=== PATIENT | female | born 1930 | race Caucasian/White ===

== ENCOUNTER → 2017-03-03 | Outpatient (CLI) | payer MEDICARE ==
[~2017-03-03] MED LIST: ALEN70TA47 PO; AMLO5TAB2 PO; ASP81TEC PO; CALC-80 PO; CLON1TAB3 PO; CLON2TAB3 PO; CYAN500T44 PO; DOCU-161 PO; FLC150T PO; FNT25TD TD; GABA-488 PO; GBPN100C PO; GLUC100016 PO; GLUCOSAMINE; HYDR-3583 PO; HYDR-3720 PO; HYDR-3820 PO; HYDR-757 PO; IBP200T PO; LEVO100T7 PO; LOSA100T7 PO; LUTE10TA PO; LVT.1T PO; MULT-608 PO; OMEG10005 PO; PRED10TA PO; RIVA10TA PO; ROSU10TA12 PO; SENN-1 PO; SENN1TAB76 PO; SPIR25TA3 PO
== END ==
LOC: CARD 14:23
PROVIDERS: ATTEND Nurse Practitioner Family
DX: R00.0 Tachycardia, unspecified (principal)
CPT/HCPCS: 93005

== ENCOUNTER → 2017-03-24 | Outpatient (CLI) | payer MEDICARE ==
[2017-03-24 09:56] LABS: ALBUMIN 4.1 GM/DL (3.2-4.5); CALCIUM 9.7 MG/DL (8.5-10.1); CREATININE SERUM 1.11 MG/DL (0.60-1.30); PHOSPHORUS 3.3 MG/DL (2.3-4.7); POTASSIUM 4.5 MMOL/L (3.6-5.0)
== END ==
LOC: CARD 09:16
PROVIDERS: ATTEND Internal Medicine Interventional Cardiology
DX: I48.1 Persistent atrial fibrillation (principal); I12.9 Hypertensive chronic kidney disease with stage 1 through stage 4 chronic kidney disease, or unspecified chronic kidney disease; N18.9 Chronic kidney disease, unspecified; E78.00 Pure hypercholesterolemia, unspecified
CPT/HCPCS: 36415; 80069; 93306

== ENCOUNTER → 2017-04-13 | Outpatient (CLI) | payer MEDICARE ==
[~2017-04-13] MED LIST changes: +CATHETER FLUSH 10 ML SYR IV PRN; +REGADENOSON 0.4 MG/5 ML SYR (LEXISCAN) IV ONE
[2017-04-13 09:32] VITALS: BP 158/97
--- NOTE | 2017-04-13 22:52 | STRESS TEST ---
DATE OF SERVICE: 04/13/2017 PHARMACOLOGICAL NUCLEAR STRESS TEST REPORT PRIMARY PHYSICIAN: Dr. Cinthia Soto. INDICATION: Shortness of breath, persistent atrial fibrillation, hypercholesterolemia, hypertension. PROCEDURE DETAILS: The patient was brought to the stress lab after informed consent was taken. Lexiscan stress test was performed according to the protocol. 0.4 mg of Lexiscan was given IV. Baseline rhythm was atrial fibrillation with right bundle branch block. Heart rate was 110 BPM. Blood pressure was 158/97 mmHg. Maximum heart rate was 147 BPM and blood pressure was 161/99 mmHg. 10.78 mCi of Myoview were given for rest imaging and 31.2 mCi of Myoview were given for stress imaging. TID 1.15, ejection fraction is 67%. Normal perfusion during rest and stress imaging. No wall motion abnormalities. IMPRESSION/CONCLUSION: 1. Pharmacological stress test is negative for ischemia. 2. Normal perfusion during rest and stress imaging. 3. Normal left ventricular function and no wall motion abnormalities. Job ID: [id number] DocumentID: [id number] Dictated Date: 04/13/2017 11:40:13 Plastics Repairer Date: 04/13/2017 13:00:00 Dictated By: GWENDOLYN SEWELL MD
== END ==
LOC: CARD 07:39
PROVIDERS: ATTEND Internal Medicine Interventional Cardiology
DX: R06.02 Shortness of breath (principal); I48.1 Persistent atrial fibrillation; I10 Essential (primary) hypertension; E78.00 Pure hypercholesterolemia, unspecified
CPT/HCPCS: 78452; 93017

== ENCOUNTER 2017-05-18 06:56 | Day surgery (SDC) | payer MEDICARE ==
[~2017-05-18] VITALS: Ht 165.1 cm; Wt 79.4 kg
[2017-05-18] VITALS (8 sets, daily range): BP systolic 95–126; BP diastolic 56–75
[~2017-05-18 06:56] MED LIST changes: -CATHETER FLUSH 10 ML SYR IV PRN; -REGADENOSON 0.4 MG/5 ML SYR (LEXISCAN) IV ONE
[2017-05-18] MEDS ORDERED: NS IV 1000 ML 1,000 ML ONE (07:13)
[2017-05-18] MEDS ORDERED: NS IV 1000 ML 1,000 ML IV SCH (07:16)
[2017-05-18 07:46] LABS: HEMOGLOBIN 13.9 G/DL (11.5-16.0); MEAN PLATELET VOLUME 10.9 FL (7.4-10.4); RED BLOOD COUNT 4.66 10^6/uL (4.35-5.85); RED CELL DISTRIBUTION WIDTH 14.6 % (10.0-14.5); WHITE BLOOD COUNT 6.9 10^3/uL (4.3-11.0)
[2017-05-18 08:00] LABS: INR 1.9 (0.8-1.4); PROTHROMBIN TIME PATIENT 21.8 SEC (12.2-14.7)
[2017-05-18 08:07] LABS: BILIRUBIN,TOTAL 0.6 MG/DL (0.1-1.0); CALCIUM 9.9 MG/DL (8.5-10.1); CREATININE SERUM 1.21 MG/DL (0.60-1.30); POTASSIUM 4.5 MMOL/L (3.6-5.0); TOTAL PROTEIN 7.3 GM/DL (6.4-8.2)
[2017-05-18] MEDS ORDERED: ATOR10TA66 PO (08:37)
[2017-05-18] MEDS ORDERED: CLON1TAB3 PO (08:37)
[2017-05-18] MEDS ORDERED: METO-370 PO (08:38)
[2017-05-18] MEDS ORDERED: LEVO100T7 PO ×2 (08:39)
[2017-05-18] MEDS ORDERED: RIVA20TA PO (08:40)
[2017-05-18] MEDS ORDERED: MIDAZOLAM 5 MG/5 ML (VERSED) VIAL ONE (09:21)
[2017-05-18] MEDS ORDERED: proPOfol 200 MG/20 ML (DIPRIVAN) VIAL IV ONE (09:21)
[2017-05-18] MEDS ORDERED: fentaNYL INJECTION 100 MCG/2 ML AMP ONE (09:22)
--- NOTE | 2017-05-18 09:39 | Progress Note-Standard ---
Standard Progress Note Progress Notes/Assess & Plan Date Seen by Provider: May 18, 2017 Time Seen by Provider: 09:30 Progress/Assessment & Plan consult for sedation. 2mg versed and 40mg propofol given iv. tolerated procedure well ... start time 929 end time 32 MARLENA DC CRNA May 18, 2017 09:39
--- NOTE | 2017-05-18 13:46 | Cardiology Post Procedure Note ---
Post-Procedure Note Physician (s)/Metal Ceiling Builder (s) Physician Olena SEWELL MD Pre-Procedure Diagnosis Pre-Procedure Diagnosis: Atrial fibrillation with rapid ventricular rate Post-Procedure Note Procedure Start Date: May 18, 2017 Procedure Start Time: 09:15 Name of Procedure: Direct external electrical cardioversion Findings/Procedure Note successful cardioversion with a single 200 J synchronized shock which converted the patient to sinus rhythm. Estimated blood loss (mL): 0 Contrast Amount: 0 Post-Procedure Diagnosis Post-operative diagnosis: Successful cardioversion of atrial fibrillation with rapid ventricular rate to sinus rhythm. Olena SEWELL MD May 18, 2017 1:46 pm
--- OUTSIDE RECORDS SUMMARY | 2017-05-18 20:03 | XMS REPORT | Continuity of Care Document ---
Author Author [facility] Organization [facility] Address Unknown Phone Unavailable Allergies Active Description Code Type Severity Reaction Onset Reported/Identified Relationship to Patient Clinical Status Yes NKANo Known Allergies NKA Miscellaneous Allergy Unknown N/A 08/05/2012 Medications There is no data. Problems Date Dx Coded Attending Type Code Diagnosis Diagnosed By 08/24/2011 Ot 244.9 HYPOTHYROIDISM NOS 08/24/2011 Ot 272.4 HYPERLIPIDEMIA NEC/NOS 08/24/2011 Ot 275.41 HYPOCALCEMIA 08/24/2011 Ot 276.8 HYPOPOTASSEMIA 08/24/2011 Ot 285.1 AC POSTHEMORRHAG ANEMIA 08/24/2011 Ot 288.60 LEUKOCYTOSIS , UNSPECIFIED 08/24/2011 Ot 300.00 ANXIETY STATE NOS 08/24/2011 Ot 401.9 HYPERTENSION NOS 08/24/2011 Ot 433.10 CAROTID ARTERY OCCLUSION W O CEREBRAL IN 08/24/2011 Ot 443.9 PERIPH VASCULAR DIS NOS 08/24/2011 Ot 564.00 UNSPEC CONSTIPATION 08/24/2011 Ot 733.00 OSTEOPOROSIS NOS 08/24/2011 Ot 820.21 INTERTROCHANTERIC FX-CL 08/24/2011 Ot E000.8 OTHER EXTERNAL CAUSE STATUS 08/24/2011 Ot E006.3 ACTIVITIES INVOLVING BOWLING 08/24/2011 Ot E849.6 ACCIDENT IN PUBLIC BLDG 08/24/2011 Ot E885.9 FALL FROM SLIPPING, TRIPPING, OR STUMBLI 08/24/2011 Ot V03.82 PROPHYLACTIC VACC AGAINST STREPTOCOCCUS 09/01/2011 Ot 244.9 HYPOTHYROIDISM NOS 09/01/2011 Ot 272.4 HYPERLIPIDEMIA NEC/NOS 09/01/2011 Ot 285.9 ANEMIA NOS 09/01/2011 Ot 300.00 ANXIETY STATE NOS 09/01/2011 Ot 401.9 HYPERTENSION NOS 09/01/2011 Ot 564.00 UNSPEC CONSTIPATION 09/01/2011 Ot 733.00 OSTEOPOROSIS NOS 09/01/2011 Ot 782.3 EDEMA 09/01/2011 Ot V54.13 AFTERCARE HEALING TRAUMATIC FX HIP 09/01/2011 Ot V57.1 PHYSICAL THERAPY NEC 09/01/2011 Ot V57.21 ENCOUNTER FOR OCCUPATIONAL THERAPY 01/12/2012 Ot V57.89 REHABILITATION PROC NEC 01/12/2012 Ot V58.43 AFTERCARE POST SURGERY INJURY/TRAUMA 05/16/2012 Ot 996.79 OTH COMP DUE TO OTH INTRNL PROSTHETIC DE 05/16/2012 Ot V57.1 PHYSICAL THERAPY NEC 05/16/2012 Ot V58.69 OTH MED,LT, CURRENT USE 08/05/2012 Ot 244.9 HYPOTHYROIDISM NOS 08/05/2012 Ot 401.9 HYPERTENSION NOS 08/05/2012 Ot 698.1 PRURITUS OF GENITALIA 08/05/2012 Ot 824.8 FX ANKLE NOS- CLOSED 08/05/2012 Ot E000.8 OTHER EXTERNAL CAUSE STATUS 08/05/2012 Ot E849.0 ACCIDENT IN HOME 08/05/2012 Ot E888.9 FALL NOS 08/14/2012 Ot 244.9 HYPOTHYROIDISM NOS 08/14/2012 Ot 272.4 HYPERLIPIDEMIA NEC/NOS 08/14/2012 Ot 300.00 ANXIETY STATE NOS 08/14/2012 Ot 401.9 HYPERTENSION NOS 08/14/2012 Ot 443.9 PERIPH VASCULAR DIS NOS 08/14/2012 Ot 564.00 UNSPEC CONSTIPATION 08/14/2012 Ot 698.1 PRURITUS OF GENITALIA 08/14/2012 Ot 733.00 OSTEOPOROSIS NOS 08/14/2012 Ot V15.82 HISTORY OF TOBACCO USE 08/14/2012 Ot V54.16 AFTERCARE HEALING TRAUMATIC FX LOWER LEG 08/14/2012 Ot V57.1 PHYSICAL THERAPY NEC 08/14/2012 Ot V57.21 ENCOUNTER FOR OCCUPATIONAL THERAPY 11/23/2012 JOHN BASILIO DO Ot V54.16 AFTERCARE HEALING TRAUMATIC FX LOWER LEG 11/23/2012 JOHN BASILIO DO Ot V57.1 PHYSICAL THERAPY NEC 05/26/2014 MARTIN LEONG APRN Ot 708.9 URTICARIA NOS 05/26/2014 MARTIN LEONG APRN Ot 782.1 NONSPECIF SKIN ERUPT NEC 05/26/2014 Ot 733.90 05/26/2014 Ot 793.81 03/11/2015 Ot 611.72 03/11/2015 Ot V76.12 03/11/2015 Ot V76.12 03/11/2015 Ot 996.79 03/11/2015 Ot V72.83 03/11/2015 Ot V74.8 03/11/2015 Ot 623.5 03/11/2015 Ot 625.8 03/11/2015 Ot 401.9 03/11/2015 Ot 625.8 03/11/2015 Ot 729.92 03/11/2015 JESSY WORTHY, MELVA Roberts Ot V76.12 03/11/2015 JESSY WORTHY, MELVA Roberts Ot 724.5 03/11/2015 JESSY WORTHY, MELVA Roberts Ot 736.81 03/11/2015 JESSY WORTHY, MELVA Roberts Ot V15.51 03/11/2015 JAYCEE BAH DO Ot 627.1 03/11/2015 MELVA JIMÉNEZ MD Ot 719.45 03/11/2015 MELVA JIMÉNEZ MD Ot 719.46 03/11/2015 MELVA JIMÉNEZ MD Ot 724.2 03/11/2015 GERHARD ZULETA DO Ot 724.4 03/11/2015 BARBARA RODRIGUEZ ELECTRONIC WARFARE OPERATOR Ot V76.12 04/06/2015 MELVA JIMÉNEZ MD Ot Z12.31 07/22/2015 BRIGITTE BENITO MD Ot E03.9 HYPOTHYROIDISM, UNSPECIFIED 07/22/2015 BRIIGTTE BENITO MD Ot E78.0 PURE HYPERCHOLESTEROLEMIA 07/22/2015 BRIGITTE BENITO MD Ot F41.9 ANXIETY DISORDER, UNSPECIFIED 07/22/2015 BRIGITTE BENITO MD Ot I10 ESSENTIAL (PRIMARY) HYPERTENSION 07/22/2015 BRIGITTE BENITO MD Ot 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, RIGHT SHOULDER 07/22/2015 BRIGITTE BENITO MD Ot S42.141A 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[place], [place] 07/22/2015 BRIGITTE BENITO MD Ot S42.209A UNSP FRACTURE OF UPPER END OF UNSP HUMER 07/22/2015 BRIGITTE BENITO MD Ot S52.501A UNSP FRACTURE OF THE LOWER END OF RIGHT 07/22/2015 BRIGITTE BENITO MD Ot S52.601A UNSP FRACTURE OF LOWER END OF RIGHT ULNA 07/22/2015 BRIGITTE BENITO MD Ot W19.XXXA UNSPECIFIED FALL, INITIAL ENCOUNTER 07/22/2015 BRIGITTE BENITO MD Ot Y92.[address] IN OTH NON-INSTITUTIONAL RESI 07/22/2015 BRIGITTE BENITO MD Ot Z87.891 PERSONAL HISTORY OF NICOTINE DEPENDENCE 07/22/2015 BRIGITTE BENITO MD Ot Z90.49 ACQUIRED ABSENCE OF OTHER SPECIFIED PART 04/11/2016 Ot V76.12 OTH SCREEN MAMMO-MALIGN NEOPLASM OF [place] 04/11/2016 Ot 996.79 OTH COMP DUE TO OTH INTRNL PROSTHETIC DE 04/11/2016 Ot V72.83 EXAM PRE- OPERATIVE NEC 04/11/2016 Ot V74.8 SCREEN- BACTERIAL DIS NEC 04/11/2016 Ot 623.5 NONINFECT VAG LEUKORRHEA 04/11/2016 Ot 625.8 FEM GENITAL SYMPTOMS NEC 04/11/2016 Ot 401.9 HYPERTENSION NOS 04/11/2016 Ot 625.8 FEM GENITAL SYMPTOMS NEC 04/11/2016 Ot 729.92 NONTRAUMATIC HEMATOMA OF SOFT TISSUE 04/11/2016 MELVA JIMÉNEZ MD Ot V76.12 OTH SCREEN MAMMO-MALIGN NEOPLASM OF [place] 04/11/2016 MELVA JIMÉNEZ MD Ot 724.5 BACKACHE NOS 04/11/2016 MELVA JIMÉNEZ MD Ot 736.81 UNEQUAL LEG LENGTH 04/11/2016 MELVA JIMÉNEZ MD Ot V15.51 PERSONAL HISTORY OF TRAUMATIC FRACTURE 04/11/2016 JAYCEE BAH DO Ot 627.1 POSTMENOPAUSAL BLEEDING 04/11/2016 MELVA JIMÉNEZ MD Ot 719.45 JOINT PAIN-PELVIS 04/11/2016 MELVA JIMÉNEZ MD Ot 719.46 JOINT PAIN-L/LEG 04/11/2016 MELVA JIMÉNEZ MD Ot 724.2 LUMBAGO 04/11/2016 GERHARD ZULETA DO Ot 724.4 LUMBOSACRAL NEURITIS NOS 04/11/2016 BARBARA RODRIGUEZ Ot V76.12 OTH SCREEN MAMMO-MALIGN NEOPLASM OF [place] 04/11/2016 MELVA JIMÉNEZ MD Ot Z12.31 ENCNTR SCREEN MAMMOGRAM FOR MALIGNANT NE 04/11/2016 VALARIE SHELBY APRN Ot Z12.31 ENCNTR SCREEN MAMMOGRAM FOR MALIGNANT NE 04/12/2016 VALARIE SHELBY COMMUNITY OUTREACH SPECIALIST Ot Z12.31 ENCNTR SCREEN MAMMOGRAM FOR MALIGNANT NE 04/12/2016 VALARIE SHELBY COMMUNITY OUTREACH SPECIALIST Ot Z12.31 ENCNTR SCREEN MAMMOGRAM FOR MALIGNANT NE 05/05/2016 VALARIE SHELBY COMMUNITY OUTREACH SPECIALIST Ot Z12.31 ENCNTR SCREEN MAMMOGRAM FOR MALIGNANT NE 03/03/2017 JESSY WORTHY, MELVA Roberts Ot Z12.31 ENCNTR SCREEN MAMMOGRAM FOR MALIGNANT NE 03/03/2017 VALARIE SHELBY COMMUNITY OUTREACH SPECIALIST Ot Z12.31 ENCNTR SCREEN MAMMOGRAM FOR MALIGNANT NE 03/06/2017 BARBARA RODRIGUEZ ELECTRONIC WARFARE OPERATOR Ot R00.0 TACHYCARDIA, UNSPECIFIED 03/09/2017 BARBARA RODRIGUEZ ELECTRONIC WARFARE OPERATOR Ot R00.0 TACHYCARDIA, UNSPECIFIED 03/27/2017 BARBARA RODRIGUEZ ELECTRONIC WARFARE OPERATOR Ot R00.0 TACHYCARDIA, UNSPECIFIED 04/12/2017 BARBARA RODRIGUEZ ELECTRONIC WARFARE OPERATOR Ot R00.0 TACHYCARDIA, UNSPECIFIED 04/18/2017 Olena SEWELL MD Ot E78.00 PURE HYPERCHOLESTEROLEMIA, UNSPECIFIED 04/18/2017 Olena SEWELL MD Ot I12.9 HYPERTENSIVE CHRONIC KIDNEY DISEASE W ST 04/18/2017 Olena SEWELL MD Ot I48.1 PERSISTENT ATRIAL FIBRILLATION 04/18/2017 Olena SEWELL MD Ot N18.9 CHRONIC KIDNEY DISEASE, UNSPECIFIED 05/04/2017 Olena SEWELL MD Ot E78.00 PURE HYPERCHOLESTEROLEMIA, UNSPECIFIED 05/04/2017 Olena SEWELL MD Ot I10 ESSENTIAL (PRIMARY) HYPERTENSION 05/04/2017 Olena SEWELL MD Ot I48.1 PERSISTENT ATRIAL FIBRILLATION 05/04/2017 Olena SEWELL MD Ot R06.02 SHORTNESS OF BREATH 05/09/2017 Olena SEWELL MD Ot E78.00 PURE HYPERCHOLESTEROLEMIA, UNSPECIFIED 05/09/2017 Olena SEWELL MD Ot I12.9 HYPERTENSIVE CHRONIC KIDNEY DISEASE W ST 05/09/2017 Olena SEWELL MD Ot I48.1 PERSISTENT ATRIAL FIBRILLATION 05/09/2017 Olena SEWELL MD Ot N18.9 CHRONIC KIDNEY DISEASE, UNSPECIFIED Procedures Code Description Performed By Performed On 79.15 CLOSED RED-INT FIX FEMUR 08/18/2011 [id number] REPOSITION RIGHT SHOULDER JOINT, EXTERNA 07/20/2015 [id number] IMMOBILIZATION OF RIGHT LOWER ARM USING 07/20/2015 Results Test Result Range Serum or plasma renal function panel (Na, K, Cl, CO2, BUN, Cr, glucose,Ca, phos , alb) - 03/24/17 09:33 Serum or plasma sodium measurement (moles/volume) 139 mmol/L 135-145 Serum or plasma potassium measurement (moles/volume) 4.5 mmol/L 3.6-5.0 Serum or plasma chloride measurement (moles/volume) 107 mmol/L 98-107 Carbon dioxide 23 mmol/L 21-32 Serum or plasma anion gap determination (moles/volume) 9 mmol/L 5-14 Serum or plasma urea nitrogen measurement (mass/volume) 25 mg/dL 7-18 Serum or plasma creatinine measurement (mass/volume) 1.11 mg/dL 0.60-1.30 Serum or plasma urea nitrogen/creatinine mass ratio 23 NRG Serum or plasma creatinine measurement with calculation of estimated glomerular filtration rate 47 NRG Serum or plasma glucose measurement (mass/volume) 110 mg/dL 70-105 Serum or plasma calcium measurement (mass/volume) 9.7 mg/dL 8.5-10.1 Serum or plasma albumin measurement (mass/volume) 4.1 g/dL 3.2-4.5 Serum or plasma phosphate measurement (mass/volume) 3.3 mg/dL 2.3-4.7 Automated blood complete blood count (hemogram) panel - 05/18/17 07:30 Blood leukocytes automated count (number/volume) 6.9 10*3/uL 4.3-11.0 Blood erythrocytes automated count (number/volume) 4.66 10*6/uL 4.35-5.85 Venous blood hemoglobin measurement (mass/volume) 13.9 g/dL 11.5-16.0 Blood hematocrit (volume fraction) 41 % 35-52 Automated erythrocyte mean corpuscular volume 88 [foz_us] 80-99 Automated erythrocyte mean corpuscular hemoglobin (mass per erythrocyte) 30 pg 25-34 Automated erythrocyte mean corpuscular hemoglobin concentration measurement ( mass/volume) 34 g/dL 32-36 Automated erythrocyte distribution width ratio 14.6 % 10.0-14.5 Automated blood platelet count (count/volume) 245 10*3/uL 130-400 Automated blood platelet mean volume measurement 10.9 [foz_us] 7.4-10.4 PT panel in platelet poor plasma by coagulation assay - 05/18/17 07:30 Prothrombin time (PT) in platelet poor plasma by coagulation assay 21.8 s 12.2-14.7 INR in platelet poor plasma or blood by coagulation assay 1.9 0.8-1.4 Activated partial thromboplastin time (aPTT) in platelet poor plasma bycoagulation assay - 05/18/17 07:30 Activated partial thromboplastin time (aPTT) in platelet poor plasma bycoagulation assay 41 s 24-35 Comprehensive metabolic panel - 05/18/17 07:30 Serum or plasma sodium measurement (moles/volume) 138 mmol/L 135-145 Serum or plasma potassium measurement (moles/volume) 4.5 mmol/L 3.6-5.0 Serum or plasma chloride measurement (moles/volume) 105 mmol/L 98-107 Carbon dioxide 21 mmol/L 21-32 Serum or plasma anion gap determination (moles/volume) 12 mmol/L 5-14 Serum or plasma urea nitrogen measurement (mass/volume) 33 mg/dL 7-18 Serum or plasma creatinine measurement (mass/volume) 1.21 mg/dL 0.60-1.30 Serum or plasma urea nitrogen/creatinine mass ratio 27 NRG Serum or plasma creatinine measurement with calculation of estimated glomerular filtration rate 42 NRG Serum or plasma glucose measurement (mass/volume) 110 mg/dL 70-105 Serum or plasma calcium measurement (mass/volume) 9.9 mg/dL 8.5-10.1 Serum or plasma total bilirubin measurement (mass/volume) 0.6 mg/dL 0.1-1.0 Serum or plasma alkaline phosphatase measurement (enzymatic activity/volume) 57 U/L 40-136 Serum or plasma aspartate aminotransferase measurement (enzymatic activity/ volume) 21 U/L 5-34 Serum or plasma alanine aminotransferase measurement (enzymatic activity/volume ) 15 U/L 0-55 Serum or plasma protein measurement (mass/volume) 7.3 g/dL 6.4-8.2 Serum or plasma albumin measurement (mass/volume) 4.0 g/dL 3.2-4.5 Encounters ACCT No. Visit Date/Time Discharge Status Pt. Type Provider Facility Loc./Unit Complaint [id number] 04/13/2017 07:39:00 04/13/2017 23:59:59 CLS Outpatient Olena SEWELL MD [facility] CARD SOB [id number] 03/24/2017 09:16:00 03/24/2017 23:59:59 CLS Outpatient Olena SEWELL MD [facility] CARD CKD [id number] 03/03/2017 14:23:00 03/03/2017 23:59:59 CLS Outpatient BARBARA RODRIGUEZ [facility] CARD TACHYCARDIA [id number] 04/11/2016 14:51:00 04/11/2016 23:59:59 CLS Outpatient VALARIE SEHLBY APRN [facility] RAD SCREENING [id number] 07/20/2015 23:00:00 07/22/2015 14:15:00 DIS Inpatient BRIGITTE BENITO MD [facility] 4TH RT SHOULDER DISLOCATION W /FX,RT DIST RADIUS/ULNA F [id number] 03/11/2015 14:29:00 03/11/2015 23:59:59 CLS Outpatient MELVA JIMÉNEZ MD [facility] RAD SCREENING [id number] 05/26/2014 19:06:00 05/26/2014 20:10:00 DIS Emergency MARTIN LEONG COMMUNITY OUTREACH SPECIALIST [facility] ER RASH ALL OVER BODY;POSS INSECT BITE [id number] 02/06/2014 13:54:00 02/06/2014 23:59:59 CLS Outpatient BARBARA RODRIGUEZ [facility] RAD SCREENING [id number] 02/04/2014 09:46:00 02/04/2014 23:59:59 CLS Outpatient GERHARD ZULETA DO [facility] RAD LUMBAR RADICULOPATHY [id number] 01/01/2014 13:46:00 01/01/2014 23:59:59 CLS Outpatient MELVA JIMÉNEZ MD [facility] RAD KNEE AND HIP PAIN AND LOW BACK PAIN [id number] 03/14/2013 13:16:00 03/14/2013 23:59:59 CLS Outpatient JAYCEE BAH DO [facility] RAD POSTMENOPAUSAL BLEEDING [id number] 02/06/2013 15:05:00 02/06/2013 23:59:59 CLS Outpatient MELVA JIMÉNEZ MD [facility] RAD BACK PAIN HX OF FX [id number] 01/28/2013 15:03:00 01/28/2013 23:59:59 CLS Outpatient MELVA JIMÉNEZ MD [facility] RAD SCREENING [id number] 11/12/2012 13:11:00 11/23/2012 10:15:00 DIS Outpatient CHETNA DORAN JOHN Caceres [facility] REHAB R TIB/FIB FX [id number] 05/18/2017 07:46:00 Document Registration [id number] 08/05/2012 13:47:00 Document Registration [id number] 08/03/2012 08:50:00 Document Registration [id number] 06/04/2012 16:45:00 Document Registration [id number] 05/14/2012 06:48:00 Document Registration [id number] 05/10/2012 08:47:00 Document Registration [id number] 04/27/2012 09:53:00 Document Registration [id number] 04/25/2012 08:20:00 Document Registration [id number] 04/23/2012 11:57:00 Document Registration [id number] 01/13/2012 13:21:00 Document Registration [id number] 01/12/2012 14:43:00 Document Registration [id number] 08/24/2011 15:30:00 Document Registration [id number] 08/17/2011 20:29:00 Document Registration [id number] 10/13/2010 13:47:00 Document Registration [id number] 09/23/2009 13:12:00 Document Registration [id number] 03/18/2009 11:09:00 Document Registration [id number] 01/23/2009 13:18:00 Document Registration
--- NOTE | 2017-05-19 03:50 | OPERATIVE REPORT ---
DATE OF SERVICE: 05/18/2017 DIRECT EXTERNAL ELECTRICAL CARDIOVERSION PRIMARY CARE PHYSICIAN: Cinthia Soto MD. INDICATION: Atrial fibrillation with rapid ventricular rate. PROCEDURE DETAILS: The patient was brought to the cardiac center after informed consent was taken. All risks and complications were explained including risk of stroke. The patient was on uninterrupted therapy with Xarelto for at least the last 1 month. She did not miss even a single dose. With anesthesia help, we performed one external shock with 200 joules synchronized, which converted her promptly into sinus rhythm. She had no neurological complications. CONCLUSION: 1. Successful external electrical cardioversion of atrial fibrillation with rapid ventricular rate to sinus rhythm. 2. No neurological complication. 3. Continue Xarelto and rate controlling agents. 4. Follow up in the cardiology office in one week. Job ID: [id number] DocumentID: [id number] Dictated Date: 05/18/2017 16:19:04 Automobile Tester Date: 05/19/2017 01:41:08 Dictated By: GWENDOLYN SEWELL MD
== END 2017-05-18 10:44 | disposition home or self-care (01) ==
LOC: CATH 06:56
PROVIDERS: ATTEND Internal Medicine Interventional Cardiology
DX: I48.0 Paroxysmal atrial fibrillation (principal); I12.9 Hypertensive chronic kidney disease with stage 1 through stage 4 chronic kidney disease, or unspecified chronic kidney disease; N18.9 Chronic kidney disease, unspecified; E78.5 Hyperlipidemia, unspecified; E03.9 Hypothyroidism, unspecified; I65.21 Occlusion and stenosis of right carotid artery; Z79.01 Long term (current) use of anticoagulants; Z79.82 Long term (current) use of aspirin; Z79.899 Other long term (current) drug therapy
CPT/HCPCS: 36415; 80053; 85027; 85610; 85730; 87081; 92960; 93005

== ENCOUNTER 2017-05-19 13:49 | Observation (INO) | payer MEDICARE ==
[~2017-05-19] VITALS: Ht 162.6 cm; Wt 54.4 kg
[~2017-05-19 13:49] MED LIST changes: +ATOR10TA66 PO; +METO-370 PO; +RIVA20TA PO
--- OUTSIDE RECORDS SUMMARY | 2017-05-19 13:56 | XMS REPORT | Continuity of Care Document ---
Author Author [facility] Organization [facility] Address Unknown Phone Unavailable Allergies Active Description [...] ZULETA DO Ot 724.4 03/11/2015 BARBARA RODRIGUEZ PLANT OPERATIONS ENGINEER Ot V76.12 04/06/2015 MELVA JIMÉNEZ MD Ot Z12.31 07/22/2015 BRIGITTE BENITO MD Ot E03.9 HYPOTHYROIDISM, UNSPECIFIED 07/22/2015 BRIGITTE BENITO MD Ot E78.0 PURE HYPERCHOLESTEROLEMIA 07/22/2015 [...] JIMÉNEZ MD Ot 719.45 JOINT PAIN-PELVIS 04/11/2016 EMLVA JIMÉNEZ MD Ot 719.46 JOINT PAIN-L/LEG 04/11/2016 MELVA JIMÉNEZ MD Ot 724.2 LUMBAGO 04/11/2016 GERHARD ZULETA DO Ot 724.4 LUMBOSACRAL NEURITIS NOS 04/11/2016 BARBARA RODRIGUEZ Ot V76.12 OTH SCREEN MAMMO-MALIGN NEOPLASM OF [place] 04/11/2016 MELVA JIMÉNEZ MD Ot Z12.31 ENCNTR SCREEN MAMMOGRAM FOR MALIGNANT NE 04/11/2016 VALARIE SHELBY APRN Ot Z12.31 ENCNTR SCREEN MAMMOGRAM FOR MALIGNANT NE 04/12/2016 VALARIE SHELBY FIELD SUPPORT SPECIALIST Ot Z12.31 ENCNTR SCREEN MAMMOGRAM FOR MALIGNANT NE 04/12/2016 VALARIE SHELBY FIELD SUPPORT SPECIALIST Ot Z12.31 ENCNTR SCREEN MAMMOGRAM FOR MALIGNANT NE 05/05/2016 VALARIE SHELBY FIELD SUPPORT SPECIALIST Ot Z12.31 ENCNTR SCREEN MAMMOGRAM FOR MALIGNANT NE 03/03/2017 JESSY WORTHY, MELVA Roberts Ot Z12.31 ENCNTR SCREEN MAMMOGRAM FOR MALIGNANT NE 03/03/2017 VALARIE SHELBY FIELD SUPPORT SPECIALIST Ot Z12.31 ENCNTR SCREEN MAMMOGRAM FOR MALIGNANT NE 03/06/2017 BARBARA RODRIGUEZ PLANT OPERATIONS ENGINEER Ot R00.0 TACHYCARDIA, UNSPECIFIED 03/09/2017 BARBARA RODRIGUEZ PLANT OPERATIONS ENGINEER Ot R00.0 TACHYCARDIA, UNSPECIFIED 03/27/2017 BARBARA RODRIGUEZ PLANT OPERATIONS ENGINEER Ot R00.0 TACHYCARDIA, UNSPECIFIED 04/12/2017 BARBARA RODRIGUEZ PLANT OPERATIONS ENGINEER Ot R00.0 TACHYCARDIA, UNSPECIFIED 04/18/2017 Olena SEWELL [...] [id number] REPOSITION RIGHT SHOULDER JOINT, EXTERNA 07/20/2015 [id number] IMMOBILIZATION OF RIGHT LOWER ARM USING 07/20/2015 [...] plasma albumin measurement (mass/volume) 4.0 g/dL 3.2-4.5 Methicillin resistant Staphylococcus aureus (MRSA) screening culture - 07:30 Methicillin resistant Staphylococcus aureus (MRSA) screening culture NEG NRG Encounters ACCT No. Visit Date/Time Discharge Status Pt. Type Provider Facility Loc./Unit Complaint [id number] 05/18/2017 06:56:00 05/18/2017 10:44:00 DIS Outpatient Olena SEWELL MD [facility] CATH AFIB W RVR [id number] 04/13/2017 07:39:00 04/13/2017 23:59:59 CLS Outpatient Olena SEWELL MD [facility] CARD SOB [id number] 03/24/2017 09:16:00 03/24/2017 23:59:59 CLS Outpatient Olena SEWELL MD [facility] CARD CKD [id number] 03/03/2017 14:23:00 03/03/2017 23:59:59 CLS Outpatient BARBARA RODRIGUEZ [facility] CARD TACHYCARDIA [id number] 04/11/2016 14:51:00 04/11/2016 23:59:59 CLS Outpatient VALARIE SHELBY APRN [facility] RAD SCREENING [id number] 07/20/2015 23:00:00 07/22/2015 14:15:00 DIS Inpatient BRIGITTE BENITO MD [facility] 4TH RT SHOULDER DISLOCATION W /FX,RT DIST RADIUS/ULNA F [id number] 03/11/2015 14:29:00 03/11/2015 23:59:59 CLS Outpatient MELVA JIMÉNEZ MD [facility] RAD SCREENING [id number] 05/26/2014 19:06:00 05/26/2014 20:10:00 DIS Emergency MARTIN LEONG FIELD SUPPORT SPECIALIST [facility] ER RASH ALL OVER BODY;POSS INSECT BITE [id number] 02/06/2014 13:54:00 02/06/2014 23:59:59 CLS Outpatient BARBARA RODRIGUEZ [facility] RAD SCREENING [id number] 02/04/2014 09:46:00 02/04/2014 23:59:59 CLS Outpatient GERHARD ZULETA DO [facility] RAD LUMBAR RADICULOPATHY [id number] 01/01/2014 13:46:00 01/01/2014 23:59:59 CLS Outpatient MELVA JIMÉNEZ MD [facility] RAD KNEE AND HIP PAIN AND LOW BACK PAIN [id number] 03/14/2013 13:16:00 03/14/2013 23:59:59 CLS Outpatient JAYCEE BAH DO S [facility] RAD POSTMENOPAUSAL BLEEDING [id number] 02/06/2013 15:05:00 02/06/2013 23:59:59 CLS Outpatient MELVA JIMÉNEZ MD [facility] RAD BACK PAIN HX OF FX [id number] 01/28/2013 15:03:00 01/28/2013 23:59:59 CLS Outpatient MELVA JIMÉNEZ MD [facility] RAD SCREENING [id number] 11/12/2012 13:11:00 11/23/2012 10:15:00 DIS Outpatient CHETNA DORAN JOHN Caceres [facility] REHAB R TIB/FIB FX [id number] 08/05/2012 13:47:00 Document Registration [id number] 08/03/2012 08:50:00 Document Registration [id number] 06/04/2012 16:45:00 Document Registration [id number] 05/14/2012 06:48:00 Document Registration [id number] 05/10/2012 08:47:00 Document Registration [id number] 04/27/2012 09:53:00 Document Registration [id number] 04/25/2012 08:20:00 Document Registration [id number] 04/23/2012 11:57:00 Document Registration [id number] 01/13/2012 13:21:00 Document Registration [id number] 01/12/2012 14:43:00 Document Registration [id number] 08/24/2011 15:30:00 Document Registration [id number] 08/17/2011 20:29:00 Document Registration [id number] 10/13/2010 13:47:00 Document Registration [id number] 09/23/2009 13:12:00 Document Registration [id number] 03/18/2009 11:09:00 Document Registration [id number] 01/23/2009 13:18:00 Document Registration
[2017-05-19 14:00] VITALS: BP 106/67
[2017-05-19 14:22] LABS: BASOPHILS # (AUTO) 0.1 10^3/uL (0.0-0.1); BASOPHILS % (AUTO) 1 % (0-10); EOSINOPHILS # (AUTO) 0.3 10^3/uL (0.0-0.3); EOSINOPHILS % (AUTO) 4 % (0-10); HEMATOCRIT 39 % (35-52); LYMPHOCYTES # (AUTO) 2.7 X 10^3 (1.0-4.0); LYMPHOCYTES % (AUTO) 35 % (12-44); MEAN CORPUSCULAR HEMOGLOBIN 30 PG (25-34); MEAN CORPUSCULAR HGB CONC 34 G/DL (32-36); MEAN CORPUSCULAR VOLUME 88 FL (80-99); MEAN PLATELET VOLUME 10.7 FL (7.4-10.4); MONOCYTES # (AUTO) 0.8 X 10^3 (0.0-1.0); MONOCYTES % (AUTO) 10 % (0-12); NEUTROPHILS % (AUTO) 51 % (42-75); PLATELET COUNT 248 10^3/uL (130-400); RED BLOOD COUNT 4.38 10^6/uL (4.35-5.85); RED CELL DISTRIBUTION WIDTH 14.7 % (10.0-14.5); WHITE BLOOD COUNT 7.9 10^3/uL (4.3-11.0)
[2017-05-19 14:34] LABS: INR 1.3 (0.8-1.4); PROTHROMBIN TIME PATIENT 16.5 SEC (12.2-14.7)
[2017-05-19 14:44] LABS: ALANINE AMINOTRANSFERASE 17 U/L (0-55); ALKALINE PHOSPHATASE 57 U/L (40-136); BILIRUBIN,TOTAL 0.6 MG/DL (0.1-1.0); BUN/CREATININE RATIO 20; CALCIUM 9.4 MG/DL (8.5-10.1); CARBON DIOXIDE 21 MMOL/L (21-32); CHLORIDE 105 MMOL/L (98-107); CREATININE SERUM 1.21 MG/DL (0.60-1.30); GFR ESTIMATED 42; GLUCOSE 132 MG/DL (70-105); POTASSIUM 4.4 MMOL/L (3.6-5.0); SODIUM 139 MMOL/L (135-145); TOTAL PROTEIN 7.2 GM/DL (6.4-8.2)
--- NOTE | 2017-05-19 14:54 | Diagnostic Imaging Report ---
INDICATION: Arterial catheterization and pain in the right upper extremity. Portable upright AP view of the chest is obtained with comparison made to study of 08/17/2011. FINDINGS: Heart size and pulmonary vascularity are within normal limits, and the lungs are clear, bilaterally. Evaluation of the right shoulder region is somewhat limited due to positioning although proper alignment at the glenohumeral joint cannot be confirmed. IMPRESSION: Somewhat unusual appearance of the right shoulder. Subluxation or dislocation is not excluded. Clinical correlation and possible shoulder radiographic followup would be of use. Dictated by: Dictated on workstation # [id number]
--- NOTE | 2017-05-19 15:07 | ED General ---
General Chief Complaint: Altered Mental Status Stated Complaint: WOBBLY,R ARM HURTS Nursing Triage Note: States that when she woke this am, felt unsteady on feet and pain in rt arm ( not new). Had art cath yesterday per rt brachial approach Nursing Sepsis Screen: No Definite Risk Source of Information: Patient Exam Limitations: No Limitations History of Present Illness Time Seen by Provider: 14:03 Initial Comments Here with report of balance problems and dexterity problems of the right arm. She had procedure done yesterday and the Security Sales Consultant. This apparently was cardioversion of atrial fibrillation which was effective. She only had an IV in the right arm and did not have a catheter. This morning, she woke up with the balance problems and had to use her cane and had the dexterity problems of the right arm when trying to do her crossword puzzle. She could not fill in the boxes with the right hand as she would typically. She does this every morning and this is the first time that she could not do that. Ultimately concerned her and eventually she drove herself to the ER. Denies breathing problems or chest pain or other concerns. Timing/Duration: Other (8 hours) Severity: Moderate Associated Systoms: No Chest Pain, No Cough, No Fever/Chills, No Nausea/ Vomiting, No Shortness of Air, Weakness Allergies and Home Medications Allergies Coded Allergies: NKANo Known Allergies (Verified Allergy, Unknown, 08/05/12) Home Medications Atorvastatin Calcium 10 Mg Tablet, 10 MG PO DAILY, (Reported) Calcium Carbonate/Vitamin D3 1 Each Tablet, 1 TAB PO BID, (Reported) Clonazepam 1 Mg Tablet, 0.5 MG PO DAILY PRN for SPASMS, (Reported) Glucosamine Sulfate 2Kcl 1,000 Mg Tablet, 1,000 MG PO DAILY, (Reported) Levothyroxine Sodium 100 Mcg Tablet, 100 MCG PO mon-fri, (Reported) Levothyroxine Sodium 100 Mcg Tablet, 150 MCG PO sat & sun, (Reported) Metoprolol Succinate 50 Mg Tab.er.24h, 50 MG PO BID, (Reported) Multivitamins 1 Tab Tablet, 1 TAB PO DAILY, (Reported) Rivaroxaban 20 Mg Tablet, 20 MG PO HS, (Reported) Spironolactone 25 Mg Tablet, 25 MG PO DAILY, (Reported) Constitutional: see HPI, No chills, No fever EENTM: no symptoms reported Respiratory: no symptoms reported, No short of breath, No wheezing Cardiovascular: No chest pain, No edema, Hx of Intervention Gastrointestinal: No abdominal pain, No nausea, No vomiting Genitourinary: no symptoms reported Musculoskeletal: no symptoms reported Skin: no symptoms reported All Other Systems Reviewed Negative Unless Noted: Yes Past Xqqzdom-Tsudms-Lkvlaf Hx Patient Social History Alcohol Use: Denies Use Recreational Drug Use: No Smoking Status: Former Smoker Type Used: Cigarettes Former Smoker, Quit: May 18, 1964 Recent Foreign Travel: No Contact w/Someone Who Travel: No Recent Infectious Disease Expo: No Recent Hopitalizations: Yes (heart cath 05/18/17) Physical Abuse: No Sexual Abuse: No Mistreated: No Fear: No Immunizations Up To Date Tetanus Booster (TDap): Unknown PED Vaccines UTD: Yes Date of Pneumonia Vaccine: May 18, 2015 Date of Influenza Vaccine: Feb 27, 2017 Surgeries History of Surgeries: Yes (COLON RESECTION, MASTOIDECTOMY,HIP pinning) Surgeries: Appendectomy, Gallbladder, Orthopedic, Tonsillectomy Respiratory History of Respiratory Disorde: No Cardiovascular History of Cardiac Disorders: Yes Cardiac Disorders: High Cholesterol, Hypertension Neurological History of Neurological Disord: No Reproductive System Hx Reproductive Disorders: Yes (had a d&c) Sexually Transmitted Disease: No HIV/AIDS: No Female Reproductive Disorders: Menstrual Problems Gastrointestinal History of Gastrointestinal Di: Yes (reports 12 inches of colon removed in past ) Gastrointestinal Disorders: Polyps Musculoskeletal History of Musculoskeletal Dis: Yes (fx-rhip, right ankle) Musculoskeletal Disorders: Fractures Endocrine History of Endocrine Disorders: Yes (HYPOTHYROIDISM) Endocrine Disorders: Hypothyroidsim HEENT HEENT Disorders: Cataract Loss of Vision: Denies Hearing Impairment: Deaf Cancer History of Cancer: No Psychosocial History of Psychiatric Problem: No Suicide Risk Score: 0 Integumentary History of Skin or Integumenta: No Blood Transfusions History of Blood Disorders: No Reviewed Nursing Assessment Reviewed/Agree w Nursing PMH: Yes Family Medical History Family Medial History: BRAIN Cardiovascular disease 19 FATHER G8 BROTHER Colon cancer 19 MOTHER FH: brain tumor Physical Exam Vital Signs Vital Sign - Last 12Hours 05/19/17 13:56 Temp 98.1 Pulse 72 Resp 18 B/P (MAP) 106/67 (80) Pulse Ox 94 Capillary Refill : Less Than 3 Seconds General Appearance: No Apparent Distress, WD/WN HEENT: PERRL/EOMI, Pharynx Normal Neck: Non Tender, Supple Respiratory: Lungs Clear, Normal Breath Sounds Cardiovascular: Regular Rate, Rhythm, No Murmur Gastrointestinal: Non Tender, Soft Back: Normal Inspection, No CVA Tenderness, No Vertebral Tenderness Extremity: Normal Range of Motion, Non Tender Neurologic/Psychiatric: Alert, Oriented x3, No Motor/Sensory Deficits Skin: Normal Color, Warm/Dry Patient Education: Explained Benefits, Explained Risks, Pt. Ack. Understanding Breath Sounds per Auscultation: Clear Heart Sounds per Auscultation: Regular Airway Exam: Mouth opens >2 fingers, Neck Full Range of Motion, Visulation of Uvula Re-examination Time: 2043 Progress/Results/Core Measures Suspected Sepsis Recent Fever Within 48 Hours: No Infection Criteria Present: None New/Unexplained Altered Menta: No Sepsis Screen: No Definite Risk Sepsis Diagnosis: SIRS Temperature:98.1 Pulse: 69 Respiratory Rate: 18 Laboratory Tests 05/19/17 14:13: White Blood Count 7.9 Blood Pressure 106 /67 Mean: 80 Laboratory Tests 05/19/17 14:13: Creatinine 1.21, INR Comment 1.3, Platelet Count 248, Total Bilirubin 0.6 Results/Orders Lab Results Laboratory Tests Test 05/19/17 14:13 05/19/17 14:56 Range/Units White Blood Count 7.9 4.3-11.0 10^3/uL Red Blood Count 4.38 4.35-5.85 10^6/uL Hemoglobin 13.0 11.5-16.0 G/DL Hematocrit 39 35-52 % Mean Corpuscular Volume 88 80-99 FL Mean Corpuscular Hemoglobin 30 25-34 PG Mean Corpuscular Hemoglobin Concent 34 32-36 G/DL Red Cell Distribution Width 14.7 H 10.0-14.5 % Platelet Count 248 130-400 10^3/uL Mean Platelet Volume 10.7 H 7.4-10.4 FL Neutrophils (%) (Auto) 51 42-75 % Lymphocytes (%) (Auto) 35 12-44 % Monocytes (%) (Auto) 10 0-12 % Eosinophils (%) (Auto) 4 0-10 % Basophils (%) (Auto) 1 0-10 % Neutrophils # (Auto) 4.0 1.8-7.8 X 10^3 Lymphocytes # (Auto) 2.7 1.0-4.0 X 10^3 Monocytes # (Auto) 0.8 0.0-1.0 X 10^3 Eosinophils # (Auto) 0.3 0.0-0.3 10^3/uL Basophils # (Auto) 0.1 0.0-0.1 10^3/uL Prothrombin Time 16.5 H 12.2-14.7 SEC INR Comment 1.3 0.8-1.4 Activated Partial Thromboplast Time 35 24-35 SEC Sodium Level 139 135-145 MMOL/L Potassium Level 4.4 3.6-5.0 MMOL/L Chloride Level 105 98-107 MMOL/L Carbon Dioxide Level 21 21-32 MMOL/L Anion Gap 13 5-14 MMOL/L Blood Urea Nitrogen 24 H 7-18 MG/DL Creatinine 1.21 0.60-1.30 MG/DL Estimat Glomerular Filtration Rate 42 BUN/Creatinine Ratio 20 Glucose Level 132 H 70-105 MG/DL Calcium Level 9.4 8.5-10.1 MG/DL Total Bilirubin 0.6 0.1-1.0 MG/DL Aspartate Amino Transf (AST/SGOT) 23 5-34 U/L Alanine Aminotransferase (ALT/SGPT) 17 0-55 U/L Alkaline Phosphatase 57 40-136 U/L Troponin I < 0.30 <0.30 NG/ML Total Protein 7.2 6.4-8.2 GM/DL Albumin 4.0 3.2-4.5 GM/DL Urine Color YELLOW Urine Clarity CLEAR Urine pH 5 5-9 Urine Specific [place] 1.015 L 1.016-1.022 Urine Protein NEGATIVE NEGATIVE Urine Glucose (UA) NEGATIVE NEGATIVE Urine Ketones NEGATIVE NEGATIVE Urine Nitrite NEGATIVE NEGATIVE Urine Bilirubin NEGATIVE NEGATIVE Urine Urobilinogen NORMAL NORMAL MG/DL Urine Leukocyte Esterase 2+ H NEGATIVE Urine RBC (Auto) NEGATIVE NEGATIVE Urine RBC NONE /HPF Urine WBC 10-25 H /HPF Urine Squamous Epithelial Cells 5-10 /HPF Urine Crystals NONE /LPF Urine Bacteria FEW H /HPF Urine Casts NONE /LPF Urine Mucus NEGATIVE /LPF Urine Culture Indicated YES My Orders Orders - TARA LUNA MD Cbc With Automated Diff (05/19/17 14:07) Protime With Inr (05/19/17 14:07) Partial Thromboplastin Time (05/19/17 14:07) Comprehensive Metabolic Panel (05/19/17 14:07) Troponin I (05/19/17 14:07) Ua Culture If Indicated (05/19/17 14:07) Chest 1 View, Ap/Pa Only (05/19/17 14:07) Ekg Tracing (05/19/17 14:07) Saline Lock/Iv-Start (05/19/17 14:07) Vital Signs - Stroke Q15M (05/19/17 14:07) Ct Head Wo-R/O Stroke (05/19/17 14:07) Monitor-Rhythm Ecg Trace Only (05/19/17 14:07) Dysphagia Screening Tool (05/19/17 14:07) Shoulder, Right, 3 Views (05/19/17 15:04) Urine Culture (05/19/17 14:56) Vital Signs/I&O Vital Sign - Last 12Hours 05/19/17 05/19/17 13:56 14:00 Temp 98.1 Pulse 72 69 Resp 18 18 B/P (MAP) 106/67 (80) 106/67 Pulse Ox 94 94 Capillary Refill : Less Than 3 Seconds Blood Pressure Mean: 80 Progress Note : Progress Note Seen and evaluated. IV, labs, EKG and chest x-ray ordered. CT head ordered. We did initiate stroke protocol but not stroke activation as patient had symptoms starting when she woke up this morning and is outside of TPA timeframe. Also excluded due to use of Xarelto. Patient was able to drive here but does have balance and dexterity problems. Stroke scale 0. Monitor patient. 1504: Chest x-ray showed abnormality of the right shoulder. We will get dedicated right shoulder film. 1520: Patient refused x-ray and states that this is a known disorder and Dr. Cabrera has multiple x-rays of her shoulder and she is not getting get anything done with anyway. We DC'd the x-ray of the shoulder. 1545: I did discuss the case with the hospitalist on-call for family practice, Dr. Albright. Patient has abnormal findings on the CT scan and will need MRI. She is requesting consult with Dr Jones. This was placed at 1552. We will get carotid ultrasound and MRI of the brain. Admit, observation status. Patient has passed dysphagia screening. DKK ECG Initial ECG Impression Date: May 19, 2017 Initial ECG Impression Time: 14:31 Initial ECG Rate: 70 Initial ECG Rhythm: Normal Sinus Initial ECG Comparisson: Unchanged Comment Sinus rhythm with first degree AV block and right bundle branch block. Normal axis. No evidence of ST elevation [place]. Similar to previous of 05/18/17. Interpreted by me. Diagnostic Imaging Diagonstic Imaging: Xray Plain Films/CT/US/NM/MRI: chest Comments NAME: [facility] REC#: [id number] PT STATUS: REG ER : 1930 PHYSICIAN: TARA LUNA MD ADMIT DATE: 05/19/17/ER Signed Date of Exam: 05/19/17 CHEST 1 VIEW, AP/PA ONLY INDICATION: Arterial catheterization and pain in the right upper extremity. Portable upright AP view of the chest is obtained with comparison made to study of 08/17/2011. FINDINGS: Heart size and pulmonary vascularity are within normal limits, and the lungs are clear, bilaterally. Evaluation of the right shoulder region is somewhat limited due to positioning although proper alignment at the glenohumeral joint cannot be confirmed. IMPRESSION: Somewhat unusual appearance of the right shoulder. Subluxation or dislocation is not excluded. Clinical correlation and possible shoulder radiographic followup would be of use. Dictated by: Dictated on workstation # [id number] Dict: 05/19/17 1451 Trans: 05/19/17 1512 Interpreted by: JJ EDMONDS MD Electronically signed by: JJ EDMONDS MD 05/19/17 1512 Diagonstic Imaging: CT Plain Films/CT/US/NM/MRI: head Comments [facility] [place] [place] NAME: [facility]LO GOMEZ [facility] REC#: [id number] PT STATUS: REG ER : 1930 PHYSICIAN: TARA LUNA MD ADMIT DATE: 05/19/17/ER Draft Date of Exam:05/19/17 CT HEAD WO-R/O STROKE EXAM: CT HEAD WO-R/O STROKE INDICATION: Right arm weakness. COMPARISON: None. FINDINGS: Moderate generalized cerebral and cerebellar parenchymal volume loss. Low attenuation changes in the posterior right frontal lobe are asymmetric to the right side. Prominent perivascular space versus chronic infarct in the left basal ganglia. No CT evidence of large territorial infarct. No intracranial hemorrhage, mass effect, hydrocephalus or extra-axial fluid collection. Intracranial vascular calcifications. Osseous structures are intact. The visualized paranasal sinuses and mastoids are clear. IMPRESSION: Low-attenuation changes in the deep white matter of the right frontal lobe posteriorly likely represent chronic small vessel ischemic change but are asymmetric compared to the left. An acute or subacute process cannot be excluded. This could be better evaluated with MRI. Dictated on workstation # [id number] Dict: 05/19/17 1526 Trans: 05/19/17 1535 [facility] [id number] Interpreted by: CHRIST BARRAGAN MD Electronically signed by: Departure Communication (Admissions) Time/Spoke to Admitting Phy: 15:45 Time/Spoke to Consulting Phy: 15:52 Impression Impression: Primary Impression: CVA (cerebral vascular accident) Qualified Codes: I63.9 - Cerebral infarction, unspecified Disposition: ADMITTED INPATIENT Condition: Stable Admissions Decision to Admit Reason: Admit from ER (General) Decision to Admit/Date: May 19, 2017 Time/Decision to Admit Time: 15:45 Departure-Patient Inst. Referrals: MELVA JIMÉNEZ MD (PCP/Family) Primary Care Physician TARA LUNA MD May 19, 2017 15:07
[2017-05-19 15:10] LABS: BILIRUBIN,URINE NEGATIVE (NEGATIVE); CLARITY,URINE CLEAR; COLOR,URINE YELLOW; GLUCOSE, URINE (UA) NEGATIVE (NEGATIVE); KETONES,URINE NEGATIVE (NEGATIVE); LEUKOCYTE ESTERASE ,URINE 2+ (NEGATIVE); NITRITE,URINE NEGATIVE (NEGATIVE); PH,URINE 5 (5-9); PROTEIN,URINE NEGATIVE (NEGATIVE); UROBILINOGEN,URINE NORMAL (NORMAL)
--- NOTE | 2017-05-19 15:36 | Diagnostic Imaging Report ---
EXAM: CT HEAD WO-R/O STROKE INDICATION: Right arm weakness. COMPARISON: None. FINDINGS: Moderate generalized cerebral and cerebellar parenchymal volume loss. Low attenuation changes in the posterior right frontal lobe are asymmetric to the right side. Prominent perivascular space versus chronic infarct in the left basal ganglia. No CT evidence of large territorial infarct. No intracranial hemorrhage, mass effect, hydrocephalus or extra-axial fluid collection. Intracranial vascular calcifications. Osseous structures are intact. The visualized paranasal sinuses and mastoids are clear. IMPRESSION: Low-attenuation changes in the deep white matter of the right frontal lobe posteriorly likely represent chronic small vessel ischemic change but are asymmetric compared to the left. An acute or subacute process cannot be excluded. This could be better evaluated with MRI. Dictated by: Dictated on workstation # [id number]
[2017-05-19 15:45] LABS: BACTERIA,URINE FEW /HPF
--- OUTSIDE RECORDS SUMMARY | 2017-05-19 16:14 | XMS REPORT | Continuity of Care Document ---
Author Author [facility] Organization [facility] Address Unknown Phone Unavailable Allergies Active [...] ZULETA DO Ot 724.4 03/11/2015 BARBARA RODRIGUEZ SUBSTITUTE CROSSING GUARD Ot V76.12 04/06/2015 MELVA JIMÉNEZ MD Ot [...] MAMMOGRAM FOR MALIGNANT NE 04/12/2016 VALARIE SHELBY SHRIMP POND LABORER Ot Z12.31 ENCNTR SCREEN MAMMOGRAM FOR MALIGNANT NE 04/12/2016 VALARIE SHELBY [employer] P[employer] LABORER Ot Z12.31 ENCNTR SCREEN MAMMOGRAM FOR MALIGNANT NE 05/05/2016 VALARIE SHELBY SHR[employer] POND LABORER Ot Z12.31 ENCNTR SCREEN MAMMOGRAM FOR MALIGNANT NE 03/03/2017 JESSY WORTHY, MELVA Roberts Ot Z12.31 ENCNTR SCREEN MAMMOGRAM FOR MALIGNANT NE 03/03/2017 VALARIE SHELBY SHR[employer] POND LABORER Ot Z12.31 ENCNTR SCREEN MAMMOGRAM FOR MALIGNANT NE 03/06/2017 BARBARA RODRIGUEZ [employer]STITUTE CROSSING GUARD Ot R00.0 TACHYCARDIA, UNSPECIFIED 03/09/2017 BARBARA RODRIGUEZ [employer] CROSSING GUARD Ot R00.0 TACHYCARDIA, UNSPECIFIED 03/27/2017 BARBARA RODRIGUEZ [employer]STITUTE CROSSING GUARD Ot R00.0 TACHYCARDIA, UNSPECIFIED 04/12/2017 BARBARA RODRIGUEZ [employer] CROSSING GUARD Ot R00.0 TACHYCARDIA, UNSPECIFIED 04/18/2017 Olena SEWELL [...] MD Ot N18.9 CHRONIC KIDNEY DISEASE, UNSPECIFIED 05/19/2017 Olena SEWELL MD, Ot E78.00 PURE HYPERCHOLESTEROLEMIA, UNSPECIFIED 05/19/2017 Olena SEWELL MD, Ot I10 ESSENTIAL (PRIMARY) HYPERTENSION 05/19/2017 Olena SEWELL MD, Ot I48.1 PERSISTENT ATRIAL FIBRILLATION 05/19/2017 Olena SEWELL MD, Ot R06.02 SHORTNESS OF BREATH Procedures Code Description Performed By Performed On 79.15 CLOSED RED-INT FIX FEMUR 08/18/2011 [id number] REPOSITION RIGHT SHOULDER JOINT, EXTERNA 07/20/2015 [id number] IMMOBILIZATION OF RIGHT LOWER ARM USING 07/20/2015 [...] Staphylococcus aureus (MRSA) screening culture NEG NRG Complete blood count (CBC) with automated white blood cell (WBC) differential - 05/19/17 14:13 Blood leukocytes automated count (number/volume) 7.9 10*3/uL 4.3-11.0 Blood erythrocytes automated count (number/volume) 4.38 10*6/uL 4.35-5.85 Venous blood hemoglobin measurement (mass/volume) 13.0 g/dL 11.5-16.0 Blood hematocrit (volume fraction) 39 % 35-52 Automated erythrocyte mean corpuscular volume 88 [foz_us] 80-99 Automated erythrocyte mean corpuscular hemoglobin (mass per erythrocyte) 30 pg 25-34 Automated erythrocyte mean corpuscular hemoglobin concentration measurement ( mass/volume) 34 g/dL 32-36 Automated erythrocyte distribution width ratio 14.7 % 10.0-14.5 Automated blood platelet count (count/volume) 248 10*3/uL 130-400 Automated blood platelet mean volume measurement 10.7 [foz_us] 7.4-10.4 Automated blood neutrophils/100 leukocytes 51 % 42-75 Automated blood lymphocytes/100 leukocytes 35 % 12-44 Blood monocytes/100 leukocytes 10 % 0-12 Automated blood eosinophils/100 leukocytes 4 % 0-10 Automated blood basophils/100 leukocytes 1 % 0-10 Blood neutrophils automated count (number/volume) 4.0 10*3 1.8-7.8 Blood lymphocytes automated count (number/volume) 2.7 10*3 1.0-4.0 Blood monocytes automated count (number/volume) 0.8 10*3 0.0-1.0 Automated eosinophil count 0.3 10*3/uL 0.0-0.3 Automated blood basophil count (count/volume) 0.1 10*3/uL 0.0-0.1 Comprehensive metabolic panel - 05/19/17 14:13 Serum or plasma sodium measurement (moles/volume) 139 mmol/L 135-145 Serum or plasma potassium measurement (moles/volume) 4.4 mmol/L 3.6-5.0 Serum or plasma chloride measurement (moles/volume) 105 mmol/L 98-107 Carbon dioxide 21 mmol/L 21-32 Serum or plasma anion gap determination (moles/volume) 13 mmol/L 5-14 Serum or plasma urea nitrogen measurement (mass/volume) 24 mg/dL 7-18 Serum or plasma creatinine measurement (mass/volume) 1.21 mg/dL 0.60-1.30 Serum or plasma urea nitrogen/creatinine mass ratio 20 NRG Serum or plasma creatinine measurement with calculation of estimated glomerular filtration rate 42 NRG Serum or plasma glucose measurement (mass/volume) 132 mg/dL 70-105 Serum or plasma calcium measurement (mass/volume) 9.4 mg/dL 8.5-10.1 Serum or plasma total bilirubin measurement (mass/volume) 0.6 mg/dL 0.1-1.0 Serum or plasma alkaline phosphatase measurement (enzymatic activity/volume) 57 U/L 40-136 Serum or plasma aspartate aminotransferase measurement (enzymatic activity/ volume) 23 U/L 5-34 Serum or plasma alanine aminotransferase measurement (enzymatic activity/volume ) 17 U/L 0-55 Serum or plasma protein measurement (mass/volume) 7.2 g/dL 6.4-8.2 Serum or plasma albumin measurement (mass/volume) 4.0 g/dL 3.2-4.5 PT panel in platelet poor plasma by coagulation assay - 05/19/17 14:13 Prothrombin time (PT) in platelet poor plasma by coagulation assay 16.5 s 12.2-14.7 INR in platelet poor plasma or blood by coagulation assay 1.3 0.8-1.4 Activated partial thromboplastin time (aPTT) in platelet poor plasma bycoagulation assay - 05/19/17 14:13 Activated partial thromboplastin time (aPTT) in platelet poor plasma bycoagulation assay 35 s 24-35 Serum or plasma troponin i.cardiac measurement (mass/volume) - 05/19/17 14:13 Serum or plasma troponin i.cardiac measurement (mass/volume) < ng/ mL <0.30 Complete urinalysis with reflex to culture - 05/19/17 14:56 Urine color determination YELLOW NRG Urine clarity determination CLEAR NRG Urine pH measurement by test strip 5 5-9 Specific gravity of urine by test strip 1.015 1.016- 1.022 Urine protein assay by test strip, semi-quantitative NEGATIVE NEGATIVE Urine glucose detection by automated test strip NEGATIVE NEGATIVE Erythrocytes detection in urine sediment by light microscopy NEGATIVE NEGATIVE Urine ketones detection by automated test strip NEGATIVE NEGATIVE Urine nitrite detection by test strip NEGATIVE NEGATIVE Urine total bilirubin detection by test strip NEGATIVE NEGATIVE Urine urobilinogen measurement by automated test strip (mass/volume) NORMAL NORMAL Urine leukocyte esterase detection by dipstick 2+ NEGATIVE Automated urine sediment erythrocyte count by microscopy (number/high power field) NONE NRG Automated urine sediment leukocyte count by microscopy (number/high power field ) [HPF] NRG Bacteria detection in urine sediment by light microscopy FEW NRG Squamous epithelial cells detection in urine sediment by light microscopy 5-10 NRG Crystals detection in urine sediment by light microscopy NONE NRG Casts detection in urine sediment by light microscopy NONE NRG Mucus detection in urine sediment by light microscopy NEGATIVE NRG Complete urinalysis with reflex to culture YES NRG Encounters ACCT No. Visit Date/Time Discharge Status Pt. Type Provider Facility Loc./Unit Complaint [id number] 05/18/2017 06:56:00 05/18/2017 10:44:00 DIS Outpatient Olena SEWELL MD [facility] CATH AFIB W RVR [id number] 04/13/2017 07:39:00 04/13/2017 23:59:59 CLS Outpatient Olena SEWELL MD [facility] CARD SOB [id number] 03/24/2017 09:16:00 03/24/2017 23:59:59 CLS Outpatient Olena SEWELL MD [facility] CARD CKD [id number] 03/03/2017 14:23:00 03/03/2017 23:59:59 CLS Outpatient BARBARA RODRIGUEZ [facility] CARD TACHYCARDIA [id number] 04/11/2016 14:51:00 04/11/2016 23:59:59 CLS Outpatient VALARIE SHELBY APRN [facility] RAD SCREENING [id number] 07/20/2015 23:00:00 07/22/2015 14:15:00 DIS Inpatient JIGNA WORTHY, BRIGITTE Garza [facility] 4TH RT SHOULDER DISLOCATION W /FX,RT DIST RADIUS/ULNA F [id number] 03/11/2015 14:29:00 03/11/2015 23:59:59 CLS Outpatient MELVA JIMÉNEZ MD [facility] RAD SCREENING [id number] 05/26/2014 19:06:00 05/26/2014 20:10:00 DIS Emergency MARTIN LEONG APRN [facility] ER RASH ALL OVER BODY;POSS INSECT BITE [id number] 02/06/2014 13:54:00 02/06/2014 23:59:59 CLS Outpatient BARBARA RODRIGUEZ [facility] RAD SCREENING [id number] 02/04/2014 09:46:00 02/04/2014 23:59:59 CLS Outpatient GERHARD ZULETA DO [facility] RAD LUMBAR RADICULOPATHY [id number] 01/01/2014 13:46:00 01/01/2014 23:59:59 CLS Outpatient MELVA JIMÉNEZ MD [facility] RAD KNEE AND HIP PAIN AND LOW BACK PAIN [id number] 03/14/2013 13:16:00 03/14/2013 23:59:59 CLS Outpatient JAYCEE BAH DO S [facility] RAD POSTMENOPAUSAL BLEEDING [id number] 02/06/2013 15:05:00 02/06/2013 23:59:59 CLS Outpatient MELVA JIMÉNEZ MD [facility] RAD BACK PAIN HX OF FX [id number] 01/28/2013 15:03:00 01/28/2013 23:59:59 CLS Outpatient MELVA JIMÉNEZ MD [facility] RAD SCREENING [id number] 11/12/2012 13:11:00 11/23/2012 10:15:00 DIS Outpatient JOHN BASILIO DO [facility] REHAB R TIB/FIB FX [id number] 05/19/2017 13:51:00 ACT Emergency TARA LUNA MD [facility] Bharat [place] ARM [id number] 08/05/2012 13:47:00 Document Registration [id number] 08/03/2012 08:50:00 Document Registration [id number] 06/04/2012 16:45:00 Document Registration [id number] 05/14/2012 06:48:00 Document Registration [id number] 05/10/2012 08:47:00 Document Registration [id number] 04/27/2012 09:53:00 Document Registration [id number] 04/25/2012 08:20:00 Document Registration [id number] 04/23/2012 11:57:00 Document Registration [id number] 01/13/2012 13:21:00 Document Registration [id number] 01/12/2012 14:43:00 Document Registration [id number] 08/24/2011 15:30:00 Document Registration [id number] 08/17/2011 20:29:00 Document Registration [id number] 10/13/2010 13:47:00 Document Registration [id number] 09/23/2009 13:12:00 Document Registration [id number] 03/18/2009 11:09:00 Document Registration [id number] 01/23/2009 13:18:00 Document Registration
[2017-05-19 16:35] VITALS: BP 170/74
[2017-05-19 16:45] VITALS: BP 170/74
--- NOTE | 2017-05-19 16:58 | Consultation-Cardiology ---
HPI-Cardiology Cardiology Consultation: Date of Consultation 05/19/17 Date of Admission Attending Physician Liza Albright DO Admitting Physician Cinthia Soto MD Consulting Physician Olena JONES MD HPI: Time Seen by Provider: 17:00 Chief Complaint: Unsteady on feet This is a 87-year-old lady with history of persistent atrial fibrillation. I see her as an outpatient as well. She presented with difficulty writing with her right upper extremity as well as being unsteady on the foot. She woke up with these symptoms. She denied having any other motor or sensory deficit. She also did not have any difficulty speaking. According to the patient she did not have any neurological complaint a day before admission and went to bed with no neurological symptoms. The patient was electively scheduled for electrical cardioversion on 05/18/2017 as an outpatient. She was taking Xarelto uninterrupted for at least the last 6 weeks. Review of Systems-Cardiology Review of Systems Constitutional: No As described under HPI, No no symptoms reported, No chills, No fever, No lightheadedness, No malaise, No tiredness, No weight loss, No weight gain, No other Eyes: No As described under HPI, No no symptoms reported, No blindness, No blurred vision, No contact lenses, No drainage, No decreased acuity, No foreign body sensation, No glasses, No inflammation, No pain, No photophobia, No previous injury, No shadows, No tunnel vision, No other, No vision change Ears/Nose/Throat: No As described under HPI, No no symptoms reported, No chronic hearing loss, No epistaxis, No ear discharge, No ear pain, No loose teeth, No mouth pain, No mouth swelling, No nasal drainage, No nose pain, No recent hearing loss, No throat pain, No throat swelling, No ulcerations, No other Respiratory: No no symptoms reported, No As described under HPI, No cough, No orthopnea, No shortness of breath, No SOB with excertion, No SOB at rest, No stridor, No wheezing, No other Cardiovascular: No no symptoms reported, No As described under HPI, No chest pain, No edema, No irregular heart rate, No lightheadedness, No palpitations, No syncope, No other Gastrointestinal: No no symptoms reported, No As described under HPI, No abdomen distended, No abdominal pain, No blood streaked bowels, No constipation , No diarrhea, No difficulty swallowing, No nausea, No poor appetite, No poor fluid intake, No rectal bleeding, No vomiting, No other, No nausea/vomiting/ diarrhea, No stool coloration changes Genitourinary: No no symptoms reported, No As described under HPI, No burning, No dysuria, No discharge, No frequency, No flank pain, No hematuria, No incontinence, No pain, No urgency, No other, No urine frequency changes, No urine coloration changes Musculoskeletal: No no symptoms reported, No As describe under HPI, No back pain, No gout, No joint pain, No joint swelling, No muscle pain, No muscle stiffness, No neck pain, No other Skin: No no symptoms reported, No As described under HPI, No change in color, No change in hair/nails, No dryness, No lesions, No lumps, No rash, No other, No skin related problems, No ulcerations, No rash on exposed areas, No ulcerations on exposed areas Psychiatric/Neurological: As described under HPI Hematologic: No no symptoms reported, No As described under HPI, No anemia, No blood clots, No easy bleeding, No easy bruising, No swollen glands, No other, No bleeding abnormalities All Other Systems Reviewed Negative Unless Noted: Yes UJW-Mohqrh-Okqmfj Hx Patient Social History Alcohol Use: Denies Use Recreational Drug Use: No Smoking Status: Former Smoker Former smoker/When Quit: May 08, 1987 Type Used: Cigarettes Recent Foreign Travel: No Recent Infectious Disease Expo: No Immunizations Up To Date Tetanus Booster (TDap): Unknown Date of Pneumonia Vaccine: May 18, 2015 Date of Influenza Vaccine: Feb 27, 2017 Past Medical History PMH As described under Assessment. Family Medical History Family History: BRAIN Cardiovascular disease 19 FATHER G8 BROTHER Colon cancer 19 MOTHER FH: brain tumor Allergies and Home Medications Allergies Coded Allergies: NKANo Known Allergies (Verified Allergy, Unknown, 05/19/17) Home Medications Atorvastatin Calcium 10 Mg Tablet, 5 MG PO DAILY, (Reported) Calcium Carbonate/Vitamin D3 1 Each Tablet, 1 TAB PO BID, (Reported) Clonazepam 1 Mg Tablet, 0.5 MG PO DAILY, (Reported) Glucosamine Sulfate 2Kcl 1,000 Mg Tablet, 1,000 MG PO DAILY, (Reported) Levothyroxine Sodium 100 Mcg Tablet, 100 MCG PO mon-mon, (Reported) Levothyroxine Sodium 100 Mcg Tablet, 150 MCG PO sat & sun, (Reported) Metoprolol Succinate 50 Mg Tab.er.24h, 50 MG PO BID, (Reported) Multivitamins 1 Tab Tablet, 1 TAB PO DAILY, (Reported) Rivaroxaban 20 Mg Tablet, 20 MG PO HS, (Reported) Spironolactone 25 Mg Tablet, 25 MG PO DAILY, (Reported) Physical Exam-Cardiology Physical Exam Vital Signs/I&O Vital Sign - Last 12Hours 05/20/17 05/20/17 09:00 09:25 Pulse 63 B/P (MAP) 110/60 (77) O2 Delivery Room Air Intake and Output 05/20/17 00:00 Intake Total 240 ml Balance 240 ml Capillary Refill : Less Than 3 Seconds Constitutional: No appears stated age, No AAO x 3, No apparent distress, No PERRL, No well-developed, No well-nourished, No other HEENT: No PERRL, No normal ENT inspection, No TMs normal, No pharynx normal, No scleral icterus (R), No scleral icterus (L), No pale conjunctivae (R), No pale conjunctivae (L), No photophobia, No TM abnormal (R), No TM abnormal (L), No pharyngeal erythema, No tonsillar exudate, No other, No discharge, No EOMI, No hearing is well preserved, No hard of hearing, No oral hygience is good, No ulceration, No xanthelasmas are seen Neck: No non-tender, No full range of motion, No supple, No normal inspection, No carotid bruit, No limited range of motion, No lymphadenopathy (R), No lymphadenopathy (L), No tender lateral, No tender midline, No thyromegaly, No other, No carotid pulses are 2 + bilaterally, No with good upstrokes Respiratory: No accessory muscle use, No respiratory distress, No chest tender , No chest expansion is symmetric, No chest is bilaterally symmetric, No lungs clear to percussion, No lungs clear to auscultation, No crackles, No rhonchi, No rales, No stridor, No wheezing, No pleural rub, No other Cardiovascular: regular rate-rhythm, No irregularly irregular, No extra beats, No parasternal heave is noted, No JVD, No edema, No bradycardia, No tachycardia , No point of maximal impulse, No cardiac thrills are palpable, No S1 and S2, No gallop/S3, No gallop/S4, No diastolic murmur, No systolic murmur, No friction rub, No click, No other Gastrointestinal: No tender, No soft, No round, No distended, No pulsatile mass , No organomegaly, No guarding, No rebound, No tenderness, No hernia, No mass, No audible bowel sounds, No abnormal bowel sounds, No abdominal bruits, No spleenomegaly, No other Rectal: deferred Extremities: No normal range of motion, No non-tender, No normal inspection, No pedal edema, No calf tenderness, No normal capillary refill, No pelvis stable , No calf tenderness, No inflammation, No pedal edema, No slow capillary refill , No swelling, No other, No abrasion, No clubbing, No cyanosis, No ecchymosis, No laceration, No no lower extremity edema bilateral, No significant edema, No tenderness, No wound Neurologic/Psychiatric: no motor/sensory deficits, alert, normal mood/affect, oriented x 3, grossly intact, power is 5/5 both on sides Skin: No normal color, No warm/dry, No cyanosis, No cool, No diaphoresis, No damp, No ecchymosis, No jaundice, No mottled, No pallor, No rash, No tattoos/ piercings, No ulcerations, No rash on exposed areas, No ulcerations on exposed areas, No other Data Review Labs Laboratory Tests 05/20/17 04:42: White Blood Count 8.1, Red Blood Count 4.38, Hemoglobin 12.8, Hematocrit 39, Mean Corpuscular Volume 88, Mean Corpuscular Hemoglobin 29, Mean Corpuscular Hemoglobin Concent 33, Red Cell Distribution Width 14.7H, Platelet Count 252, Mean Platelet Volume 10.6H, Neutrophils (%) (Auto) 43, Lymphocytes (%) (Auto) 42 , Monocytes (%) (Auto) 10, Eosinophils (%) (Auto) 4, Basophils (%) (Auto) 1, Neutrophils # (Auto) 3.5, Lymphocytes # (Auto) 3.4, Monocytes # (Auto) 0.8, Eosinophils # (Auto) 0.3, Basophils # (Auto) 0.1, Sodium Level 140, Potassium Level 4.4, Chloride Level 107, Carbon Dioxide Level 20L, Anion Gap 13, Blood Urea Nitrogen 22H, Creatinine 0.96, Estimat Glomerular Filtration Rate 55, BUN/ Creatinine Ratio 23, Glucose Level 105, Calcium Level 9.4 Microbiology 05/19/17 Urine Culture - Preliminary, Resulted Strep Or Related Genus ECG Impression ECG Initial ECG Rhythm: Normal Sinus A/P-Cardiology Assessment/Admission Diagnosis Possible TIA, Atrial fibrillation Plan This is a 87-year-old lady who presents with brief neurological symptoms which are resolving. No thrombolytics were given in the ER since she woke up with the symptoms. She has history of persistent atrial fibrillation status post cardioversion on 05/18/2017. This was done on background therapy of Xarelto for at least 6 weeks uninterrupted before the procedure. The likelihood of embolic TIA on uninterrupted Xarelto for a month is unlikely but not impossible. I'm waiting for the MRI of the brain. For now continue Xarelto. Agree with carotid ultrasound. Swallowing evaluation and physical therapy. Explained in detail to the patient. Thank you for your consultation. Please call me if you have any questions. Mauricio Jones MD, FACP, FACC, FSCAI, FHRS, CCDS Interventional Cardiology Cardiac Electrophysiology Vascular Medicine and Endovascular Interventions Olena JONES MD May 19, 2017 16:58
[2017-05-19] MEDS ORDERED: GADOBUTROL 10 MMOL/10 ML (GADAVIST) VIAL IV ONE (17:45)
--- NOTE | 2017-05-19 18:04 | Diagnostic Imaging Report ---
PROCEDURE: MR imaging of the brain with and without contrast. TECHNIQUE: Multiplanar, multisequence MR imaging of the brain was performed with and without contrast. INDICATION: Loss of balance. Dysraphia. COMPARISON: None. Correlation made with head CT performed earlier this same date. FINDINGS: There are curvilinear areas of mild gyriform diffusion restriction in the high left posterior parietal lobe at the munson radiata and centrum semiovale, consistent with small foci of acute to subacute ischemia. There is no hemorrhagic component and there is no resultant mass effect. The brainstem and posterior fossa in the right cerebellar hemisphere appears unremarkable. There is extensive periventricular white matter small vessel sequelae as a chronic finding. There is either old lacunar infarct or more likely incidental prominent Virchow-Long CSF space in the left inferior temporal lobe. With IV contrast administration, there was no abnormal or suspicious parenchymal or meningeal enhancement. There is enhancement of the major dural venous sinuses. There is generalized cerebral cortical atrophy without bhavna hydrocephalus. The orbits and sinuses are unremarkable. IMPRESSION: Mild gyriform areas of left high parietal cortical diffusion restriction, compatible with acute to subacute foci of ischemia. There is no hemorrhagic component and no resultant mass effect. There is chronic white matter disease and atrophy superimposed. Dictated by: Dictated on workstation # [id number]
[2017-05-19] MEDS ORDERED: RT-ALBUTEROL SULF 2.5 MG/3 ML PRE-MIX VIAL INH PRN (18:15)
--- NOTE | 2017-05-19 18:29 | Diagnostic Imaging Report ---
INDICATION: Stroke symptoms. Carotid Doppler study performed in the routine fashion with color flow Doppler and waveform analysis. FINDINGS: There is plaquing visualized in the carotid bifurcation on both sides. On the right side, ICA/CCA systolic velocity ratio is 1.21 which is within normal range. On the left side, velocity was elevated in the mid ICA at 144 cm/s with ratio of 2.39. This ratio suggests a stenosis between 60% and 80%. Both vertebrals show antegrade flow. IMPRESSION: There is plaquing visualized in the carotid bifurcation on both sides, left worse than right. On the right side, the degree of stenosis was not hemodynamically significant. On the left side, the degree of stenosis was between 60% and 80%. Consider correlation with CTA if clinically warranted. Both vertebrals are patent. Dictated by: Dictated on workstation # [id number]
[2017-05-19] MEDS ORDERED: HYDROcodone/APAP 5 MG/325 MG (LORTAB) TAB PO PRN (18:45)
[2017-05-19] MEDS ORDERED: NITROGLYCERIN 2% OINT 1 GM UNIT DOSE PACKET TOP PRN (18:45)
[2017-05-19] MEDS ORDERED: ACETAMINOPHEN 500 MG TAB (TYLENOL) PO PRN (18:45)
[2017-05-19] MEDS ORDERED: ONDANSETRON 4 MG/2 ML (SDV) Z0FRAN IVP PRN (18:45)
[2017-05-19] MEDS ORDERED: IBUPROFEN TABLET 200 MG TAB PO PRN (18:45)
[2017-05-19 19:55] VITALS: BP 105/55
[2017-05-19] MEDS: meTOproloL SUCCINATE 50 MG (TOPROL XL) TAB PO SCH (20:25)
[2017-05-19] MEDS: amLODIPine 5 MG (NORVASC) TAB PO SCH (20:26)
[2017-05-19] MEDS ORDERED: RIVAROXABAN 20 MG TABLET (XARELTO) PO SCH (21:00)
[2017-05-20] VITALS: BP 118/64
[2017-05-20 04:25] VITALS: BP 148/64
[2017-05-20 05:05] LABS: BASOPHILS # (AUTO) 0.1 10^3/uL (0.0-0.1); BASOPHILS % (AUTO) 1 % (0-10); EOSINOPHILS # (AUTO) 0.3 10^3/uL (0.0-0.3); EOSINOPHILS % (AUTO) 4 % (0-10); HEMATOCRIT 39 % (35-52); HEMOGLOBIN 12.8 G/DL (11.5-16.0); LYMPHOCYTES # (AUTO) 3.4 X 10^3 (1.0-4.0); LYMPHOCYTES % (AUTO) 42 % (12-44); MEAN CORPUSCULAR HEMOGLOBIN 29 PG (25-34); MEAN CORPUSCULAR HGB CONC 33 G/DL (32-36); MEAN CORPUSCULAR VOLUME 88 FL (80-99); MEAN PLATELET VOLUME 10.6 FL (7.4-10.4); MONOCYTES # (AUTO) 0.8 X 10^3 (0.0-1.0); MONOCYTES % (AUTO) 10 % (0-12); NEUTROPHILS # (AUTO) 3.5 X 10^3 (1.8-7.8); NEUTROPHILS % (AUTO) 43 % (42-75); PLATELET COUNT 252 10^3/uL (130-400); RED BLOOD COUNT 4.38 10^6/uL (4.35-5.85); RED CELL DISTRIBUTION WIDTH 14.7 % (10.0-14.5); WHITE BLOOD COUNT 8.1 10^3/uL (4.3-11.0)
[2017-05-20 05:19] LABS: CALCIUM 9.4 MG/DL (8.5-10.1); CREATININE SERUM 0.96 MG/DL (0.60-1.30); POTASSIUM 4.4 MMOL/L (3.6-5.0)
[2017-05-20] MEDS ORDERED: LEVOTHYROXINE 100 MCG (LEVOTHROID) TAB PO SCH ×2 (07:00)
[2017-05-20] MEDS ORDERED: CALCIUM CARB + VIT D 600 MG (CALCARB + D) TAB PO SCH (08:00)
[2017-05-20] MEDS ORDERED: MULTIVIT W/MINERALS TAB (THERAGRAN M) PO SCH (08:00)
[2017-05-20 08:15] VITALS: BP 111/68
[2017-05-20] MEDS: meTOproloL SUCCINATE 50 MG (TOPROL XL) TAB PO SCH (08:37)
[2017-05-20] MEDS: amLODIPine 5 MG (NORVASC) TAB PO SCH (08:37)
[2017-05-20] MEDS ORDERED: NON-FORMULARY MEDICATION 1 EA EA (Glucosamine Sulfate 2Kcl (Glucosamine) 1,000 MG) PO SCH (09:00)
[2017-05-20] MEDS ORDERED: SPIRONOLACTONE 25 MG (ALDACTONE) TAB PO SCH (09:00)
[2017-05-20 09:25] VITALS: BP 110/60
--- NOTE | 2017-05-20 10:24 | History & Physical-Hospitalist ---
HPI History of Present Illness: HPI/Chief Complaint The patient is an 87-year-old white female who presents to the emergency room on the morning of 05/19. She drove herself from her home. She found that after arising she was unable to perform her usual crossword puzzle. She states her writing was declined but also she was unable to put the LETTE R in the box. When she attempted to walk she felt slightly off balance. Workup in the emergency room ensued. It was revealed that she had a procedure done on 05/18 as an outpatient. This was for successful cardioversion to sinus rhythm from atrial fibrillation. She had been previously placed on Eliquis in preparation. Source: patient Exam Limitations: no limitations Date Seen 05/20/17 Time Seen by Provider: 10:19 Attending Physician Liza Albright Holly A MD Referring Physician Date of Admission May 19, 2017 at 15:50 Home Medications & Allergies Home Medications Reviewed patient Home Medication Reconciliation Form Allergies Allergies Coded Allergies NKANo Known Allergies (Verified Allergy, Unknown, 05/19/17) Past [id number]-[id number]-[id number] Hx Patient Social History Alcohol Use: Denies Use Recreational Drug Use: No Smoking Status: Former Smoker Former Smoker, Quit: May 18, 1964 Type Used: Cigarettes Physical Abuse Screen: No Sexual Abuse: No Recent Foreign Travel: No Contact w/other who traveled: No Recent Hopitalizations: Yes (heart cath 05/18/17) Recent Infectious Disease Expo: No Immunizations Up To Date Tetanus Booster (TDap): Unknown Pediatric: Yes Date of Pneumonia Vaccine: May 18, 2015 Date of Influenza Vaccine: Feb 27, 2017 Seasonal Allergies Seasonal Allergies: No Surgeries Yes (COLON RESECTION, MASTOIDECTOMY,HIP pinning) Appendectomy, Gallbladder, Orthopedic, Tonsillectomy Respiratory No Cardiovascular Yes High Cholesterol, Hypertension Neurological No Reproductive System Hx Reproductive Disorders: Yes (had a d&c) Sexually Transmitted Disease: No HIV/AIDS: No Female Reproductive Disorders: Menstrual Problems Gastrointestinal Yes (reports 12 inches of colon removed in past) Polyps Musculoskeletal Yes (fx-rhip, right ankle) Fractures Endocrine History of Endocrine Disorders: Yes (HYPOTHYROIDISM) Endocrine Disorders: Hypothyroidsim HEENT HEENT Disorders: Cataract Loss of Vision: Denies Hearing Impairment: Deaf Cancer No Psychosocial History of Psychiatric Problem: No Integumentary History of Skin or Integumenta: No Blood Transfusions History of Blood Disorders: No Reviewed Nursing Assessment Reviewed/Agree w Nursing PMH: Yes Family Medical History Family Hx: BRAIN Cardiovascular disease 19 FATHER G8 BROTHER Colon cancer 19 MOTHER FH: brain tumor Review of Systems Constitutional: see HPI EENTM: no symptoms reported Respiratory: no symptoms reported Cardiovascular: Hx of Intervention, palpitations Gastrointestinal: no symptoms reported Genitourinary: no symptoms reported Musculoskeletal: no symptoms reported Skin: no symptoms reported Psychiatric/Neurological: No Symptoms Reported Physical Exam Physical Exam Vital Signs Vital Sign - Last 12Hours 05/19/17 05/19/17 05/19/17 13:56 16:45 18:09 Temp 98.1 Pulse 72 Resp 18 B/P (MAP) 106/67 (80) Pulse Ox 94 O2 Delivery Room Air FiO2 21 Capillary Refill : Less Than 3 SecondsLess Than 3 Seconds General Appearance: No Apparent Distress, WD/WN Eyes: Bilateral Eye Normal Inspection HEENT: Normal ENT Inspection Neck: Normal Inspection Respiratory: Chest Non Tender Cardiovascular: Regular Rate, Rhythm, No Edema, No Gallop, No JVD, No Murmur, Normal Peripheral Pulses Gastrointestinal: Normal Bowel Sounds, No Organomegaly, No Pulsatile Mass, Non Tender, Soft Back: Normal Inspection, No CVA Tenderness, No Vertebral Tenderness Extremity: Normal Capillary Refill, Normal Inspection, Normal Range of Motion, Non Tender, No Calf Tenderness, No Pedal Edema Neurologic/Psychiatric: Alert, Oriented x3, No Motor/Sensory Deficits, Normal Mood/Affect Skin: Normal Color, Warm/Dry Lymphatic: No Adenopathy Comments Speech was clear and precise. Hand Weaver and biceps were 2+ and equal bilaterally. Alternating finger to thumb movements were normal bilaterally. She was able to perform straight leg lift equally bilaterally. We performed a walk down the cowan and back in which she exhibited no unsteadiness. She was able to exhibit a 180 turn without difficulty. This was performed without her cane. Results Results/Procedures Lab Laboratory Tests 05/19/17 14:13 05/20/17 04:42 Assessment/Plan Admission Diagnosis Impression: TIA, possibly embolic. 2.cardioversion of atrial fibrillation to sinus rhythm, 05/18/17. Discharge diagnosis: TIA with apparent complete resolution. 2.cardioversion of atrial fibrillation to sinus rhythm 05/18/17 Clinical Quality Measures DVT/VTE Risk/Contraindication: Risk Factor Score Per Nursin RFS Level Per Nursing on Admit: 2=Moderate SADI ZAFAR MD May 20, 2017 10:24
--- NOTE | 2017-05-20 10:32 | Discharge Inst-Stroke w/wo TPA ---
Discharge Inst-Stroke w/wo TPA Discharge Medications New, Converted or Re-Newed RX: RX on Chart Reason No Antithrombolytic: Other (already on anticoagulation. Time of occurrence unclear and therefore too long) Patient Instructions Resume medications as on the discharge list. Resume usual activities. Additional Follow Up: Yes (schedule follow up appointments with Dr. Soto and Dr. Jones) Return to The Hospital For: Recurrent/increase in symptomatology Activity & Diet Discharge Diet: No Restrictions Activity as Tolerated: Yes Note NIH Stroke Scale Score: 0 SADI ZAFAR MD May 20, 2017 10:32
--- NOTE | 2017-05-20 20:53 | Cardiology Progress Note ---
Cardiology SOAP Progress Note Subjective: No neurological deficits. Objective: I&O/Vital Signs Vital Sign - Last 12Hours 05/20/17 09:25 Pulse 63 B/P (MAP) 110/60 (77) Intake and Output 05/20/17 00:00 Intake Total 240 ml Balance 240 ml Weight (Pounds): 120 Weight (Ounces): 0.0 Weight (Calculated Kilograms): [id number] Constitutional: No appears stated age, No AAO x 3, No apparent distress, No PERRL, No well-developed, No well-nourished, No other Respiratory: No accessory muscle use, No respiratory distress, No chest tender , No chest expansion is symmetric, No chest is bilaterally symmetric, No lungs clear to percussion, No lungs clear to auscultation, No crackles, No rhonchi, No rales, No stridor, No wheezing, No pleural rub, No other Cardiovascular: regular rate-rhythm, No irregularly irregular, No extra beats, No parasternal heave is noted, No JVD, No edema, No bradycardia, No tachycardia , No point of maximal impulse, No cardiac thrills are palpable, No S1 and S2, No gallop/S3, No gallop/S4, No diastolic murmur, No systolic murmur, No friction rub, No click, No other Gastrointestional: No tender, No soft, No round, No distended, No pulsatile mass, No organomegaly, No guarding, No rebound, No tenderness, No hernia, No mass, No audible bowel sounds, No abnormal bowel sounds, No abdominal bruits, No spleenomegaly, No other Extremities: No normal range of motion, No non-tender, No normal inspection, No pedal edema, No calf tenderness, No normal capillary refill, No pelvis stable , No calf tenderness, No inflammation, No pedal edema, No slow capillary refill , No swelling, No other, No abrasion, No clubbing, No cyanosis, No ecchymosis, No laceration, No no lower extremity edema bilateral, No significant edema, No tenderness, No wound Neurologic/Psychiatric: no motor/sensory deficits, alert, normal mood/affect, oriented x 3 Skin: No normal color, No warm/dry, No cyanosis, No cool, No diaphoresis, No damp, No ecchymosis, No jaundice, No mottled, No pallor, No rash, No tattoos/ piercings, No ulcerations, No rash on exposed areas, No ulcerations on exposed areas, No other Results/Procedures: Labs Laboratory Tests 05/20/17 04:42: White Blood Count 8.1, Red Blood Count 4.38, Hemoglobin 12.8, Hematocrit 39, Mean Corpuscular Volume 88, Mean Corpuscular Hemoglobin 29, Mean Corpuscular Hemoglobin Concent 33, Red Cell Distribution Width 14.7H, Platelet Count 252, Mean Platelet Volume 10.6H, Neutrophils (%) (Auto) 43, Lymphocytes (%) (Auto) 42 , Monocytes (%) (Auto) 10, Eosinophils (%) (Auto) 4, Basophils (%) (Auto) 1, Neutrophils # (Auto) 3.5, Lymphocytes # (Auto) 3.4, Monocytes # (Auto) 0.8, Eosinophils # (Auto) 0.3, Basophils # (Auto) 0.1, Sodium Level 140, Potassium Level 4.4, Chloride Level 107, Carbon Dioxide Level 20L, Anion Gap 13, Blood Urea Nitrogen 22H, Creatinine 0.96, Estimat Glomerular Filtration Rate 55, BUN/ Creatinine Ratio 23, Glucose Level 105, Calcium Level 9.4 Microbiology 05/19/17 Urine Culture - Preliminary, Resulted Strep Or Related Genus A/P: Assessment/Dx: TIA, persistent atrial fibrillation status post successful cardioversion to sinus rhythm. Plan: Persistent atrial fibrillation status post successful electrical cardioversion to sinus rhythm on 05/18/2017 on uninterrupted Xarelto therapy for at least 6 weeks. TIA with complete resolution of neurological symptoms. MRI brain suggests small acute or subacute ischemic stroke. In presence of uninterrupted Xarelto therapy for 4 weeks before electrical cardioversion the likelihood of an embolic TIA due to the cardioversion is very low but not 0. Therefore embolic TIA from left atrial appendage cannot be ruled out. I discussed at length with the patient. Continue oral anticoagulation and can be discharged with physical therapy. I will follow as an outpatient next Monday. Thank you for your consultation. Please call me if you have any questions. Mauricio Jones MD, FACP, FACC, FSCAI, FHRS, CCDS Interventional Cardiology Cardiac Electrophysiology Vascular Medicine and Endovascular Interventions Olena JONES MD May 20, 2017 20:53
== END 2017-05-20 10:29 | disposition home or self-care (01) ==
LOC: EDUNIT# 13:49 → ER 13:51 → 4TH 15:50 → UNDOADMOB 15:50 → 4TH 16:35 → UNDODISOB 05-20 14:25
PROVIDERS: ADMIT Internal Medicine; ATTEND Internal Medicine
DX: G45.9 Transient cerebral ischemic attack, unspecified (principal); I48.2 Chronic atrial fibrillation; Z87.891 Personal history of nicotine dependence; E78.00 Pure hypercholesterolemia, unspecified; I10 Essential (primary) hypertension; E03.9 Hypothyroidism, unspecified; Z86.010 Personal history of colon polyps; Z79.899 Other long term (current) drug therapy; Z79.01 Long term (current) use of anticoagulants
CPT/HCPCS: 36415; 70450; 70553; 71045; 80048; 80053; 81000; 84484; 85025; 85610; 85730; 87088; 93005; 93041; 93880

== ENCOUNTER → 2017-06-14 | Outpatient (CLI) | payer MEDICARE, OTHER ==
--- NOTE | 2017-06-14 14:33 | Diagnostic Imaging Report ---
EXAMINATION: Bilateral renal ultrasound. INDICATION: Chronic kidney disease. FINDINGS: There are no prior ultrasound examinations available for comparison. The previous CT abdomen/pelvis exam of 04/27/2012 failed to show any sign of an acute abnormality of either kidney. 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 On this study, both kidneys are identified. The right kidney measures 9.8 x 3.7 x 4.3 cm while the left kidney is estimated to be 9.1 x 4.8 x 4.1 cm. There is no solid mass involving either kidney. The suspected angiomyolipoma of the right kidney is difficult to identify on this study. There is no sign of hydronephrosis. The renal cortices are normal in thickness and echogenicity. There is no shadowing from the kidneys to suggest nephrolithiasis. The bladder was nearly completely empty at the time of the exam and consequently could not be evaluated. IMPRESSION: 1. There is no evidence for a solid renal mass or for an acute abnormality of either kidney. 2. The bladder was not well evaluated. Dictated by: Dictated on workstation # [id number]
== END ==
LOC: RAD 13:10
PROVIDERS: ATTEND Internal Medicine Nephrology
DX: I12.9 Hypertensive chronic kidney disease with stage 1 through stage 4 chronic kidney disease, or unspecified chronic kidney disease (principal); N18.3 Chronic kidney disease, stage 3 (moderate); R80.8 Other proteinuria; D64.9 Anemia, unspecified
CPT/HCPCS: 76770

== ENCOUNTER → 2017-06-28 | Outpatient (CLI) | payer MEDICARE ==
--- NOTE | 2017-06-28 18:33 | Diagnostic Imaging Report ---
INDICATION: Right nipple discharge. EXAMINATION: Right breast ultrasound. COMPARISON: Correlation is made with diagnostic mammogram from earlier the same day. FINDINGS: Sonographic interrogation of the retroareolar portion of the right breast was performed. No discrete solid or cystic mass is detected. IMPRESSION: No sonographic abnormality is identified. Clinical followup is recommended. ACR BI-RADS Category 1: Negative. Result letter will be mailed to the patient. Note: At least 10% of breast cancer is not imaged by mammography. Dictated by: Dictated on workstation # [id number]
--- NOTE | 2017-06-28 18:35 | Diagnostic Imaging Report ---
INDICATION: Right nipple discharge. EXAMINATION: Bilateral breast digital diagnostic mammogram with CAD. The current study was also evaluated with a Computer Aided Detection (CAD) system. COMPARISON: Prior study from 04/11/2016 and 03/11/2015. FINDINGS: Scattered fibroglandular densities are identified, bilaterally. There are benign calcifications, bilaterally. Tiny well-defined nodule in the inferior right breast is stable. No new mass or malignant appearing microcalcifications are seen. The axillae are unremarkable. IMPRESSION: No mammographic features suspicious for malignancy. Even so, directed sonographic interrogation of the retroareolar right breast is recommended due to bloody nipple discharge. ACR BI-RADS Category 0: Incomplete. (Needs additional imaging evaluation). Result letter will be mailed to the patient. Note: At least 10% of breast cancer is not imaged by mammography. Dictated by: Dictated on workstation # [id number]
== END ==
LOC: RAD 13:07
PROVIDERS: ATTEND Nurse Practitioner Family
DX: N64.52 Nipple discharge (principal)
CPT/HCPCS: 77066

== ENCOUNTER 2017-07-31 05:36 | Outpatient (CLI) | payer MEDICARE ==
[~2017-07-31] VITALS: Ht 162.6 cm; Wt 79.4 kg
[2017-07-31] MEDS ORDERED: CALC-903 PO (10:38)
[2017-07-31] MEDS ORDERED: MULT1TAB69 PO (10:38)
[2017-08-02] MEDS ORDERED: TRAM50TA2 PO (13:42)
== END 2017-07-31 10:54 ==
LOC: PREOP 05:36
PROVIDERS: ATTEND Surgery
DX: Z01.818 Encounter for other preprocedural examination (principal); N64.52 Nipple discharge; Z79.01 Long term (current) use of anticoagulants

== ENCOUNTER → 2018-04-12 | Outpatient (CLI) | payer MEDICARE ==
[~2018-04-12] MED LIST changes: -AMLO5TAB2 PO; +AMLO5TAB7 PO; +CALC-903 PO; +CLON1TAB13 PO; -CLON1TAB3 PO; +HYDR-4226 PO; -HYDR-757 PO; +MULT1TAB69 PO; -SPIR25TA3 PO; +SPIR25TA5 PO; +TRAM50TA2 PO
--- NOTE | 2018-04-12 11:02 | Diagnostic Imaging Report ---
INDICATION: Abdominal aortic aneurysm. Proximal aorta measures approximately 1.4 cm AP x 1.9 cm transverse. Mid aorta measures approximately 1.4 cm AP x 1.7 cm transverse. The distal aorta measures 1.1 cm AP x 1.9 cm transverse. Right iliac 0.7 x 1.3 cm and left iliac is 1.0 x 0.8 cm. IMPRESSION: No evidence of abdominal aortic aneurysm. Dictated by: Dictated on workstation # [id number]
--- NOTE | 2018-04-12 11:04 | Diagnostic Imaging Report ---
PROCEDURE: US carotid duplex, bilateral. TECHNIQUE: Multiple real-time grayscale images were obtained over the carotid arteries in various projections, bilaterally. Additional spectral analysis and color Doppler duplex images were also obtained. INDICATION: Carotid stenosis. There is moderate plaquing identified at the carotid bifurcations bilaterally with extension into the proximal internal and external carotid arteries, greatest on the left. Velocities in the right carotid system are unremarkable. There is some velocity elevation in the left carotid system with greatest velocity measured in the distal left ICA reaching 166 cm/s. Both vertebral arteries show antegrade flow. IMPRESSION: Moderate bilateral carotid plaque. No hemodynamically significant stenosis on the right is identified. The velocity measurements in the left ICA are consistent with approximately 50-69% diameter stenosis. Parameters based on the consensus panel Frias-Scale and Doppler ultrasound criteria published March 2003, Radiology, Volume 229. DOPPLER (peak systolic velocity M/S Right Left CCA 1.14 .82 ICA Proximal .84 1.22 ICA Mid .8 1.52 ICA Distal .59 1.66 RATIO .7 2.0 ECA .8 .82 VERT .46 Dictated by: Dictated on workstation # [id number]
--- NOTE | 2018-04-12 11:33 | Diagnostic Imaging Report ---
INDICATION: Hypertension, abdominal aortic aneurysm.. TECHNIQUE: Segmental pulse pressures were performed of the upper and lower extremities. FINDINGS: Right brachial pressure: 125 mmHg Right ankle pressure: Posterior tibial 138, dorsalis pedis 150 mm Hg Right ankle-brachial index: 1.10 AND 1.20, RESPECTIVELY Left brachial pressure: 120 mm Hg Left ankle pressure: Posterior tibial 130, dorsalis pedis, 148 mmHg Left ankle-brachial index: 1.04 AND 1.18, RESPECTIVELY IMPRESSION: Normal ankle-brachial indices as above. Ankle-Brachial Index Diagnosis/Interpretation <=0.90 Peripheral Arterial Disease 0.91-0.99 Borderline 1.00-1.40 Normal >1.40 Concern for noncompressible arteries, (assoc with Diabetes Mellitus) Dictated by: Dictated on workstation # [id number]
== END ==
LOC: RAD 07:39
PROVIDERS: ATTEND Internal Medicine Interventional Cardiology
DX: I71.4 Abdominal aortic aneurysm, without rupture (principal); I65.23 Occlusion and stenosis of bilateral carotid arteries; I10 Essential (primary) hypertension; E78.00 Pure hypercholesterolemia, unspecified
CPT/HCPCS: 76775; 93880; 93922

== ENCOUNTER → 2018-08-31 | Outpatient (CLI) | payer MEDICARE ==
[~2018-08-31] MED LIST changes: -AMLO5TAB7 PO; +AMLO5TAB9 PO; -RIVA20TA PO; +RIVA20TA2 PO
--- NOTE | 2018-09-03 11:41 | Diagnostic Imaging Report ---
INDICATION: Screening. COMPARISON: 06/28/2017, 04/11/2016, and 03/11/2015. TECHNIQUE: Bilateral CC and MLO 3D mammography was performed. The current study was also evaluated with a Computer Aided Detection (CAD) system. FINDINGS: There are scattered fibroglandular densities bilaterally. There are a few benign type calcifications. There is no dominant mass, spiculated lesion, or suspicious calcifications identified. The skin, nipples, and axillae are unremarkable. IMPRESSION: Benign findings. ACR BI-RADS Category 2: Benign findings. Result letter will be mailed to the patient. Note: At least 10% of breast cancer is not imaged by mammography. Dictated by: Dictated on workstation # [id number]
== END ==
LOC: RAD 13:41
PROVIDERS: ATTEND Nurse Practitioner Family
DX: Z12.31 Encounter for screening mammogram for malignant neoplasm of breast (principal)
CPT/HCPCS: 77067

== ENCOUNTER → 2018-11-16 | Outpatient (CLI) | payer MEDICARE ==
--- NOTE | 2018-11-16 14:28 | Diagnostic Imaging Report ---
INDICATION: Chronic back pain. TIME OF EXAM: 2:02 p.m. TECHNIQUE: Three views of the lumbar spine were obtained. FINDINGS: Curvature of the lumbar spine is normal. Minimal anterolisthesis of L4 on L5 is seen. There is a chronic compression fracture deformity involving the L3 vertebral body. This was present on MRI from 02/04/2014. Remaining lumbar vertebrae show normal stature. There is generalized degenerative disc disease, greatest at L4-L5 level with moderate disc space narrowing and marginal spurring. Lower lumbar facet arthropathy is noted. Abdominal aorta is heavily calcified. IMPRESSION: Lumbar spondylosis and facet arthropathy with chronic compression fracture deformity of L3. No acute compression fracture is detected. Dictated by: Dictated on workstation # [id number]
== END ==
LOC: RAD 13:43
PROVIDERS: ATTEND Nurse Practitioner Family
DX: M47.816 Spondylosis without myelopathy or radiculopathy, lumbar region (principal); M46.96 Unspecified inflammatory spondylopathy, lumbar region; M53.86 Other specified dorsopathies, lumbar region
CPT/HCPCS: 72100

== ENCOUNTER 2019-01-17 15:15 | Outpatient (RCR) | payer MEDICARE ==
[~2019-01-17 15:15] MED LIST changes: -METO-370 PO; +METO50TA7 PO; -TRAM50TA2 PO; +TRM50T PO
== END 2019-01-17 16:01 | disposition home or self-care (01) ==
PROVIDERS: ATTEND Nurse Practitioner Family
DX: M54.5 Low back pain (principal)

== ENCOUNTER → 2019-01-28 | Outpatient (CLI) | payer MEDICARE ==
[~2019-01-28] MED LIST changes: +METO-370 PO; -METO50TA7 PO; +TRAM50TA2 PO; -TRM50T PO
== END ==
LOC: CARD 09:45
PROVIDERS: ATTEND Internal Medicine Interventional Cardiology
DX: I08.2 Rheumatic disorders of both aortic and tricuspid valves (principal); I77.89 Other specified disorders of arteries and arterioles; I48.1 Persistent atrial fibrillation; I10 Essential (primary) hypertension; E78.00 Pure hypercholesterolemia, unspecified
CPT/HCPCS: 93306

== ENCOUNTER 2019-10-14 12:58 | Outpatient (CLI) | payer MEDICARE ==
[~2019-10-14 12:58] MED LIST changes: +ACHYD1T PO; -HYDR-3820 PO; -METO-370 PO; +METO50TA7 PO; -TRAM50TA2 PO; +TRM50T PO
== END 2019-10-14 13:28 | disposition home or self-care (01) ==
LOC: SLEEP 12:58
PROVIDERS: ATTEND Nurse Practitioner Family
DX: G47.10 Hypersomnia, unspecified (principal); B35.1 Tinea unguium; L60.2 Onychogryphosis; E78.2 Mixed hyperlipidemia; I12.9 Hypertensive chronic kidney disease with stage 1 through stage 4 chronic kidney disease, or unspecified chronic kidney disease; L20.89 Other atopic dermatitis; L03.119 Cellulitis of unspecified part of limb; H61.20 Impacted cerumen, unspecified ear; N72 Inflammatory disease of cervix uteri; N18.3 Chronic kidney disease, stage 3 (moderate); K59.00 Constipation, unspecified; M21.40 Flat foot [pes planus] (acquired), unspecified foot; F41.1 Generalized anxiety disorder; E03.9 Hypothyroidism, unspecified; M25.562 Pain in left knee; L60.3 Nail dystrophy; N64.52 Nipple discharge; G64 Other disorders of peripheral nervous system; G62.89 Other specified polyneuropathies; M25.511 Pain in right shoulder; M25.531 Pain in right wrist; I48.0 Paroxysmal atrial fibrillation; R21 Rash and other nonspecific skin eruption; N76.6 Ulceration of vulva; R35.0 Frequency of micturition; L50.9 Urticaria, unspecified; M81.0 Age-related osteoporosis without current pathological fracture; Z90.49 Acquired absence of other specified parts of digestive tract; Z90.89 Acquired absence of other organs; Z98.890 Other specified postprocedural states

== ENCOUNTER → 2019-11-28 | Outpatient (CLI) | payer MEDICARE ==
[~2019-11-28] MED LIST changes: +MULT-567 PO; -MULT1TAB69 PO
== END ==
LOC: LABNPT 08:45
PROVIDERS: ATTEND Family Medicine
DX: Z01.812 Encounter for preprocedural laboratory examination (principal); Z20.828 Contact with and (suspected) exposure to other viral communicable diseases
CPT/HCPCS: 87635

== ENCOUNTER 2019-12-09 21:00 | Outpatient (CLI) | payer MEDICARE | END 2019-12-10 06:15 | disposition home or self-care (01) | LOC: SLEEP 21:00 | PROVIDERS: ATTEND Nurse Practitioner Family | DX: G47.33 Obstructive sleep apnea (adult) (pediatric) (principal); I10 Essential (primary) hypertension | CPT/HCPCS: 95811 ==

== ENCOUNTER → 2020-04-06 | Outpatient (CLI) | payer MEDICARE ==
[~2020-04-06] MED LIST changes: +AMLO-250 PO; -AMLO5TAB9 PO
--- NOTE | 2020-04-07 09:23 | Diagnostic Imaging Report ---
INDICATION: Routine screening. COMPARISON: 08/31/2018 and 06/28/2017. TECHNIQUE: 2D and 3D bilateral screening mammography was performed with CAD. FINDINGS: Scattered fibroglandular densities are identified bilaterally. The overall parenchymal pattern appears to be stable. There are scattered benign calcifications in both breasts. No dominant mass or malignant appearing microcalcifications are seen. The axillae are unremarkable. IMPRESSION: No mammographic features suspicious for malignancy are identified. ACR BI-RADS Category 2: Benign findings. Result letter will be mailed to the patient. Note: At least 10% of breast cancer is not imaged by mammography. Dictated by: Dictated on workstation # [id number]
== END ==
LOC: RAD 15:22
PROVIDERS: ATTEND Nurse Practitioner Family
DX: Z12.31 Encounter for screening mammogram for malignant neoplasm of breast (principal)
CPT/HCPCS: 77063; 77067

== ENCOUNTER → 2020-05-13 | Outpatient (CLI) | payer MEDICARE | LOC: CARD 15:00 | PROVIDERS: ATTEND Internal Medicine Cardiovascular Disease | DX: I08.3 Combined rheumatic disorders of mitral, aortic and tricuspid valves (principal) | CPT/HCPCS: 93306 ==

== ENCOUNTER 2021-03-11 16:32 | Emergency (ER) | payer MEDICARE ==
[~2021-03-11] VITALS: Ht 167.7 cm; Wt 92.5 kg
--- NOTE | 2021-03-11 16:45 | ED Upper Extremity ---
General Stated Complaint: FALL Source: patient, EMS Exam Limitations: no limitations History of Present Illness Date Seen by Provider: Mar 11, 2021 Time Seen by Provider: 16:43 Initial Comments To ER by EMS with reports of a fall while shopping for groceries at [employer]. Patient states that she tripped and landed on her right shoulder. She did not hit her head or her neck. She has a little pain in her right hip. She has been ambulatory since this happened. She states that she has a history of a right shoulder fracture/dislocation about 5 years ago managed [address] Dr. Cabrera. This was treated nonoperatively. Onset: just prior to arrival Severity: moderate Pain/Injury Location: right shoulder Method of Injury: fell Modifying Factors: Worse With Movement Allergies and Home Medications Allergies Coded Allergies: Chauncey Known Allergies (Verified Allergy, Unknown, 05/19/17) Patient Home Medication List Home Medication List Reviewed: Yes Atorvastatin Calcium (Atorvastatin Calcium) 10 Mg Tablet, 5 MG PO DAILY, (Reported) Entered as Reported by: ROSIE CADE on 05/18/17 0837 Calcium Carbonate/Vitamin D3 (Calcium 600 + Vit D3 Caplet) 1 Each Tablet, 1 TAB PO BID, (Reported) Entered as Reported by: SYLVAIN DIXON on 07/31/17 1038 Clonazepam (Clonazepam) 1 Mg Tablet, 0.5 MG PO DAILY, (Reported) Entered as Reported by: ORSIE CADE on 05/18/17 0837 Glucosamine Sulfate 2Kcl (Glucosamine) 1,000 Mg Tablet, 1,000 MG PO DAILY, (Reported) Entered as Reported by: REID JOYCE on 07/21/15 0925 Hydrocodone/Acetaminophen (Hydrocodone-Acetamin 5-325 mg) 1 Each Tablet, 1 TAB PO Q6H PRN for PAIN-MODERATE (5-7) Prescribed by: MARTIN LEONG on 03/11/21 1741 Levothyroxine Sodium (Levothyroxine Sodium) 100 Mcg Tablet, 100 MCG PO mon-fri, (Reported) Entered as Reported by: ROSIE CADE on 05/18/17 0839 Levothyroxine Sodium (Levothyroxine Sodium) 100 Mcg Tablet, 150 MCG PO sat & sun, (Reported) Entered as Reported by: ROSIE CADE on 05/18/17 0839 Metoprolol Succinate (Metoprolol Succinate) 50 Mg Tab.er.24h, 50 MG PO BID, (Reported) Entered as Reported by: ROSIE CADE on 05/18/17 0838 Multivitamin (Multivitamins) 1 Each Tablet, 1 TAB PO DAILY, (Reported) Entered as Reported by: SYLVAIN DIXON on 07/31/17 1038 Spironolactone (Spironolactone) 25 Mg Tablet, 25 MG PO DAILY, (Reported) Entered as Reported by: REID JOYCE on 07/21/15 0925 Tramadol HCl (Tramadol HCl) 50 Mg Tablet, 50 MG PO Q12H PRN for PAIN-MODERATE Prescribed by: VASU DUONG on 08/02/17 1342 Review of Systems Constitutional: see HPI EENTM: see HPI Respiratory: no symptoms reported Cardiovascular: no symptoms reported Genitourinary: no symptoms reported Musculoskeletal: see HPI Skin: no symptoms reported Psychiatric/Neurological: No Symptoms Reported Past Pqpcufj-Ehaote-Ojqawe Hx Immunizations Up To Date Tetanus Booster (TDap): Unknown PED Vaccines UTD: Yes Seasonal Allergies Seasonal Allergies: No Past Medical History Surgeries: Yes (COLON RESECTION, MASTOIDECTOMY,HIP pinning) Appendectomy, Gallbladder, Orthopedic, Thyroidectomy, Tonsillectomy Respiratory: No Cardiac: Yes High Cholesterol, Hypertension Neurological: No Stroke Reproductive Disorders: Yes (REPORTS APPROX 1 MO HX INTERMITTENT BLOODY DISCHARGE R NIPPLE-NONE ON ADMIT) Female Reproductive Disorders: Menstrual Problems Sexually Transmitted Disease: No HIV/AIDS: No Gastrointestinal: Yes (reports 12 inches of colon removed in past) Polyps Musculoskeletal: Yes (fx-rhip, right ankle) Arthritis, Fractures Endocrine: Yes (HYPOTHYROIDISM) Hypothyroidsim Cataract Loss of Vision: Denies Hearing Impairment: Deaf Cancer: No Psychosocial: No Integumentary: No Blood Disorders: No Family Medical History BRAIN Cardiovascular disease 19 FATHER G8 BROTHER Colon cancer 19 MOTHER FH: brain tumor Physical Exam Vital Signs Vital Signs - First Documented 03/11/21 16:32 Temp 36.4 Pulse 102 Resp 17 B/P (MAP) 153/93 (113) Pulse Ox 94 O2 Delivery Room Air Capillary Refill : Height, Weight, BMI Height: 5'4.00" Weight: 175lbs. 0.0oz. 79.263585si; 30.0 BMI Method:Stated General Appearance: WD/WN, no apparent distress, other (She is alert and oriented and very pleasant. She requests that we cut the brianna jacket off of her since it would be too difficult to remove given the limited mobility in the right arm. She is very pleasant no distress no scalp abrasion hematoma or laceration. ) HEENT: PERRL/EOMI, normal ENT inspection Respiratory: no respiratory distress, no accessory muscle use Gastrointestinal: normal bowel sounds, non tender, soft Shoulder: deformity, limited ROM, pain, soft tissue tenderness Elbow/Forearm: ecchymosis, swelling Wrist: Yes normal inspection, Yes non-tender Hand: normal inspection, non-tender Neurologic/Tendon: normal sensation, normal motor functions Neurologic/Psychiatric: alert, normal mood/affect, oriented x 3 Skin: normal color, warm/dry Procedures/Interventions Patient Education: Explained Benefits, Explained Risks, Pt. Ack. Understanding Breath Sounds per Auscultation: Clear Heart Sounds per Auscultation: Regular Airway Exam: Mouth opens >2 fingers, Neck Full Range of Motion, Visulation of Uvula Re-examination Time: 2043 Progress/Results/Core Measures Results/Orders My Orders Orders - MARTIN LEONG APRN Shoulder, Right, 3 Views (03/11/21 16:42) Pelvis With Right Hip 2-3views (03/11/21 16:42) Ed Iv/Invasive Line Start (03/11/21 16:42) Elbow, Right, 2 View (03/11/21 17:29) Hydrocodone/Apap 5/325 Tablet (Lortab 5 (03/11/21 17:45) Medications Given in ED Current Medications Medications Dose Ordered Sig/Marcus Route Start Time Stop Time Status Last Admin Dose Admin Acetaminophen/ Hydrocodone Bitart 1 ea ONCE ONCE PO 03/11/21 17:45 03/11/21 17:46 DC 03/11/21 17:43 1 EA Vital Signs/I&O 03/11/21 16:32 Temp 36.4 Pulse 102 Resp 17 B/P (MAP) 153/93 (113) Pulse Ox 94 O2 Delivery Room Air Departure Communication (Admissions) Family Conversation NAME: FLO GOMEZ [facility] REC#: [id number] PT STATUS: REG ER : 1930 PHYSICIAN: MARTIN LEONG APRN ADMIT DATE: 03/11/21/ER Draft Date of Exam:03/11/21 ELBOW, RIGHT, 2 VIEW INDICATION: Pain, fall. COMPARISON: None available. TECHNIQUE: Two radiographs of the right elbow dated March 11, 2021. FINDINGS: Acute mildly comminuted fracturing is identified involving the proximal ulna extending through the olecranon fossa. The most proximal aspect of the proximal ulna has been retracted and rotated with approximately 2.3 cm of articular gap. Significant overlying soft tissue swelling is noted overlying the olecranon. No additional fracture. No suspicious radiopaque foreign body. IMPRESSION: Acute mildly comminuted, displaced and retracted fracturing involving the proximal ulna with large articular gap associated with the olecranon fossa with significant overlying soft tissue swelling. Dictated on workstation # [id number] Dict: 03/11/21 1747 Trans: 03/11/21 1753 PJ [id number] Interpreted by: LISSET ZURITA MD Electronically signed by: NAME: FLO GOMEZ [facility] REC#: [id number] PT STATUS: REG ER : 1930 PHYSICIAN: MARTIN LEONG APRN ADMIT DATE: 03/11/21/ER Draft Date of Exam:03/11/21 SHOULDER, RIGHT, 3 VIEWS INDICATION: Pain after fall. COMPARISON: 07/20/2015. TECHNIQUE: Three radiographs of the right shoulder were obtained dated March 11, 2021. FINDINGS: The acromioclavicular joint is unremarkable. Acute appearing comminuted fracturing involving the right humeral head extending into the humeral neck is identified. These fractures are not significantly displaced. Advanced degenerative changes of the glenohumeral joint are identified. The humeral head appears slightly anteriorly positioned in relationship to the glenoid. Increased subacromial space. No additional fracture. No suspicious radiopaque foreign body. IMPRESSION: 1. Acute essentially nondisplaced comminuted fracturing of the right humeral head and neck. 2. Significant degenerative changes of the glenohumeral joint with mild anterior subluxation of the glenohumeral joint. 3. Widening of the subacromial space is felt to relate to an underlying joint effusion. Dictated on workstation # [id number] Dict: 03/11/21 1745 Trans: 03/11/21 175 [facility] [id number] Interpreted by: LISSET ZURITA MD Electronically signed by: She remains neurovascularly intact at the fingertips with good sensation and motor function and brisk capillary refill. There is significant distraction of the fracture fragments at the olecranon process. Nondisplaced fracture of the proximal humerus. Awaiting official radiology report. Posterior long-arm splint and sling Impression Primary Impression: Humerus fracture Additional Impressions: Olecranon fracture Chronic dislocation of shoulder Disposition: 01 HOME, SELF-CARE Condition: Stable Departure-Patient Inst. Decision time for Depature: 17:36 Referrals: MELVA JIMÉNEZ MD (PCP/Family) Primary Care Physician JOHN CABRERA DO Patient Instructions: Elbow Fracture, Adult ED, Upper Arm Fracture ED Add. Discharge Instructions: 1. Pain medication as directed. Ice pack over the elbow. Keep the splint on clean and dry at all times. Call Dr. Cabrera to make an appointment for follow-up at soonest available date. Scripts Hydrocodone/Acetaminophen (Hydrocodone-Acetamin 5-325 mg) 1 Each Tablet 1 TAB PO Q6H PRN for PAIN-MODERATE (5-7), #14 TAB Prov: MARTIN LEONG APRN 03/11/21 Copy Copies To 1: MELVA JIMÉNEZ MD; JOHN CABRERA PETER J APRN Mar 11, 2021 16:45
[2021-03-11] MEDS ORDERED: ACHD5005 PO (17:40)
[2021-03-11] MEDS ORDERED: HYDROcodone/APAP 5 MG/325 MG (LORTAB) TAB PO ONE (17:45)
--- NOTE | 2021-03-11 17:50 | Diagnostic Imaging Report ---
EXAMINATION: Right hip unilateral 2 or 3 views (w/pelvis when done). HISTORY: Pain after fall. COMPARISON: None available. FINDINGS: There is a healed intratrochanteric fracture of the right femur with an intramedullary nail present. No acute fracture is seen. Alignment is normal. Vascular calcifications are noted. IMPRESSION: No acute fracture. Dictated by: Dictated on workstation # [id number]
--- NOTE | 2021-03-11 17:52 | Diagnostic Imaging Report ---
INDICATION: Pain after fall. COMPARISON: 07/20/2015. TECHNIQUE: Three radiographs of the right shoulder were obtained dated March 11, 2021. FINDINGS: The acromioclavicular joint is unremarkable. Acute appearing comminuted fracturing involving the right humeral head extending into the humeral neck is identified. These fractures are not significantly displaced. Advanced degenerative changes of the glenohumeral joint are identified. The humeral head appears slightly anteriorly positioned in relationship to the glenoid. Increased subacromial space. No additional fracture. No suspicious radiopaque foreign body. IMPRESSION: 1. Acute essentially nondisplaced comminuted fracturing of the right humeral head and neck. 2. Significant degenerative changes of the glenohumeral joint with mild anterior subluxation of the glenohumeral joint. 3. Widening of the subacromial space is felt to relate to an underlying joint effusion. Dictated by: Dictated on workstation # [id number]
--- NOTE | 2021-03-11 17:54 | Diagnostic Imaging Report ---
INDICATION: Pain, fall. COMPARISON: None available. TECHNIQUE: Two radiographs of the right elbow dated March 11, 2021. FINDINGS: Acute mildly comminuted fracturing is identified involving the proximal ulna extending through the olecranon fossa. The most proximal aspect of the proximal ulna has been retracted and rotated with approximately 2.3 cm of articular gap. Significant overlying soft tissue swelling is noted overlying the olecranon. No additional fracture. No suspicious radiopaque foreign body. IMPRESSION: Acute mildly comminuted, displaced and retracted fracturing involving the proximal ulna with large articular gap associated with the olecranon fossa with significant overlying soft tissue swelling. Dictated by: Dictated on workstation # [id number]
[2021-03-11] MEDS ORDERED: KETOROLAC 30 MG/ML VIAL IM ONE (18:45)
[2021-03-11] MEDS ORDERED: RX-OXYCODONE/APAP 5-325 MG #4 TAB PK PO PRN (19:15)
[2021-03-11 19:17] VITALS: BP 141/78
[2021-03-12] MEDS ORDERED: RIVA20TA PO (16:05)
[2021-03-12] MEDS ORDERED: GLUC1TAB20 PO (16:05)
[2021-03-12] MEDS ORDERED: ACHD5005 PO (16:05)
[2021-03-12] MEDS ORDERED: CALC500T64 PO (16:05)
== END 2021-03-11 19:27 | disposition home or self-care (01) ==
LOC: EDUNIT# 16:39 → ER 16:40
DX: S42.294A Other nondisplaced fracture of upper end of right humerus, initial encounter for closed fracture (principal); S52.021A Displaced fracture of olecranon process without intraarticular extension of right ulna, initial encounter for closed fracture; M24.411 Recurrent dislocation, right shoulder; I10 Essential (primary) hypertension; E03.9 Hypothyroidism, unspecified; E78.00 Pure hypercholesterolemia, unspecified; Z86.73 Personal history of transient ischemic attack (TIA), and cerebral infarction without residual deficits; Z79.890 Hormone replacement therapy; Z79.899 Other long term (current) drug therapy; W01.0XXA Fall on same level from slipping, tripping and stumbling without subsequent striking against object, initial encounter
CPT/HCPCS: 29105; 73030; 73070; 96372

== ENCOUNTER 2021-03-12 11:30 | Inpatient (IN) | payer MEDICARE ==
[~2021-03-12] VITALS: Ht 165 cm; Wt 91.0 kg
[~2021-03-12 11:30] MED LIST changes: +ACHD5005 PO
--- NOTE | 2021-03-12 11:56 | ED Hip Pain/Injury ---
General Chief Complaint: Hip/Pelvic Problems Stated Complaint: R HIP PAIN Nursing Triage Note: PT ARRIVED PER EMS PT CO OF R HIP PAIN. PT WAS SEEN YESTERDAY IN ED FOR FALL W FX OF R SHOULDER, PT WAS SENT HOME. PT STATES UNABLE TO BARE WT ON R LEG CO OF PAIN IN R GROIN AREA. RATES PAIN /. PT STATES HIP WAS X-RAYED YESTERDAY. UNABLE TO CARRY OUT ADL'S D/T PAIN Source: patient Exam Limitations: no limitations History of Present Illness Date Seen by Provider: Mar 12, 2021 Time Seen by Provider: 11:36 Initial Comments Patient presents ER by private conveyance with her significant other and chief complaint that she had a fall yesterday resulting in an arm fracture and also was having some pain in her right groin area. She says while she is laying there there is no pain however when she tries to bear weight her pain is significant. She has been using her pain medications as prescribed. She says she lives alone and does not have anybody in home to help her and since she cannot ambulate is concerned about her ability to care for herself at home as well. She is not havi ng any numbness or tingling. She is had a gamma nail placed in her right hip over [address] Meagan breaux. She is not having any dysuria diarrhea constipation fevers chills nausea vomiting. Allergies and Home Medications Allergies Coded Allergies: Chauncey Known Allergies (Verified Allergy, Unknown, 05/19/17) Patient Home Medication List Home Medication List Reviewed: Yes Atorvastatin Calcium (Atorvastatin Calcium) 10 Mg Tablet, 5 MG PO DAILY, (Reported) Entered as Reported by: ROSIE CADE on 05/18/17 0837 Calcium Carbonate/Vitamin D3 (Calcium 600 + Vit D3 Caplet) 1 Each Tablet, 1 TAB PO BID, (Reported) Entered as Reported by: SYLVAIN DIXON on 07/31/17 1038 Clonazepam (Clonazepam) 1 Mg Tablet, 0.5 MG PO DAILY, (Reported) Entered as Reported by: ROSIE CADE on 05/18/17 0837 Glucosamine Sulfate 2Kcl (Glucosamine) 1,000 Mg Tablet, 1,000 MG PO DAILY, (Reported) Entered as Reported by: REID JOYCE on 07/21/15 0925 Hydrocodone/Acetaminophen (Hydrocodone-Acetamin 5-325 mg) 1 Each Tablet, 1 TAB PO Q6H PRN for PAIN-MODERATE (5-7) Prescribed by: MARTIN LEONG on 03/11/21 1741 Levothyroxine Sodium (Levothyroxine Sodium) 100 Mcg Tablet, 100 MCG PO mon-fri, (Reported) Entered as Reported by: ROSIE CADE on 05/18/17 0839 Levothyroxine Sodium (Levothyroxine Sodium) 100 Mcg Tablet, 150 MCG PO sat & sun, (Reported) Entered as Reported by: ROSIE CADE on 05/18/17 0839 Metoprolol Succinate (Metoprolol Succinate) 50 Mg Tab.er.24h, 50 MG PO BID, (Reported) Entered as Reported by: ROSIE CADE on 05/18/17 0838 Multivitamin (Multivitamins) 1 Each Tablet, 1 TAB PO DAILY, (Reported) Entered as Reported by: SYLVAIN DIXON on 07/31/17 1038 Spironolactone (Spironolactone) 25 Mg Tablet, 25 MG PO DAILY, (Reported) Entered as Reported by: REID JOYCE on 07/21/15 0925 Tramadol HCl (Tramadol HCl) 50 Mg Tablet, 50 MG PO Q12H PRN for PAIN-MODERATE Prescribed by: VASU DUONG on 08/02/17 1342 Review of Systems Constitutional: No chills, No diaphoresis EENTM: No ear discharge, No ear pain Respiratory: No cough, No short of breath Cardiovascular: No edema, No palpitations Gastrointestinal: No abdominal pain, No constipation, No diarrhea, No nausea, No vomiting Genitourinary: No discharge, No dysuria Musculoskeletal: see HPI, joint pain All Other Systems Reviewed Negative Unless Noted: Yes Past Mrgowsj-Lwsgss-Maiqey Hx Patient Social History Tobacco Use?: No Use of E-Cig and/or Vaping dev: No Substance use?: No Alcohol Use?: No Immunizations Up To Date Tetanus Booster (TDap): Unknown PED Vaccines UTD: Yes First/Initial COVID19 Vaccinat: MAY 2020 Second COVID19 Vaccination Geoffrey: JUNE 2020 Seasonal Allergies Seasonal Allergies: No Past Medical History Surgeries: Yes (COLON RESECTION, MASTOIDECTOMY,HIP pinning) Appendectomy, Gallbladder, Orthopedic, Thyroidectomy, Tonsillectomy Respiratory: No Cardiac: Yes High Cholesterol, Hypertension Neurological: No Stroke Reproductive Disorders: Yes (REPORTS APPROX 1 MO HX INTERMITTENT BLOODY DISCHARGE R NIPPLE-NONE ON ADMIT) Female Reproductive Disorders: Menstrual Problems Sexually Transmitted Disease: No HIV/AIDS: No Gastrointestinal: Yes (reports 12 inches of colon removed in past) Polyps Musculoskeletal: Yes (fx-rhip, right ankle) Arthritis, Fractures Endocrine: Yes (HYPOTHYROIDISM) Hypothyroidsim Cataract Loss of Vision: Denies Hearing Impairment: Deaf Cancer: No Psychosocial: No Integumentary: No Blood Disorders: No Family Medical History BRAIN Cardiovascular disease 19 FATHER G8 BROTHER Colon cancer 19 MOTHER FH: brain tumor Physical Exam Vital Signs Vital Signs - First Documented 03/12/21 11:35 Temp 36.6 Pulse 102 Resp 20 B/P (MAP) 129/77 (94) Pulse Ox 92 O2 Delivery Room Air Capillary Refill : Less Than 3 Seconds Height, Weight, BMI Height: 5'4.00" Weight: 175lbs. 0.0oz. 79.328212eq; 33.00 BMI Method:Stated General Appearance: No Apparent Distress, WD/WN HEENT: PERRL/EOMI, Pharynx Normal, Moist Mucous Membranes Neck: Normal Inspection, Non Tender Cardiovascular: Regular Rate, Rhythm, No Edema, Normal Peripheral Pulses Respiratory: No Accessory Muscle Use, No Respiratory Distress Gastrointestinal: Normal Bowel Sounds, No Organomegaly Extremity: Normal Capillary Refill, Normal Inspection, No Pedal Edema, Other (No shortening or external rotation. The right groin is mildly tender to palpation. She is able to actively flex her hip as well as extend it. ) Neurologic/Psychiatric: Alert, Oriented x3 Skin: Normal Color, Warm/Dry Procedures/Interventions Patient Education: Explained Benefits, Explained Risks, Pt. Ack. Understanding Breath Sounds per Auscultation: Clear Heart Sounds per Auscultation: Regular Airway Exam: Mouth opens >2 fingers, Neck Full Range of Motion, Visulation of Uvula Re-examination Time: 2043 Progress/Results/Core Measures Results/Orders My Orders Orders - ZENY MONTIEL Ct Abdomen/Pelvis Wo (03/12/21 11:56) Vital Signs/I&O 03/12/21 11:35 Temp 36.6 Pulse 102 Resp 20 B/P (MAP) 129/77 (94) Pulse Ox 92 O2 Delivery Room Air Blood Pressure Mean: 94 Progress Progress Note : Time: 11:54 Progress Note Patient has a x-ray of the hip and pelvis from yesterday which we did review and do not reveal any acute fractures. However since she is still having painful weightbearing a CT of the pelvis would be indicated. She does not want anything for pain at right now as while she is laying still she is not having any discomfort. Diagnostic Imaging Diagonstic Imaging: CT Plain Films/CT/US/NM/MRI: pelvis Comments NAME: FLO GOMEZ [facility] REC#: [id number] PT STATUS: REG ER : 1930 PHYSICIAN: ZEYN MONTIEL MD ADMIT DATE: 03/12/21/ER Draft Date of Exam:03/12/21 CT ABDOMEN/PELVIS WO CT ABDOMEN/PELVIS WO TECHNIQUE: Unenhanced CT imaging of the abdomen and pelvis was performed. 2-D reformats are created and submitted for interpretation. Automatic exposure controls were utilized to optimize patient dose. INDICATION: Fall with right hip pain. COMPARISON: None available. FINDINGS: Evaluation of the abdominal viscera is mildly limited without contrast. Lower chest: The lung bases are clear. No pericardial or pleural effusion. Peritoneum: No free intraperitoneal air or fluid. Liver and biliary system: Unenhanced liver is normal. Cholecystectomy. Spleen and Pancreas: Spleen is normal. Unenhanced pancreas is grossly normal. Adrenals: Normal. tract: No renal or ureteral calculi. No obstructive uropathy. Uterus and ovaries are unremarkable. GI tract: The stomach is partially filled with fluid and food debris. No bowel obstruction. No pericolonic inflammatory changes. Appendectomy. Vasculature and Lymph nodes: Focal ectasia infrarenal abdominal aorta measures up to 2.5 cm. No abdominal or pelvic lymphadenopathy. Musculoskeletal: There is an acute fracture of the right pubic body which is nondisplaced. Nondisplaced fracture in the inferior right pubic ramus also likely present. Old healed right intertrochanteric fracture. No acute fracture in the proximal femurs. There is a small hematoma located in the right pelvic sidewall extending to the space of Retzius. Age-indeterminate superior endplate fracture of L3 has approximately 20% height loss anteriorly. IMPRESSION: 1. Acute nondisplaced fractures of the right pubic body and inferior pelvic ramus. There is associated small hematoma along the right pelvic sidewall. 2. Age-indeterminate superior endplate compression fracture of L3 has approximately 20% height loss. There is no involvement of the posterior wall or retropulsion. Dictated on workstation # [id number] Dict: 03/12/21 1254 Trans: 03/12/21 1312 [facility] [id number] Interpreted by: MIKE HAYES MD Electronically signed by: Reviewed: Reviewed by Me Consults : Consulting Physician: JAYCEE RASMUSSEN MD Consults Notes Discussed the case with Dr. Rasmussen and he agrees with outpatient follow-up for the arm and symptomatic management of the right inferior pubic ramus fracture. Weightbearing as tolerated. Departure Communication (Admissions) Time/Spoke to Admitting Phy: 13:30 Discussed the case with Dr. Suresh Good and he agrees with observation. He would like a referral put in for inpatient rehab as well as manager social media to consult about placement. Impression Primary Impression: Closed fracture of right inferior pubic ramus Qualified Codes: S32.591A - Other specified fracture of right pubis, initial encounter for closed fracture Additional Impressions: Lumbar vertebral fracture Qualified Codes: S32.030A - Wedge compression fracture of third lumbar vertebra, initial encounter for closed fracture Aortic aneurysm Qualified Codes: I71.4 - Abdominal aortic aneurysm, without rupture Fall Qualified Codes: W19.XXXD - Unspecified fall, subsequent encounter Disposition: 01 HOME, SELF-CARE Condition: Stable Admissions Decision to Admit Reason: Admit from ER (General) Decision to Admit/Date: Mar 12, 2021 Time/Decision to Admit Time: 13:28 Departure-Patient Inst. Referrals: MELVA JIMÉNEZ MD (PCP/Family) Primary Care Physician ZENY MONTIEL Mar 12, 2021 11:56
--- NOTE | 2021-03-12 13:12 | Diagnostic Imaging Report ---
CT ABDOMEN/PELVIS WO TECHNIQUE: Unenhanced CT imaging of the abdomen and pelvis was performed. 2-D reformats are created and submitted for interpretation. Automatic exposure controls were utilized to optimize patient dose. INDICATION: Fall with right hip pain. COMPARISON: None available. FINDINGS: Evaluation of the abdominal viscera is mildly limited without contrast. Lower chest: The lung bases are clear. No pericardial or pleural effusion. Peritoneum: No free intraperitoneal air or fluid. Liver and biliary system: Unenhanced liver is normal. Cholecystectomy. Spleen and Pancreas: Spleen is normal. Unenhanced pancreas is grossly normal. Adrenals: Normal. tract: No renal or ureteral calculi. No obstructive uropathy. Uterus and ovaries are unremarkable. GI tract: The stomach is partially filled with fluid and food debris. No bowel obstruction. No pericolonic inflammatory changes. Appendectomy. Vasculature and Lymph nodes: Focal ectasia infrarenal abdominal aorta measures up to 2.5 cm. No abdominal or pelvic lymphadenopathy. Musculoskeletal: There is an acute fracture of the right pubic body which is nondisplaced. Nondisplaced fracture in the inferior right pubic ramus also likely present. Old healed right intertrochanteric fracture. No acute fracture in the proximal femurs. There is a small hematoma located in the right pelvic sidewall extending to the space of Retzius. Age-indeterminate superior endplate fracture of L3 has approximately 20% height loss anteriorly. IMPRESSION: 1. Acute nondisplaced fractures of the right pubic body and inferior pelvic ramus. There is associated small hematoma along the right pelvic sidewall. 2. Age-indeterminate superior endplate compression fracture of L3 has approximately 20% height loss. There is no involvement of the posterior wall or retropulsion. Dictated by: Dictated on workstation # [id number]
[2021-03-12] MEDS ORDERED: HYDROcodone/APAP 5 MG/325 MG (LORTAB) TAB PO ONE (13:45)
[2021-03-12] MEDS ORDERED: ONDANSETRON 4 MG/2 ML (SDV) Z0FRAN IV PRN (15:00)
[2021-03-12] MEDS ORDERED: clonazePAM 0.5 MG (KlonoPIN) TAB PO PRN (15:00)
[2021-03-12] MEDS ORDERED: HYDROcodone/APAP 5 MG/325 MG (LORTAB) TAB PO PRN (15:00)
[2021-03-12] MEDS ORDERED: fentaNYL INJ 100 MCG/2 ML AMP IV PRN (15:00)
[2021-03-12] MEDS ORDERED: ACHD5005 PO (16:05)
[2021-03-12] MEDS ORDERED: GLUC1TAB20 PO (16:05)
[2021-03-12] MEDS ORDERED: RIVA20TA PO (16:05)
[2021-03-12] MEDS ORDERED: CALC500T64 PO (16:05)
[2021-03-12] MEDS ORDERED: PATIENT MAY USE OWN MEDS, ALL MC SCH (17:15)
[2021-03-12 19:31] VITALS: BP 117/56
[2021-03-12] MEDS: RIVAROXABAN 20 MG TABLET (XARELTO) PO SCH (20:38)
[2021-03-12] MEDS: meTOproloL SUCCINATE 50 MG (TOPROL XL) TAB PO SCH (20:38)
[2021-03-12] MEDS: HYDROcodone/APAP 5 MG/325 MG (LORTAB) TAB PO PRN (20:39)
[2021-03-12] MEDS ORDERED: meTOproloL SUCCINATE 50 MG (TOPROL XL) TAB PO SCH (21:00)
[2021-03-13] VITALS (7 sets, daily range): BP systolic 100–138; BP diastolic 58–76
[2021-03-13] MEDS: HYDROcodone/APAP 5 MG/325 MG (LORTAB) TAB PO PRN (02:53)
[2021-03-13] MEDS ORDERED: LEVOTHYROXINE 150 MCG (LEVOTHROID) TAB PO SCH (06:30)
[2021-03-13] MEDS: MULTIVIT W/MINERALS TAB (THERAGRAN M) PO SCH (06:41)
[2021-03-13] MEDS: LEVOTHYROXINE 100 MCG (LEVOTHROID) TAB PO SCH (06:53)
--- NOTE | 2021-03-13 07:20 | Diagnostic Imaging Report ---
Indication: Shortness of breath Frontal chest obtained at 0650 a.m. and compared to 05/19/2017 Heart is mildly enlarged. Mediastinal silhouette is unremarkable. The lungs are clear. There is no pneumothorax or pleural fluid. IMPRESSION: Mild cardiomegaly with no acute process in the chest. Dictated by: Dictated on workstation # [id number]
--- NOTE | 2021-03-13 07:21 | History & Physical ---
History of Present Illness History of Present Illness Reason for visit/HPI 89 yo F admitted for intractable pain when she tries to get up and move. She is unable to care for herself at home. She lives alone. On March 11, she was seen in the ER after falling onto concrete parking lot at [employer]. She loaded her groceries and tried to close her trunk losing her balance and fell. She was found to have right humerus and ulna fracture- with fracture extending into the olecranon. Xray of her pelvis was negative for fracture and she was sent home with follow up with orthopedics. She came back to the ER the next day on 03/12/[address] was done to further evaluate her right pelvic pain and inability to bear weight and walk. She was found to have a right pubic body and inferior pelvic ramus fracture on CT. No overnight events- except this AM aides got her up to the bathroom and she became dizzy with blood pressure dropping 80s/60s. They got her back in bed and blood pressure recovered. She is still short of breath. Obtaining CXR and no labs were done since 2018 so we will obtain CBC, CMP. She did receive fentanyl at midnight and hydrocodone before 3am. CT findings: 1. Acute nondisplaced fractures of the right pubic body and inferior pelvic ramus. There is associated small hematoma along the right pelvic sidewall. 2. Age-indeterminate superior endplate compression fracture of L3 has approximately 20% height loss. There is no involvement of the posterior wall or retropulsion. Date of Admission Mar 12, 2021 at 13:40 Date Seen by a Provider: Mar 13, 2021 Time Seen by a Provider: 07:29 I consulted on this patient on 03/13/21 07:15 Attending Physician Suresh Pacheco MD Admitting Physician Cinthia Soto MD Consult JAYCEE DIETZ MD Allergies and Home Medications Allergies Coded Allergies: NKANo Known Allergies (Verified Allergy, Unknown, 05/19/17) Patient Home Medication List Home Medication List Reviewed: Yes Atorvastatin Calcium (Atorvastatin Calcium) 10 Mg Tablet, 5 MG PO DAILY, (Reported) Entered as Reported by: ROSIE CADE on 05/18/17 0837 Last Action: Continued Calcium Carbonate (Calcium Carbonate) 500 Mg Tablet, 500 MG PO DAILY, (Reported) Entered as Reported by: DESTINY RACHEL on 03/12/211604 Last Action: Converted Clonazepam (Clonazepam) 1 Mg Tablet, 0.5 MG PO DAILY, (Reported) Entered as Reported by: ROSIE CADE on 05/18/1737 Last Action: Continued Gluc Pagan/Chondro Pagan A/Vit C/Mn (Glucosamine Chondroitin Tab) 1 Each Tablet, 1 EACH PO DAILY, (Reported) Entered as Reported by: DESTINY RACHEL on 03/12/211604 Last Action: Converted Hydrocodone/Acetaminophen (Hydrocodone-Acetamin 5-325 mg) 1 Each Tablet, 1 TAB PO Q6H PRN for PAIN-MODERATE (5-7), (Reported) Entered as Reported by: DESTINY RACHEL on 03/12/211604 Last Action: Continued Levothyroxine Sodium (Levothyroxine Sodium) 100 Mcg Tablet, 100 MCG PO MO,,,,FR, (Reported) Entered as Reported by: ROSIE CADE on 05/18/17838 Last Action: Continued Levothyroxine Sodium (Levothyroxine Sodium) 100 Mcg Tablet, 50 MCG PO SUN,MON, (Reported) Entered as Reported by: ROSIE CADE on 05/18/17 0839 Last Action: Continued Metoprolol Succinate (Metoprolol Succinate) 50 Mg Tab.er.24h, 50 MG PO BID, (Reported) Entered as Reported by: ROSIE CADE on 05/18/17 0838 Last Action: Continued Multivitamin (Multivitamins) 1 Each Tablet, 1 TAB PO DAILY, (Reported) Entered as Reported by: SYLVAIN DIXON on 07/31/17 1038 Last Action: Continued Rivaroxaban (Xarelto) 20 Mg Tablet, 20 MG PO HS, (Reported) Entered as Reported by: DESTINY RACHEL on 03/12/21 160 Last Action: Continued Discontinued Medications Calcium Carbonate/Vitamin D3 (Calcium 600 + Vit D3 Caplet) 1 Each Tablet, 1 TAB PO BID, (Reported) Discontinued Reason: Prescription changed Entered as Reported by: SYLVAIN DIXON on 07/31/17 1038 Glucosamine Sulfate 2Kcl (Glucosamine) 1,000 Mg Tablet, 1,000 MG PO DAILY, (Reported) Discontinued Reason: Prescription changed Entered as Reported by: REID JOYCE on 3/15/16 0925 Hydrocodone/Acetaminophen (Hydrocodone-Acetamin 5-325 mg) 1 Each Tablet, 1 TAB PO Q6H PRN for PAIN-MODERATE (5-7) Discontinued Reason: No Longer Taking Prescribed by: MARTIN LEONG on 03/11/21 1741 Last Action: Discontinued Spironolactone (Spironolactone) 25 Mg Tablet, 25 MG PO DAILY, (Reported) Discontinued Reason: No Longer Taking Entered as Reported by: REID JOYCE on 07/21/15924 Last Action: Discontinued Tramadol HCl (Tramadol HCl) 50 Mg Tablet, 50 MG PO Q12H PRN for PAIN-MODERATE Discontinued Reason: No Longer Taking Prescribed by: VASU DUONG on 08/02/17 1342 Last Action: Discontinued Past Vsgvqkv-Ttyodd-Mmlqvs Hx Patient Social History Tobacco Use?: No Use of E-Cig and/or Vaping dev: No Substance use?: No Alcohol Use?: No Pt feels they are or have been: No Immunizations Up To Date Date of Influenza Vaccine: Feb 22, 2021 First/Initial COVID19 Vaccinat: MAY 2020 Second COVID19 Vaccination Geoffrey: JUNE 2020 Tetanus Booster (TDap): Unknown Hepatitis A: No Hepatitis B: No PED Vaccines UTD: Yes Date of Pneumonia Vaccine: May 18, 2015 Seasonal Allergies Seasonal Allergies: No Current Status status: No status: No Advance Directives: Yes Advance Directive Location: Copy placed in chart Communicates: Verbally Primary Language: Surinamese Preferred Spoken Language: Surinamese Is interpretation needed?: No Sensory deficits: Hearing impairment Implanted or Applied Medical D: None Past Medical History Surgeries: Appendectomy, Gallbladder, Orthopedic, Thyroidectomy, Tonsillectomy High Cholesterol, Hypertension Stroke Sexually Transmitted Disease: No HIV/AIDS: No Polyps Arthritis, Fractures Hypothyroidsim Cataract Loss of Vision: Denies Hearing Impairment: Deaf Blood Disorders: No Family Medical History BRAIN Cardiovascular disease 19 FATHER G8 BROTHER Colon cancer 19 MOTHER FH: brain tumor Review of Systems Review of Systems General: No Chills, No Night Sweats HEENT: No Head Aches Pulmonary: Dyspnea; No Cough Cardiovascular: No: Chest Pain, Palpitations Gastrointestinal: No: Nausea, Vomiting Genitourinary: No Dysuria Musculoskeletal: arm pain (right) Neurological: Weakness All Other Systems Reviewed All Other Systems Reviewed: Yes Physical Exam Vital Signs Vital Signs - First Documented 03/12/21 11:35 Temp 36.6 Pulse 102 Resp 20 B/P (MAP) 129/77 (94) Pulse Ox 92 O2 Delivery Room Air Capillary Refill : Less Than 3 Seconds Height, Weight, BMI Height: 5'4.00" Weight: 175lbs. 0.0oz. 79.532973al; 33.42 BMI Method:Stated General Appearance: Mild Distress HEENT: PERRL/EOMI Neck: Supple Respiratory: Chest Non Tender, Lungs Clear, Normal Breath Sounds Cardiovascular: Regular Rate, Rhythm, No Edema Gastrointestinal: Non Tender, Soft Rectal: Deferred Extremity: Other (right arm in sling.) Neurologic/Psychiatric: Alert, Oriented x3 Skin: Warm/Dry Assessment/Plan Assessment/Plan Admission Dx intractable pain inability to care for herself pelvic pain due to pelvic fracture arm fracture Admission Status: Observation Assessment and Plan 03/12/21 admitted for pain control and need for placement- she would best be able to return home safely if she was in inpatient rehab. will decrease metoprolol to 25mg daily if she continues to have hypotensive episodes. -she is a high fall risk as she has already fallen - sustaining right humerus, ulna and pelvic fractures. She is on xarelto as well which increases her risk of detrimental results. -She has not had any labs done at [facility] since 2018- so we will check CBC and CMP, TSH, T4. She does have a hematoma with her right pelvic fracture. Problems: (1) Closed fracture of right inferior pubic ramus Qualifiers: (2) Olecranon fracture (3) Humerus fracture (4) Fall Qualifiers: Qualified Codes: W19.XXXD - Unspecified fall, subsequent encounter (5) Hypothyroid (6) Hyperlipidemia Assessment & Plan: continue levothyroxine SURESH PACHECO MD Mar 13, 2021 07:21
[2021-03-13 07:42] LABS: BASOPHILS # (AUTO) 0.1 10^3/uL (0.0-0.1); BASOPHILS % (AUTO) 1 % (0-10); EOSINOPHILS # (AUTO) 0.2 10^3/uL (0.0-0.3); EOSINOPHILS % (AUTO) 2 % (0-10); HEMATOCRIT 31 % (35-52); HEMOGLOBIN 10.4 g/dL (11.5-16.0); LYMPHOCYTES # (AUTO) 2.4 10^3/uL (1.0-4.0); LYMPHOCYTES % (AUTO) 22 % (12-44); MEAN CORPUSCULAR HEMOGLOBIN 29 pg (25-34); MEAN CORPUSCULAR HGB CONC 33 g/dL (32-36); MEAN CORPUSCULAR VOLUME 87 fL (80-99); MEAN PLATELET VOLUME 11.2 fL (9.0-12.2); MONOCYTES # (AUTO) 1.2 10^3/uL (0.0-1.0); MONOCYTES % (AUTO) 12 % (0-12); NEUTROPHILS # (AUTO) 6.6 10^3/uL (1.8-7.8); NEUTROPHILS % (AUTO) 63 % (42-75); PLATELET COUNT 197 10^3/uL (130-400); WHITE BLOOD COUNT 10.6 10^3/uL (4.3-11.0)
[2021-03-13 08:21] LABS: ALBUMIN 3.4 GM/DL (3.2-4.5); BILIRUBIN,TOTAL 1.1 MG/DL (0.1-1.0); CALCIUM 8.9 MG/DL (8.5-10.1); CREATININE SERUM 0.98 MG/DL (0.60-1.30); POTASSIUM 4.1 MMOL/L (3.6-5.0); TOTAL PROTEIN 6.3 GM/DL (6.4-8.2)
[2021-03-13] MEDS ORDERED: NON-FORMULARY MEDICATION 1 EA EA (Gluc Su/Chondro Su A/Vit C/Mn (Glucosamine Chondroitin T PO SCH (09:00)
[2021-03-13] MEDS ORDERED: NON-FORMULARY MEDICATION 1 EA EA (Calcium Carbonate 500 MG) PO SCH (09:00)
[2021-03-13] MEDS ORDERED: clonazePAM 1 MG (KlonoPIN) TAB PO PRN (09:00)
[2021-03-13] MEDS: CALCIUM CARBONATE 600 MG (CALCARB) TAB PO SCH (09:09)
[2021-03-13] MEDS: meTOproloL SUCCINATE 50 MG (TOPROL XL) TAB PO SCH ×2 (09:14→20:02)
[2021-03-13] MEDS: AtorvaSTATin TABLET 10 MG TABLET PO SCH (09:14)
[2021-03-13] MEDS ORDERED: LACTATED RINGERS 1,000 ML IV ONE (15:15)
[2021-03-13] MEDS: LACTATED RINGERS 500 ML IV SCH ×2 (15:18→16:29)
[2021-03-13] MEDS: RIVAROXABAN 20 MG TABLET (XARELTO) PO SCH (18:08)
[2021-03-13] MEDS: polyethylene glycoL POWDER 17 GM (MIRALAX) PACK PO SCH (20:47)
[2021-03-14] VITALS (7 sets, daily range): BP systolic 106–151; BP diastolic 52–82
[2021-03-14] MEDS: MULTIVIT W/MINERALS TAB (THERAGRAN M) PO SCH (05:33)
[2021-03-14] MEDS: LEVOTHYROXINE 100 MCG (LEVOTHROID) TAB PO SCH (05:34)
[2021-03-14 07:33] LABS: BASOPHILS # (AUTO) 0.1 10^3/uL (0.0-0.1); BASOPHILS % (AUTO) 1 % (0-10); EOSINOPHILS # (AUTO) 0.1 10^3/uL (0.0-0.3); EOSINOPHILS % (AUTO) 1 % (0-10); HEMATOCRIT 31 % (35-52); HEMOGLOBIN 10.4 g/dL (11.5-16.0); LYMPHOCYTES # (AUTO) 2.3 10^3/uL (1.0-4.0); LYMPHOCYTES % (AUTO) 22 % (12-44); MEAN CORPUSCULAR HEMOGLOBIN 29 pg (25-34); MEAN CORPUSCULAR HGB CONC 33 g/dL (32-36); MEAN CORPUSCULAR VOLUME 87 fL (80-99); MEAN PLATELET VOLUME 10.7 fL (9.0-12.2); MONOCYTES # (AUTO) 1.2 10^3/uL (0.0-1.0); MONOCYTES % (AUTO) 12 % (0-12); NEUTROPHILS # (AUTO) 6.7 10^3/uL (1.8-7.8); NEUTROPHILS % (AUTO) 64 % (42-75); PLATELET COUNT 216 10^3/uL (130-400); WHITE BLOOD COUNT 10.5 10^3/uL (4.3-11.0)
[2021-03-14] MEDS: CALCIUM CARBONATE 600 MG (CALCARB) TAB PO SCH (08:13)
[2021-03-14] MEDS: polyethylene glycoL POWDER 17 GM (MIRALAX) PACK PO SCH ×2 (08:14→20:32)
[2021-03-14] MEDS: AtorvaSTATin TABLET 10 MG TABLET PO SCH (08:53)
[2021-03-14] MEDS: meTOproloL SUCCINATE 50 MG (TOPROL XL) TAB PO SCH (08:54)
[2021-03-14] MEDS ORDERED: meTOprolol TARTRATE 25 MG (LOPRESSOR) TABLET PO NR (09:00)
--- NOTE | 2021-03-14 10:22 | Progress Note ---
Subjective Subjective Date Seen by Provider: Mar 14, 2021 Time Seen by Provider: 09:45 No overnight events except continued dizziness and low blood pressure- Bolused 500cc LR yesterday. Labs obtained- anemia at 10- but stable. Patient not wanting to leave the bed due to feeling tired/fatigued and dizziness. She has not had a bowel movement in 4 days. Will step up intervention. Review of Systems General: No Chills, No Night Sweats HEENT: No Head Aches Pulmonary: No Dyspnea, No Cough Cardiovascular: No: Chest Pain, Palpitations Gastrointestinal: No: Nausea, Vomiting Genitourinary: No Dysuria Musculoskeletal: arm pain (right) Neurological: Weakness All Other Systems Reviewed All Other Systems Reviewed: Yes Objective Exam Vital Signs Vital Signs Date Time Temp Pulse Resp B/P (MAP) Pulse Ox O2 Delivery O2 Flow Rate FiO2 03/14/21 09:09 106/69 (81) 03/14/21 08:10 36.6 118 20 120/75 (90) 97 Room Air 03/14/21 08:00 Room Air 03/14/21 03:46 36.5 103 18 135/76 (95) 94 Room Air 03/14/21 00:13 37.0 106 17 135/73 (93) 97 Room Air 03/13/21 20:00 Room Air 03/13/21 19:55 37.0 110 18 113/72 (86) 98 Room Air 03/13/21 16:00 36.9 100 18 138/76 (96) 95 Room Air 03/13/21 11:39 36.9 100 18 109/64 (79) 92 Room Air I & O 03/14/21 07:00 Intake Total 1650 ml Balance 1650 ml General Appearance: Mild Distress HEENT: PERRL/EOMI Neck: Supple Respiratory: Chest Non Tender, Lungs Clear, Normal Breath Sounds Cardiovascular: Regular Rate, Rhythm, No Edema Gastrointestinal: Non Tender, Soft Rectal: Deferred Extremity: Other (right arm in sling.) Neurologic/Psychiatric: Alert, Oriented x3 Skin: Warm/Dry Results Lab Laboratory Tests 03/13/21 10:20: 03/14/21 07:24: White Blood Count 10.5, Red Blood Count 3.61L, Hemoglobin 10.4L, Hematocrit 31L, Mean Corpuscular Volume 87, Mean Corpuscular Hemoglobin 29, Mean Corpuscular Hemoglobin Concent 33, Red Cell Distribution Width 15.0H, Platelet Count 216, Mean Platelet Volume 10.7, Immature Granulocyte % (Auto) 1, Neutrophils (%) (Auto) 64, Lymphocytes (%) (Auto) 22, Monocytes (%) (Auto) 12, Eosinophils (%) (Auto) 1, Basophils (%) (Auto) 1, Neutrophils # (Auto) 6.7, Lymphocytes # (Auto) 2.3, Monocytes # (Auto) 1.2H, Eosinophils # (Auto) 0.1, Basophils # (Auto) 0.1, Immature Granulocyte # (Auto) 0.1 Assessment/Plan Assessment/Plan Admission Dx intractable pain inability to care for herself pelvic pain due to pelvic fracture arm fracture Assessment and Plan 03/12/21 admitted for pain control and need for placement- she would best be able to return home safely if she was in inpatient rehab. 03/13/21 will decrease metoprolol to 25mg daily if she continues to have hypotensive episodes. -she is a high fall risk as she has already fallen - sustaining right humerus, ulna and pelvic fractures. She is on xarelto as well which increases her risk of detrimental results. -She has not had any labs done at [facility] since 2018- so we will check CBC and CMP, TSH, T4. She does have a hematoma with her right pelvic fracture. 03/14/21- patient continues to not want to get up due to dizziness. She is not drinking much fluids. Gave 500cc bolus LR yesterday. Pulse was in 120s this AM. Gave her 1 dose of 25mg metoprolol. She has not had a bowel movement in 4 days likely due to opioid use. Started miralax- adding on colace. Suspect she may start feeling better if she has a bowel movement. She wants to lay in the hospital bed and nursing has made her get up to chair. CM to see her tomorrow and help with possible placement. Problems: (1) Closed fracture of right inferior pubic ramus Qualifiers: (2) Olecranon fracture (3) Humerus fracture (4) Fall Qualifiers: Qualified Codes: W19.XXXD - Unspecified fall, subsequent encounter (5) Hypothyroid (6) Hyperlipidemia Assessment & Plan: continue levothyroxine (7) Hypotension (8) Orthostatic hypotension (9) Dizziness (10) Constipation due to opioid therapy Admission Dx intractable pain inability to care for herself pelvic pain due to pelvic fracture arm fracture Clinical Quality Measures Admission Status Admission Dx intractable pain inability to care for herself pelvic pain due to pelvic fracture arm fracture JULEE PACHECO MD Mar 14, 2021 10:21
[2021-03-14] MEDS ORDERED: PATIENT MAY USE OWN MEDS, ALL MC SCH (11:15)
[2021-03-14] MEDS: DOCUSATE SODIUM 100 MG (COLACE) CAP PO SCH ×2 (12:19→20:32)
[2021-03-14] MEDS ORDERED: BETAMETHASONE DIPRO (AUGMENTED) 0.05% CREAM 15 GM TOP PRN (12:30)
[2021-03-14] MEDS: RIVAROXABAN 20 MG TABLET (XARELTO) PO SCH (17:17)
[2021-03-14 17:29] LABS: BILIRUBIN,URINE NEGATIVE (NEGATIVE); CLARITY,URINE CLEAR; COLOR,URINE YELLOW; GLUCOSE, URINE (UA) NEGATIVE (NEGATIVE); KETONES,URINE NEGATIVE (NEGATIVE); LEUKOCYTE ESTERASE ,URINE TRACE (NEGATIVE); NITRITE,URINE NEGATIVE (NEGATIVE); PH,URINE 7.5 (5-9); PROTEIN,URINE NEGATIVE (NEGATIVE)
[2021-03-14 17:36] LABS: BACTERIA,URINE NEGATIVE /HPF; SQUAMOUS EPITHELIAL CELL,UR 0-2 /HPF; WBC,URINE 0-2 /HPF; YEAST,URINE FEW /HPF
[2021-03-15] VITALS: BP 116/78
[2021-03-15 04:00] VITALS: BP 150/70
[2021-03-15] MEDS: MULTIVIT W/MINERALS TAB (THERAGRAN M) PO SCH (05:14)
[2021-03-15] MEDS: LEVOTHYROXINE 100 MCG (LEVOTHROID) TAB PO SCH (05:15)
[2021-03-15 08:00] VITALS: BP 134/71
--- NOTE | 2021-03-15 08:30 | Progress Note ---
Subjective Subjective Date Seen by Provider: Mar 15, 2021 Time Seen by Provider: 08:20 PT IS AN 89 Y/O FEMALE WHO IS WELL KNOWN TO ME FROM CLINIC AND PREVIOUS HOSPITALIZATIONS. FLO HAD A FALL AND SUSTAINED A FRACTURE OF HER ARM, WAS SENT HOME AND HAD PROGRESSIVE PAIN IN HER RIGHT GROIN - CAME BACK TO THE ER AND WAS FOUND TO HAVE PELVIC BONE FRACTURES - PUBIC RAMI - ALSO HAS AN AGE- INDETERMINATE FRACTURE OF L3. Review of Systems General: No Chills, No Night Sweats; Fatigue, Appetite (decreased) HEENT: No Head Aches Pulmonary: No Dyspnea, No Cough Cardiovascular: Lt Headedness; No: Chest Pain, Palpitations Gastrointestinal: No: Nausea, Vomiting Genitourinary: No Dysuria Musculoskeletal: other (PELVIC PAIN - WORSE ON RIGHT), arm pain (right) Neurological: Weakness, Other (DIZZINESS) All Other Systems Reviewed All Other Systems Reviewed: Yes Objective Exam Vital Signs Vital Signs Date Time Temp Pulse Resp B/P (MAP) Pulse Ox O2 Delivery O2 Flow Rate FiO2 03/15/21 04:00 36.5 113 18 150/70 (96) 97 Room Air 03/15/21 00:00 36.0 117 19 116/78 (91) 97 Room Air 03/14/21 20:00 36.6 111 20 121/76 (91) 97 Room Air 03/14/21 20:00 Room Air 03/14/21 16:00 36.5 111 20 151/82 (105) 98 Room Air 03/14/21 11:36 36.8 105 20 136/52 (80) 98 Room Air 03/14/21 09:09 106/69 (81) I & O 03/15/21 07:00 Intake Total 2220 ml Output Total 1150 ml Balance 1070 ml General Appearance: No Apparent Distress, WD/WN Eyes: Bilateral Eye Normal Inspection, Bilateral Eye PERRL, Bilateral Eye EOMI HEENT: PERRL/EOMI Neck: Full Range of Motion, Non Tender, Supple Respiratory: Chest Non Tender, Lungs Clear, Normal Breath Sounds, No Accessory Muscle Use, No Respiratory Distress Cardiovascular: No Edema, Irregularly Irregular, Tachycardia Gastrointestinal: Normal Bowel Sounds, Non Tender, Soft Rectal: Deferred Extremity: Other (RIGHT ARM IN SLING ) Neurologic/Psychiatric: Alert, Oriented x3, Normal Mood/Affect Skin: Normal Color, Warm/Dry Results Lab Laboratory Tests 03/14/21 17:19: Urine Color YELLOW, Urine Clarity CLEAR, Urine pH 7.5, Urine Specific [place] 1.010L, Urine Protein NEGATIVE, Urine Glucose (UA) NEGATIVE, Urine Ketones NEGATIVE, Urine Nitrite NEGATIVE, Urine Bilirubin NEGATIVE, Urine Urobilinogen 0.2, Urine Leukocyte Esterase TRACEH, Urine RBC (Auto) NEGATIVE, Urine RBC NONE, Urine WBC 0-2, Urine Squamous Epithelial Cells 0-2, Urine Crystals NONE, Urine Bacteria NEGATIVE, Urine Casts NONE, Urine Mucus NEGATIVE, Urine Yeast FEWH, Urine Culture Indicated NO Assessment/Plan Assessment/Plan Admission Dx RIGHT PUBIC RAMI FRACTURE L3 20% COMPRESSION FRACTURE - AGE INDETERMINATE HYPERTENSION TACHYCARDIA HYPONATREMIA RIGHT PROXIMAL ULNA FRACTURE - COMMINUTED AND DISPLACED DIZZINESS ORTHOSTASIS Assessment and Plan RIGHT PUBIC RAMI FRACTURE L3 20% COMPRESSION FRACTURE - AGE INDETERMINATE HYPERTENSION TACHYCARDIA HYPONATREMIA RIGHT PROXIMAL ULNA FRACTURE - COMMINUTED AND DISPLACED DIZZINESS ORTHOSTASIS RIGHT PUBIC RAMI FRACTURE AND L3 20% COMPRESSION FRACTURE - AGE INDETERMINATE - PT WILL NEED TO GO TO THE INTERMEDIATE, SHE CANNOT CURRENTLY PARTICIPATE IN 3 HOURS OF THERAPY. - CONSULT TO DIE SET UP WORKER FOR PLACEMENT TO BE COORDINATED. HYPERTENSION - HOME MEDS WERE RESUMED, MONITOR PRESSURES TACHYCARDIA WITH HX OF AFIB - - PT CURRENTLY SOUNDS LIKE SHE IS IN AFIB WITH IRREGULAR RHYTHM ON PHYSICAL EXAM - EKG PENDING - TELEMETRY ORDERED - CONSULT CALLED TO DR. MILLER - PT ON XARELTO HYPONATREMIA - MILD - REPEAT LABS TODAY. RIGHT PROXIMAL ULNA FRACTURE - COMMINUTED AND DISPLACED IMAGE IMPRESSION: Acute mildly comminuted, displaced and retracted fracturing involving the proximal ulna with large articular gap associated with the olecranon fossa with significant overlying soft tissue swelling. - CONSULT TO DR. CATES AT PT REQUEST DIZZINESS WITH ORTHOSTASIS - CT OF HEAD TODAY AND CONTINUE WITH SUPPORTIVE CARE AT THIS TIME - PENDING CT OF HEAD DVT PROPHYLAXIS WITH SCD'S AND XARELTO GI PROPHYLAXIS WITH MELVA MOURA MD Mar 15, 2021 08:30
[2021-03-15] MEDS ORDERED: meTOprolol TARTRATE 25 MG (LOPRESSOR) TABLET PO SCH (09:00)
[2021-03-15] MEDS: polyethylene glycoL POWDER 17 GM (MIRALAX) PACK PO SCH ×2 (09:01→22:06)
[2021-03-15] MEDS: CALCIUM CARBONATE 600 MG (CALCARB) TAB PO SCH (09:02)
[2021-03-15] MEDS: DOCUSATE SODIUM 100 MG (COLACE) CAP PO SCH ×2 (09:02→21:53)
[2021-03-15] MEDS: AtorvaSTATin TABLET 10 MG TABLET PO SCH (09:02)
--- NOTE | 2021-03-15 09:08 | Consultation-Cardiology ---
HPI-Cardiology Cardiology Consultation: Date of Consultation 03/15/21 Time Seen by a Provider: 09:20 Date of Admission 03-14-21 Attending Physician Suresh Pacheco MD Admitting Physician Cinthia Soto MD Consulting Physician Huyen Mcdonnell MD HPI: Chief Complaint: A-fib is an 89 yr old female admitted to [facility] from the ED d/t a non-syncopal fall resulting in right arm and pelvic fracture. She states she was in the [employer] parking lot putting groceries in her car. She turned to close the trunk and fell. No c/o palpitations, chest pain, SOB or LE swelling. No c/o n/v/d. No c/o fever or chills. Review of Systems-Cardiology Review of Systems Constitutional: No chills, No fever, No lightheadedness Eyes: No vision change Ears/Nose/Throat: No epistaxis, No recent hearing loss Respiratory: As described under HPI Cardiovascular: As described under HPI Gastrointestinal: No constipation, No diarrhea, No nausea Genitourinary: No dysuria, No hematuria Musculoskeletal: As describe under HPI Skin: No rash on exposed areas, No ulcerations on exposed areas Psychiatric/Neurological: No anxiety, No depression, No seizure, No focal weakness, No syncope Hematologic: No bleeding abnormalities All Other Systems Reviewed Negative Unless Noted: Yes XFO-Dhlgve-Nzbrrg Hx Patient Social History Former smoker/When Quit: May 08, 1987 Have you traveled recently?: No Alcohol Use?: No Pt feels they are or have been: No Immunizations Up To Date Tetanus Booster (TDap): Unknown Date of Pneumonia Vaccine: May 18, 2015 Date of Influenza Vaccine: Feb 22, 2021 Past Medical History PMH As described under Assessment. Family Medical History Family Medical History: She reports family h/o brother and father having CAD. Family History: BRAIN Cardiovascular disease 19 FATHER G8 BROTHER Colon cancer 19 MOTHER FH: brain tumor Allergies and Home Medications Allergies Coded Allergies: NKANo Known Allergies (Verified Allergy, Unknown, 05/19/17) Patient Home Medication List Atorvastatin Calcium (Atorvastatin Calcium) 10 Mg Tablet, 5 MG PO DAILY, (Rep orted) Entered as Reported by: ROSIE CADE on 05/18/17 0837 Last Action: Continued Calcium Carbonate (Calcium Carbonate) 500 Mg Tablet, 500 MG PO DAILY, (Reported) Entered as Reported by: DESTINY RACHEL on 03/12/211604 Last Action: Converted Clonazepam (Clonazepam) 1 Mg Tablet, 0.5 MG PO DAILY, (Reported) Entered as Reported by: ROSIE CADE on 05/18/17836 Last Action: Continued Gluc Pagan/Chondro Pagan A/Vit C/Mn (Glucosamine Chondroitin Tab) 1 Each Tablet, 1 EACH PO DAILY, (Reported) Entered as Reported by: DESTINY RACHEL on 03/12/211604 Last Action: Converted Hydrocodone/Acetaminophen (Hydrocodone-Acetamin 5-325 mg) 1 Each Tablet, 1 TAB PO Q6H PRN for PAIN-MODERATE (5-7), (Reported) Entered as Reported by: DESTINY RACHEL on 03/12/211604 Last Action: Continued Levothyroxine Sodium (Levothyroxine Sodium) 100 Mcg Tablet, 100 MCG PO M O,,WE,TH,FR, (Reported) Entered as Reported by: ROSIE CADE on 05/18/17838 Last Action: Continued Levothyroxine Sodium (Levothyroxine Sodium) 100 Mcg Tablet, 50 MCG PO SUN,SAT, (Reported) Entered as Reported by: RSOIE CADE on 05/18/17838 Last Action: Continued Metoprolol Succinate (Metoprolol Succinate) 50 Mg Tab.er.24h, 50 MG PO BID, (Reported) Entered as Reported by: ROSIE CADE on 05/18/17837 Last Action: Continued Multivitamin (Multivitamins) 1 Each Tablet, 1 TAB PO DAILY, (Reported) Entered as Reported by: SYLVAIN DIXON on 07/31/17 1038 Last Action: Continued Rivaroxaban (Xarelto) 20 Mg Tablet, 20 MG PO HS, (Reported) Entered as Reported by: DESTINY RACHEL on 03/12/211604 Last Action: Continued Discontinued Medications Calcium Carbonate/Vitamin D3 (Calcium 600 + Vit D3 Caplet) 1 Each Tablet, 1 TAB PO BID, (Reported) Discontinued Reason: Prescription changed Entered as Reported by: SYLVAIN DIXON on 07/31/17 1038 Glucosamine Sulfate 2Kcl (Glucosamine) 1,000 Mg Tablet, 1,000 MG PO DAILY, (Reported) Discontinued Reason: Prescription changed Entered as Reported by: REID JOYCE on 07/21/15924 Hydrocodone/Acetaminophen (Hydrocodone-Acetamin 5-325 mg) 1 Each Tablet, 1 TAB PO Q6H PRN for PAIN-MODERATE (5-7) Discontinued Reason: No Longer Taking Prescribed by: MARTIN LEONG on 03/11/21 0771 Last Action: Discontinued Spironolactone (Spironolactone) 25 Mg Tablet, 25 MG PO DAILY, (Reported) Discontinued Reason: No Longer Taking Entered as Reported by: REID JOYCE on 07/21/15924 Last Action: Discontinued Tramadol HCl (Tramadol HCl) 50 Mg Tablet, 50 MG PO Q12H PRN for PAIN-MODERATE Discontinued Reason: No Longer Taking Prescribed by: VASU DUONG on 08/02/17 1342 Last Action: Discontinued Physical Exam-Cardiology Physical Exam Vital Signs/I&O 03/16/21 03/16/21 03/16/21 03/16/21 00:06 01:00 04:24 07:00 Temp 36.0 36.0 Pulse 108 95 102 101 Resp 17 19 B/P (MAP) 131/86 (101) 118/76 (90) Pulse Ox 97 96 O2 Delivery Room Air Room Air 03/16/21 03/16/21 08:00 08:35 Temp 36.0 Pulse 116 Resp 18 B/P (MAP) 145/72 (96) Pulse Ox 96 O2 Delivery Room Air Room Air 03/16/21 00:00 Intake Total 720 ml Output Total 800 ml Balance -80 ml Capillary Refill : Less Than 3 Seconds Constitutional: AAO x 3, well-developed, well-nourished HEENT: PERRL, hearing is well preserved, oral hygience is good Neck: No carotid bruit; carotid pulses are 2 + bilaterally Respiratory: No accessory muscle use, No respiratory distress; chest expansion is symmetric, chest is bilaterally symmetric, lungs clear to auscultation Cardiovascular: irregularly irregular; No JVD; S1 and S2 Gastrointestinal: No tender; soft, round, audible bowel sounds Extremities: other (right arm in sling/soft cast), no lower extremity edema bilateral Neurologic/Psychiatric: grossly intact (RUE and LE not manipulated d/t fractures - moves finger and toes of her extremities) Skin: No ulcerations on exposed areas Data Review Labs Laboratory Tests 03/16/21 07:16: Magnesium Level 2.1 Radiology NAME: FLO GOMEZ [facility] REC#: [id number] PT STATUS: ADM Melanie : 1930 PHYSICIAN: SURESH PACHECO MD ADMIT DATE: 03/12/21 Signed Date of Exam:03/13/21 CHEST 1 VIEW, AP/PA ONLY Indication: Shortness of breath Frontal chest obtained at 0650 a.m. and compared to 05/19/2017 Heart is mildly enlarged. Mediastinal silhouette is unremarkable. The lungs are clear. There is no pneumothorax or pleural fluid. IMPRESSION: Mild cardiomegaly with no acute process in the chest. Dictated by: Dictated on workstation # [id number] Dict: 03/13/21715 Trans: 03/13/21746 [facility] [id number] Interpreted by: JOHN PARRA MD Electronically signed by: JOHN PARRA MD 03/13/2147 NAME: FLO GOMEZ [facility] REC#: [id number] PT STATUS: ADM Melanie : 1930 PHYSICIAN: ZENY MONTIEL MD ADMIT DATE: 03/12/21 Signed Date of Exam:03/12/21 CT ABDOMEN/PELVIS WO CT ABDOMEN/PELVIS WO TECHNIQUE: Unenhanced CT imaging of the abdomen and pelvis was performed. 2-D reformats are created and submitted for interpretation. Automatic exposure controls were utilized to optimize patient dose. INDICATION: Fall with right hip pain. COMPARISON: None available. FINDINGS: Evaluation of the abdominal viscera is mildly limited without contrast. Lower chest: The lung bases are clear. No pericardial or pleural effusion. Peritoneum: No free intraperitoneal air or fluid. Liver and biliary system: Unenhanced liver is normal. Cholecystectomy. Spleen and Pancreas: Spleen is normal. Unenhanced pancreas is grossly normal. Adrenals: Normal. tract: No renal or ureteral calculi. No obstructive uropathy. Uterus and ovaries are unremarkable. GI tract: The stomach is partially filled with fluid and food debris. No bowel obstruction. No pericolonic inflammatory changes. Appendectomy. Vasculature and Lymph nodes: Focal ectasia infrarenal abdominal aorta measures up to 2.5 cm. No abdominal or pelvic lymphadenopathy. Musculoskeletal: There is an acute fracture of the right pubic body which is nondisplaced. Nondisplaced fracture in the inferior right pubic ramus also likely present. Old healed right intertrochanteric fracture. No acute fracture in the proximal femurs. There is a small hematoma located in the right pelvic sidewall extending to the space of Retzius. Age-indeterminate superior endplate fracture of L3 has approximately 20% height loss anteriorly. IMPRESSION: 1. Acute nondisplaced fractures of the right pubic body and inferior pelvic ramus. There is associated small hematoma along the right pelvic sidewall. 2. Age-indeterminate superior endplate compression fracture of L3 has approximately 20% height loss. There is no involvement of the posterior wall or retropulsion. Dictated by: Dictated on workstation # [id number] Dict: 03/12/21 1254 Trans: 03/12/21 1355 AC [id number] Interpreted by: MIKE HAYES MD Electronically signed by: MIKE HAYES MD 03/12/21 1357 A/P-Cardiology Assessment/Admission Diagnosis S/P non-syncopal fall resulting in right arm and pelvic fracture - management per orthopedic services Chronic A Fib - s/p cardioversion May 18, [address] Jones, but this did not endure - OAC with Xarelto - Pharmacological stress test done on 04/13/[address] Jones showed normal perfusion during rest and stress imaging. - Echocardiogram was done on May 13, 2020 showed LVEF 60-65%. LA mildly dilated. Mildly calcified mitral valve annulus. Mild AoR. Mod TR. PASP 30-35 mmHg H/O TIA - day after cardioversion per Dr. Jones's office note of Jan 2019 HTN - controlled HLD - statin tx - followed by PCP AAA: - Ultrasound done on 02/28/2017 showed mild abdominal aortic aneurysm of 2.8X2.7 centimeter. - Repeat AAA ultrasound on 04/12/2019 shows no AAA. 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 - Carotid u/s of 04/14/2020 - 50-60% R ICA stenosis; less than 40% L ICA stenosis Discussion and Recomendations S/P non-syncopal fall resulting in right arm and pelvic fx - management per orthopedic services A-fib with uncontrolled rate - add Cardizem CD 240mg daily and increase Lopressor to BID dosing - continue anticoagulation with Xarelto if ok with orthopedic/medical services for stroke prophylaxis Monitor lab closely Replace electrolytes as indicated Risk for non-cardiac surgery determined to be intermediate. Advise OAC be continued for stroke prophylaxis d/t chronic a-fib We would like to thank medical services for this consult Further recs will be based on her hospital course MARCOS SWAN Mar 15, 2021 09:08
--- NOTE | 2021-03-15 10:00 | Diagnostic Imaging Report ---
EXAMINATION: CT head without contrast. TECHNIQUE: Multiple contiguous axial images were obtained through the brain without the use of intravenous contrast. All CT scans use one or more of the following dose optimizing techniques: automated exposure control, MA and/or KvP adjustment based on patient size and exam type or iterative reconstruction. HISTORY: Fall. Dizziness. COMPARISON: 05/19/2017. FINDINGS: No large acute territorial ischemia, mass, or hemorrhage. No midline shift or mass effect. Old lacunar infarct versus prominent perivascular spaces seen in the left basal ganglia. Decreased attenuation is seen in the periventricular and subcortical white matter. The ventricles and cortical sulci are prominent. The basilar cisterns are patent and unremarkable. The orbits are normal. Paranasal sinuses are normal. Mastoid air cells are clear. No soft tissue abnormality is seen. No osseus lesions or fractures are seen. IMPRESSION: 1. No large acute territorial ischemia, mass, or hemorrhage. 2. Chronic microvascular disease. 3. Generalized parenchymal volume loss. Dictated by: Dictated on workstation # [id number]
[2021-03-15] MEDS: FAMOTIDINE 20 MG (PEPCID) TABLET PO SCH (10:04)
[2021-03-15 10:22] LABS: HEMATOCRIT 33 % (35-52); HEMOGLOBIN 10.7 g/dL (11.5-16.0); MEAN CORPUSCULAR HEMOGLOBIN 29 pg (25-34); MEAN CORPUSCULAR HGB CONC 32 g/dL (32-36); MEAN CORPUSCULAR VOLUME 89 fL (80-99); MEAN PLATELET VOLUME 10.7 fL (9.0-12.2); PLATELET COUNT 250 10^3/uL (130-400); WHITE BLOOD COUNT 11.2 10^3/uL (4.3-11.0)
[2021-03-15 10:44] LABS: ALBUMIN 3.9 GM/DL (3.2-4.5); BILIRUBIN,TOTAL 1.5 MG/DL (0.1-1.0); CALCIUM 9.6 MG/DL (8.5-10.1); CREATININE SERUM 0.93 MG/DL (0.60-1.30); POTASSIUM 4.1 MMOL/L (3.6-5.0); TOTAL PROTEIN 7.3 GM/DL (6.4-8.2)
--- NOTE | 2021-03-15 11:38 | Physical Therapy Evaluation ---
PT Evaluation-General Medical Diagnosis Admission Date Mar 12, 2021 at 13:40 Medical Diagnosis: pelvic fx, right humerus and ulna fx Onset Date: Mar 12, 2021 Therapy Diagnosis Therapy Diagnosis: impaired mobility, strength, endurance Height/Weight Height (Feet): 5 Height (Inches): 4.00 Weight (Pounds): 175 Weight (Ounces): 0.0 Precautions Precautions/Isolations: Fall Prevention, Standard Precautions Referral Physician: Charles Reason for Referral: Evaluation/Treatment Medical History Pertinent Medical History: HTN, Hypothroidism Additional Medical History Past Medical History Surgeries: Appendectomy, Gallbladder, Orthopedic, Thyroidectomy, Tonsillectomy High Cholesterol, Hypertension Stroke Sexually Transmitted Disease: No HIV/AIDS: No Polyps Arthritis, Fractures Hypothyroidsim Cataract Loss of Vision: Denies Hearing Impairment: Deaf Reviewed History: Yes Prior Prior Level of Function SCALE: Activities may be completed with or without assistive devices. 4-Nuezrtuqby-mxpnljz completes the activity by him/herself with no assistance from a helper. 5-Set-up or Clean-up Assistance-helper sets up or cleans up; patient completes activity. [place] assists only prior to or following the activity. 4-Supervision or Touching Assistance-helper provides verbal cues and/or touching/steadying and/or contact guard assistance as patient completes activity. Assistance may be provided throughout the activity or intermittently. 3-Partial/Moderate Assistance-helper does LESS THAN HALF the effort. [place] lifts, holds or supports trunk or limbs, but provides less than half the effort. 2-Substantial/Maximal Assistance-helper does MORE THAN HALF the effort. [place] lifts or holds trunk or limbs and provides more than half the effort. 6-Chstdlrki-gxypzc does ALL the effort. Patient does none of the effort to complete the activity. Or, the assistance of 2 or more helpers is required for the patient to complete the activity. If activity was not attempted, code reason: 7-Patient Refused. 9-Not Applicable-not attempted and the patient did not perform the activity before the current illness, exacerbation or injury. 10-Not Attempted due to Environmental Limitations-(lack of equipment, weather restraints, etc.). 88-Not Attempted due to Medical Conditions or Safety Concerns. Bed Mobility: 6 Transfers (B,C,W/C): 6 Gait: 6 Indoor Mobility (Ambulation): Independent Prior Devices Use: Walker PT Evaluation-Current Subjective Patient in bed pre tx, agrees to PT, has unrated but patient states severe pain in right arm. Pt/Family Goals to be independent at home Objective Patient Orientation: Person, Place, Situation ROM/Strength ROM Lower Extremities WNL Strength Lower Extremities LLE (hip flexion 3/5, knee flexion 4/5, knee extension 4/5, dorsiflexion 4/5), RLE (hip flexion 3/5, knee flexion 4/5, knee extension 4/5, dorsiflexion 4/5) Sensory Hearing: Impaired Sensation Right Lower Extremit: Intact Sensation Left Lower Extremity: Intact Transfers Roll Left to Right (QC): 3 Lying to Sitting/Side of Bed(Q: 3 Sit to Stand (QC): 4 Chair/Bqu-vl-Eubsq Xfer(QC): 4 Mod assist for supine to sit. Gait Does the Patient Walk?: Yes Mode of Locomotion: Walk Anticipated Mode of Locomotion: Walk Distance: 5' Gait Assistive Device: Cane Small Base Quad Comments/Gait Description Patient ambulated 5' to the recliner, she can take a step with her left leg but has to scoot her right foot across the floor. Min assist. Balance Sitting Static: Fair Sitting Dynamic: Fair Standing Static: Fair Standing Dynamic: Fair Treatment BLE seated exercises x20 (AP, LAQ) Assessment/Needs Patient in recliner post tx with nurse call, phone, tray, all needs met. Patient has impaired mobility, strength, endurance. Patient has a lot of trouble bearing weight on her left leg and needs min assist to ambulate just a few feet. She probably cannot use a platform walker. Rehab Potential: Guarded PT Manager Of Radiology Goals Manager Of Radiology Goals PT Manager Of Radiology Goals Time Frame: Mar 22, 2021 Roll Left & Right (QC): 6 Sit to Lying (QC): 4 Lying-Sitting on Side/Bed(QC): 4 Sit to Stand (QC): 4 Chair/Aue-gz-Hltdo Xfer(QC): 4 Walk 10 feet (QC): 4 PT Plan Problem List Problem List: Activity Tolerance, Functional Strength, Safety, Balance, Gait, Transfer, Bed Mobility, ROM Treatment/Plan Treatment Plan: Continue Plan of Care Treatment Plan: Bed Mobility, Education, Functional Activity Luci, Functional Strength, Gait, Safety, Therapeutic Exercise, Transfers Treatment Duration: Mar 22, 2021 Frequency: 11 times per week Estimated Hrs Per Day: .25 hour per day Patient and/or Family Agrees t: Yes Safety Risks/Education Patient Education: Gait Training, Transfer Techniques, Correct Positioning, Safety Issues Teaching Recipient: Patient Teaching Methods: Demonstration, Discussion Response to Teaching: Reinforcement Needed Discharge Recommendations Plan Patient will perform bed mobility and transfer training, balance and endurance training, functional strengthening, stair training, gait training, and edu cation, to improve functional mobility and independence at home Therapy Discharge Recommendati: 24 Hour Supervision, Post Acute PT Time/GCodes Time In: 1102 Time Out: 1114 Total Billed Treatment Time: 12 Total Billed Treatment 1 visit NICK BHANDARI PT Mar 15, 2021 11:38
[2021-03-15 11:45] VITALS: BP 132/72
--- NOTE | 2021-03-15 12:01 | Occupational Therapy Eval ---
OT Evaluation-General/PLF Medical Diagnosis Admission Date Mar 12, 2021 at 13:40 Medical Diagnosis: pelvic fx, right humerus and ulna fx Onset Date: Mar 12, 2021 Therapy Diagnosis Therapy Diagnosis: Impaired adls, rom, strength, balance, iadls Height/Weight Height (Feet): 5 Height (Inches): 4.00 Weight (Pounds): 175 Weight (Ounces): 0.0 Precautions Precautions/Isolations: Fall Prevention, Standard Precautions Referral Physician: Charles Referral Reason: Evaluation/Treatment Medical History Pertinent Medical History: HTN, Hypothroidism Current History 89 yo F admitted for intractable pain when she tries to get up and move. Reports falling 03/11/21 while loading groceries into her car. She was found to have right humerus and ulna fracture- with fracture extending into the olecranon. Xray of her pelvis was negative for fracture and she was sent home and told to follow up with orthopedics. She came back to the ER the next day on 03/12/21. CT was done to further evaluate her right pelvic pain and inability to bear weight. She was found to have a right pubic body and inferior pelvic ramus fracture on CT. She reports living alone and performing all adls indep. No assistive device, still drives. She has a clinical laboratory aide 1x/month. She reports that she can receive assist from a friend who is an RN. Reviewed History: Yes Social History Home: Single Level Current Living Status: Alone ADL-Prior Level of Function SCALE: Activities may be completed with or without assistive devices. 7-Fyjhpfxsbs-ynydmpl completes the activity by him/herself with no assistance from a helper. 5-Set-up or Clean-up Assistance-helper sets up or cleans up; patient completes activity. [place] assists only prior to or following the activity. 4-Supervision or Touching Assistance-helper provides verbal cues and/or touching /steadying and/or contact guard assistance as patient completes activity. Assistance may be provided throughout the activity or intermittently. 3-Partial/Moderate Assistance-helper does LESS THAN HALF the effort. [place] lifts, holds or supports trunk or limbs, but provides less than half the effort. 2-Substantial/Maximal Assistance-helper does MORE THAN HALF the effort. [place] lifts or holds trunk or limbs and provides more than half the effort. 0-Igxmwqlzh-cnhmuc does ALL the effort. Patient does none of the effort to complete the activity. Or, the assistance of 2 or more helpers is required for the patient to complete the activity. If activity was not attempted, code reason: 7-Patient Refused. 9-Not Applicable-not attempted and the patient did not perform the activity before the current illness, exacerbation or injury. 10-Not Attempted due to Environmental Limitations-(lack of equipment, weather restraints, etc.). 88-Not Attempted due to Medical Conditions or Safety Concerns. Self Care: Independent Functional Cognition: Independent DME/Equipment: Grab Bars, Shower Drive Self: Yes OT Current Status Subjective Pt reports pain in her RUE, currently in sling. OT educated pt on hand/finger ROM in effort to maintain function and reduce chance of swelling. Appearance Pt left sitting in chair, all needs within reach. Mental Status/Objective Patient Orientation: Person, Situation Attachments: IV Current Upper Extremity ROM LUE WFL, RUE in sling. At this time, pt is considered NWB until ortho has seen patient. ADL-Treatment Eating (QC): 5 Upper Body Dressing (QC): 1 Lower Body Dressing (QC): 1 On/Off Footwear (QC): 1 Toileting Hygiene (QC): 1 Supine>sit: MAX a. Min a to achieve sitting balance at EOB. C/o dizziness upon sitting upright. RN reports symptomatic earlier in am including drop in BP and increased HR. Pt reports slight improvement with time. No effort/attempt to doff socks. Pt reports history of difficulty with RLE and often will slide sock on/off while sliding foot across carpet at home. Sit<>stand: min a. Unable to lift RLE and will slide foot across floor. Reports pain when bearing weight through LLE. Extra time to walk 5 feet with use of cane. Unable to remove hand from cane without LOB. Anticipate assist will be needed with bilateral tasks, clothing management, toileting, and donning UB clothing secondary to UE fractures and impaired balance with zero UE support. Education OT Patient Education: Correct positioning, Modified ADL techniques, Progress toward Goal/Update tx plan, Purpose of tx/functional activities, Reviewed precautions, Rehab process, Safety issues, Transfer techniques Teaching Recipient: Patient Teaching Methods: Demonstration, Discussion Response to Teaching: Verbalize Understanding, Reinforcement Needed OT Mcfp Goals Mcfp Goals Time Frame: Apr 06, 2021 Oral Hygiene (QC): 4 Toileting Hygiene (QC): 4 Upper Body Dressing (QC): 3 Lower Body Dressing (QC): 4 1=Demonstrate adherence to instructed precautions during ADL tasks. 2=Patient will verbalize/demonstrate understanding of assistive devices/modifications for ADL. 3=Patient will improve strength/tolerance for activity to enable patient to perform ADL's. OT Education/Plan Problem List/Assessment Assessment: Decreased Activ Tolerance, Decreased Safety Aware, Decreased UE Strength, Impaired Bed Mobility, Impaired Funct Balance, Impaired I ADL's, Impaired Self-Care Skills, Restricted Funct UE ROM Discharge Recommendations Plan/Recommendations: Continue POC Therapy Discharge Recommendati: Post Acute OT Comment continue to assess Treatment Plan/Plan of Care Treatment,Training & Education: Yes Patient would benefit from OT for education, treatment and training to promote independence in ADL's, mobility, safety and/or upper extremity function for ADL's. Plan of Care: ADL Retraining, Functional Mobility, Orthotic Fitting/Training, UE Funct Exercise/Act Treatment Duration: Apr 06, 2021 Frequency: 5 times per week Estimated Hrs Per Day: .25 hour per day Rehab Potential: Guarded Time/GCodes Start Time: 11:02 Stop Time: 11:14 Total Time Billed (hr/min): 12 Billed Treatment Time 1 visit Swati Savage OT Mar 15, 2021 12:01
--- NOTE | 2021-03-15 13:55 | Physical Therapy Progress Note ---
Therapy Progress Note Attempted physical therapy this afternoon but patient refused. She says she just got back into bed and would do therapy in the morning. Patient educated on the benefits of therapy but she continues to refuse. Will check back tomorrow. NICK SNIDER PT Mar 15, 2021 13:55
[2021-03-15 16:00] VITALS: BP 133/84
--- NOTE | 2021-03-15 17:01 | Consultation-Cardiology ---
HPI-Cardiology Cardiology Consultation: Date of Consultation 03/15/21 Time Seen by a Provider: 09:30 Date of Admission Attending Physician Suresh Good MD Admitting Physician Cinthia Soto MD Consulting Physician MICHEAL MILLER MD, MA, FACP, FACC, FSCAI, CCDS HPI: Chief Complaint: A-fib is an 89 yr old female admitted to [facility] from the ED d/t a non-syncopal fall resulting in right arm and pelvic fracture. She states she was in the [employer] lot putting groceries in her car. She turned to close the trunk and fell. No c/o palpitations, chest pain, SOB or LE swelling. No c/o n/v/d. No c/o fever or chills. Review of Systems-Cardiology Review of Systems Constitutional: No chills, No fever, No lightheadedness Eyes: No vision change Ears/Nose/Throat: No epistaxis, No recent hearing loss Respiratory: As described under HPI Cardiovascular: As described under HPI Gastrointestinal: No constipation, No diarrhea, No nausea Genitourinary: No dysuria, No hematuria Musculoskeletal: As describe under HPI Skin: No rash on exposed areas, No ulcerations on exposed areas Psychiatric/Neurological: No anxiety, No depression, No seizure, No focal weakness, No syncope Hematologic: No bleeding abnormalities All Other Systems Reviewed Negative Unless Noted: Yes DUA-Ribicd-Xcwtow Hx Patient Social History Former smoker/When Quit: May 08, 1987 Have you traveled recently?: No Alcohol Use?: No Pt feels they are or have been: No Immunizations Up To Date Tetanus Booster (TDap): Unknown Date of Pneumonia Vaccine: May 18, 2015 Date of Influenza Vaccine: Feb 22, 2021 Past Medical History PMH As described under Assessment. Family Medical History Family Medical History: She reports family h/o brother and father having CAD. Family History: BRAIN Cardiovascular disease 19 FATHER G8 BROTHER Colon cancer 19 MOTHER FH: brain tumor Allergies and Home Medications Allergies Coded Allergies: NKANo Known Allergies (Verified Allergy, Unknown, 05/19/17) Patient Home Medication List Home Medication List Reviewed: Yes Atorvastatin Calcium (Atorvastatin Calcium) 10 Mg Tablet, 5 MG PO DAILY, (Reported) Entered as Reported by: ROSIE CADE on 05/18/17 0837 Last Action: Continued Calcium Carbonate (Calcium Carbonate) 500 Mg Tablet, 500 MG PO DAILY, (Reported) Entered as Reported by: DESTINY RACHEL on 03/12/211604 Last Action: Converted Clonazepam (Clonazepam) 1 Mg Tablet, 0.5 MG PO DAILY, (Reported) Entered as Reported by: ROSIE CADE on 05/18/17836 Last Action: Continued Gluc Pagan/Chondro Pagan A/Vit C/Mn (Glucosamine Chondroitin Tab) 1 Each Tablet, 1 EACH PO DAILY, (Reported) Entered as Reported by: DESTINY RACHEL on 03/12/211604 Last Action: Converted Hydrocodone/Acetaminophen (Hydrocodone-Acetamin 5-325 mg) 1 Each Tablet, 1 TAB PO Q6H PRN for PAIN-MODERATE (5-7), (Reported) Entered as Reported by: DESTINY RACHEL on 03/12/211604 Last Action: Continued Levothyroxine Sodium (Levothyroxine Sodium) 100 Mcg Tablet, 100 MCG PO ,,,,FR, (Reported) Entered as Reported by: ROSIE CADE on 05/18/17838 Last Action: Continued Levothyroxine Sodium (Levothyroxine Sodium) 100 Mcg Tablet, 50 MCG PO SUN,SAT, (Reported) Entered as Reported by: ROSIE CADE on 05/18/17838 Last Action: Continued Metoprolol Succinate (Metoprolol Succinate) 50 Mg Tab.er.24h, 50 MG PO BID, (Reported) Entered as Reported by: ROSIE CADE on 05/18/1738 Last Action: Continued Multivitamin (Multivitamins) 1 Each Tablet, 1 TAB PO DAILY, (Reported) Entered as Reported by: SYLVAIN DIXON on 07/31/17 1038 Last Action: Continued Rivaroxaban (Xarelto) 20 Mg Tablet, 20 MG PO HS, (Reported) Entered as Reported by: DESTINY RACHEL on 03/12/211604 Last Action: Continued Discontinued Medications Calcium Carbonate/Vitamin D3 (Calcium 600 + Vit D3 Caplet) 1 Each Tablet, 1 TAB PO BID, (Reported) Discontinued Reason: Prescription changed Entered as Reported by: SYLVAIN DIXON on 07/31/17 1038 Glucosamine Sulfate 2Kcl (Glucosamine) 1,000 Mg Tablet, 1,000 MG PO DAILY, (Reported) Discontinued Reason: Prescription changed Entered as Reported by: REID JOYCE on 07/21/15924 Hydrocodone/Acetaminophen (Hydrocodone-Acetamin 5-325 mg) 1 Each Tablet, 1 TAB PO Q6H PRN for PAIN-MODERATE (5-7) Discontinued Reason: No Longer Taking Prescribed by: MARTIN LEONG on 03/11/21 1741 Last Action: Discontinued Spironolactone (Spironolactone) 25 Mg Tablet, 25 MG PO DAILY, (Reported) Discontinued Reason: No Longer Taking Entered as Reported by: REID JOYCE on 07/21/15924 Last Action: Discontinued Tramadol HCl (Tramadol HCl) 50 Mg Tablet, 50 MG PO Q12H PRN for PAIN-MODERATE Discontinued Reason: No Longer Taking Prescribed by: VASU DUONG on 08/02/17 1342 Last Action: Discontinued Physical Exam-Cardiology Physical Exam Vital Signs/I&O 03/15/21 03/15/21 03/15/21 03/15/21 08:00 08:00 10:18 11:45 Temp 36.5 36.9 Pulse 122 110 110 Resp 20 18 B/P (MAP) 134/71 (92) 132/72 (92) Pulse Ox 98 95 O2 Delivery Room Air Room Air Room Air 03/15/21 03/15/21 13:00 16:00 Temp 36.6 Pulse 148 124 Resp 20 B/P (MAP) 133/84 (100) Pulse Ox 99 O2 Delivery Room Air 03/15/21 00:00 Intake Total 2020 ml Output Total 750 ml Balance 1270 ml Capillary Refill : Less Than 3 Seconds Constitutional: AAO x 3, well-developed, well-nourished HEENT: PERRL, hearing is well preserved, oral hygience is good Neck: No carotid bruit; carotid pulses are 2 + bilaterally Respiratory: No accessory muscle use, No respiratory distress; chest expansion is symmetric, chest is bilaterally symmetric, lungs clear to auscultation Cardiovascular: irregularly irregular; No JVD; S1 and S2 Gastrointestinal: No tender; soft, round, audible bowel sounds Extremities: other (right arm in sling/soft cast), no lower extremity edema bilateral Neurologic/Psychiatric: grossly intact (RUE and LE not manipulated d/t fractures - moves finger and toes of her extremities) Skin: No ulcerations on exposed areas Data Review Labs Laboratory Tests 03/14/21 17:19: Urine Color YELLOW, Urine Clarity CLEAR, Urine pH 7.5, Urine Specific [place] 1.010L, Urine Protein NEGATIVE, Urine Glucose (UA) NEGATIVE, Urine Ketones NEGATIVE, Urine Nitrite NEGATIVE, Urine Bilirubin NEGATIVE, Urine Urobilinogen 0.2, Urine Leukocyte Esterase TRACEH, Urine RBC (Auto) NEGATIVE, Urine RBC NONE, Urine WBC 0-2, Urine Squamous Epithelial Cells 0-2, Urine Crystals NONE, Urine Bacteria NEGATIVE, Urine Casts NONE, Urine Mucus NEGATIVE, Urine Yeast FEWH, Urine Culture Indicated NO 03/15/21 10:10: White Blood Count 11.2H, Red Blood Count 3.69L, Hemoglobin 10.7L, Hematocrit 33L , Mean Corpuscular Volume 89, Mean Corpuscular Hemoglobin 29, Mean Corpuscular Hemoglobin Concent 32, Red Cell Distribution Width 15.3H, Platelet Count 250, Mean Platelet Volume 10.7, Sodium Level 135, Potassium Level 4.1, Chloride Level 101, Carbon Dioxide Level 18L, Anion Gap 16H, Blood Urea Nitrogen 21H, Creat inine 0.93, Estimat Glomerular Filtration Rate 57, BUN/Creatinine Ratio 23, Glucose Level 98, Calcium Level 9.6, Corrected Calcium 9.7, Total Bilirubin 1.5H , Aspartate Amino Transf (AST/SGOT) 26, Alanine Aminotransferase (ALT/SGPT) 18, Alkaline Phosphatase 55, Total Protein 7.3, Albumin 3.9 Laboratory Tests 03/14/21 07:24 03/15/21 10:10 A/P-Cardiology Assessment/Admission Diagnosis S/P non-syncopal fall resulting in right arm and pelvic fracture - management per orthopedic services Chronic A Fib - s/p cardioversion May 18, [address] Jones, but this did not endure - OAC with Xarelto - Pharmacological stress test done on 04/13/[address] Jones showed normal perfusion during rest and stress imaging. - Echocardiogram was done on May 13, 2020 showed LVEF 60-65%. LA mildly dilated. Mildly calcified mitral valve annulus. Mild AoR. Mod TR. PASP 30-35 mmHg H/O TIA - day after cardioversion per Dr. Jones's office note of Jan 2019 HTN - controlled HLD - statin tx - followed by PCP AAA: - Ultrasound done on 02/28/2017 showed mild abdominal aortic aneurysm of 2.8X2.7 centimeter. - Repeat AAA ultrasound on 04/12/2019 shows no AAA. Tobaccoism - quit in the late s Carotid arterial dz. - Carotid u/s of 04/14/2020 - 50-60% R ICA stenosis; less than 40% L ICA stenosis Discussion and Recomendations Add Cardizem CD 240mg daily and increase Lopressor to BID dosing Continue anticoagulation with Xarelto if ok with orthopedic/medical services for stroke prophylaxis Monitor lab closely Replace electrolytes as indicated Risk for non-cardiac surgery determined to be intermediate. Advise OAC be c ontinued for stroke prophylaxis d/t chronic a-fib We would like to thank Medical services for this consult Further recs will be based on her hospital course MICHEAL MILLER MD FACP FACC CCDS Mar 15, 2021 17:01
[2021-03-15] MEDS: RIVAROXABAN 20 MG TABLET (XARELTO) PO SCH (17:16)
[2021-03-15 19:52] VITALS: BP 135/60
[2021-03-15] MEDS: meTOprolol TARTRATE 25 MG (LOPRESSOR) TABLET PO SCH (21:53)
[2021-03-15] MEDS: HYDROcodone/APAP 5 MG/325 MG (LORTAB) TAB PO PRN (22:06)
[2021-03-16 00:06] VITALS: BP 131/86
[2021-03-16 04:24] VITALS: BP 118/76
[2021-03-16] MEDS: MULTIVIT W/MINERALS TAB (THERAGRAN M) PO SCH (06:17)
[2021-03-16] MEDS: LEVOTHYROXINE 100 MCG (LEVOTHROID) TAB PO SCH (06:17)
[2021-03-16] MEDS: CALCIUM CARBONATE 600 MG (CALCARB) TAB PO SCH (06:17)
--- NOTE | 2021-03-16 08:23 | Consultation - Ortho ---
Consult - Ortho Subjective Date of Exam 03/16/21 Chief Complaint Left arm injury HPI/Events since last exam 89 year old female who sustained a fall resulting in a pelvic ring injury, right nondisplaced proximal humerus fracture, and a displaced right olecranon fracture. Current situation is complicated by atrial fibrilliation. She is currently in a splint and sling to the right arm. She states she is planning on being in a [facility] after her hospital admission. Medical, Surgical History per admit H&P Social History per admit H&P Family History per admit H&P Review of Systems per admit H&P Allergies: Coded Allergies: NKANo Known Allergies (Verified Allergy, Unknown, 05/19/17) Home Meds Reported Medications Hydrocodone/Acetaminophen (Hydrocodone-Acetamin 5-325 mg) 1 Each Tablet, 1 TAB PO Q6H PRN for PAIN-MODERATE (5-7), TAB 03/12/21 Rivaroxaban (Xarelto) 20 Mg Tablet, 20 MG PO HS, TAB 03/12/21 Calcium Carbonate (Calcium Carbonate) 500 Mg Tablet, 500 MG PO DAILY, TAB 03/12/21 Gluc Pagan/Chondro Pagan A/Vit C/Mn (Glucosamine Chondroitin Tab) 1 Each Tablet, 1 EACH PO DAILY, TAB 03/12/21 Multivitamin (Multivitamins) 1 Each Tablet, 1 TAB PO DAILY, TAB 07/31/17 Levothyroxine Sodium (Levothyroxine Sodium) 100 Mcg Tablet, 50 MCG PO SUN,SAT, TAB TAKES OF A 100MCG TAB 05/18/17 Levothyroxine Sodium (Levothyroxine Sodium) 100 Mcg Tablet, 100 MCG PO ,,,TH,FR, TAB 05/18/17 Metoprolol Succinate (Metoprolol Succinate) 50 Mg Tab.er.24h, 50 MG PO BID, TAB 05/18/17 Clonazepam (Clonazepam) 1 Mg Tablet, 0.5 MG PO DAILY, TAB TAKES OF A 1MG TAB 05/18/17 Atorvastatin Calcium (Atorvastatin Calcium) 10 Mg Tablet, 5 MG PO DAILY, TAB TAKES OF A 10MG TAB 05/18/17 Discontinued Reported Medications Calcium Carbonate/Vitamin D3 (Calcium 600 + Vit D3 Caplet) 1 Each Tablet, 1 TAB PO BID, TAB 07/31/17 Spironolactone (Spironolactone) 25 Mg Tablet, 25 MG PO DAILY 07/21/15 Glucosamine Sulfate 2Kcl (Glucosamine) 1,000 Mg Tablet, 1000 MG PO DAILY 07/21/15 Discontinued Scripts Hydrocodone/Acetaminophen (Hydrocodone-Acetamin 5-325 mg) 1 Each Tablet, 1 TAB PO Q6H PRN for PAIN-MODERATE (5-7), #14 TAB Prov:MARTIN LEONG APRN 03/11/21 Tramadol HCl (Tramadol HCl) 50 Mg Tablet, 50 MG PO Q12H PRN for PAIN-MODERATE for 10 Days, #20 TAB Prov:VASU DUONG MD 08/02/17 Objective Exam Right arm in posterior splint and sling. Moves all of her fingers. Vital Signs Vital Signs Date Time Temp Pulse Resp B/P (MAP) Pulse Ox O2 Delivery O2 Flow Rate FiO2 03/16/21 07:00 101 03/16/21 04:24 36.0 102 19 118/76 (90) 96 Room Air 03/16/21 01:00 95 03/16/21 00:06 36.0 108 17 131/86 (101) 97 Room Air 03/15/21 20:00 Room Air 03/15/21 19:52 36.5 127 20 135/60 (85) 97 Room Air 03/15/21 19:00 127 03/15/21 16:00 36.6 124 20 133/84 (100) 99 Room Air 03/15/21 13:00 148 03/15/21 11:45 36.9 110 18 132/72 (92) 95 Room Air 03/15/21 10:18 110 I & O 03/16/21 07:00 Intake Total 1320 ml Output Total 1800 ml Balance -480 ml Lab Results Laboratory Tests 03/15/21 10:10: White Blood Count 11.2H, Red Blood Count 3.69L, Hemoglobin 10.7L, Hematocrit 33L , Mean Corpuscular Volume 89, Mean Corpuscular Hemoglobin 29, Mean Corpuscular Hemoglobin Concent 32, Red Cell Distribution Width 15.3H, Platelet Count 250, Mean Platelet Volume 10.7, Sodium Level 135, Potassium Level 4.1, Chloride Level 101, Carbon Dioxide Level 18L, Anion Gap 16H, Blood Urea Nitrogen 21H, Creati nine 0.93, Estimat Glomerular Filtration Rate 57, BUN/Creatinine Ratio 23, Glucose Level 98, Calcium Level 9.6, Corrected Calcium 9.7, Total Bilirubin 1.5H , Aspartate Amino Transf (AST/SGOT) 26, Alanine Aminotransferase (ALT/SGPT) 18, Alkaline Phosphatase 55, Total Protein 7.3, Albumin 3.9 03/16/21 07:16: Magnesium Level 2.1 Imaging X-rays of the right elbow were reviewed from PACS and demonstrated a displaced, comminuted olecranon fracture Assessment and Plan Assessment Right Displaced Olecranon Fracture Problem List Right Displaced Olecranon Fracture Right Nondisplaced Proximal Humerus Fracture Pelvic Ring Injury Plan I have recommended open reduction and internal fixation of the right olecranon fracture versus excision of the fragments and advancement of the triceps tendon to the remaining proximal ulna. Did discuss conservative treatment and potential loss of function. Discussed risks and benefits of surgery. After discussion, she would prefer to proceed with operative management. Will sched ule when clear from medical standpoint and will have to take into account coagulation status--would need to be off of Xarelto ~24 hours prior to procedure. Will coordinate scheduling with medical team. Final Diagonsis Right Displaced Olecranon Fracture Right Nondisplaced Proximal Humerus Fracture Pelvic Ring Injury Level of the visit: Level 3 SHAMEKA CATES MD Mar 16, 2021 08:23
[2021-03-16 08:35] VITALS: BP 145/72
--- NOTE | 2021-03-16 08:53 | Physical Therapy Daily Note ---
PT Daily Note-Current Subjective Patient in recliner pre tx, agrees to PT but states she isn't going to stand up or try to walk because she just got into the chair. Patient has unrated but significant pain in right arm. Appearance Patient in recliner post tx with nurse call, phone, tray, all needs met. Mental Status Patient Orientation: Person, Place, Situation Transfers SCALE: Activities may be completed with or without assistive devices. 8-Zxtipszypn-qdtusqv completes the activity by him/herself with no assistance from a helper. 5-Set-up or Clean-up Assistance-helper sets up or cleans up; patient completes activity. [place] assists only prior to or following the activity. 4-Supervision or Touching Assistance-helper provides verbal cues and/or touching/steadying and/or contact guard assistance as patient completes activity. Assistance may be provided throughout the activity or intermittently. 3-Partial/Moderate Assistance-helper does LESS THAN HALF the effort. [place] lifts, holds or supports trunk or limbs, but provides less than half the effort. 2-Substantial/Maximal Assistance-helper does MORE THAN HALF the effort. [place] l ifts or holds trunk or limbs and provides more than half the effort. 6-Mvfxcnoim-otizfx does ALL the effort. Patient does none of the effort to complete the activity. Or, the assistance of 2 or more helpers is required for the patient to complete the activity. If activity was not attempted, code reason: 7-Patient Refused. 9-Not Applicable-not attempted and the patient did not perform the activity before the current illness, exacerbation or injury. 10-Not Attempted due to Environmental Limitations-(lack of equipment, weather restraints, etc.). 88-Not Attempted due to Medical Conditions or Safety Concerns. Exercises Seated Therapy Exercises: Ankle pumps, Long arc quads, Hip flexion, Hip abd/add Seated Reps: 20 Treatments LE exercise Assessment Current Status: Poor Progress Patient states she still cannot bear weight on right leg. PT Jail Goals Radon Inspector Goals PT Jail Goals Time Frame: Mar 22, 2021 Roll Left & Right (QC): 6 Sit to Lying (QC): 4 Lying-Sitting on Side/Bed(QC): 4 Sit to Stand (QC): 4 Chair/Mdg-sg-Dhykf Xfer(QC): 4 Walk 10 feet (QC): 4 PT Plan Problem List Problem List: Activity Tolerance, Functional Strength, Safety, Balance, Gait, Transfer, Bed Mobility, ROM Treatment/Plan Treatment Plan: Continue Plan of Care Treatment Plan: Bed Mobility, Education, Functional Activity Luci, Functional Strength, Gait, Safety, Therapeutic Exercise, Transfers Treatment Duration: Mar 22, 2021 Frequency: 11 times per week Estimated Hrs Per Day: .25 hour per day Patient and/or Family Agrees t: Yes Safety Risks/Education Patient Education: Correct Positioning, Safety Issues Teaching Recipient: Patient Teaching Methods: Demonstration, Discussion Response to Teaching: Reinforcement Needed Time/GCodes Time In: 830 Time Out: 08 Total Billed Treatment Time: 8 Total Billed Treatment 1 visit EX NICK CRISTINA PT Mar 16, 2021 08:52
[2021-03-16] MEDS: polyethylene glycoL POWDER 17 GM (MIRALAX) PACK PO SCH ×2 (09:44→20:24)
[2021-03-16] MEDS: DOCUSATE SODIUM 100 MG (COLACE) CAP PO SCH ×2 (09:44→20:24)
[2021-03-16] MEDS: FAMOTIDINE 20 MG (PEPCID) TABLET PO SCH (09:45)
[2021-03-16] MEDS ORDERED: ceFAZolin 2 GM IV Premixed 50 ML IV ONE (09:45)
[2021-03-16] MEDS: meTOprolol TARTRATE 25 MG (LOPRESSOR) TABLET PO SCH ×2 (09:45→20:24)
[2021-03-16] MEDS: AtorvaSTATin TABLET 10 MG TABLET PO SCH (09:45)
--- NOTE | 2021-03-16 10:18 | Progress Note - Cardiology ---
Cardiology SOAP Progress Note Subjective: Sitting up in recliner at the bedside States she does not want to go to [facility] because her there and she is "fearful" of going there No c/o CP or SOB Objective: I&O/Vital Signs 03/16/21 03/16/21 03/16/21 03/16/21 00:06 01:00 04:24 07:00 Temp 36.0 36.0 Pulse 108 95 102 101 Resp 17 19 B/P (MAP) 131/86 (101) 118/76 (90) Pulse Ox 97 96 O2 Delivery Room Air Room Air 03/16/21 03/16/21 08:00 08:35 Temp 36.0 Pulse 116 Resp 18 B/P (MAP) 145/72 (96) Pulse Ox 96 O2 Delivery Room Air Room Air 03/16/21 00:00 Intake Total 720 ml Output Total 800 ml Balance -80 ml Weight (Pounds): 175 Weight (Ounces): 0.0 Weight (Calculated Kilograms): 79.873295 Constitutional: AAO x 3, well-developed, well-nourished Respiratory: No accessory muscle use, No respiratory distress; chest expansion is symmetric, chest is bilaterally symmetric, lungs clear to auscultation Cardiovascular: irregularly irregular; No JVD; S1 and S2 Gastrointestional: No tender; soft, round, audible bowel sounds Extremities: other (right arm in sling/soft cast), no lower extremity edema bilateral Neurologic/Psychiatric: grossly intact (RUE and LE not manipulated d/t fractur es - moves finger and toes of her extremities) Skin: No ulcerations on exposed areas Results/Procedures: Labs Laboratory Tests 03/16/21 07:16: Magnesium Level 2.1 A/P: Assessment: S/P non-syncopal fall resulting in right arm and pelvic fracture - management per orthopedic services Chronic A Fib - s/p cardioversion May 18, [address] Jones, but this did not endure - OAC with Xarelto - Pharmacological stress test done on 04/13/[address] Jones showed normal perfusion during rest and stress imaging. - Echocardiogram was done on May 13, 2020 showed LVEF 60-65%. LA mildly dilated. Mildly calcified mitral valve annulus. Mild AoR. Mod TR. PASP 30-35 mmHg H/O TIA - day after cardioversion per Dr. Jones's office note of Jan 2019 HTN - controlled HLD - statin tx - followed by PCP AAA: - Ultrasound done on 02/28/2017 showed mild abdominal aortic aneurysm of 2.8X2.7 centimeter. - Repeat AAA ultrasound on 04/12/2019 shows no AAA. 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 - Carotid u/s of 04/14/2020 - 50-60% R ICA stenosis; less than 40% L ICA stenosis Plan: Add Cardizem CD 240mg daily and increase Lopressor to BID dosing Continue anticoagulation with Xarelto if ok with orthopedic/medical services for stroke prophylaxis Monitor lab closely Replace electrolytes as indicated Risk for non-cardiac surgery determined to be intermediate. Advise OAC be continued for stroke prophylaxis d/t chronic a-fib - OAC may be held for 48 hours prior to surgery and then resume immediately following if deemed surgically safe Spoke with Dr. Soto this morning MARCOS SWAN Mar 16, 2021 10:18
--- NOTE | 2021-03-16 10:35 | Occupational Ther Daily Note ---
OT Current Status-Daily Note Subjective "My arm and my dizziness is the biggest barriers to being able to do anything." Appearance Pt left sitting in chair, all needs within reach. Mental Status/Objective Per ortho note, possibility of having ORIF on R olecranon once medically stable. Pt to remain NWB per OT judgment at this time. ADL-Treatment Therapy Code Descriptions/Definitions Functional [place] Measure: 0=Not Assessed/NA 4=Minimal Assistance 1=Total Assistance 5=Supervision or Setup 2=Maximal Assistance 6=Modified [place] 3=Moderate Assistance 7=Complete IndependenceSCALE: Activities may be completed with or without assistive devices. 2-Texzlujtvd-flyfkre completes the activity by him/herself with no assistance from a helper. 5-Set-up or Clean-up Assistance-helper sets up or cleans up; patient completes activity. [place] assists only prior to or following the activity. 4-Supervision or Touching Assistance-helper provides verbal cues and/or touching/steadying and/or contact guard assistance as patient completes activity. Assistance may be provided throughout the activity or intermittently. 3-Partial/Moderate Assistance-helper does LESS THAN HALF the effort. [place] lifts, holds or supports trunk or limbs, but provides less than half the effort. 2-Substantial/Maximal Assistance-helper does MORE THAN HALF the effort. [place] lifts or holds trunk or limbs and provides more than half the effort. 6-Jjlswkutu-rjwxlm does ALL the effort. Patient does none of the effort to complete the activity. Or, the assistance of 2 or more helpers is required for the patient to complete the activity. If activity was not attempted, code reason: 7-Patient Refused. 9-Not Applicable-not attempted and the patient did not perform the activity before the current illness, exacerbation or injury. 10-Not Attempted due to Environmental Limitations-(lack of equipment, weather restraints, etc.). 88-Not Attempted due to Medical Conditions or Safety Concerns. Shower cap provided, assist to massage into head on right side. Pt able to brush hair with use of L hand. She is able to demonstrate indep with feeding self with L hand but will require help with starla tasks such as cutting. Other Treatment Pt declines any out of chair adls and verbalizes inability to walk despite walking a few steps to chair previous date. Education provided on maintenance of strength, endurance, and balance. Agreeable to perform AROM exercises on LUE and R hand to increase strength and endurance needed for adls and transfers. Able to perform all movements within full range. She could add resistance to LUE exercises with next session. Education OT Patient Education: Correct positioning, Disease process, Exercise program, Modified ADL techniques, Progress toward Goal/Update tx plan, Purpose of tx/functional activities, Reviewed precautions, Safety issues Teaching Recipient: Patient Teaching Methods: Demonstration Response to Teaching: Verbalize Understanding, Reinforcement Needed OT Alf Goals Alf Goals Time Frame: Apr 06, 2021 Oral Hygiene (QC): 4 Toileting Hygiene (QC): 4 Upper Body Dressing (QC): 3 Lower Body Dressing (QC): 4 1=Demonstrate adherence to instructed precautions during ADL tasks. 2=Patient will verbalize/demonstrate understanding of assistive devices/modifications for ADL. 3=Patient will improve strength/tolerance for activity to enable patient to perform ADL's. OT Education/Plan Problem List/Assessment Assessment: Decreased Activ Tolerance, Decreased UE Strength, Impaired Funct Balance, Impaired I ADL's, Impaired Self-Care Skills, Restricted Funct UE ROM Discharge Recommendations Plan/Recommendations: Continue POC Treatment Plan/Plan of Care Treatment,Training & Education: Yes Patient would benefit from OT for education, treatment and training to promote independence in ADL's, mobility, safety and/or upper extremity function for ADL's. Plan of Care: ADL Retraining, Functional Mobility, Orthotic Fitting/Training, UE Funct Exercise/Act Treatment Duration: Apr 06, 2021 Frequency: 5 times per week Estimated Hrs Per Day: .25 hour per day Rehab Potential: Guarded Time/GCodes Start Time: 09:53 Stop Time: 10:11 Total Time Billed (hr/min): 18 Billed Treatment Time 1 visit EX Swati Cortes OT Mar 16, 2021 10:35
[2021-03-16 12:04] VITALS: BP 96/59
--- NOTE | 2021-03-16 13:28 | Physical Therapy Daily Note ---
PT Daily Note-Current Subjective Patient is on commode pre tx, states she just wants to get back into the bed and has been sitting in chair all day. Appearance Patient in bed post tx with nurse call, phone, tray, all needs met. Mental Status Patient Orientation: Person, Place, Situation Transfers SCALE: Activities may be completed with or without assistive devices. 3-Uvdjfmdxwy-rrctcck completes the activity by him/herself with no assistance from a helper. 5-Set-up or Clean-up Assistance-helper sets up or cleans up; patient completes activity. Lannon assists only prior to or following the activity. 4-Supervision or Touching Assistance-helper provides verbal cues and/or touching/steadying and/or contact guard assistance as patient completes activity. Assistance may be provided throughout the activity or intermittently. 3-Partial/Moderate Assistance-helper does LESS THAN HALF the effort. Lannon lifts, holds or supports trunk or limbs, but provides less than half the effort. 2-Substantial/Maximal Assistance-helper does MORE THAN HALF the effort. Lannon lifts or holds trunk or limbs and provides more than half the effort. 2-Jkmuyheoh-qmnliv does ALL the effort. Patient does none of the effort to complete the activity. Or, the assistance of 2 or more helpers is required for the patient to complete the activity. If activity was not attempted, code reason: 7-Patient Refused. 9-Not Applicable-not attempted and the patient did not perform the activity before the current illness, exacerbation or injury. 10-Not Attempted due to Environmental Limitations-(lack of equipment, weather restraints, etc.). 88-Not Attempted due to Medical Conditions or Safety Concerns. Roll Left & Right (QC): 4 Sit to Lying (QC): 2 Sit to Stand (QC): 3 Chair/Wau-hc-Wdpcb Xfer(QC): 3 Patient stands when done on the commode with min assist, nurse aide helps clean patient, she performs a transfer to the bed (commode is right beside bed). She cannot bring her right foot from the floor to take a step and has to scoot it across the floor. When she has turned enough she sits and needs max assist for sit to supine. Treatments standing, transfers, toileting Assessment Current Status: Poor Progress patient still cannot bear much weight on left leg PT Student Services Rep Goals Skilled Nursing Goals PT Student Services Rep Goals Time Frame: Mar 22, 2021 Roll Left & Right (QC): 6 Sit to Lying (QC): 4 Lying-Sitting on Side/Bed(QC): 4 Sit to Stand (QC): 4 Chair/Bww-im-Vtpqp Xfer(QC): 4 Walk 10 feet (QC): 4 PT Plan Problem List Problem List: Activity Tolerance, Functional Strength, Safety, Balance, Gait, Transfer, Bed Mobility, ROM Treatment/Plan Treatment Plan: Continue Plan of Care Treatment Plan: Bed Mobility, Education, Functional Activity Luci, Functional Strength, Gait, Safety, Therapeutic Exercise, Transfers Treatment Duration: Mar 22, 2021 Frequency: 11 times per week Estimated Hrs Per Day: .25 hour per day Patient and/or Family Agrees t: Yes Safety Risks/Education Patient Education: Transfer Techniques, Correct Positioning, Safety Issues Teaching Recipient: Patient Teaching Methods: Demonstration, Discussion Response to Teaching: Reinforcement Needed Time/GCodes Time In: 1309 Time Out: 1320 Total Billed Treatment Time: 11 Total Billed Treatment 1 visit FA NICK LUNSFORD PT Mar 16, 2021 13:28
[2021-03-16 15:30] VITALS: BP 123/70
--- NOTE | 2021-03-16 16:29 | Progress Note ---
Subjective Subjective Date Seen by Provider: Mar 16, 2021 Time Seen by Provider: 08:15 Patient reports feeling okay this morning. Her pain is under control at the moment. She is still feeling fairly weak and tired. Denies and N/V, sweats/chills or worsening pain. Review of Systems General: No Chills, No Night Sweats; Fatigue Pulmonary: No Dyspnea, No Cough Cardiovascular: No: Chest Pain, Palpitations Gastrointestinal: No: Nausea, Vomiting Musculoskeletal: other (PELVIC PAIN - WORSE ON RIGHT), arm pain (right) Neurological: Weakness All Other Systems Reviewed All Other Systems Reviewed: Yes Objective Exam Vital Signs Vital Signs Date Time Temp Pulse Resp B/P (MAP) Pulse Ox O2 Delivery O2 Flow Rate FiO2 03/16/21 13:00 84 03/16/21 12:04 36.4 96 20 96/59 (71) 98 Room Air 03/16/21 08:35 36.0 116 18 145/72 (96) 96 Room Air 03/16/21 08:00 Room Air 03/16/21 07:00 101 03/16/21 04:24 36.0 102 19 118/76 (90) 96 Room Air 03/16/21 01:00 95 03/16/21 00:06 36.0 108 17 131/86 (101) 97 Room Air 03/15/21 20:00 Room Air 03/15/21 19:52 36.5 127 20 135/60 (85) 97 Room Air 03/15/21 19:00 127 I & O 03/16/21 07:00 Intake Total 1320 ml Output Total 1800 ml Balance -480 ml General Appearance: No Apparent Distress, Obese Eyes: Bilateral Eye Normal Inspection, Bilateral Eye PERRL, Bilateral Eye EOMI HEENT: PERRL/EOMI Neck: Normal Inspection, Non Tender, Supple Respiratory: Chest Non Tender, Lungs Clear, Normal Breath Sounds, No Accessory Muscle Use, No Respiratory Distress Cardiovascular: No Edema, Irregularly Irregular, Tachycardia Gastrointestinal: Normal Bowel Sounds, Non Tender, Soft Extremity: No Pedal Edema, Other (RIGHT ARM IN SLING ) Neurologic/Psychiatric: Alert, Oriented x3, Normal Mood/Affect Skin: Normal Color, Warm/Dry Results Lab Laboratory Tests 03/16/21 07:16: Magnesium Level 2.1 Assessment/Plan Assessment/Plan Assessment and Plan RIGHT PUBIC RAMI FRACTURE L3 20% COMPRESSION FRACTURE - AGE INDETERMINATE HYPERTENSION TACHYCARDIA HYPONATREMIA RIGHT PROXIMAL ULNA FRACTURE - COMMINUTED AND DISPLACED DIZZINESS ORTHOSTASIS RIGHT PUBIC RAMI FRACTURE AND L3 20% COMPRESSION FRACTURE - AGE INDETERMINATE -PT STILL WORKING WITH PT/OT - PT WILL NEED TO GO TO THE DETENTION, SHE CANNOT CURRENTLY PARTICIPATE IN 3 HOURS OF THERAPY. - CONSULT TO ASSOCIATE PROFESSOR OF CRIMINAL JUSTICE FOR PLACEMENT TO BE COORDINATED. HYPERTENSION - HOME MEDS WERE RESUMED, MONITOR PRESSURES TACHYCARDIA WITH HX OF AFIB - - PT STILL IN AFIB WITH IRREGULAR RHYTHM ON PHYSICAL EXAM - TELEMETRY - CONSULT CALLED TO DR. MCDONNELL - Will Add Cardizem CD 240mg daily and increase Lopressor to BID dosing per Dr. Mcdonnell recommendation HYPONATREMIA - RESOLVED AT PRESENT RIGHT PROXIMAL ULNA FRACTURE - COMMINUTED AND DISPLACED IMAGE IMPRESSION: Acute mildly comminuted, displaced and retracted fracturing involving the proximal ulna with large articular gap associated with the o lecranon fossa with significant overlying soft tissue swelling. - CONSULT TO DR. CATES AT PT REQUEST -DR. CATES SPOKE W/PATIENT TODAY AND INFORMED HER THAT SURGERY WILL BE NECESSARY IF SHE WANTS TO REGAIN MAXIMAL ROM IN R ARM. SHE WOULD LIKE TO PROCEED WITH SURGERY ONCE MEDICALLY ABLE DIZZINESS WITH ORTHOSTASIS - CT Head yesterday: 1. No large acute territorial ischemia, mass, or hemorrhage. 2. Chronic microvascular disease. 3. Generalized parenchymal volume loss. - CONTINUE TO MONITOR CLOSELY DVT PROPHYLAXIS WITH SCD'S AND XARELTO GI PROPHYLAXIS WITH PEPCID Continue anticoagulation with Xarelto if ok with orthopedic/medical services for stroke prophylaxis Monitor lab closely Replace electrolytes as indicated Risk for non-cardiac surgery determined to be intermediate. Advise OAC be continued for stroke prophylaxis d/t chronic a-fib We would like to thank Medical services for this consult Further recs will be based on her hospital course Supervisory-Addendum Brief Verification & Attestation Participated in pt care: history, MDM, physical Personally performed: exam, history, MDM, supervision of care Care discussed with: Medical Student Procedures: n/a Results interpretation: Verified all documentation AGREE WITH STUDENT NOTE PLAN WILL BE FOR DR. CATES TO PERFORM SURGERY ON HER FRACTURED ULNA IN 24 HOURS AFTER HOLDING HER XARELTO. PELVIC FRACTURES - PUBIC RAMI - WILL NEED TO GO TO THERAPY POST-HOSPITALIZATION FOR STRENGTHENING. PT NEEDS TO BE ABLE TO TAKE CARE OF HERSELF AND BE MORE MOBILE PRIOR TO DC TO HOME CAN SAFELY BE ACHIEVED. JESSE LIM Mar 16, 2021 16:29 MELVA JIMÉNEZ MD Mar 16, 2021 22:10
--- NOTE | 2021-03-16 16:46 | Progress Note - Cardiology ---
Cardiology SOAP Progress Note Subjective: R shoulder and pelvic pain present, since injury No cp or palp or syncope or shortness of breath at rest No n/v/d Gen weakness and malaise Objective: I&O/Vital Signs 03/16/21 03/16/21 03/16/21 03/16/21 07:00 08:00 08:35 12:04 Temp 36.0 36.4 Pulse 101 116 96 Resp 18 20 B/P (MAP) 145/72 (96) 96/59 (71) Pulse Ox 96 98 O2 Delivery Room Air Room Air Room Air 03/16/21 13:00 Pulse 84 03/16/21 00:00 Intake Total 720 ml Output Total 800 ml Balance -80 ml Weight (Pounds): 175 Weight (Ounces): 0.0 Weight (Calculated Kilograms): 79.471427 Constitutional: AAO x 3, well-developed, well-nourished Respiratory: No accessory muscle use, No respiratory distress; chest expansion is symmetric, chest is bilaterally symmetric, lungs clear to auscultation Cardiovascular: irregularly irregular; No JVD; S1 and S2 Gastrointestional: No tender; soft, round, audible bowel sounds Extremities: other (right arm in sling/soft cast), no lower extremity edema bilateral Neurologic/Psychiatric: grossly intact (RUE and LE not manipulated d/t fractures - moves finger and toes of her extremities) Skin: No ulcerations on exposed areas Results/Procedures: Labs Laboratory Tests 03/16/21 07:16: Magnesium Level 2.1 A/P: Assessment: S/P non-syncopal fall resulting in right arm and pelvic fracture - management per Orthopedic services Chronic A Fib - s/p cardioversion May 18, [address] Jones, but this did not endure - OAC with Xarelto - Pharmacological stress test done on 04/13/[address] Jones showed normal perfusion during rest and stress imaging. - Echocardiogram was done on May 13, 2020 showed LVEF 60-65%. LA mildly dilated. Mildly calcified mitral valve annulus. Mild AoR. Mod TR. PASP 30-35 mmHg H/O TIA - day after cardioversion per Dr. Jones's office note of Jan 2019 HTN - controlled HLD - statin tx - followed by PCP AAA: - Ultrasound done on 02/28/2017 showed mild abdominal aortic aneurysm of 2.8X2.7 centimeter. - Repeat AAA ultrasound on 04/12/2019 shows no AAA. 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 - Carotid u/s of 04/14/2020 - 50-60% R ICA stenosis; less than 40% L ICA stenosis Plan: Add Cardizem CD 240mg daily and increase Lopressor to BID dosing Monitor lab closely Replace electrolytes as indicated Risk for non-cardiac surgery determined to be intermediate. OAC may be held for 72 hours prior to surgery and then resume immediately following if deemed surgically safe MICHEAL MILLER MD FACP FAC CCDS Mar 16, 2021 16:46
[2021-03-16] MEDS: HYDROcodone/APAP 5 MG/325 MG (LORTAB) TAB PO PRN (20:23)
[2021-03-16 20:33] VITALS: BP 127/76
[2021-03-17] VITALS (13 sets, daily range): BP systolic 101–156; BP diastolic 51–96
[2021-03-17] MEDS: MULTIVIT W/MINERALS TAB (THERAGRAN M) PO SCH (05:45)
[2021-03-17] MEDS: LEVOTHYROXINE 100 MCG (LEVOTHROID) TAB PO SCH (05:45)
[2021-03-17] MEDS ORDERED: LIDOCAINE PF 2% 5 ML (XYLOCAINE) VIAL ONE (08:14)
[2021-03-17] MEDS ORDERED: proPOfol 200 MG/20 ML (DIPRIVAN) VIAL IV ONE (08:14)
[2021-03-17] MEDS ORDERED: ONDANSETRON 4 MG/2 ML (SDV) Z0FRAN ONE (08:14)
[2021-03-17] MEDS ORDERED: MIDAZOLAM 2 MG/2 ML (VERSED) VIAL ONE (08:15)
[2021-03-17] MEDS ORDERED: fentaNYL INJ 100 MCG/2 ML AMP ONE (08:15)
--- NOTE | 2021-03-17 08:22 | Progress Note ---
Subjective Subjective Date Seen by Provider: Mar 17, 2021 Time Seen by Provider: 08:30 PT IS AN 89 Y/O FEMALE WHO IS WELL KNOWN TO ME FROM CLINIC AND PREVIOUS HOSPITALIZATIONS. FLO HAD A FALL AND SUSTAINED A FRACTURE OF HER ARM, WAS SENT HOME AND HAD PROGRESSIVE PAIN IN HER RIGHT GROIN - CAME BACK TO THE ER AND WAS FOUND TO HAVE PELVIC BONE FRACTURES - PUBIC RAMI - ALSO HAS AN AGE- INDETERMINATE FRACTURE OF L3. Review of Systems General: No Chills, No Night Sweats; Fatigue Pulmonary: No Dyspnea, No Cough Cardiovascular: No: Chest Pain, Palpitations Gastrointestinal: No: Nausea, Vomiting Musculoskeletal: other (PELVIC PAIN - WORSE ON RIGHT), arm pain (right) Neurological: Weakness All Other Systems Reviewed All Other Systems Reviewed: Yes Objective Exam Vital Signs Vital Signs Date Time Temp Pulse Resp B/P (MAP) Pulse Ox O2 Delivery O2 Flow Rate FiO2 03/17/21 07:27 36.9 87 18 105/65 (78) 97 Room Air 03/17/21 07:00 80 03/17/21 04:14 36.8 80 18 102/56 (71) 97 NIV CPAP 03/17/21 01:00 70 03/17/21 00:16 36.4 76 18 137/68 (91) 97 NIV CPAP 03/16/21 20:34 Room Air 03/16/21 20:33 36.4 93 20 127/76 (93) 97 Room Air 03/16/21 19:00 92 03/16/21 15:30 36.4 80 18 123/70 (87) 94 Room Air 03/16/21 13:00 84 03/16/21 12:04 36.4 96 20 96/59 (71) 98 Room Air 03/16/21 08:35 36.0 116 18 145/72 (96) 96 Room Air I & O 03/17/21 07:00 Intake Total 780 ml Output Total 1175 ml Balance -395 ml General Appearance: No Apparent Distress, Obese Eyes: Bilateral Eye Normal Inspection, Bilateral Eye PERRL, Bilateral Eye EOMI HEENT: PERRL/EOMI Neck: Normal Inspection, Non Tender, Supple Respiratory: Chest Non Tender, Lungs Clear, Normal Breath Sounds, No Accessory Muscle Use, No Respiratory Distress Cardiovascular: No Edema, Irregularly Irregular, Tachycardia Gastrointestinal: Normal Bowel Sounds, Non Tender, Soft Extremity: No Pedal Edema, Other (RIGHT ARM IN SLING ) Neurologic/Psychiatric: Alert, Oriented x3, Normal Mood/Affect Skin: Normal Color, Warm/Dry Results Lab Laboratory Tests 03/16/21 20:30: SARS-CoV-2 RNA (RT-PCR) Not Detected 03/17/21 06:15: Assessment/Plan Assessment/Plan Admission Dx RIGHT PUBIC RAMI FRACTURE L3 20% COMPRESSION FRACTURE - AGE INDETERMINATE HYPERTENSION TACHYCARDIA HYPONATREMIA RIGHT PROXIMAL ULNA FRACTURE - COMMINUTED AND DISPLACED DIZZINESS ORTHOSTASIS Assessment and Plan RIGHT PUBIC RAMI FRACTURE L3 20% COMPRESSION FRACTURE - AGE INDETERMINATE HYPERTENSION TACHYCARDIA HYPONATREMIA RIGHT PROXIMAL ULNA FRACTURE - COMMINUTED AND DISPLACED DIZZINESS ORTHOSTASIS RIGHT PUBIC RAMI FRACTURE AND L3 20% COMPRESSION FRACTURE - AGE INDETERMINATE - PT WILL NEED TO GO TO [facility], SHE CANNOT CURRENTLY PARTICIPATE IN 3 HOURS OF THERAPY. - CONSULT TO DIRECTOR TALENT MANAGEMENT FOR PLACEMENT TO BE COORDINATED. HYPERTENSION - HOME MEDS WERE RESUMED, MONITOR PRESSURES TACHYCARDIA WITH HX OF AFIB - - PT CURRENTLY SOUNDS LIKE SHE IS IN AFIB WITH IRREGULAR RHYTHM ON PHYSICAL EXAM - EKG PENDING - TELEMETRY ORDERED - CONSULT CALLED TO DR. MILLER - PT ON XARELTO HYPONATREMIA - MILD - REPEAT LABS TODAY. RIGHT PROXIMAL ULNA FRACTURE - COMMINUTED AND DISPLACED IMAGE IMPRESSION: Acute mildly comminuted, displaced and retracted fracturing involving the proximal ulna with large articular gap associated with the olecranon fossa with significant overlying soft tissue swelling. - CONSULT TO DR. CATES AT PT REQUEST DIZZINESS WITH ORTHOSTASIS - CT OF HEAD TODAY AND CONTINUE WITH SUPPORTIVE CARE AT THIS TIME - PENDING CT OF HEAD DVT PROPHYLAXIS WITH SCD'S AND XARELTO GI PROPHYLAXIS WITH PEPCID Admission Dx RIGHT PUBIC RAMI FRACTURE L3 20% COMPRESSION FRACTURE - AGE INDETERMINATE HYPERTENSION TACHYCARDIA HYPONATREMIA RIGHT PROXIMAL ULNA FRACTURE - COMMINUTED AND DISPLACED DIZZINESS ORTHOSTASIS Clinical Quality Measures Admission Status Admission Dx RIGHT PUBIC RAMI FRACTURE L3 20% COMPRESSION FRACTURE - AGE INDETERMINATE HYPERTENSION TACHYCARDIA HYPONATREMIA RIGHT PROXIMAL ULNA FRACTURE - COMMINUTED AND DISPLACED DIZZINESS ORTHOSTASIS MELVA JIMÉNEZ MD Mar 17, 2021 08:22
[2021-03-17 08:35] LABS: CALCIUM 8.8 MG/DL (8.5-10.1); CREATININE SERUM 0.86 MG/DL (0.60-1.30); MAGNESIUM 2.1 MG/DL (1.6-2.4)
[2021-03-17] MEDS: CALCIUM CARBONATE 600 MG (CALCARB) TAB PO SCH (09:05)
[2021-03-17] MEDS: FAMOTIDINE 20 MG (PEPCID) TABLET PO SCH (09:06)
[2021-03-17] MEDS: meTOprolol TARTRATE 25 MG (LOPRESSOR) TABLET PO SCH ×2 (09:06→21:30)
[2021-03-17] MEDS: DOCUSATE SODIUM 100 MG (COLACE) CAP PO SCH ×2 (09:06→21:30)
[2021-03-17] MEDS: AtorvaSTATin TABLET 10 MG TABLET PO SCH (09:06)
[2021-03-17] MEDS: polyethylene glycoL POWDER 17 GM (MIRALAX) PACK PO SCH ×2 (09:06→20:01)
[2021-03-17] MEDS ORDERED: ceFAZolin INJECTION 2,000 MG ONE (09:33)
[2021-03-17] MEDS ORDERED: PHENYLEPHRINE 100 MCG/ML 10 ML (ANESTHESIA) SYR ONE (09:46)
[2021-03-17] MEDS: LIDOCAINE/EPI 1%-1:100,000 (XYLOCAINE) 20ML ONE ×2 (09:55→11:34)
--- NOTE | 2021-03-17 10:05 | Physical Therapy Progress Note ---
Therapy Progress Note Patient is having surgery this morning. Will check back this afternoon. NICK SNIDER PT Mar 17, 2021 10:05
[2021-03-17] MEDS: NEO/POLY/BAC (NEOSPORIN) OINT 15 GM TUBE ONE ×2 (10:12→11:34)
[2021-03-17] MEDS ORDERED: LACTATED RINGERS 1,000 ML IV PRN (10:15)
--- NOTE | 2021-03-17 10:54 | Occ Therapy Progress Note ---
Therapy Progress Note Pt currently in surgery.New orders will be needed. Swati Cortes OT Mar 17, 2021 10:54
--- NOTE | 2021-03-17 11:24 | Diagnostic Imaging Report ---
Indication: Right elbow fracture fixation IMPRESSION: 25 seconds of fluoroscopy was used for fixation of the right elbow fracture. 2 view shows percutaneous pins and wires across the olecranon fracture which is in excellent alignment. Dictated by: Dictated on workstation # [id number]
--- NOTE | 2021-03-17 11:31 | Anesthesia-General Post-Op ---
General Patient Condition Mental Status/LOC: Same as Preop Cardiovascular: Satisfactory Nausea/Vomiting: Absent Respiratory: Satisfactory Pain: Controlled Complications: Absent Post Op Complications Complications None Follow Up Care/Instructions Patient Instructions None needed. Anesthesia/Patient Condition Patient Condition Patient is doing well, no complaints, stable vital signs, no apparent adverse anesthesia problems. No complications reported per nursing. KERVIN BRANHAM CRNA Mar 17, 2021 11:31
--- NOTE | 2021-03-17 11:40 | Operative Report - Ortho ---
Operative Report Surgeon (s)/Science Tutor (s) Surgeon SHAMEKA CATES MD Science Tutor n/a Pre-Operative Diagnosis Right Olecranon Fracture Post-Operative Diagnosis same Operative Report Date of Procedure: Mar 17, 2021 Name of Procedure Performed: Open Reduction and Internal Fixation of Right Olecranon Fracture Description & Findings After obtaining informed consent and marking the patient in the preoperative holding area, the patient was administered IV antibiotics and taken to the operating room. General anesthesia was induced. Surgical timeout was taken. The right upper extremity was prepped and draped in the usual sterile fashion. Incision was made centered over the olecranon. Dissection was carried down to the fracture site. Hematoma was evacuated. Fracture site was irrigated, curretted, and prepared. Provisional reduction was performed using a tenaculum. 2 K-wires were placed through the olecranon, across the fracture site, under the articular surface, and exiting near the coronoid process. Position of the wires was confirmed with C-arm. A drill was use to make a bicortical hole in the ulnar shaft. 18 gauge wire was then fed through the hole. A figure of 8 tension band was then created and tensioned. C-arm was used to obtain images and these did demonstrate appropriate reduction and appropriate position of the hardware. The K-wires were bent and cut. Bone tamp was used to seat the K- wires fully. Tension band tied end was cut and bone tamp was use to turn the end of this away from the skin and subcutaneous tissues. Final C-arm images were obtained and sent to PACS. Wound was irrigated with normal saline. Wound was closed with 3-0 vicryl and zelda. Wound was dressed with xeroform, 4x4's, ABD pad, tanisha, cast padding, posterior splint, and TOYA wrap. Patient tolerated the procedure well and was stable to the recovery room. Anesthesia Type General Estimated Blood Loss 100 mL Specimen(s) collected/removed None SHAMEKA CATES MD Mar 17, 2021 11:40
[2021-03-17] MEDS ORDERED: MEPERIDINE (DEMEROL) INJ 50 MG/ML IVP ONE (11:45)
[2021-03-17] MEDS ORDERED: PROMETHAZINE INJ 25 MG/ML (PHENERGAN) AMP IVP ONE (11:45)
[2021-03-17] MEDS ORDERED: fentaNYL INJ 100 MCG/2 ML AMP IVP ONE (11:45)
[2021-03-17] MEDS ORDERED: ONDANSETRON 4 MG/2 ML (SDV) Z0FRAN IVP PRN (11:45)
[2021-03-17] MEDS ORDERED: morphine INJ 10 MG/ML 1ML (SYR OR VIAL) IVP ONE (11:45)
[2021-03-17] MEDS ORDERED: HYDROmorphone 2 MG/ML VIAL (DILAUDID) IV ONE (11:45)
--- NOTE | 2021-03-17 16:44 | Progress Note - Cardiology ---
Cardiology SOAP Progress Note Subjective: No cp or palp or syncope No shortness of breath at rest No n/v/d Objective: I&O/Vital Signs 03/17/21 03/17/21 03/17/21 03/17/21 07:00 07:27 08:00 11:27 Temp 36.9 Pulse 80 87 Resp 18 B/P (MAP) 105/65 (78) Pulse Ox 97 O2 Delivery Room Air Room Air OxyMask O2 Flow Rate 6 03/17/21 03/17/21 03/17/21 03/17/21 11:27 11:30 11:35 11:40 Temp 36.5 Resp 24 22 22 B/P (MAP) 143/84 (103) 156/96 (116) 135/84 (101) Pulse Ox 96 95 94 O2 Delivery OxyMask OxyMask OxyMask OxyMask O2 Flow Rate 6 4 4 2 03/17/21 03/17/21 03/17/21 03/17/21 11:45 11:50 12:00 12:00 Resp 23 20 B/P (MAP) 126/64 (84) 109/79 (89) Pulse Ox 94 95 O2 Delivery OxyMask OxyMask Room Air Room Air O2 Flow Rate 2 2 03/17/21 03/17/21 03/17/21 03/17/21 12:10 12:20 12:30 12:42 Temp 36.4 36.3 Pulse 115 Resp 18 18 18 B/P (MAP) 146/88 (107) 143/75 (97) 139/76 (97) Pulse Ox 95 92 97 O2 Delivery Room Air Room Air Room Air Nasal Cannula O2 Flow Rate 1.00 03/17/21 03/17/21 13:00 15:31 Temp 35.8 Pulse 102 110 Resp 20 B/P (MAP) 101/51 (68) Pulse Ox 100 O2 Delivery Nasal Cannula O2 Flow Rate 1.00 03/17/21 00:00 Intake Total 780 ml Output Total 425 ml Balance 355 ml Weight (Pounds): 175 Weight (Ounces): 0.0 Weight (Calculated Kilograms): 79.633844 Constitutional: AAO x 3, well-developed, well-nourished Respiratory: No accessory muscle use, No respiratory distress; chest expansion is symmetric, chest is bilaterally symmetric, lungs clear to auscultation Cardiovascular: irregularly irregular; No JVD; S1 and S2 Gastrointestional: No tender; soft, round, audible bowel sounds Extremities: other (right arm in sling/soft cast), no lower extremity edema bilateral Neurologic/Psychiatric: grossly intact (RUE and LE not manipulated d/t fractures - moves finger and toes of her extremities) Skin: No ulcerations on exposed areas Results/Procedures: Labs Laboratory Tests 03/16/21 20:30: SARS-CoV-2 RNA (RT-PCR) Not Detected 03/17/21 06:15: Sodium Level 134L, Potassium Level 4.0, Chloride Level 103, Carbon Dioxide Level 18L, Anion Gap 13, Blood Urea Nitrogen 22H, Creatinine 0.86, Estimat Glomerular Filtration Rate 62, BUN/Creatinine Ratio 26, Glucose Level 111H, Calcium Level 8.8, Magnesium Level 2.1 Microbiology 03/16/21 MRSA Screen - Final, Complete MRSA not isolated A/P: Assessment: S/P non-syncopal fall resulting in right arm and pelvic fracture - Open Reduction and Internal Fixation of Right Olecranon Fracture on 03/17/21 Chronic A Fib - s/p cardioversion May 18, [address] Jones, but this did not endure - OAC with Xarelto - Pharmacological stress test done on 04/13/[address] Jones showed normal perfusion during rest and stress imaging. - Echocardiogram was done on May 13, 2020 showed LVEF 60-65%. LA mildly dilated. Mildly calcified mitral valve annulus. Mild AoR. Mod TR. PASP 30-35 mmHg H/O TIA - day after cardioversion per Dr. Jones's office note of Jan 2019 HTN - controlled HLD - statin tx - followed by PCP [facility]: - Ultrasound done on 02/28/2017 showed mild abdominal aortic aneurysm of 2.8X2.7 centimeter. - Repeat AAA ultrasound on 04/12/2019 shows no AAA. 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 - Carotid u/s of 04/14/2020 - 50-60% R ICA stenosis; less than 40% L ICA stenosis Plan: Continue current regimen of beta-burak and CCB for vent rate control and Xarelto for stroke prophylaxis Monitor lab closely Replace electrolytes as indicated MICHEAL MILLER MD FACP FAC CCDS Mar 17, 2021 16:44
[2021-03-17] MEDS: HYDROcodone/APAP 5 MG/325 MG (LORTAB) TAB PO PRN (21:30)
[2021-03-18] VITALS (7 sets, daily range): BP systolic 100–119; BP diastolic 57–65
[2021-03-18] MEDS: MULTIVIT W/MINERALS TAB (THERAGRAN M) PO SCH (05:58)
[2021-03-18] MEDS: LEVOTHYROXINE 100 MCG (LEVOTHROID) TAB PO SCH (05:58)
--- NOTE | 2021-03-18 08:01 | Physical Therapy Progress Note ---
Therapy Progress Note Patient has had surgery since starting physical therapy. Need new orders to evaluate and treat. NICK SNIDER PT Mar 18, 2021 08:01
[2021-03-18] MEDS: meTOprolol TARTRATE 25 MG (LOPRESSOR) TABLET PO SCH ×2 (08:23→21:21)
[2021-03-18] MEDS: DOCUSATE SODIUM 100 MG (COLACE) CAP PO SCH ×2 (08:23→21:21)
[2021-03-18] MEDS: FAMOTIDINE 20 MG (PEPCID) TABLET PO SCH (08:23)
[2021-03-18] MEDS: polyethylene glycoL POWDER 17 GM (MIRALAX) PACK PO SCH ×2 (08:23→21:23)
[2021-03-18] MEDS: CALCIUM CARBONATE 600 MG (CALCARB) TAB PO SCH (08:23)
[2021-03-18] MEDS: AtorvaSTATin TABLET 10 MG TABLET PO SCH (08:24)
[2021-03-18] MEDS: HYDROcodone/APAP 5 MG/325 MG (LORTAB) TAB PO PRN ×2 (08:34→16:40)
--- NOTE | 2021-03-18 09:46 | Progress Note ---
Subjective Subjective PT IS AN 89 Y/O FEMALE WHO IS WELL KNOWN TO ME FROM CLINIC AND PREVIOUS H OSPITALIZATIONS. FLO HAD A FALL AND SUSTAINED A FRACTURE OF HER ARM, WAS SENT HOME AND HAD PROGRESSIVE PAIN IN HER RIGHT GROIN - CAME BACK TO THE ER AND WAS FOUND TO HAVE PELVIC BONE FRACTURES - PUBIC RAMI - ALSO HAS AN AGE- INDETERMINATE FRACTURE OF L3. Review of Systems General: No Chills, No Night Sweats; Fatigue Pulmonary: No Dyspnea, No Cough Cardiovascular: No: Chest Pain, Palpitations Gastrointestinal: No: Nausea, Vomiting Musculoskeletal: other (PELVIC PAIN - WORSE ON RIGHT), arm pain (right) Neurological: Weakness All Other Systems Reviewed All Other Systems Reviewed: Yes Objective Exam Vital Signs Vital Signs Date Time Temp Pulse Resp B/P (MAP) Pulse Ox O2 Delivery O2 Flow Rate FiO2 03/18/21 08:18 36.5 88 18 117/58 (77) 96 Room Air 03/18/21 07:52 36.5 93 18 117/58 (77) 96 Room Air 03/18/21 07:00 92 03/18/21 04:00 36.5 72 18 114/62 (79) 96 NIV CPAP 03/18/21 01:00 84 03/18/21 00:00 36.3 68 18 110/60 (77) 94 NIV CPAP 03/17/21 19:53 36.8 121 22 104/57 (73) 97 Room Air 03/17/21 19:38 Room Air 03/17/21 19:00 103 03/17/21 15:31 35.8 110 20 101/51 (68) 100 Nasal Cannula 1.00 03/17/21 13:00 102 03/17/21 12:42 36.3 115 18 139/76 (97) 97 Nasal Cannula 1.00 03/17/21 12:30 Room Air 03/17/21 12:20 36.4 18 143/75 (97) 92 Room Air 03/17/21 12:10 18 146/88 (107) 95 Room Air 03/17/21 12:00 Room Air 03/17/21 12:00 20 109/79 (89) 95 Room Air 03/17/21 11:50 23 126/64 (84) 94 OxyMask 2 03/17/21 11:45 OxyMask 2 03/17/21 11:40 22 135/84 (101) 94 OxyMask 2 03/17/21 11:35 OxyMask 4 03/17/21 11:30 22 156/96 (116) 95 OxyMask 4 03/17/21 11:27 36.5 24 143/84 (103) 96 OxyMask 6 03/17/21 11:27 OxyMask 6 I & O 03/18/21 07:00 Intake Total 1590 ml Output Total 1750 ml Balance -160 ml General Appearance: No Apparent Distress, Obese Eyes: Bilateral Eye Normal Inspection, Bilateral Eye PERRL, Bilateral Eye EOMI HEENT: PERRL/EOMI Neck: Normal Inspection, Non Tender, Supple Respiratory: Chest Non Tender, Lungs Clear, Normal Breath Sounds, No Accessory Muscle Use, No Respiratory Distress Cardiovascular: No Edema, Irregularly Irregular, Tachycardia Gastrointestinal: Normal Bowel Sounds, Non Tender, Soft Extremity: No Pedal Edema, Other (RIGHT ARM IN SLING ) Neurologic/Psychiatric: Alert, Oriented x3, Normal Mood/Affect Skin: Normal Color, Warm/Dry Results Lab Microbiology 03/16/21 MRSA Screen - Final, Complete MRSA not isolated Assessment/Plan Assessment/Plan Admission Dx RIGHT PUBIC RAMI FRACTURE L3 20% COMPRESSION FRACTURE - AGE INDETERMINATE HYPERTENSION TACHYCARDIA HYPONATREMIA RIGHT PROXIMAL ULNA FRACTURE - COMMINUTED AND DISPLACED DIZZINESS ORTHOSTASIS Assessment and Plan RIGHT PUBIC RAMI FRACTURE L3 20% COMPRESSION FRACTURE - AGE INDETERMINATE HYPERTENSION TACHYCARDIA HYPONATREMIA RIGHT PROXIMAL ULNA FRACTURE - COMMINUTED AND DISPLACED DIZZINESS ORTHOSTASIS RIGHT PUBIC RAMI FRACTURE AND L3 20% COMPRESSION FRACTURE - AGE INDETERMINATE - PT WILL NEED TO GO TO THE CORRECTION, SHE CANNOT CURRENTLY PARTICIPATE IN 3 HOURS OF THERAPY. - CONSULT TO [facility] 6 [employer]ROUGH 8 TEACHER FOR PLACEMENT TO BE COORDINATED. HYPERTENSION - HOME MEDS WERE RESUMED, MONITOR PRESSURES TACHYCARDIA WITH HX OF AFIB - - PT CURRENTLY SOUNDS LIKE SHE IS IN AFIB WITH IRREGULAR RHYTHM ON PHYSICAL EXAM - EKG PENDING - TELEMETRY ORDERED - CONSULT CALLED TO DR. MILLER - PT ON XARELTO HYPONATREMIA - MILD - REPEAT LABS TODAY. RIGHT PROXIMAL ULNA FRACTURE - COMMINUTED AND DISPLACED IMAGE IMPRESSION: Acute mildly comminuted, displaced and retracted fracturing involving the proximal ulna with large articular gap associated with the olecranon fossa with significant overlying soft tissue swelling. - CONSULT TO DR. CATES AT PT REQUEST DIZZINESS WITH ORTHOSTASIS - CT OF HEAD TODAY AND CONTINUE WITH SUPPORTIVE CARE AT THIS TIME - PENDING CT OF HEAD DVT PROPHYLAXIS WITH SCD'S AND XARELTO GI PROPHYLAXIS WITH PEPCID Admission Dx RIGHT PUBIC RAMI FRACTURE L3 20% COMPRESSION FRACTURE - AGE INDETERMINATE HYPERTENSION TACHYCARDIA HYPONATREMIA RIGHT PROXIMAL ULNA FRACTURE - COMMINUTED AND DISPLACED DIZZINESS ORTHOSTASIS Clinical Quality Measures Admission Status Admission Dx RIGHT PUBIC RAMI FRACTURE L3 20% COMPRESSION FRACTURE - AGE INDETERMINATE HYPERTENSION TACHYCARDIA HYPONATREMIA RIGHT PROXIMAL ULNA FRACTURE - COMMINUTED AND DISPLACED DIZZINESS ORTHOSTASIS MELVA JIMÉNEZ MD Mar 18, 2021 09:46
--- NOTE | 2021-03-18 13:05 | Physical Therapy Daily Note ---
PT Daily Note-Current Subjective Patient lying supine in bed upon PT arrival, agreeable to treatment. Patient rates pain in right UE at 8/10 currently. Mental Status Patient Orientation: Person, Place, Situation Transfers SCALE: Activities may be completed with or without assistive devices. 2-Sdrmultpjk-smqakoa completes the activity by him/herself with no assistance from a helper. 5-Set-up or Clean-up Assistance-helper sets up or cleans up; patient completes activity. [place] assists only prior to or following the activity. 4-Supervision or Touching Assistance-helper provides verbal cues and/or touching/steadying and/or contact guard assistance as patient completes activity. Assistance may be provided throughout the activity or intermittently. 3-Partial/Moderate Assistance-helper does LESS THAN HALF the effort. [place] lifts, holds or supports trunk or limbs, but provides less than half the effort. 2-Substantial/Maximal Assistance-helper does MORE THAN HALF the effort. [place] lifts or holds trunk or limbs and provides more than half the effort. 6-Jzdyhazvx-jyzqff does ALL the effort. Patient does none of the effort to complete the activity. Or, the assistance of 2 or more helpers is required for the patient to complete the activity. If activity was not attempted, code reason: 7-Patient Refused. 9-Not Applicable-not attempted and the patient did not perform the activity before the current illness, exacerbation or injury. 10-Not Attempted due to Environmental Limitations-(lack of equipment, weather restraints, etc.). 88-Not Attempted due to Medical Conditions or Safety Concerns. Roll Left & Right (QC): 3 Sit to Lying (QC): 3 Lying to Sitting/Side of Bed(Q: 3 Sit to Stand (QC): 4 Chair/Ptl-uu-Wftdu Xfer(QC): 4 Toilet Transfer (QC): 4 Weight Bearing NWB right UE Gait Training Does the Patient Walk?: Yes Distance: 30 Walk 10 feet (QC): 4 Gait Assistive Device: Cane Large Base Quad Exercises Supine Ex: Ankle pumps, Quad Set, Glut sets Supine Reps: 20 Seated Therapy Exercises: Long arc quads, Hip flexion, Hamstring Curls, Hip abd/add Seated Reps: 20 Assessment Current Status: Fair Progress Patient tolerated treatment well. Demonstrates Min A for bed mobility secondary to loss of function in right UE. Patient performs all transfers with SBA/CGA. Patient ambulates 30 feet with quad cane in left UE, with CGA and verbal cues for safety, progression, posture and balance. Patient reports she has to use the BSC, but doesn't want to use it now. She states, "Just get done with what you have to do and I'll call one of the girls." Patient in chair post treatment with all needs met, nursing notified, call light in hand. PT Visiting Housekeeper Goals Visiting Housekeeper Goals PT Long-Term Goals Time Frame: Mar 22, 2021 Roll Left & Right (QC): 6 Sit to Lying (QC): 4 Lying-Sitting on Side/Bed(QC): 4 Sit to Stand (QC): 4 Chair/Eqx-mk-Xoeez Xfer(QC): 4 Walk 10 feet (QC): 4 PT Plan Treatment/Plan Treatment Plan: Continue Plan of Care Treatment Plan: Bed Mobility, Education, Functional Activity Luci, Functional Strength, Gait, Safety, Therapeutic Exercise, Transfers Treatment Duration: Mar 22, 2021 Frequency: 11 times per week Estimated Hrs Per Day: .25 hour per day Patient and/or Family Agrees t: Yes Safety Risks/Education Patient Education: Gait Training, Transfer Techniques Teaching Recipient: Patient Teaching Methods: Demonstration, Discussion Response to Teaching: Verbalize Understanding, Return Demonstration Time/GCodes Time In: 1135 Time Out: 1200 Total Billed Treatment Time: 25 Total Billed Treatment Visit, Shlomo Arias JOHN A PT Mar 18, 2021 13:05
--- NOTE | 2021-03-18 13:45 | Physical Therapy Daily Note ---
PT Daily Note-Current Subjective Pt in recliner upon arrival and agrees to tx. Pt states pain in R UE, but doesn't rate out of 10. Pain Location: Right Location Body Site: Arm Mental Status Patient Orientation: Person, Place, Time, Situation Transfers SCALE: Activities may be completed with or without assistive devices. 2-Zpcummtzxm-ljxrzuy completes the activity by him/herself with no assistance from a helper. 5-Set-up or Clean-up Assistance-helper sets up or cleans up; patient completes activity. [place] assists only prior to or following the activity. 4-Supervision or Touching Assistance-helper provides verbal cues and/or touching/steadying and/or contact guard assistance as patient completes activity. Assistance may be provided throughout the activity or intermittently. 3-Partial/Moderate Assistance-helper does LESS THAN HALF the effort. [place] lifts, holds or supports trunk or limbs, but provides less than half the effort. 2-Substantial/Maximal Assistance-helper does MORE THAN HALF the effort. [place] lifts or holds trunk or limbs and provides more than half the effort. 4-Mibolsthn-kgsrfh does ALL the effort. Patient does none of the effort to complete the activity. Or, the assistance of 2 or more helpers is required for the patient to complete the activity. If activity was not attempted, code reason: 7-Patient Refused. 9-Not Applicable-not attempted and the patient did not perform the activity before the current illness, exacerbation or injury. 10-Not Attempted due to Environmental Limitations-(lack of equipment, weather restraints, etc.). 88-Not Attempted due to Medical Conditions or Safety Concerns. Sit to Lying (QC): 3 Sit to Stand (QC): 4 Chair/Jos-yo-Doicg Xfer(QC): 4 Weight Bearing NWB right UE Gait Training Does the Patient Walk?: Yes Distance: 30', 10' Walk 10 feet (QC): 4 Gait Assistive Device: Cane Large Base Quad Pt has slow, steady gait with wide CLAIRE Exercises Supine Ex: Bridging, Ankle pumps, Quad Set, Heel Slides, Scooting, Straight leg raise, Hip abd/add Supine Reps: 20 Treatments Pt sit to stand from recliner and amb 30' in room CGA. Pt request to use bathroom and amb to toilet, able to doff/don pants and clean self SBA. Pt holds standing balance to wash hand SBA. Pt then amb to bed, sit <> supine ModA as pt is unable to advance BLE into bed, pt states "I can't bring my legs into bed because my arm is hurting". Once in bed, pt instructed on scooting, able to scoot to HOB with VC for sequencing and LE positioning.Pt completes supine exercises, remains in bed with all needs met, call light in hand. Assessment Current Status: Good Progress Pt increasing strength, endurance, mobility, and gait. PT Group Home Goals Group Home Goals PT Group Home Goals Time Frame: Mar 22, 2021 Roll Left & Right (QC): 6 Sit to Lying (QC): 4 Lying-Sitting on Side/Bed(QC): 4 Sit to Stand (QC): 4 Chair/Icn-ns-Vnwph Xfer(QC): 4 Walk 10 feet (QC): 4 PT Plan Treatment/Plan Treatment Plan: Continue Plan of Care Treatment Plan: Bed Mobility, Education, Functional Activity Luci, Functional Strength, Gait, Safety, Therapeutic Exercise, Transfers Treatment Duration: Mar 22, 2021 Frequency: 11 times per week Estimated Hrs Per Day: .25 hour per day Patient and/or Family Agrees t: Yes Time/GCodes Time In: 1315 Time Out: 1342 Total Billed Treatment Time: 27 Total Billed Treatment 1, KIM, BETHEL HELM POULTRY PROCESSOR Mar 18, 2021 13:45
--- NOTE | 2021-03-18 22:56 | Progress Note - Cardiology ---
Cardiology SOAP Progress Note Subjective: No cp or palp or syncope No shortness of breath at rest No n/v/d Some gen malaise and weakness Objective: I&O/Vital Signs 03/18/21 03/18/21 03/18/21 03/18/21 11:47 12:43 16:00 20:00 Temp 36.8 36.4 Pulse 80 80 79 Resp 20 22 B/P (MAP) 100/57 (71) 119/58 (78) Pulse Ox 97 97 O2 Delivery Room Air Room Air Room Air 03/18/21 20:17 Temp 36.6 Pulse 82 Resp 18 B/P (MAP) 119/65 (83) Pulse Ox 95 O2 Delivery Room Air 03/17/21 23:59 Intake Total 540 ml Output Total 1000 ml Balance -460 ml Weight (Pounds): 175 Weight (Ounces): 0.0 Weight (Calculated Kilograms): 79.023398 Constitutional: AAO x 3, well-developed, well-nourished Respiratory: No accessory muscle use, No respiratory distress; chest expansion is symmetric, chest is bilaterally symmetric, lungs clear to auscultation Cardiovascular: irregularly irregular; No JVD; S1 and S2 Gastrointestional: No tender; soft, round, audible bowel sounds Extremities: other (right arm in sling/soft cast), no lower extremity edema bilateral Neurologic/Psychiatric: grossly intact (RUE and LE not manipulated d/t fractures - moves finger and toes of her extremities) Skin: No ulcerations on exposed areas Results/Procedures: Labs Microbiology 03/16/21 MRSA Screen - Final, Complete MRSA not isolated Laboratory Tests 03/17/21 06:15 A/P: Assessment: S/P non-syncopal fall resulting in right arm and pelvic fracture - Open Reduction and Internal Fixation of Right Olecranon Fracture on 03/17/21 Chronic A Fib - s/p cardioversion May 18, [address] Jones, but this did not endure - OAC with Xarelto - Pharmacological stress test done on 04/13/[address] Jones showed normal perfusion during rest and stress imaging. - Echocardiogram was done on May 13, 2020 showed LVEF 60-65%. LA mildly dilated. Mildly calcified mitral valve annulus. Mild AoR. Mod TR. PASP 30-35 mmHg H/O TIA - day after cardioversion per Dr. Jones's office note of Jan 2019 HTN - controlled HLD - statin tx - followed by PCP AAA: - Ultrasound done on 02/28/2017 showed mild abdominal aortic aneurysm of 2.8X2.7 centimeter. - Repeat AAA ultrasound on 04/12/2019 shows no AAA. Tobaccoism - quit in the late 90 Carotid arterial dz. - Carotid u/s of 04/14/2020 - 50-60% R ICA stenosis; less than 40% L ICA stenosis Plan: Continue current regimen of beta-burak and CCB for vent rate control and Xarelto for stroke prophylaxis Monitor lab closely Replace electrolytes as indicated Dr Edward covering Cardiology svce over the weekend MICHEAL MILLER MD FACP FACC CCDS Mar 18, 2021 22:56
[2021-03-19] VITALS: BP 106/58
[2021-03-19] MEDS: HYDROcodone/APAP 5 MG/325 MG (LORTAB) TAB PO PRN ×2 (00:14→10:07)
[2021-03-19 04:00] VITALS: BP 104/59
[2021-03-19] MEDS: MULTIVIT W/MINERALS TAB (THERAGRAN M) PO SCH (06:00)
[2021-03-19] MEDS: LEVOTHYROXINE 100 MCG (LEVOTHROID) TAB PO SCH (06:01)
[2021-03-19 07:28] VITALS: BP 114/63
[2021-03-19] MEDS: CALCIUM CARBONATE 600 MG (CALCARB) TAB PO SCH (08:15)
[2021-03-19] MEDS: DOCUSATE SODIUM 100 MG (COLACE) CAP PO SCH (08:15)
[2021-03-19] MEDS: meTOprolol TARTRATE 25 MG (LOPRESSOR) TABLET PO SCH (08:15)
[2021-03-19] MEDS: FAMOTIDINE 20 MG (PEPCID) TABLET PO SCH (08:15)
[2021-03-19] MEDS: polyethylene glycoL POWDER 17 GM (MIRALAX) PACK PO SCH (08:16)
[2021-03-19] MEDS: AtorvaSTATin TABLET 10 MG TABLET PO SCH (08:17)
--- NOTE | 2021-03-19 09:55 | Physical Therapy Daily Note ---
PT Daily Note-Current Subjective Patient sitting in the chair upon PT arrival, agreeable to treatment. Patient rates pain in her right UE at 8/10. Mental Status Patient Orientation: Person, Place, Situation Transfers SCALE: Activities may be completed with or without assistive devices. 5-Rxtnwifmzu-hrzbbek completes the activity by him/herself with no assistance from a helper. 5-Set-up or Clean-up Assistance-helper sets up or cleans up; patient completes activity. [place] assists only prior to or following the activity. 4-Supervision or Touching Assistance-helper provides verbal cues and/or touching/steadying and/or contact guard assistance as patient completes activity. Assistance may be provided throughout the activity or intermittently. 3-Partial/Moderate Assistance-helper does LESS THAN HALF the effort. [place] lifts, holds or supports trunk or limbs, but provides less than half the effort. 2-Substantial/Maximal Assistance-helper does MORE THAN HALF the effort. [place] lifts or holds trunk or limbs and provides more than half the effort. 3-Kuofakgsc-zftwgp does ALL the effort. Patient does none of the effort to complete the activity. Or, the assistance of 2 or more helpers is required for the patient to complete the activity. If activity was not attempted, code reason: 7-Patient Refused. 9-Not Applicable-not attempted and the patient did not perform the activity before the current illness, exacerbation or injury. 10-Not Attempted due to Environmental Limitations-(lack of equipment, weather restraints, etc.). 88-Not Attempted due to Medical Conditions or Safety Concerns. Sit to Stand (QC): 4 Chair/Lct-sl-Bcodz Xfer(QC): 4 Toilet Transfer (QC): 4 Weight Bearing NWB right UE Gait Training Does the Patient Walk?: Yes Distance: 100 Walk 10 feet (QC): 4 Walk 50 ft with 2 Turns(QC): 4 Gait Assistive Device: Cane Large Base Quad Exercises Seated Therapy Exercises: Ankle pumps, Long arc quads, Hip flexion, Hamstring Curls, Hip abd/add, Glut set Seated Reps: 20 Assessment Current Status: Fair Progress Patient tolerated treatment well. Demonstrates good overall improvement in gait and endurance. Patient performs all observed transfers with SBA. Patient performs LE therapeutic exercise as listed above. Patient in chair post treatment with all needs met, nursing notified, call light in reach. PT Policy Writer Sales Goals Nursing Home Goals PT Policy Writer Sales Goals Time Frame: Mar 22, 2021 Roll Left & Right (QC): 6 Sit to Lying (QC): 4 Lying-Sitting on Side/Bed(QC): 4 Sit to Stand (QC): 4 Chair/Nuy-ac-Capcg Xfer(QC): 4 Walk 10 feet (QC): 4 PT Plan Treatment/Plan Treatment Plan: Continue Plan of Care Treatment Plan: Bed Mobility, Education, Functional Activity Luci, Functional Strength, Gait, Safety, Therapeutic Exercise, Transfers Treatment Duration: Mar 22, 2021 Frequency: 11 times per week Estimated Hrs Per Day: .25 hour per day Patient and/or Family Agrees t: Yes Safety Risks/Education Patient Education: Gait Training, Transfer Techniques Teaching Recipient: Patient Teaching Methods: Demonstration, Discussion Response to Teaching: Verbalize Understanding, Return Demonstration Time/GCodes Time In: 919 Time Out: 944 Total Billed Treatment Time: 25 Total Billed Treatment Visit, Gait, JEREMIE Uriostegui PT Mar 19, 2021 09:55
--- NOTE | 2021-03-19 11:13 | Discharge Summary ---
Diagnosis/Chief Complaint Date of Admission Mar 12, 2021 at 13:40 Date of Discharge Discharge Summary Discharge Physical Examination Allergies: Coded Allergies: NKANo Known Allergies (Verified Allergy, Unknown, 05/19/17) Vitals & I&Os Vital Signs Date Time Temp Pulse Resp B/P (MAP) Pulse Ox O2 Delivery O2 Flow Rate FiO2 03/19/21 08:00 Room Air 03/19/21 07:28 36.6 77 20 114/63 (80) 96 03/17/21 15:31 1.00 Discharge Instructions to patient/family Please see electronic discharge instructions given to patient. Discharge Medications Reviewed and agree with Discharge Medication list on patient's Discharge Instruction sheet MELVA JIMÉNEZ MD Mar 19, 2021 11:13
[2021-03-19] MEDS ORDERED: METO-333 PO (11:17)
[2021-03-19] MEDS ORDERED: CLON1TAB13 PO (11:17)
[2021-03-19] MEDS ORDERED: DOCU100C37 PO (11:17)
[2021-03-19] MEDS ORDERED: ACHD5005 PO (11:17)
[2021-03-19] MEDS ORDERED: FAMO20TA5 PO (11:17)
[2021-03-19] MEDS ORDERED: DILT240C91 PO (11:17)
[2021-03-19] MEDS ORDERED: POLY17PO54 PO (11:17)
--- NOTE | 2021-03-19 11:21 | Discharge Inst-Skilled Nursing ---
Discharge Inst-Skilled NF Reconcile Patient Problems Problems Reviewed?: Yes Patient Instructions Patient Problems: RIGHT PUBIC RAMI FRACTURE L3 20% COMPRESSION FRACTURE - AGE INDETERMINATE HYPERTENSION TACHYCARDIA HYPONATREMIA RIGHT PROXIMAL ULNA FRACTURE - COMMINUTED AND DISPLACED DIZZINESS ORTHOSTASIS Consult/Follow Up/Orders Follow Up Appt.: [facility] week [facility] [address] [facility] at [facility] Skilled NF Admit to: [facility] Certification ([facility]) I certify that SNF services are required to be given on an inpatient basis because of the above named patient's need for shelter care on a continuing basis for the conditions(s) for which he/she was receiving inpatient hospital services prior to his/her transfer to the SNF. Nursing Home Facility Order: Nursing Services, Pick Up Attendant-Evaluate & Treat, Physical Therapy-Evaluate & Treat Oxygen Delivery Method: Room Air Discharge Diet: Regular Diet Daily Activity as Tolerated: Yes Resuscitation Status: Do Not Resuscitate New & Resume Previous Orders New & Resume Previous Orders cover right arm with plastic bag, tape it at top and cover with additional plastic bag further up arm and tape at top prior to bath/showers keep dressing c/d/i Melva Stoo Mar 19, 2021 11:17 MELVA SOTO MD Mar 19, 2021 11:21
[2021-03-19 11:24] VITALS: BP 113/67
[2021-03-19 13:50] VITALS: BP 113/67
--- NOTE | 2021-03-19 14:11 | Cardiology Progress Note ---
Subjective Date Seen by Provider: Mar 19, 2021 Time Seen by Provider: 14:08 Subjective/Events-last exam Patient was seen at bedside, sitting comfortably, eating lunch. No new com plaint. Review of Systems General: No Chills, No Night Sweats, No Fatigue, No Malaise, No Appetite, No Other HEENT: No Head Aches, No Visual Changes, No Eye Pain, No Ear Pain, No Dysphasia, No Sinus Congestion, No Post Nasal Drip, No Sore Throat, No Other Pulmonary: No Dyspnea, No Cough, No Pleuritic Chest Pain, No Other Cardiovascular: No: Chest Pain, Palpitations, Orthopnea, Paroxysmal Noc. Dyspnea, Edema, Lt Headedness, Other Objective-Cardiology Exam Last Set of Vital Signs Vital Signs 03/17/21 03/19/21 15:31 11:24 Temp 37.0 Pulse 77 Resp 18 B/P (MAP) 113/67 (82) Pulse Ox 97 O2 Delivery Room Air O2 Flow Rate 1.00 I&O Intake and Output 03/19/21 00:00 Intake Total 1850 ml Output Total 150 ml Balance 1700 ml Intake Oral 1850 ml Output Urine Total 150 ml # Voids 7 # Bowel Movements 2 General: Alert, Oriented X3, Cooperative HEENT: Atraumatic, PERRLA Neck: Supple, No JVD, No Thyromegaly Lungs: Clear to Auscultation, Normal Air Movement Heart: Regular Rate, Normal S1, Normal S2, No Murmurs Abdomen: Normal Bowel Sounds, Soft, No Tenderness, No Hepatosplenomegaly, No Masses Extremities: No Clubbing, No Cyanosis, No Edema, Normal Pulses, No Tenderness/Swelling Skin: No Rashes, No Breakdown, No Significant Lesion Neuro: Normal Gait, Normal Speech, Strength at 5/5 X4 Ext, Normal Tone, Sensation Intact Psych/Mental Status: Mental Status NL, Mood NL A/P-Cardiology Admission Diagnosis Chronic atrial fibrillation Hypertension Hyperlipidemia Pelvic fracture Assessment/Plan Right arm and pelvic fracture after nonsyncopal fall, had open reduction internal fixation surgery done on March 17, 2021 receiving physical and occupational therapy. Chronic atrial fibrillation, history of cardioversion done in May 2017, maintained on Xarelto. Had a stress test done in April [address] Jones and it was normal. Echocardiogram done in May 2020 showing ejection fra ction 60 to 65%, mildly dilated left atrium, calcified mitral annulus, mild aortic regurgitation, moderate tricuspid regurgitation. History of TIA after the cardioversion in 2019, full recovery. Hypertension, controlled, monitor blood pressure History of abdominal aortic aneurysm, had ultrasound done in February 2017 measuring 2.8 x 2.7 cm, repeat ultrasound done in April 2019 showing no aneurysm Hyperlipidemia maintained on statin and followed by primary care physician History of tobaccoism in the remote past Mild to moderate right carotid artery stenosis, mild left carotid stenosis by ultrasound in April 2020. Continue to monitor LAURA PALMA MD Mar 19, 2021 14:11
== END 2021-03-19 13:55 | DRG 511 ==
LOC: EDUNIT# 11:30 → ER 11:32 → OBSVTOIN 13:40 → 4TH 13:40
PROVIDERS: ADMIT Family Medicine; ATTEND Family Medicine
PROC: 0PSK04Z Reposition Right Ulna with Internal Fixation Device, Open Approach (ICD-10-PCS; principal; 2021-03-17 09:29)
DX: S32.591A Other specified fracture of right pubis, initial encounter for closed fracture (principal); S42.201A Unspecified fracture of upper end of right humerus, initial encounter for closed fracture; S32.030A Wedge compression fracture of third lumbar vertebra, initial encounter for closed fracture; E87.1 Hypo-osmolality and hyponatremia; I48.20 Chronic atrial fibrillation, unspecified; S52.021A Displaced fracture of olecranon process without intraarticular extension of right ulna, initial encounter for closed fracture; I10 Essential (primary) hypertension; Z66 Do not resuscitate; Z20.822 Contact with and (suspected) exposure to COVID-19; E78.00 Pure hypercholesterolemia, unspecified; E78.5 Hyperlipidemia, unspecified; I08.3 Combined rheumatic disorders of mitral, aortic and tricuspid valves; M19.91 Primary osteoarthritis, unspecified site; E03.9 Hypothyroidism, unspecified; H91.90 Unspecified hearing loss, unspecified ear; R42 Dizziness and giddiness; I95.9 Hypotension, unspecified; I65.23 Occlusion and stenosis of bilateral carotid arteries; Z87.891 Personal history of nicotine dependence; Z86.73 Personal history of transient ischemic attack (TIA), and cerebral infarction without residual deficits; Z82.49 Family history of ischemic heart disease and other diseases of the circulatory system; W18.30XA Fall on same level, unspecified, initial encounter; Y92.481 Parking lot as the place of occurrence of the external cause
CPT/HCPCS: 36415; 70450; 71045; 74176; 76000; 80048; 80053; 81000; 82947; 83735; 84436; 84443; 85025; 85027; 87081; 87636; 93005; 94760

== ENCOUNTER → 2021-03-29 | Outpatient (CLI) | payer MEDICARE ==
[~2021-03-29] MED LIST changes: +CALC500T64 PO; +DILT240C91 PO; +DOCU100C37 PO; +FAMO20TA5 PO; +GLUC1TAB20 PO; +METO-333 PO; +POLY17PO54 PO; +RIVA20TA PO
--- NOTE | 2021-03-29 12:14 | Diagnostic Imaging Report ---
EXAMINATION: Hip, left, 2 views. INDICATION: Left hip injury. COMPARISON: None available. TECHNIQUE: AP and frog-leg lateral view of the left hip. FINDINGS: No acute or healing fracture. Left hip is normal in alignment. 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 No concerning focal osseous lesions. IMPRESSION: No acute or healing fracture about the left hip. Dictated by: Dictated on workstation # [id number]
--- NOTE | 2021-03-29 12:21 | Diagnostic Imaging Report ---
INDICATION: Fall. TIME OF EXAM: 12:07 PM. TECHNIQUE/COMPARISON: Three views of the lumbar spine were obtained and compared with the study from 11/16/2018. FINDINGS: There appears to be a chronic compression fracture deformity involving the L3 vertebral body. The remaining lumbar vertebrae show normal stature. No new fracture is seen. There is generalized degenerative disc disease with variable disc space narrowing noted. The abdominal aorta is heavily calcified. IMPRESSION: Chronic L3 compression fracture deformity. No new fracture is detected. Dictated by: Dictated on workstation # [id number]
--- NOTE | 2021-03-29 12:21 | Diagnostic Imaging Report ---
INDICATION: Fall with left knee pain. TIME OF EXAM: 12:03 PM 3 views of the left knee were obtained. There is some medial compartmental joint space narrowing. Lateral compartments maintained. There is also some dwjs-vh-[id number] patellofemoral joint space narrowing and marginal spurring. No fracture, dislocation or effusion is seen. IMPRESSION: Degenerative changes. No acute bony abnormality is detected. Dictated by: Dictated on workstation # [id number]
== END ==
LOC: RAD 11:13
PROVIDERS: ATTEND Family Medicine
DX: M17.12 Unilateral primary osteoarthritis, left knee (principal); M43.8X6 Other specified deforming dorsopathies, lumbar region; W19.XXXA Unspecified fall, initial encounter
CPT/HCPCS: 72100; 73502; 73562

== ENCOUNTER → 2021-03-30 | Outpatient (CLI) | payer MEDICARE | LOC: ORTHO 12:30 | PROVIDERS: ATTEND Orthopaedic Surgery | DX: Z47.89 Encounter for other orthopedic aftercare (principal); I12.9 Hypertensive chronic kidney disease with stage 1 through stage 4 chronic kidney disease, or unspecified chronic kidney disease; N18.9 Chronic kidney disease, unspecified; E78.00 Pure hypercholesterolemia, unspecified; E03.9 Hypothyroidism, unspecified; I48.0 Paroxysmal atrial fibrillation; I48.19 Other persistent atrial fibrillation; Z79.890 Hormone replacement therapy; Z79.01 Long term (current) use of anticoagulants; Z79.891 Long term (current) use of opiate analgesic; Z79.899 Other long term (current) drug therapy ==

== ENCOUNTER → 2021-04-20 | Outpatient (CLI) | payer MEDICARE ==
--- NOTE | 2021-04-20 15:52 | Diagnostic Imaging Report ---
INDICATION: Right elbow fracture fixation follow-up 4 views of the right elbow shows pins and wires across the olecranon fracture which is in stable alignment compared to the operative study dated 03/17/2021. Healing is incomplete. There is some joint fluid present. IMPRESSION: Stable right elbow. Dictated by: Dictated on workstation # [id number]
== END ==
LOC: ORTHO 13:06
PROVIDERS: ATTEND Orthopaedic Surgery
DX: Z09 Encounter for follow-up examination after completed treatment for conditions other than malignant neoplasm (principal); S42.401D Unspecified fracture of lower end of right humerus, subsequent encounter for fracture with routine healing; X58.XXXD Exposure to other specified factors, subsequent encounter
CPT/HCPCS: 73080

== ENCOUNTER → 2021-05-20 | Outpatient (CLI) | payer MEDICARE ==
--- NOTE | 2021-05-20 14:36 | Diagnostic Imaging Report ---
Indication: Postop left elbow. Correlation is made with prior radiograph from 04/20/2021. Post surgical changes to the olecranon are again noted with cerclage wires and 2 pins. Alignment appears anatomic. Elbow joint spaces are well-maintained. No significant joint effusion is seen. IMPRESSION: Satisfactory postoperative appearance to the right elbow. Dictated by: Dictated on workstation # [id number]
== END ==
LOC: ORTHO 13:09
PROVIDERS: ATTEND Orthopaedic Surgery
DX: S42.401D Unspecified fracture of lower end of right humerus, subsequent encounter for fracture with routine healing (principal); X58.XXXD Exposure to other specified factors, subsequent encounter
CPT/HCPCS: 73080

== ENCOUNTER → 2021-06-22 | Outpatient (CLI) | payer MEDICARE ==
--- NOTE | 2021-06-22 16:12 | Diagnostic Imaging Report ---
INDICATION: Right elbow fracture followup. TECHNIQUE/COMPARISON: AP, oblique, and lateral views of the right elbow were obtained and compared with 05/20/2021. FINDINGS: Surgical wires are in place fusing the proximal ulnar fracture. The hardware is unchanged in position. There is stable alignment of the proximal ulnar fracture involving the olecranon process. IMPRESSION: Stable alignment of the right proximal ulnar fracture with no change in hardware. Dictated by: Dictated on workstation # [id number]
== END ==
LOC: ORTHO 13:58
PROVIDERS: ATTEND Orthopaedic Surgery
DX: Z09 Encounter for follow-up examination after completed treatment for conditions other than malignant neoplasm (principal); S52.001D Unspecified fracture of upper end of right ulna, subsequent encounter for closed fracture with routine healing; X58.XXXD Exposure to other specified factors, subsequent encounter
CPT/HCPCS: 73080

== ENCOUNTER 2022-02-28 09:41 | Emergency (ER) | payer MEDICARE ==
[~2022-02-28] VITALS: Ht 165.1 cm; Wt 75.0 kg
[~2022-02-28 09:41] MED LIST changes: -GLUC1TAB20 PO; +GLUC1TAB21 PO
[2022-02-28 11:20] LABS: BASOPHILS # (AUTO) 0.1 10^3/uL (0.0-0.1); BASOPHILS % (AUTO) 1 % (0-10); EOSINOPHILS # (AUTO) 0.1 10^3/uL (0.0-0.3); EOSINOPHILS % (AUTO) 1 % (0-10); HEMATOCRIT 36 % (35-52); HEMOGLOBIN 11.3 g/dL (11.5-16.0); LYMPHOCYTES # (AUTO) 1.9 10^3/uL (1.0-4.0); LYMPHOCYTES % (AUTO) 24 % (12-44); MEAN CORPUSCULAR HEMOGLOBIN 27 pg (25-34); MEAN CORPUSCULAR HGB CONC 31 g/dL (32-36); MEAN CORPUSCULAR VOLUME 85 fL (80-99); MONOCYTES # (AUTO) 0.6 10^3/uL (0.0-1.0); MONOCYTES % (AUTO) 8 % (0-12); NEUTROPHILS # (AUTO) 5.1 10^3/uL (1.8-7.8); NEUTROPHILS % (AUTO) 66 % (42-75); PLATELET COUNT 332 10^3/uL (130-400); WHITE BLOOD COUNT 7.7 10^3/uL (4.3-11.0)
[2022-02-28 11:24] LABS: ALBUMIN 4.2 GM/DL (3.2-4.5); POTASSIUM 4.3 MMOL/L (3.6-5.0)
[2022-02-28 11:25] LABS: CALCIUM 9.6 MG/DL (8.5-10.1)
[2022-02-28 11:26] LABS: TOTAL PROTEIN 7.5 GM/DL (6.4-8.2)
[2022-02-28 11:28] LABS: BILIRUBIN,TOTAL 0.7 MG/DL (0.1-1.0)
[2022-02-28 11:30] LABS: CREATININE SERUM 1.25 MG/DL (0.60-1.30)
[2022-02-28 12:12] LABS: INR 1.2 (0.8-1.4); PROTHROMBIN TIME PATIENT 15.3 SEC (12.2-14.7)
--- NOTE | 2022-02-28 12:17 | ED GI ---
General Chief Complaint: Rect Problems Stated Complaint: COLONIC BLEEDING Nursing Triage Note: PT REPORTS RECTAL BLEEDING STARTING YESTERDAY. CONTINUALLY FINDING BRIGHT RED CLOTS. SHE ADMITS TO SOME DIZZINESS. ABLE TO AMBULATE WITHOUT DIFFICULTY. SHE DOES TAKE XARELTO, BUT SKIPPED HER DOSE LAST NIGHT. Source of Information: Patient Exam Limitations: No Limitations History of Present Illness Date Seen by Provider: Feb 28, 2022 Time Seen by Provider: 10:30 Initial Comments Patient is a 89 yo F who presents to the ED with bloody stools since yesterday. Patient denies any syncope, shortness of breath, abd pain, chest pain, dizziness. She states that her stools are dark red/black in color. Denies any rectal pain. States she has never had symptoms like this before. Has not had a colonoscopy "in a long time". Endorses a history of colon surgery in the 1970s. Has had no other abdominal surgeries. Allergies and Home Medications Allergies Coded Allergies: LAURAANo Known Allergies (Verified Allergy, Unknown, 05/19/17) Patient Home Medication List Home Medication List Reviewed: Yes Atorvastatin Calcium (Atorvastatin Calcium) 10 Mg Tablet, 5 MG PO DAILY, (Reported) Entered as Reported by: ROSIE CADE on 05/18/17 0837 Calcium Carbonate (Calcium Carbonate) 500 Mg Tablet, 500 MG PO DAILY, (Reported) Entered as Reported by: DESTINY RACHEL on 03/12/21 1605 Clonazepam (Clonazepam) 1 Mg Tablet, 0.5 MG PO DAILY Prescribed by: MELVA JIMÉNEZ on 03/19/211116 Diltiazem HCl (Diltiazem 24Hr ER) 240 Mg Cap.er.24h, 240 MG PO DAILY Prescribed by: MELVA JIMÉNEZ on 03/19/21 111 Docusate Sodium (Docusate Sodium) 100 Mg Capsule, 100 MG PO BID Prescribed by: MELVA JIMÉNEZ on 03/19/211116 Famotidine (Famotidine) 20 Mg Tablet, 20 MG PO DAILY Prescribed by: MELVA JIMÉNEZ on 03/19/21 111 Gluc Pagan/Chondro Pagan A/Vit C/Mn (Glucosamine Chondroitin Tab) 1 Each Tablet, 1 EACH PO DAILY, (Reported) Entered as Reported by: DESTINY RACHEL on 03/12/21 1605 Hydrocodone/Acetaminophen (Hydrocodone-Acetamin 5-325 mg) 1 Each Tablet, 1 TAB PO Q6H PRN for PAIN-MODERATE (5-7) Prescribed by: MELVA JIMÉNEZ on 03/19/21 1117 Levothyroxine Sodium (Levothyroxine Sodium) 100 Mcg Tablet, 100 MCG PO MO,TU,WE,TH,FR, (Reported) Entered as Reported by: ROSIE CADE on 05/18/17 0839 Levothyroxine Sodium (Levothyroxine Sodium) 100 Mcg Tablet, 50 MCG PO SUN,SAT, (Reported) Entered as Reported by: ROSIE CADE on 05/18/17 0839 Metoprolol Tartrate (Metoprolol Tartrate) 25 Mg Tablet, 25 MG PO BID Prescribed by: MELVA JIMÉNEZ on 03/19/21 1117 Multivitamin (Multivitamins) 1 Each Tablet, 1 TAB PO DAILY, (Reported) Entered as Reported by: SYLVAIN DIXON on 07/31/17 1038 Polyethylene Glycol 3350 (Polyethylene Glycol 3350) 17 Gm Powd.pack, 17 GM PO BID Prescribed by: MELVA JIMÉNEZ on 03/19/21 1117 Rivaroxaban (Xarelto) 20 Mg Tablet, 20 MG PO HS, (Reported) Entered as Reported by: DESTINY RACHEL on 03/12/21 1605 Review of Systems Review of Systems Constitutional: no symptoms reported EENTM: No Symptoms Reported Respiratory: No Symptoms Reported Cardiovascular: No Symptoms Reported Gastrointestinal: See HPI Genitourinary: No Symptoms Reported Musculoskeletal: no symptoms reported Skin: no symptoms reported Past Tinbnuu-Iyskhn-Qjmdhm Hx Patient Social History Tobacco Use?: No Substance use?: No Alcohol Use?: No Immunizations Up To Date Tetanus Booster (TDap): Unknown PED Vaccines UTD: Yes First/Initial COVID19 Vaccinat: MAY 2020 Second COVID19 Vaccination Geoffrey: JUNE 2020 Third COVID19 Vaccination Date: FEBRUARY 2021 Seasonal Allergies Seasonal Allergies: No Past Medical History Surgeries: Yes (COLON RESECTION, MASTOIDECTOMY,HIP pinning) Appendectomy, Gallbladder, Orthopedic, Thyroidectomy, Tonsillectomy Respiratory: No Currently Using CPAP: Yes Currently Using BIPAP: No Cardiac: Yes High Cholesterol, Hypertension Neurological: No Stroke Reproductive Disorders: Yes (REPORTS APPROX 1 MO HX INTERMITTENT BLOODY DISCHARGE R NIPPLE-NONE ON ADMIT) Female Reproductive Disorders: Menstrual Problems Sexually Transmitted Disease: No HIV/AIDS: No Gastrointestinal: Yes (reports 12 inches of colon removed in past) Polyps Musculoskeletal: Yes (fx-rhip, right ankle) Arthritis, Fractures Endocrine: Yes (HYPOTHYROIDISM) Hypothyroidsim Cataract Loss of Vision: Denies Hearing Impairment: Deaf Cancer: No Psychosocial: No Integumentary: No Blood Disorders: No Family Medical History BRAIN Cardiovascular disease 19 FATHER G8 BROTHER Colon cancer 19 MOTHER FH: brain tumor Physical Exam Vital Signs Vital Signs - First Documented 02/28/22 10:26 Temp 36.8 Pulse 106 Resp 16 B/P (MAP) 148/77 (100) O2 Delivery Room Air Capillary Refill : Less Than 3 Seconds Height/Weight/BMI Height: 5'4.00" Weight: 175lbs. 0.0oz. [id number]; 27.00 BMI Method:Stated General Appearance: WD/WN, no apparent distress HEENT: PERRL/EOMI, normal ENT inspection, TMs normal, pharynx normal Neck: non-tender, full range of motion Respiratory: chest non-tender, lungs clear Cardiovascular: regular rate, rhythm Gastrointestinal: normal bowel sounds, non tender, soft Extremities: normal range of motion, non-tender Back: normal inspection Neurologic/Psychiatric: no motor/sensory deficits, alert, normal mood/affect, oriented x 3 Skin: normal color, warm/dry Procedures/Interventions Patient Education: Explained Benefits, Explained Risks, Pt. Ack. Understanding Breath Sounds per Auscultation: Clear Heart Sounds per Auscultation: Regular Airway Exam: Mouth opens >2 fingers, Neck Full Range of Motion, Visulation of Uvula Re-examination Time: 2043 Progress/Results/Core Measures Results/Orders Lab Results Laboratory Tests Test 02/28/22 10:40 Range/Units White Blood Count 7.7 4.3-11.0 10^3/uL Red Blood Count 4.26 3.80-5.11 10^6/uL Hemoglobin 11.3 L 11.5-16.0 g/dL Hematocrit 36 35-52 % Mean Corpuscular Volume 85 80-99 fL Mean Corpuscular Hemoglobin 27 25-34 pg Mean Corpuscular Hemoglobin Concent 31 L 32-36 g/dL Red Cell Distribution Width 14.6 H 10.0-14.5 % Platelet Count 332 130-400 10^3/uL Mean Platelet Volume 11.0 9.0-12.2 fL Immature Granulocyte % (Auto) 0 % Neutrophils (%) (Auto) 66 42-75 % Lymphocytes (%) (Auto) 24 12-44 % Monocytes (%) (Auto) 8 0-12 % Eosinophils (%) (Auto) 1 0-10 % Basophils (%) (Auto) 1 0-10 % Neutrophils # (Auto) 5.1 1.8-7.8 10^3/uL Lymphocytes # (Auto) 1.9 1.0-4.0 10^3/uL Monocytes # (Auto) 0.6 0.0-1.0 10^3/uL Eosinophils # (Auto) 0.1 0.0-0.3 10^3/uL Basophils # (Auto) 0.1 0.0-0.1 10^3/uL Immature Granulocyte # (Auto) 0.0 0.0-0.1 10^3/uL Prothrombin Time 15.3 H 12.2-14.7 SEC INR Comment 1.2 0.8-1.4 Activated Partial Thromboplast Time 34 24-35 SEC Sodium Level 140 135-145 MMOL/L Potassium Level 4.3 3.6-5.0 MMOL/L Chloride Level 106 98-107 MMOL/L Carbon Dioxide Level 23 21-32 MMOL/L Anion Gap 11 5-14 MMOL/L Blood Urea Nitrogen 22 H 7-18 MG/DL Creatinine 1.25 0.60-1.30 MG/DL Estimat Glomerular Filtration Rate 41 BUN/Creatinine Ratio 18 Glucose Level 136 H 70-105 MG/DL Calcium Level 9.6 8.5-10.1 MG/DL Corrected Calcium 9.4 8.5-10.1 MG/DL Total Bilirubin 0.7 0.1-1.0 MG/DL Aspartate Amino Transf (AST/SGOT) 21 5-34 U/L Alanine Aminotransferase (ALT/SGPT) 11 0-55 U/L Alkaline Phosphatase 70 40-136 U/L Total Protein 7.5 6.4-8.2 GM/DL Albumin 4.2 3.2-4.5 GM/DL My Orders Orders - GLORIA HOYOS TUB OPERATOR Cbc With Automated Diff (02/28/22 11:11) Comprehensive Metabolic Panel (02/28/22 11:11) Iv/Invasive Line Insertion .IV INSERT (02/28/22 11:11) Protime With Inr (02/28/22 11:55) Partial Thromboplastin Time (02/28/22 11:55) Vital Signs/I&O 02/28/22 10:26 Temp 36.8 Pulse 106 Resp 16 B/P (MAP) 148/77 (100) O2 Delivery Room Air Blood Pressure Mean: 100 Progress Progress Note : Progress Note Patient is nontoxic and well hydrated on exam. She is currently on Xarelto which she states she did not take yesterday or today once the bleeding was noticed. Abdominal exam is benign and reassuring. Rectal exam notable for external hemorrhoids that are not bleeding, tender, or thrombosed. No fissures or wounds noted that could be the source of the bleeding. Melanotic stool noted in the rectal vault. Patient also had a maroon colored stool while in the ED. Laboratory evaluation notable for no marked abnormalities. Patients hemoglobin is higher today than it was at previous values obtained 03/28. BUN is mildly elevated. Raimundo-Blatchford score is elevated at 5. I spoke with General Surgery who states this is not a patient they would emergently scope and could be seen by them in the office if symptoms persist. Recommendations for stopping the Xarelto given. This was relayed to the patient. 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 Return precautions for urgent symptomology discussed. Patient verbalized understanding. Consults : Consulting Physician: TERI AGUIRRE DO Consults Notes States since patient is not symptomatically anemic and VS are not markedly abnormal other than mild intermittent tachycardia, this is not a patient that warrants emergent scoping; recs for follow-up outpatient for further evaluation, stop Xarelto and follow-up with PCP and cardiology as soon as possible Departure Impression Primary Impression: Melena Disposition: 01 HOME, SELF-CARE Condition: Stable Departure-Patient Inst. Decision time for Depature: 12:30 Referrals: MELVA JIMÉNEZ MD (PCP/Family) Primary Care Physician Patient Instructions: Bloody Stools, Adult (DC) GLORIA HOYOS APRN Feb 28, 2022 12:17
[2022-02-28 12:55] VITALS: BP 130/88
[2022-03-01] MEDS ORDERED: METO-333 PO (15:47)
[2022-03-01] MEDS ORDERED: CLON1TAB13 PO (15:47)
[2022-03-01] MEDS ORDERED: ACET-2267 PO (15:47)
[2022-03-01] MEDS ORDERED: TRM50T PO (15:47)
[2022-03-04] MEDS ORDERED: RIVA20TA PO (08:22)
== END 2022-02-28 12:55 | disposition home or self-care (01) ==
LOC: EDUNIT# 09:41 → ER 09:43
DX: K92.1 Melena (principal); K64.4 Residual hemorrhoidal skin tags; R79.89 Other specified abnormal findings of blood chemistry; Z90.49 Acquired absence of other specified parts of digestive tract
CPT/HCPCS: 36415; 80053; 85025; 85610; 85730

== ENCOUNTER 2022-03-01 11:30 | Inpatient (IN) | payer MEDICARE ==
[~2022-03-01] VITALS: Ht 165.1 cm; Wt 77.1 kg
[2022-03-01 11:46] LABS: BASOPHILS # (AUTO) 0.1 10^3/uL (0.0-0.1); BASOPHILS % (AUTO) 1 % (0-10); EOSINOPHILS # (AUTO) 0.1 10^3/uL (0.0-0.3); EOSINOPHILS % (AUTO) 1 % (0-10); HEMATOCRIT 31 % (35-52); HEMOGLOBIN 9.8 g/dL (11.5-16.0); LYMPHOCYTES # (AUTO) 1.8 10^3/uL (1.0-4.0); LYMPHOCYTES % (AUTO) 24 % (12-44); MEAN CORPUSCULAR HEMOGLOBIN 27 pg (25-34); MEAN CORPUSCULAR HGB CONC 32 g/dL (32-36); MEAN CORPUSCULAR VOLUME 85 fL (80-99); MEAN PLATELET VOLUME 10.4 fL (9.0-12.2); MONOCYTES # (AUTO) 0.8 10^3/uL (0.0-1.0); MONOCYTES % (AUTO) 11 % (0-12); NEUTROPHILS # (AUTO) 4.6 10^3/uL (1.8-7.8); NEUTROPHILS % (AUTO) 63 % (42-75); PLATELET COUNT 283 10^3/uL (130-400); WHITE BLOOD COUNT 7.4 10^3/uL (4.3-11.0)
[2022-03-01] MEDS ORDERED: LACTATED RINGERS 1,000 ML IV ONE (12:00)
[2022-03-01 12:06] LABS: ALBUMIN 3.9 GM/DL (3.2-4.5); POTASSIUM 3.8 MMOL/L (3.6-5.0)
[2022-03-01 12:07] LABS: CALCIUM 9.2 MG/DL (8.5-10.1)
[2022-03-01 12:08] LABS: TOTAL PROTEIN 6.9 GM/DL (6.4-8.2)
[2022-03-01 12:09] LABS: INR 1.2 (0.8-1.4); PROTHROMBIN TIME PATIENT 15.4 SEC (12.2-14.7)
[2022-03-01 12:10] LABS: BILIRUBIN,TOTAL 0.8 MG/DL (0.1-1.0)
[2022-03-01 12:12] LABS: CREATININE SERUM 1.1 MG/DL (0.60-1.30)
--- NOTE | 2022-03-01 12:26 | ED GI ---
General Chief Complaint: Rect Problems Stated Complaint: RECTAL BLEEDING Nursing Triage Note: PT BROUGHT IN BY [facility] FROM HOME WITH COMPLAINT OF DIZZINESS AND RECTAL BLEEDING. WAS SEEN HERE YESTERDAY FOR SAME COMPLAINT AND SENT HOME. STATES BLEEDING STARTED YESTERDAY. History of Present Illness Date Seen by Provider: Mar 01, 2022 Time Seen by Provider: 11:30 Initial Comments 89-year-old female presents for continued rectal bleeding with stools. She was seen in this emergency department yesterday. She was brought by EMS today, requesting direct admit. She reports calling her PCP office earlier today and was told that she was not available. She stopped the Xarelto yesterday and has not resumed it. She reports mild dizziness this morning. She has had minimal food intake. She denies active rectal bleeding, she is wearing a pad in her undergarments with no blood present. She reports only noting bright red blood with stools, not when urinating. Last Colonoscopy [address] Davidson. She denies nausea, vomiting, diarrhea, or chest pain. Timing/Duration: 2-3 Days Severity/Quality: Mild Radiation: No Radiation Associated Symptoms: No Back Pain, No Chest Pain, No Fever/Chills, No Fatigue, No Headache, No Heartburn, No Nausea/Vomiting, No Shortness of Air; Weakness Allergies and Home Medications Allergies Coded Allergies: LAURAANo Known Allergies (Verified Allergy, Unknown, 05/19/17) Patient Home Medication List Home Medication List Reviewed: Yes Atorvastatin Calcium (Atorvastatin Calcium) 10 Mg Tablet, 5 MG PO DAILY, (Repor juan carlos) Entered as Reported by: ROSIE CADE on 05/18/17 0837 Calcium Carbonate (Calcium Carbonate) 500 Mg Tablet, 500 MG PO DAILY, (Reported) Entered as Reported by: DESTINY RACHEL on 03/12/21 1605 Clonazepam (Clonazepam) 1 Mg Tablet, 0.5 MG PO DAILY Prescribed by: MELVA SOTO on 03/19/21 111 Diltiazem HCl (Diltiazem 24Hr ER) 240 Mg Cap.er.24h, 240 MG PO DAILY Prescribed by: MELVA SOTO on 03/19/21 111 Docusate Sodium (Docusate Sodium) 100 Mg Capsule, 100 MG PO BID Prescribed by: MELVA SOTO on 03/19/21 111 Famotidine (Famotidine) 20 Mg Tablet, 20 MG PO DAILY Prescribed by: MELVA SOTO on 03/19/21 1117 Gluc Pagan/Chondro Pagan A/Vit C/Mn (Glucosamine Chondroitin Tab) 1 Each Tablet, 1 EACH PO DAILY, (Reported) Entered as Reported by: DESTINY RACHEL on 03/12/21 1605 Hydrocodone/Acetaminophen (Hydrocodone-Acetamin 5-325 mg) 1 Each Tablet, 1 TAB PO Q6H PRN for PAIN-MODERATE (5-7) Prescribed by: MELVA SOTO on 03/19/21 1117 Levothyroxine Sodium (Levothyroxine Sodium) 100 Mcg Tablet, 100 MCG PO MO,TU,WE,TH,FR, (Reported) Entered as Reported by: ROSIE CADE on 05/18/17 0839 Levothyroxine Sodium (Levothyroxine Sodium) 100 Mcg Tablet, 50 MCG PO SUN,SAT, (Reported) Entered as Reported by: ROSIE CADE on 05/18/17 0839 Metoprolol Tartrate (Metoprolol Tartrate) 25 Mg Tablet, 25 MG PO BID Prescribed by: MELVA SOTO on 03/19/21 111 Multivitamin (Multivitamins) 1 Each Tablet, 1 TAB PO DAILY, (Reported) Entered as Reported by: SYLVAIN DIXON on 07/31/17 1038 Polyethylene Glycol 3350 (Polyethylene Glycol 3350) 17 Gm Powd.pack, 17 GM PO BID Prescribed by: MELVA SOTO on 03/19/21 111 Rivaroxaban (Xarelto) 20 Mg Tablet, 20 MG PO HS, (Reported) Entered as Reported by: DESTINY RACHEL on 03/12/21 1605 Review of Systems Review of Systems Constitutional: no symptoms reported, see HPI Gastrointestinal: See HPI; Denies Abdominal Pain; Blood Streaked Stools; Denies Constipated, Denies Diarrhea, Denies Nausea, Denies Poor Appetite; Rectal Bleeding; Denies Vomiting All Other Systems Reviewed Negative Unless Noted: Yes Past Fdakswg-Tnnajw-Yblpqf Hx Patient Social History Tobacco Use?: No Use of E-Cig and/or Vaping dev: No Substance use?: No Alcohol Use?: No Pt feels they are or have been: No Immunizations Up To Date Tetanus Booster (TDap): Unknown PED Vaccines UTD: Yes First/Initial COVID19 Vaccinat: MAY 2020 Second COVID19 Vaccination Geoffrey: JUNE 2020 Third COVID19 Vaccination Date: FEBRUARY 2021 Seasonal Allergies Seasonal Allergies: No Past Medical History Surgeries: Yes (COLON RESECTION, MASTOIDECTOMY,HIP pinning) Appendectomy, Gallbladder, Orthopedic, Thyroidectomy, Tonsillectomy Respiratory: No Currently Using CPAP: Yes Currently Using BIPAP: No Cardiac: Yes High Cholesterol, Hypertension Neurological: No Stroke Reproductive Disorders: Yes (REPORTS APPROX 1 MO HX INTERMITTENT BLOODY DISCHARGE R NIPPLE-NONE ON ADMIT) Female Reproductive Disorders: Menstrual Problems Sexually Transmitted Disease: No HIV/AIDS: No Gastrointestinal: Yes (reports 12 inches of colon removed in past) Polyps Musculoskeletal: Yes (fx-rhip, right ankle) Arthritis, Fractures Endocrine: Yes (HYPOTHYROIDISM) Hypothyroidsim Cataract Loss of Vision: Denies Hearing Impairment: Deaf Cancer: No Psychosocial: No Integumentary: No Blood Disorders: No Family Medical History Reviewed Nursing Family Hx BRAIN Cardiovascular disease 19 FATHER G8 BROTHER Colon cancer 19 MOTHER FH: brain tumor Physical Exam Vital Signs Vital Signs - First Documented 03/01/22 11:31 Temp 36.3 Pulse 105 Resp 20 B/P (MAP) 108/81 (90) Pulse Ox 94 O2 Delivery Room Air Capillary Refill : Less Than 3 Seconds Height/Weight/BMI Height: 5'4.00" Weight: 175lbs. 0.0oz. 79.807188xv; 28.00 BMI Method:Stated General Appearance: WD/WN, no apparent distress Neck: non-tender, full range of motion, supple, normal inspection Respiratory: chest non-tender, lungs clear, normal breath sounds Cardiovascular: normal peripheral pulses, regular rate, rhythm, no edema Gastrointestinal: normal bowel sounds, non tender, soft Rectal: normal exam, normal rectal tone, blood streaked stool, tenderness Extremities: normal range of motion, non-tender, normal inspection Neurologic/Psychiatric: no motor/sensory deficits, alert, normal mood/affect, oriented x 3 Skin: normal color, warm/dry Procedures/Interventions Patient Education: Explained Benefits, Explained Risks, Pt. Ack. Understanding Breath Sounds per Auscultation: Clear Heart Sounds per Auscultation: Regular Airway Exam: Mouth opens >2 fingers, Neck Full Range of Motion, Visulation of Uvula Re-examination Time: 2043 Progress/Results/Core Measures Results/Orders Lab Results Laboratory Tests Test 03/01/22 11:36 Range/Units White Blood Count 7.4 4.3-11.0 10^3/uL Red Blood Count 3.63 L 3.80-5.11 10^6/uL Hemoglobin 9.8 L 11.5-16.0 g/dL Hematocrit 31 L 35-52 % Mean Corpuscular Volume 85 80-99 fL Mean Corpuscular Hemoglobin 27 25-34 pg Mean Corpuscular Hemoglobin Concent 32 32-36 g/dL Red Cell Distribution Width 14.5 10.0-14.5 % Platelet Count 283 130-400 10^3/uL Mean Platelet Volume 10.4 9.0-12.2 fL Immature Granulocyte % (Auto) 0 % Neutrophils (%) (Auto) 63 42-75 % Lymphocytes (%) (Auto) 24 12-44 % Monocytes (%) (Auto) 11 0-12 % Eosinophils (%) (Auto) 1 0-10 % Basophils (%) (Auto) 1 0-10 % Neutrophils # (Auto) 4.6 1.8-7.8 10^3/uL Lymphocytes # (Auto) 1.8 1.0-4.0 10^3/uL Monocytes # (Auto) 0.8 0.0-1.0 10^3/uL Eosinophils # (Auto) 0.1 0.0-0.3 10^3/uL Basophils # (Auto) 0.1 0.0-0.1 10^3/uL Immature Granulocyte # (Auto) 0.0 0.0-0.1 10^3/uL Prothrombin Time 15.4 H 12.2-14.7 SEC INR Comment 1.2 0.8-1.4 Activated Partial Thromboplast Time 29 24-35 SEC Sodium Level 140 135-145 MMOL/L Potassium Level 3.8 3.6-5.0 MMOL/L Chloride Level 109 H 98-107 MMOL/L Carbon Dioxide Level 22 21-32 MMOL/L Anion Gap 9 5-14 MMOL/L Blood Urea Nitrogen 25 H 7-18 MG/DL Creatinine 1.10 0.60-1.30 MG/DL Estimat Glomerular Filtration Rate 48 BUN/Creatinine Ratio 23 Glucose Level 119 H 70-105 MG/DL Calcium Level 9.2 8.5-10.1 MG/DL Corrected Calcium 9.3 8.5-10.1 MG/DL Total Bilirubin 0.8 0.1-1.0 MG/DL Aspartate Amino Transf (AST/SGOT) 19 5-34 U/L Alanine Aminotransferase (ALT/SGPT) 10 0-55 U/L Alkaline Phosphatase 65 40-136 U/L Total Protein 6.9 6.4-8.2 GM/DL Albumin 3.9 3.2-4.5 GM/DL My Orders Orders - ROME HAZEL Cbc With Automated Diff (03/01/22 11:36) Comprehensive Metabolic Panel (03/01/22 11:36) Protime With Inr (03/01/22 11:36) Partial Thromboplastin Time (03/01/22 11:36) Ed Iv/Invasive Line Start (03/01/22 11:52) Lactated Ringers (Lr 1000 Ml Iv Solution (03/01/22 12:00) Medications Given in ED Current Medications Medications Dose Ordered Sig/Marcus Route Start Time Stop Time Status Last Admin Dose Admin Lactated Ringer's 1,000 ml @ 0 mls/hr Q0M ONCE IV 03/01/22 12:00 03/01/22 12:01 DC 03/01/22 12:06 0 MLS/HR Vital Signs/I&O 03/01/22 11:31 Temp 36.3 Pulse 105 Resp 20 B/P (MAP) 108/81 (90) Pulse Ox 94 O2 Delivery Room Air Blood Pressure Mean: 90 Progress Progress Note : Time: 11:30 Progress Note Patient seen and evaluated, will obtain labs and continue to monitor. B/P 100s/70s, Pulse 88-105. 1200 Hgb 9.8 (11.3 yesterday), will give LR 1 L per IV. 1240 B/P improved 110-118/70-80s. Pulse 80s. She has ambulated to [facility] [place], no stool during this visit. [address] Soto and Edwige, agreeable with plan to admit and colonoscopy. Patient agreeable with this plan. Departure Impression Primary Impression: Melena Additional Impression: Weakness Disposition: ADMITTED INPATIENT Condition: Stable Admissions Decision to Admit/Date: Mar 01, 2022 Time/Decision to Admit Time: 12:50 Departure-Patient Inst. Referrals: MELVA SOTO MD (PCP/Family) Primary Care Physician ROME HAZEL Mar 01, 2022 12:26
--- NOTE | 2022-03-01 13:53 | Consultation - Surgery ---
CORNELIO MELGAR 03/01/22 1353: History of Present Illness History of Present Illness Patient Consulted On(pascual/time) 03/01/22 13:47 Date Seen by Provider: Mar 01, 2022 Time Seen by Provider: 13:30 History of Present Illness 89 yo female admitted due to rectal bleeding with stools x2 days. Pt seen in ER yesterday. Pt reports dizziness and lightheadness when standing and dull lower abdominal discomfort. Currently pt denies any active rectal bleeding. Pt last ate this morning. Denies any changes to appetite. Pt stopped taking Xarelto yesterday. Denies any N/V/D, CP, SOA, or headache. Last Colonoscopy [address] Davidson. Labs reviewed. No other complaints. Allergies and Home Medications Allergies Coded Allergies: Chauncey Known Allergies (Verified Allergy, Unknown, 05/19/17) Patient Home Medication List Home Medication List Reviewed: Yes Acetaminophen (Tylenol Extra Strength) 500 Mg Tablet, 500-1,000 MG PO Q8H PRN for PAIN-MILD (1-4), (Reported) Entered as Reported by: DESTINY RACHEL on 03/01/221546 Last Action: Reviewed Atorvastatin Calcium (Atorvastatin Calcium) 10 Mg Tablet, 5 MG PO HS, (Reported) Entered as Reported by: ROSIE CADE on 05/18/17836 Last Action: Reviewed Clonazepam (Clonazepam) 1 Mg Tablet, 0.5 MG PO DAILY, (Reported) Entered as Reported by: DESTINY RACHEL on 03/01/221546 Last Action: Reviewed Levothyroxine Sodium (Levothyroxine Sodium) 100 Mcg Tablet, 100 MCG PO ,,,, (Reported) Entered as Reported by: ROSIE CADE on 05/18/17838 Last Action: Reviewed Levothyroxine Sodium (Levothyroxine Sodium) 100 Mcg Tablet, 50 MCG PO MON,MON,MON, (Reported) Entered as Reported by: ROSIE CADE on 05/18/17838 Last Action: Reviewed Metoprolol Tartrate (Metoprolol Tartrate) 25 Mg Tablet, 25 MG PO BID, (Reported) Entered as Reported by: DESTINY RACHEL on 03/01/221546 Last Action: Reviewed Multivitamin (Multivitamins) 1 Each Tablet, 1 TAB PO DAILY, (Reported) Entered as Reported by: SYLVAIN DIXON on 07/31/17 1038 Last Action: Reviewed Rivaroxaban (Xarelto) 20 Mg Tablet, 20 MG PO HS, (Reported) Entered as Reported by: DESTINY RACHEL on 03/12/211604 Last Action: Reviewed Tramadol HCl (Tramadol HCl) 50 Mg Tablet, 50-100 MG PO Q6H PRN for PAIN-MODERATE (5-7), (Reported) Entered as Reported by: DESTINY RACHEL on 03/01/22 1547 Last Action: Reviewed Discontinued Medications Calcium Carbonate (Calcium Carbonate) 500 Mg Tablet, 500 MG PO DAILY, (Reported) Discontinued Reason: Duplicate Order Entered as Reported by: DESTINY RACHEL on 03/12/211604 Last Action: Discontinued Clonazepam (Clonazepam) 1 Mg Tablet, 0.5 MG PO DAILY Discontinued Reason: Duplicate Order Prescribed by: MELVA JIMÉNEZ on 03/19/211116 Last Action: Discontinued Diltiazem HCl (Diltiazem 24Hr ER) 240 Mg Cap.er.24h, 240 MG PO DAILY Discontinued Reason: Duplicate Order Prescribed by: MELVA JIMÉNEZ on 03/19/211116 Last Action: Discontinued Docusate Sodium (Docusate Sodium) 100 Mg Capsule, 100 MG PO BID Discontinued Reason: Duplicate Order Prescribed by: MELVA JIMÉNEZ on 03/19/211116 Last Action: Discontinued Famotidine (Famotidine) 20 Mg Tablet, 20 MG PO DAILY Discontinued Reason: Duplicate Order Prescribed by: MELVA JIMÉNEZ on 03/19/211116 Last Action: Discontinued Gluc Pagan/Chondro Pagan A/Vit C/Mn (Glucosamine Chondroitin Tab) 1 Each Tablet, 1 EACH PO DAILY, (Reported) Discontinued Reason: Duplicate Order Entered as Reported by: DESTINY RACHEL on 03/12/211604 Last Action: Discontinued Hydrocodone/Acetaminophen (Hydrocodone-Acetamin 5-325 mg) 1 Each Tablet, 1 TAB PO Q6H PRN for PAIN-MODERATE (5-7) Discontinued Reason: Duplicate Order Prescribed by: MELVA JIMÉNEZ on 03/19/211116 Last Action: Discontinued Metoprolol Tartrate (Metoprolol Tartrate) 25 Mg Tablet, 25 MG PO BID Discontinued Reason: Duplicate Order Prescribed by: MELVA JIMÉNEZ on 03/19/211116 Last Action: Discontinued Polyethylene Glycol 3350 (Polyethylene Glycol 3350) 17 Gm Powd.pack, 17 GM PO BID Discontinued Reason: Duplicate Order Prescribed by: MELVA JIMÉNEZ on 03/19/211116 Last Action: Discontinued Past Axmclol-Uquyyl-Comnwf Hx Patient Social History Smoking Status: Former Smoker Former Smoker, Quit: May 18, 1964 Type Used: Cigarettes Recent Hopitalizations: No Alcohol Use?: No Have you traveled recently?: No Immunizations Up To Date Tetanus Booster (TDap): Unknown PED Vaccines UTD: Yes Date of Pneumonia Vaccine: May 18, 2015 Date of Influenza Vaccine: Feb 22, 2021 Seasonal Allergies Seasonal Allergies: No Surgeries History of Surgeries: Yes (COLON RESECTION, MASTOIDECTOMY,HIP pinning) Surgeries: Appendectomy, Gallbladder, Orthopedic, Thyroidectomy, Tonsillectomy Respiratory History of Respiratory Disorde: No Cardiovascular History of Cardiac Disorders: Yes Cardiac Disorders: High Cholesterol, Hypertension Neurological History of Neurological Disord: No Neurological Disorders: Stroke Reproductive System Hx Reproductive Disorders: Yes (REPORTS APPROX 1 MO HX INTERMITTENT BLOODY DISCHARGE R NIPPLE-NONE ON ADMIT) Sexually Transmitted Disease: No HIV/AIDS: No Female Reproductive Disorders: Menstrual Problems Gastrointestinal History of Gastrointestinal Di: Yes (reports 12 inches of colon removed in past) Gastrointestinal Disorders: Polyps Musculoskeletal History of Musculoskeletal Dis: Yes (fx-rhip, right ankle) Musculoskeletal Disorders: Arthritis, Fractures Endocrine History of Endocrine Disorders: Yes (HYPOTHYROIDISM) Endocrine Disorders: Hypothyroidsim HEENT HEENT Disorders: Cataract Loss of Vision: Denies Hearing Impairment: Deaf Cancer History of Cancer: No Psychosocial History of Psychiatric Problem: No Integumentary History of Skin or Integumenta: No Blood Transfusions History of Blood Disorders: No Family Medical History Family Medial History: BRAIN Cardiovascular disease 19 FATHER G8 BROTHER Colon cancer 19 MOTHER FH: brain tumor Review of Systems-General Constitutional: dizziness EENTM: No hearing loss, No blurred vision, No vision loss Respiratory: No cough, No dyspnea on exertion, No hemoptysis, No short of breath Cardiovascular: No chest pain, No palpitations Gastrointestinal: abdominal pain (lower abdominal discomfort); No constipation, No diarrhea, No hematemesis, No jaundice, No loss of appetite Genitourinary: No dysuria, No frequency, No hematuria Musculoskeletal: No back pain, No joint pain Skin: No change in color, No change in hair/nails, No dryness, No pruritus, No rash Psychiatric/Neurological: Denies Anxiety, Denies Depressed, Denies Headache, Denies Numbness Physical Exam-General Problems Physical Exam Vital Signs Vital Signs - First Documented 03/01/22 11:31 Temp 36.3 Pulse 105 Resp 20 B/P (MAP) 108/81 (90) Pulse Ox 94 O2 Delivery Room Air Capillary Refill : Less Than 3 Seconds General Appearance: WD/WN, no apparent distress HEENT: PERRL/EOMI Peripheral Pulses: 3+ Radial Pulses (R), 3+ Radial Pulses (L) Data Review Labs Laboratory Tests 03/01/22 11:36: White Blood Count 7.4, Red Blood Count 3.63L, Hemoglobin 9.8L, Hematocrit 31L, Mean Corpuscular Volume 85, Mean Corpuscular Hemoglobin 27, Mean Corpuscular Hemoglobin Concent 32, Red Cell Distribution Width 14.5, Platelet Count 283, Mean Platelet Volume 10.4, Immature Granulocyte % (Auto) 0, Neutrophils (%) (Auto) 63, Lymphocytes (%) (Auto) 24, Monocytes (%) (Auto) 11, Eosinophils (%) (Auto) 1, Basophils (%) (Auto) 1, Neutrophils # (Auto) 4.6, Lymphocytes # (Auto) 1.8, Monocytes # (Auto) 0.8, Eosinophils # (Auto) 0.1, Basophils # (Auto) 0.1, Immature Granulocyte # (Auto) 0.0, Prothrombin Time 15.4H, INR Comment 1.2, Acti vated Partial Thromboplast Time 29, Sodium Level 140, Potassium Level 3.8, Chloride Level 109H, Carbon Dioxide Level 22, Anion Gap 9, Blood Urea Nitrogen 25H, Creatinine 1.10, Estimat Glomerular Filtration Rate 48, BUN/Creatinine Ratio 23, Glucose Level 119H, Calcium Level 9.2, Corrected Calcium 9.3, Total Bilirubin 0.8, Aspartate Amino Transf (AST/SGOT) 19, Alanine Aminotransferase (ALT/SGPT) 10, Alkaline Phosphatase 65, Total Protein 6.9, Albumin 3.9 Assessment/Plan Assessment/Plan Assessment/Plan Anemia Hematochezia Obtain IV access Fluid resuscitation Transfusion if Hgb <7g/dL jail anticoag, currently on hold bowel prep preceding colonoscopy if pt hemodynamically stable for better visualization ELIER YUN DO 03/01/22 1800: History of Present Illness History of Present Illness History of Present Illness Consult record consult requested for rectal bleeding. Patient is a 89-year-old female who has had bright red blood from her rectum since Monday. Patient was in the ER yesterday. She is been having dizziness lightheadedness and every time in going to the bowel movement bright red blood per rectum. Patient states that this morning though since coming to the hospital she is not had any more bleeding. She has brought by EMS. She states she quit taking her Xarelto when she started having bleeding. She does not have any significant abdominal pain. She did have a drop in hemoglobin. Currently 9.8. She has history of a colon resection but she is not completely sure why she had it this was in the 1970s she believes. Her last colonoscopy she thinks was in 2006. Allergies and Home Medications Allergies Coded Allergies: Chauncey Known Allergies (Verified Allergy, Unknown, 05/19/17) Patient Home Medication List Home Medication List Reviewed: Yes Acetaminophen (Tylenol Extra Strength) 500 Mg Tablet, 500-1,000 MG PO Q8H PRN for PAIN-MILD (1-4), (Reported) Entered as Reported by: DESTINY RACHEL on 03/01/221546 Last Action: Reviewed Atorvastatin Calcium (Atorvastatin Calcium) 10 Mg Tablet, 5 MG PO HS, (Reported) Entered as Reported by: ROSIE CADE on 05/18/17836 Last Action: Reviewed Clonazepam (Clonazepam) 1 Mg Tablet, 0.5 MG PO DAILY, (Reported) Entered as Reported by: DESTINY RACHEL on 03/01/221546 Last Action: Reviewed Levothyroxine Sodium (Levothyroxine Sodium) 100 Mcg Tablet, 100 MCG PO MO,,,, (Reported) Entered as Reported by: ROSIE CADE on 05/18/17838 Last Action: Reviewed Levothyroxine Sodium (Levothyroxine Sodium) 100 Mcg Tablet, 50 MCG PO MON,MON,MON, (Reported) Entered as Reported by: ROSIE CADE on 05/18/17838 Last Action: Reviewed Metoprolol Tartrate (Metoprolol Tartrate) 25 Mg Tablet, 25 MG PO BID, (Reported) Entered as Reported by: DESTINY RACHEL on 03/01/22 Last Action: Reviewed Multivitamin (Multivitamins) 1 Each Tablet, 1 TAB PO DAILY, (Reported) Entered as Reported by: SYLVAIN DIXON on 07/31/17 1038 Last Action: Reviewed Rivaroxaban (Xarelto) 20 Mg Tablet, 20 MG PO HS, (Reported) Entered as Reported by: DESTINY RACHEL on 03/12/211604 Last Action: Reviewed Tramadol HCl (Tramadol HCl) 50 Mg Tablet, 50-100 MG PO Q6H PRN for PAIN-MODERATE (5-7), (Reported) Entered as Reported by: DESTINY RACHEL on 03/01/221546 Last Action: Reviewed Discontinued Medications Calcium Carbonate (Calcium Carbonate) 500 Mg Tablet, 500 MG PO DAILY, (Reported) Discontinued Reason: Duplicate Order Entered as Reported by: DESTINY RACHEL on 03/12/211604 Last Action: Discontinued Clonazepam (Clonazepam) 1 Mg Tablet, 0.5 MG PO DAILY Discontinued Reason: Duplicate Order Prescribed by: MELVA JIMÉNEZ on 03/19/211116 Last Action: Discontinued Diltiazem HCl (Diltiazem 24Hr ER) 240 Mg Cap.er.24h, 240 MG PO DAILY Discontinued Reason: Duplicate Order Prescribed by: MELVA JIMÉNEZ on 03/19/211116 Last Action: Discontinued Docusate Sodium (Docusate Sodium) 100 Mg Capsule, 100 MG PO BID Discontinued Reason: Duplicate Order Prescribed by: MELVA JIMÉNEZ on 03/19/211116 Last Action: Discontinued Famotidine (Famotidine) 20 Mg Tablet, 20 MG PO DAILY Discontinued Reason: Duplicate Order Prescribed by: MELVA JIMÉNEZ on 03/19/211116 Last Action: Discontinued Gluc Pagan/Chondro Pagan A/Vit C/Mn (Glucosamine Chondroitin Tab) 1 Each Tablet, 1 EACH PO DAILY, (Reported) Discontinued Reason: Duplicate Order Entered as Reported by: DESTINY RACHEL on 03/12/211604 Last Action: Discontinued Hydrocodone/Acetaminophen (Hydrocodone-Acetamin 5-325 mg) 1 Each Tablet, 1 TAB PO Q6H PRN for PAIN-MODERATE (5-7) Discontinued Reason: Duplicate Order Prescribed by: MELVA JIMÉNEZ on 03/19/211116 Last Action: Discontinued Metoprolol Tartrate (Metoprolol Tartrate) 25 Mg Tablet, 25 MG PO BID Discontinued Reason: Duplicate Order Prescribed by: MELVA JIMÉNEZ on 03/19/211116 Last Action: Discontinued Polyethylene Glycol 3350 (Polyethylene Glycol 3350) 17 Gm Powd.pack, 17 GM PO BID Discontinued Reason: Duplicate Order Prescribed by: MELVA JIMÉNEZ on 03/19/211116 Last Action: Discontinued Past Ewwumry-Isjsli-Wfcara Hx Reviewed Nursing Assessment Reviewed/Agree w Nursing PMH: Yes Family Medical History Significant Family History: No Pertinent Family Hx Family Medial History: BRAIN Cardiovascular disease 19 FATHER G8 BROTHER Colon cancer 19 MOTHER FH: brain tumor Review of Systems-General Constitutional: No diaphoresis; dizziness EENTM: No hearing loss, No blurred vision Respiratory: No cough, No dyspnea on exertion, No short of breath Cardiovascular: No chest pain, No edema, No palpitations Gastrointestinal: abdominal pain (lower abdominal discomfort, not pain); No nausea, No vomiting; other (bright red blood) Genitourinary: No dysuria, No frequency, No hematuria Musculoskeletal: No back pain, No joint pain Skin: No change in color, No change in hair/nails Psychiatric/Neurological: Denies Anxiety, Denies Depressed, Denies Emotional Problems All Other Systems Reviewed Negative Unless Noted: Yes (Negative excepted noted.) Physical Exam-General Problems Physical Exam General Appearance: WD/WN, no apparent distress HEENT: PERRL/EOMI, normal ENT inspection Neck: non-tender, supple Respiratory: chest non-tender, no respiratory distress, no accessory muscle use Cardiovascular: regular rate, rhythm, no JVD Gastrointestinal: non tender, soft Rectal: deferred Back: no CVA tenderness, no vertebral tenderness Extremities: non-tender, normal inspection Neurologic/Psychiatric: alert, normal mood/affect, oriented x 3 Skin: normal color, warm/dry Lymphatic: no adenopathy Assessment/Plan Assessment/Plan Assessment/Plan Anemia Hematochezia senior living anticoagulation hx colon resection Transfusion if Hgb <7g/dL jail anticoag, currently on hold Clear liquids bowel prep today, discussed risks and benefits of colonoscopy and she wishes to proceed. Npo after midnight. Supervisory-Addendum Brief Verification & Attestation Participated in pt care: history, MDM, physical Personally performed: exam, history, MDM, supervision of care Care discussed with: Medical Student Procedures: n/a Results interpretation: Verified all documentation Verification and Attestation of Medical Student E/M Service A medical student performed and documented this service in my presence. I reviewed and verified all information documented by the medical student and made modifications to such information, when appropriate. I personally performed the physical exam and medical decision making. Elier Yun, Mar 01, 2022,18:00 CORNELIO MELGAR Mar 01, 2022 13:53 ELIER YUN DO Mar 01, 2022 18:00
[2022-03-01] MEDS ORDERED: ONDANSETRON 4 MG/2 ML (SDV) Z0FRAN IV PRN (14:00)
[2022-03-01] MEDS ORDERED: ACETAMINOPHEN 325 MG TABLET PO PRN (14:00)
[2022-03-01] MEDS ORDERED: CATHETER FLUSH 10 ML SYR IVP PRN (14:00)
[2022-03-01] MEDS: NS IV 1000 ML 1,000 ML IV SCH (14:38)
[2022-03-01 15:40] VITALS: BP 117/83
[2022-03-01] MEDS ORDERED: RT-ALBUTEROL SULF 2.5 MG/3 ML PRE-MIX VIAL INH PRN (15:45)
[2022-03-01] MEDS ORDERED: METO-333 PO (15:47)
[2022-03-01] MEDS ORDERED: ACET-2267 PO (15:47)
[2022-03-01] MEDS ORDERED: CLON1TAB13 PO (15:47)
[2022-03-01] MEDS ORDERED: TRM50T PO (15:47)
[2022-03-01 15:53] VITALS: BP 110/66
[2022-03-01] MEDS ORDERED: GOLYTELY POWDER 4000 ML BTL PO NR (18:00)
[2022-03-01 19:33] VITALS: BP 145/68
[2022-03-01] MEDS ORDERED: dilTIAZem120 MG (CARDIZEM CD) CAP PO ONE ×2 (20:26→20:30)
[2022-03-01 20:47] LABS: HEMOGLOBIN 8.5 g/dL (11.5-16.0)
[2022-03-01 23:26] LABS: HEMOGLOBIN 8.5 g/dL (11.5-16.0)
[2022-03-02] VITALS (12 sets, daily range): BP systolic 106–144; BP diastolic 50–89
[2022-03-02 02:34] LABS: HEMOGLOBIN 7.4 g/dL (11.5-16.0)
[2022-03-02] MEDS: NS IV 1000 ML 1,000 ML IV SCH ×2 (03:08→11:40)
[2022-03-02] MEDS ORDERED: NS IV 500 ML 500 ML IV SCH (03:30)
[2022-03-02 06:13] LABS: BASOPHILS % (AUTO) 1 % (0-10); EOSINOPHILS % (AUTO) 0 % (0-10); HEMATOCRIT 24 % (35-52); HEMOGLOBIN 7.5 g/dL (11.5-16.0); LYMPHOCYTES % (AUTO) 28 % (12-44); MEAN CORPUSCULAR HEMOGLOBIN 27 pg (25-34); MEAN CORPUSCULAR HGB CONC 32 g/dL (32-36); MEAN CORPUSCULAR VOLUME 85 fL (80-99); MEAN PLATELET VOLUME 11.1 fL (9.0-12.2); MONOCYTES # (AUTO) 0.6 10^3/uL (0.0-1.0); MONOCYTES % (AUTO) 9 % (0-12); NEUTROPHILS # (AUTO) 4.4 10^3/uL (1.8-7.8); NEUTROPHILS % (AUTO) 62 % (42-75); PLATELET COUNT 230 10^3/uL (130-400); WHITE BLOOD COUNT 7.1 10^3/uL (4.3-11.0)
[2022-03-02 06:25] LABS: CALCIUM 8.5 MG/DL (8.5-10.1); CREATININE SERUM 0.86 MG/DL (0.60-1.30); POTASSIUM 3.6 MMOL/L (3.6-5.0)
--- NOTE | 2022-03-02 07:46 | Progress Note - Surgery ---
CORNELIO MELGAR 03/02/22 0746: Subjective Date Seen by a Provider: Mar 02, 2022 Subjective/Events-last exam 89 yo female admitted due to rectal bleeding with stools x3 days. Pt is NPO and started bowel prep yesterday for colonoscopy today. Xarelto still being held. Pt had elevated HR and went into Afib throughout the night and received cardizem. Last night pt had multiple episodes of copious amounts of liquid bloody stool. Pt transfused with 1 unit prbcs. She is less dizzy and feels better after transfusion. Denies any abdominal pain, N/V/D, CP, SOA, or headache. Labs reviewed. No other complaints. Objective Exam Vital Signs Date Time Temp Pulse Resp B/P (MAP) Pulse Ox O2 Delivery O2 Flow Rate FiO2 03/02/22 07:03 116 03/02/22 06:33 36.6 100 20 144/74 99 Room Air 03/02/22 04:31 36.4 96 18 106/50 99 Room Air 03/02/22 04:31 36.4 96 18 106/55 99 Room Air 03/02/22 04:14 36.3 108 18 116/80 99 Room Air 03/02/22 04:03 36.3 103 20 116/80 (92) 100 Room Air 03/02/22 01:00 92 03/02/22 00:01 36.4 76 20 130/89 (103) 98 Room Air 03/01/22 20:05 98 Room Air 03/01/22 19:41 150 03/01/22 19:33 36.7 106 18 145/68 (93) 98 Room Air 03/01/22 19:00 99 03/01/22 15:53 37.1 102 17 110/66 (81) 98 Room Air 03/01/22 15:40 36.3 97 95 21 03/01/22 14:41 97 03/01/22 13:20 95 Room Air 03/01/22 13:09 85 16 117/83 95 Room Air 03/01/22 11:31 36.3 105 20 108/81 (90) 94 Room Air I & O 03/02/22 07:00 Intake Total 4965 ml Output Total 3430 ml Balance 1535 ml Capillary Refill : Less Than 3 Seconds Peripheral Pulses: 3+ Radial Pulses (R), 3+ Radial Pulses (L) Gastrointestinal: non tender, soft Results Lab Laboratory Tests 03/01/22 11:36: White Blood Count 7.4, Red Blood Count 3.63L, Hemoglobin 9.8L, Hematocrit 31L, Mean Corpuscular Volume 85, Mean Corpuscular Hemoglobin 27, Mean Corpuscular Hemoglobin Concent 32, Red Cell Distribution Width 14.5, Platelet Count 283, Mean Platelet Volume 10.4, Immature Granulocyte % (Auto) 0, Neutrophils (%) (Auto) 63, Lymphocytes (%) (Auto) 24, Monocytes (%) (Auto) 11, Eosinophils (%) (Auto) 1, Basophils (%) (Auto) 1, Neutrophils # (Auto) 4.6, Lymphocytes # (Auto) 1.8, Monocytes # (Auto) 0.8, Eosinophils # (Auto) 0.1, Basophils # (Auto) 0.1, Immature Granulocyte # (Auto) 0.0, Prothrombin Time 15.4H, INR Comment 1.2, Activated Partial Thromboplast Time 29, Sodium Level 140, Potassium Level 3.8, Chloride Level 109H, Carbon Dioxide Level 22, Anion Gap 9, Blood Urea Nitrogen 25H, Creatinine 1.10, Estimat Glomerular Filtration Rate 48, BUN/Creatinine Ratio 23, Glucose Level 119H, Calcium Level 9.2, Corrected Calcium 9.3, Total Bi lirubin 0.8, Aspartate Amino Transf (AST/SGOT) 19, Alanine Aminotransferase (ALT/SGPT) 10, Alkaline Phosphatase 65, Total Protein 6.9, Albumin 3.9 03/01/22 20:30: Hemoglobin 8.5L, Hematocrit 27L 03/01/22 23:13: Hemoglobin 8.5L, Hematocrit 28L 03/02/22 02:25: Hemoglobin 7.4L, Hematocrit 24L 03/02/22 05:10: White Blood Count 7.1, Red Blood Count 2.79L, Hemoglobin 7.5L, Hematocrit 24L, Mean Corpuscular Volume 85, Mean Corpuscular Hemoglobin 27, Mean Corpuscular Hemoglobin Concent 32, Red Cell Distribution Width 14.4, Platelet Count 230, Mean Platelet Volume 11.1, Immature Granulocyte % (Auto) 0, Neutrophils (%) ( Auto) 62, Lymphocytes (%) (Auto) 28, Monocytes (%) (Auto) 9, Eosinophils (%) (Auto) 0, Basophils (%) (Auto) 1, Neutrophils # (Auto) 4.4, Lymphocytes # (Auto) 2.0, Monocytes # (Auto) 0.6, Eosinophils # (Auto) 0.0, Basophils # (Auto) 0.0, Immature Granulocyte # (Auto) 0.0, Sodium Level 141, Potassium Level 3.6, Chloride Level 109H, Carbon Dioxide Level 20L, Anion Gap 12, Blood Urea Nitrogen 17, Creatinine 0.86, Estimat Glomerular Filtration Rate 65, BUN/Creatinine Ratio 20, Glucose Level 117H, Calcium Level 8.5 Assessment/Plan Assessment/Plan Assessment/Plan Anemia 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 NPO. ELIER GIBBONS DO 03/02/22 0845: Subjective Subjective/Events-last exam Bloody bowel movements with prep. No abomdinal pain. Afib last night and given PO Cardizem. Given 1 unit prbc. hgb 8.5 this am. No abdominal pain. Denies n/v fever sweats chills shortness of breath or chest pain. 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 NPO. Supervisory-Addendum Brief Verification & Attestation Participated in pt care: history, MDM, physical Personally performed: exam, history, MDM, supervision of care Care discussed with: Medical Student Procedures: n/a Results interpretation: Verified all documentation Verification and Attestation of Medical Student E/M Service A medical student performed and documented this service in my presence. I reviewed and verified all information documented by the medical student and made modifications to such information, when appropriate. I personally performed the physical exam and medical decision making. Elier Gibbons, Mar 02, 2022,08:45 CORNELIO MELGAR Mar 02, 2022 07:46 ELIER GIBBONS DO Mar 02, 2022 08:45
[2022-03-02 08:09] LABS: HEMOGLOBIN 8.4 g/dL (11.5-16.0)
--- NOTE | 2022-03-02 08:47 | History & Physicial ---
History of Present Illness History of Present Illness Reason for visit/HPI Pt is an 89 y/o female who is known to me from clinic. She presented to the ER yesterday after recurrent gastrointestinal bleeding. She reportedly has been to the ER twice in the past 2 days due to recurrent rectal bleeding. Date of Admission Mar 01, 2022 at 12:55 Date Seen by a Provider: Mar 02, 2022 Time Seen by a Provider: 08:30 Attending Physician Melva Soto MD Admitting Physician Admitting Physician: Melva Soto MD Attending Physician: Melva Soto MD Consult DR YUN Allergies and Home Medications Allergies Coded Allergies: NKANo Known Allergies (Verified Allergy, Unknown, 05/19/17) Patient Home Medication List Home Medication List Reviewed: Yes Acetaminophen (Tylenol Extra Strength) 500 Mg Tablet, 500-1,000 MG PO Q8H PRN for PAIN-MILD (1-4), (Reported) Entered as Reported by: DESTINY RACHEL on 03/01/221546 Last Action: Continued Atorvastatin Calcium (Atorvastatin Calcium) 10 Mg Tablet, 5 MG PO HS, (Reported) Entered as Reported by: ROSIE CADE on 05/18/17836 Last Action: Held Clonazepam (Clonazepam) 1 Mg Tablet, 0.5 MG PO DAILY, (Reported) Entered as Reported by: DESTINY RACHEL on 03/01/221546 Last Action: Continued Levothyroxine Sodium (Levothyroxine Sodium) 100 Mcg Tablet, 100 MCG PO MO,,,, (Reported) Entered as Reported by: ROSIE CADE on 05/18/17838 Last Action: Continued Levothyroxine Sodium (Levothyroxine Sodium) 100 Mcg Tablet, 50 MCG PO MON,MON,MON, (Reported) Entered as Reported by: ROSIE CADE on 05/18/17838 Last Action: Continued Metoprolol Tartrate (Metoprolol Tartrate) 25 Mg Tablet, 25 MG PO BID, (Reported) Entered as Reported by: DESTINY RACHEL on 03/01/221546 Last Action: Continued Multivitamin (Multivitamins) 1 Each Tablet, 1 TAB PO DAILY, (Reported) Entered as Reported by: SYLVAIN DIXON on 07/31/17 1038 Last Action: Held Rivaroxaban (Xarelto) 20 Mg Tablet, 20 MG PO HS, (Reported) Entered as Reported by: DESTINY RACHEL on 03/12/211604 Last Action: Held Tramadol HCl (Tramadol HCl) 50 Mg Tablet, 50-100 MG PO Q6H PRN for PAIN-MODERATE (5-7), (Reported) Entered as Reported by: DESTINY RACHEL on 03/01/22 154 Last Action: Continued Discontinued Medications Calcium Carbonate (Calcium Carbonate) 500 Mg Tablet, 500 MG PO DAILY, (Reported) Discontinued Reason: Duplicate Order Entered as Reported by: DESTINY RACHEL on 03/12/211604 Last Action: Discontinued Clonazepam (Clonazepam) 1 Mg Tablet, 0.5 MG PO DAILY Discontinued Reason: Duplicate Order Prescribed by: MELVA SOTO on 03/19/211116 Last Action: Discontinued Diltiazem HCl (Diltiazem 24Hr ER) 240 Mg Cap.er.24h, 240 MG PO DAILY Discontinued Reason: Duplicate Order Prescribed by: MELVA SOTO on 03/19/211116 Last Action: Discontinued Docusate Sodium (Docusate Sodium) 100 Mg Capsule, 100 MG PO BID Discontinued Reason: Duplicate Order Prescribed by: MELVA SOTO on 03/19/211116 Last Action: Discontinued Famotidine (Famotidine) 20 Mg Tablet, 20 MG PO DAILY Discontinued Reason: Duplicate Order Prescribed by: MELVA SOTO on 03/19/211116 Last Action: Discontinued Gluc Pagan/Chondro Pagan A/Vit C/Mn (Glucosamine Chondroitin Tab) 1 Each Tablet, 1 EACH PO DAILY, (Reported) Discontinued Reason: Duplicate Order Entered as Reported by: DESTINY RACHEL on 03/12/211604 Last Action: Discontinued Hydrocodone/Acetaminophen (Hydrocodone-Acetamin 5-325 mg) 1 Each Tablet, 1 TAB PO Q6H PRN for PAIN-MODERATE (5-7) Discontinued Reason: Duplicate Order Prescribed by: MELVA SOTO on 03/19/211116 Last Action: Discontinued Metoprolol Tartrate (Metoprolol Tartrate) 25 Mg Tablet, 25 MG PO BID Discontinued Reason: Duplicate Order Prescribed by: MELVA SOTO on 03/19/211116 Last Action: Discontinued Polyethylene Glycol 3350 (Polyethylene Glycol 3350) 17 Gm Powd.pack, 17 GM PO BID Discontinued Reason: Duplicate Order Prescribed by: MELVA SOTO on 03/19/21 1117 Last Action: Discontinued Past Instxip-Zgqaql-Pkglkc Hx Patient Social History Marrital Status: Living Status: LIVES AT HOME ALONE Employed/Student: retired Smoking Status: Former Smoker Former Smoker, Quit: May 18, 1964 Recent Hopitalizations: No Have you traveled recently?: No Alcohol Use?: No Pt feels they are or have been: No Immunizations Up To Date Tetanus Booster (TDap): Unknown Pediatric: Yes Date of Pneumonia Vaccine: May 18, 2015 Date of Influenza Vaccine: Feb 22, 2021 Seasonal Allergies Seasonal Allergies: No Surgeries Yes (COLON RESECTION, MASTOIDECTOMY,HIP pinning) Appendectomy, Gallbladder, Orthopedic, Thyroidectomy, Tonsillectomy Respiratory No Currently Using CPAP: Yes Currently Using BIPAP: No Cardiovascular Yes High Cholesterol, Hypertension Neurological No Stroke Reproductive System Hx Reproductive Disorders: Yes (REPORTS APPROX 1 MO HX INTERMITTENT BLOODY DISCHARGE R NIPPLE-NONE ON ADMIT) Sexually Transmitted Disease: No HIV/AIDS: No Female Reproductive Disorders: Menstrual Problems Gastrointestinal Yes (reports 12 inches of colon removed in past) Polyps Musculoskeletal Yes (fx-rhip, right ankle) Arthritis, Fractures Endocrine History of Endocrine Disorders: Yes (HYPOTHYROIDISM) Endocrine Disorders: Hypothyroidsim HEENT HEENT Disorders: Cataract Loss of Vision: Denies Hearing Impairment: Deaf Cancer No Psychosocial History of Psychiatric Problem: No Integumentary History of Skin or Integumenta: No Blood Transfusions History of Blood Disorders: No Reviewed Nursing Assessment Reviewed/Agree w Nursing PMH: Yes Family Medical History Significant Family History: Cancer, Hypertension Family Hx: BRAIN Cardiovascular disease 19 FATHER G8 BROTHER Colon cancer 19 MOTHER FH: brain tumor Review of Systems Constitutional: No chills, No diaphoresis, No fever, No malaise, No weakness EENTM: No mouth pain, No throat pain Respiratory: No cough, No dyspnea on exertion, No short of breath Cardiovascular: No chest pain, No palpitations Gastrointestinal: No abdominal pain, No constipation, No diarrhea; melena Genitourinary: no symptoms reported Musculoskeletal: No back pain; muscle weakness Skin: no symptoms reported Psychiatric/Neurological: Denies Anxiety, Denies Depressed, Denies Weakness All Other Systems Reviewed Negative Unless Noted: Yes Physical Exam Vital Signs Vital Signs - First Documented 03/01/22 03/01/22 03/02/22 11:31 15:40 10:50 Temp 36.3 Pulse 105 Resp 20 B/P (MAP) 108/81 (90) Pulse Ox 94 O2 Delivery Room Air O2 Flow Rate 6.00 FiO2 21 Capillary Refill : Less Than 3 Seconds Height, Weight, BMI Height: 5'4.00" Weight: 175lbs. 0.0oz. [id number]; 28.28 BMI Method:Stated General Appearance: No Apparent Distress, WD/WN HEENT: PERRL/EOMI, Pharynx Normal Neck: Full Range of Motion, Supple Respiratory: Chest Non Tender, Lungs Clear, Normal Breath Sounds, No Resp iratory Distress Cardiovascular: Regular Rate, Rhythm Gastrointestinal: Normal Bowel Sounds, Non Tender, Soft Rectal: Deferred Back: Normal Inspection, No Vertebral Tenderness Extremity: Normal Capillary Refill, Non Tender, No Calf Tenderness, No Pedal Edema Neurologic/Psychiatric: Alert, Oriented x3, No Motor/Sensory Deficits, Normal Mood/Affect Skin: Normal Color, Warm/Dry Lymphatic: No Adenopathy Assessment/Plan Assessment and Plan RECTAL BLEEDING ANEMIA HYPERTENSION CHRONIC ATRIAL FIBRILLATION ADVANCED AGE RECTAL BLEEDING WITH ACUTE HEMORRHAGIC ANEMIA - STATUS POST TRANSFUSION, REPEAT HGB ABOVE 7.5, MONITOR H AND H - DR. YUN CONSULTED PLANNING ON PATIENT HAVING SCOPE TODAY. HYPERTENSION - MONITOR PRESSURE, RECONCILE MEDS CHRONIC ATRIAL FIBRILLATION - ON ANTICOAG - HOLDING AT THIS TIME ADVANCED AGE - WILL NEED AMBULATION AND THERAPY AFTER STABLE AND PRIOR TO DC DVT PROPHYLAXIS WITH SCD'S HOLD ANTICOAG DUE TO GI BLEEDING GI PROPHYLAXIS WITH PPI Admission Diagnosis RECTAL BLEEDING ANEMIA HYPERTENSION CHRONIC ATRIAL FIBRILLATION ADVANCED AGE Admission Status: Inpatient Order (span 2 midnights) Reason for Inpatient Admission: INPT ADMISSION FOR ANEMIA WITH GI BLEEDING, WILL REQUIRE STABILIZATION AND SCOPE TO DETERMINE CAUSE - ANTICIPATE AT LEAST 72 HOURS [facility] MELVA SOTO MD Mar 02, 2022 08:47
[2022-03-02] MEDS ORDERED: LACTATED RINGERS 1,000 ML IV STA (09:38)
[2022-03-02] MEDS ORDERED: proPOfol 200 MG/20 ML (DIPRIVAN) VIAL IV ONE ×2 (10:03→10:24)
[2022-03-02] MEDS ORDERED: meTOprolol 5 MG/5 ML (LOPRESSOR) VIAL ONE (10:25)
--- NOTE | 2022-03-02 14:53 | Anesthesia-General Post-Op ---
MAC Patient Condition Mental Status/LOC: Same as Preop Cardiovascular: Satisfactory Nausea/Vomiting: Absent Respiratory: Satisfactory Pain: Controlled Complications: Absent Post Op Complications Complications None Follow Up Care/Instructions Patient Instructions None needed. Anesthesiology Discharge Order Discharge Order Patient is doing well, no complaints, stable vital signs, no apparent adverse anesthesia problems. No complications reported per nursing. MARCELLO LANIER CRNA Mar 02, 2022 14:53
[2022-03-03] VITALS: BP 110/54
--- NOTE | 2022-03-03 03:36 | OPERATIVE REPORT ---
DATE OF SERVICE: 03/02/2022 PREOPERATIVE DIAGNOSIS: Bright red blood per rectum. POSTOPERATIVE DIAGNOSES: Ascending colon polyp, bleeding and benign sigmoid polyps. PROCEDURES: Colonoscopy with hot biopsy polypectomy x1 and placement of resolution clips x2. SURGEON: Elier Gibbons DO. ANESTHESIA: Per [facility]. ESTIMATED BLOOD LOSS: Scant. COMPLICATIONS: None. INDICATIONS: The patient is an 89-year-old female, who was admitted to the bright red bleeding per rectum. She was discussed risks and benefits of having colonoscopy performed for further evaluation. She understands and wishes to proceed. Consent was signed in the chart. DESCRIPTION OF PROCEDURE: The patient was taken to the endoscopy suite, placed in left lateral recumbent position. Timeout was performed. Digital rectal exam was performed. No palpable polyps, masses or ulcerations present. Scope was inserted in the rectum, advanced all the way to cecum without difficulty. Prep was adequate with irrigation and suction. She had older appearing blood present. The ileocecal valve was intubated. The small bowel had no blood within it. Scope was then slowly retracted back. No polyps, masses or ulcerations within the cecum and ascending colon near the cecum. There was a small polyp that appeared to be bleeding. This was grasped, elevated and cauterized. Biopsy was obtained. This continued to have bleeding. Two Resolution clips were placed to achieve hemostasis. Scope was then continuously retracted back through the remainder of the ascending, transverse, descending and sigmoid colon without any other active bleeding. Lots of irrigation and suction was used throughout the colon for visualization. In the sigmoid colon, there was a significant amount of small benign-appearing polyps. No active bleeding. Once in the rectum, scope was retroflexed. No other pathology. Scope was returned to its normal position, slowly withdrawn until completely removed. The patient tolerated the procedure well without any complications, taken to recovery room in stable condition. RECOMMENDATIONS: The patient continue to monitor for active bleeding. If continues, we would possibly reexamine. She does not need any further interventions. She does have very small benign-appearing polyps in the sigmoid, but I do not think this is going to be a problem for her and due to the number, did not take any acute reactions on these. The patient will be started on clear liquid diet and then if tolerates and hemoglobin stable slowly advance. Job ID: [id number] DocumentID: [id number] Dictated Date: 03/02/2022 17:44:39 [place] Strip Inspector Date: 03/03/2022 03:36:00 Dictated By: ELIER GIBBONS DO
[2022-03-03 03:46] VITALS: BP 130/60
--- NOTE | 2022-03-03 07:23 | Progress Note - Surgery ---
CORNELIO MELGAR 03/03/22 0723: Subjective Date Seen by a Provider: Mar 03, 2022 Time Seen by a Provider: 07:22 Subjective/Events-last exam Pt had Colonoscopy with hot biopsy polypectomy x1 and placement of resolution clips x2. No rectal bleeding since. Pt doing well and is on clear liquids. Denie s any N/V/D, CP, SOB, lightheadedness/dizziness. No other complaints Objective Exam Vital Signs Date Time Temp Pulse Resp B/P (MAP) Pulse Ox O2 Delivery O2 Flow Rate FiO2 03/03/22 03:46 37.1 91 22 130/60 (83) 99 Room Air 03/03/22 01:00 91 03/03/22 00:00 36.7 103 20 110/54 (72) 98 Room Air 03/02/22 20:00 Room Air 03/02/22 19:05 36.7 90 18 125/58 (80) 99 Room Air 03/02/22 19:00 88 03/02/22 15:20 36.5 82 16 126/58 (80) 96 Room Air 03/02/22 13:09 85 03/02/22 11:40 36.2 82 18 116/58 (77) 93 Room Air 03/02/22 11:15 Room Air 03/02/22 11:00 81 18 98 Room Air 03/02/22 10:55 95 18 95 Room Air 03/02/22 10:50 94 18 97 OxyMask 6.00 03/02/22 08:02 36.8 97 18 106/55 (72) 100 Room Air 03/02/22 08:00 Room Air I & O 03/03/22 07:00 Intake Total 2300 ml Output Total 2025 ml Balance 275 ml Capillary Refill : Less Than 3 Seconds General Appearance: No Apparent Distress HEENT: PERRL/EOMI Neck: Non Tender, Supple Respiratory: Chest Non Tender, No Accessory Muscle Use, No Respiratory Distress Cardiovascular: Regular Rate, Rhythm, No JVD Peripheral Pulses: 3+ Radial Pulses (R), 3+ Radial Pulses (L) Gastrointestinal: non tender, soft Extremity: Non Tender, No Calf Tenderness Neurologic/Psychiatric: Alert, Oriented x3 Skin: Normal Color, Warm/Dry Lymphatic: No Adenopathy Results Lab Laboratory Tests 03/02/22 08:00: Hemoglobin 8.4L, Hematocrit 27L 03/02/22 13:37: Lab Scanned Report Transfusion Reaction Form Microbiology 03/01/22 MRSA Screen - Final, Complete MRSA not isolated Assessment/Plan Assessment/Plan Assessment/Plan Anemia Hematochezia penitentiary anticoagulation hx colon resection Continue to monitor Hgb, Transfuse if Hgb <7g/dL custodial anticoag, continue to hold Advance diet.. 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 Transfuse if Hgb <7g/dL Restart anticoag Advance diet Continue to monitor, sign off if labs within normal range ELIER GIBBONS DO 03/04/22 1638: Subjective Subjective/Events-last exam Not having any further rectal bleeding. Not having any abdominal pain. Hemoglobin is stable. Tolerating clears. Denies nausea vomiting fever sweats chills shortness of breath or chest pain. 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 Supervisory-Addendum Brief Verification & Attestation Participated in pt care: history, MDM, physical Personally performed: exam, history, MDM, supervision of care Care discussed with: Medical Student Procedures: n/a Results interpretation: Verified all documentation Verification and Attestation of Medical Student E/M Service A medical student performed and documented this service in my presence. I reviewed and verified all information documented by the medical student and made modifications to such information, when appropriate. I personally performed the physical exam and medical decision making. Elier Gibbons, Mar 03, 2022,16:38 CORENLIO MELGAR Mar 03, 2022 07:23 ELIER GIBBONS DO Mar 04, 2022 16:38
[2022-03-03 07:41] VITALS: BP 148/68
[2022-03-03] MEDS ORDERED: ACETAMINOPHEN 500 MG TAB (TYLENOL) PO PRN (08:45)
--- NOTE | 2022-03-03 08:45 | Progress Note ---
Subjective Subjective Date Seen by Provider: Mar 03, 2022 Time Seen by Provider: 08:30 PT REPORTS THAT SHE IS FEELING BETTER, WOULD LIKE MORE THAN JUST CLEAR LIQUID DIET. SHE DENIES ABDOMINAL PAIN, NAUSEA, RECTAL BLEEDING. SHE REPORTS THAT SHE WANTS TO BE ABLE TO AMBULATE IN THE HALLWAY TODAY, HAS PLANS FOR HELP AT HOME. Review of Systems General: No Chills; Fatigue; No Malaise; Appetite (HAS AN APPETITE, WANTS DIET ADVANCED) HEENT: No Head Aches Pulmonary: No Dyspnea, No Cough Cardiovascular: No: Chest Pain, Palpitations Gastrointestinal: No: Nausea, Abdominal Pain Genitourinary: No Dysuria; Frequency Neurological: No: Weakness, Numbness, Confusion All Other Systems Reviewed All Other Systems Reviewed: Yes Objective Exam Vital Signs Vital Signs Date Time Temp Pulse Resp B/P (MAP) Pulse Ox O2 Delivery O2 Flow Rate FiO2 03/03/22 07:41 36.6 95 18 148/68 (94) 95 Room Air 03/03/22 07:00 102 03/03/22 03:46 37.1 91 22 130/60 (83) 99 Room Air 03/03/22 01:00 91 03/03/22 00:00 36.7 103 20 110/54 (72) 98 Room Air 03/02/22 20:00 Room Air 03/02/22 19:05 36.7 90 18 125/58 (80) 99 Room Air 03/02/22 19:00 88 03/02/22 15:20 36.5 82 16 126/58 (80) 96 Room Air 03/02/22 13:09 85 03/02/22 11:40 36.2 82 18 116/58 (77) 93 Room Air 03/02/22 11:15 Room Air 03/02/22 11:00 81 18 98 Room Air 03/02/22 10:55 95 18 95 Room Air 03/02/22 10:50 94 18 97 OxyMask 6.00 I & O 03/03/22 07:00 Intake Total 2300 ml Output Total 2025 ml Balance 275 ml General Appearance: No Apparent Distress, WD/WN HEENT: PERRL/EOMI, Pharynx Normal Neck: Full Range of Motion, Supple Respiratory: Chest Non Tender, Lungs Clear, Normal Breath Sounds, No Respiratory Distress Cardiovascular: Regular Rate, Rhythm Gastrointestinal: Normal Bowel Sounds, Non Tender, Soft Rectal: Deferred Back: Normal Inspection, No Vertebral Tenderness Extremity: Normal Capillary Refill, Non Tender, No Calf Tenderness, No Pedal Edema Neurologic/Psychiatric: Alert, Oriented x3, No Motor/Sensory Deficits, Normal Mood/Affect Skin: Normal Color, Warm/Dry Lymphatic: No Adenopathy Results Lab Laboratory Tests 03/02/22 13:37: Lab Scanned Report Transfusion Reaction Form Microbiology 03/01/22 MRSA Screen - Final, Complete MRSA not isolated Assessment/Plan Assessment/Plan Admission Dx RECTAL BLEEDING ANEMIA HYPERTENSION CHRONIC ATRIAL FIBRILLATION ADVANCED AGE Assessment and Plan RECTAL BLEEDING ANEMIA HYPERTENSION CHRONIC ATRIAL FIBRILLATION ADVANCED AGE RECTAL BLEEDING WITH ACUTE HEMORRHAGIC ANEMIA - STATUS POST TRANSFUSION, REPEAT HGB ABOVE 8.5, MONITOR H AND H -SCOPE SHOWED BLEEDING POLYP -- SEE DR. YUN'S NOTE FOR DETAILS - ADVANCED DIET TODAY, REPEAT H AND H TOMORROW - ANTICIPATE DC TO HOME TOMORROW HYPERTENSION - MONITOR PRESSURE, RECONCILED MEDS CHRONIC ATRIAL FIBRILLATION - ON ANTICOAG - HOLDING AT THIS TIME ADVANCED AGE - WILL NEED AMBULATION AND THERAPY AFTER STABLE AND PRIOR TO DC DVT PROPHYLAXIS WITH SCD'S HOLD ANTICOAG DUE TO GI BLEEDING GI PROPHYLAXIS WITH PPI Admission Dx RECTAL BLEEDING ANEMIA HYPERTENSION CHRONIC ATRIAL FIBRILLATION ADVANCED AGE Clinical Quality Measures Admission Status Admission Dx RECTAL BLEEDING ANEMIA HYPERTENSION CHRONIC ATRIAL FIBRILLATION ADVANCED AGE MELVA JIMÉNEZ MD Mar 03, 2022 08:45
[2022-03-03 09:04] LABS: HEMOGLOBIN 8.5 g/dL (11.5-16.0)
[2022-03-03] MEDS: meTOprolol TARTRATE 25 MG (LOPRESSOR) TABLET PO SCH ×2 (09:15→20:05)
[2022-03-03] MEDS: clonazePAM 1 MG (KlonoPIN) TAB PO SCH (09:15)
[2022-03-03] MEDS: LEVOTHYROXINE 100 MCG (LEVOTHROID) TAB PO SCH (09:15)
[2022-03-03] MEDS: PANTOPRAZOLE 40 MG (PROTONIX) TAB PO SCH (09:15)
--- NOTE | 2022-03-03 10:00 | Physical Therapy Evaluation ---
PT Evaluation-General Medical Diagnosis Admission Date Mar 01, 2022 at 12:55 Medical Diagnosis: Gastrointestinal Bleed Onset Date: Mar 01, 2022 Therapy Diagnosis Therapy Diagnosis: Generalized Weakness Height/Weight Height (Feet): 5 Height (Inches): 4.00 Weight (Pounds): 175 Weight (Ounces): 0.0 Precautions Precautions/Isolations: Fall Prevention, Standard Precautions Weight Bear Status Right Lower Extremity: Right Full Weight Bearing Left Lower Extremity: Left Full Weight Bearing Referral Reason for Referral: Evaluation/Treatment Referral Darci Soto Medical History Pertinent Medical History: CVA, HTN, Hypothroidism Additional Medical History previous smoker Reviewed History: Yes Social History Home: Single Level Current Living Status: Alone Entry Into Home: Stairs With Railing PT Steps Into Home: 3 PT Steps Inside Home: 0 Prior Prior Level of Function SCALE: Activities may be completed with or without assistive devices. 5-Sbsphumpfn-peixrgj completes the activity by him/herself with no assistance from a helper. 5-Set-up or Clean-up Assistance-helper sets up or cleans up; patient completes activity. [place] assists only prior to or following the activity. 4-Supervision or Touching Assistance-helper provides verbal cues and/or touching/steadying and/or contact guard assistance as patient completes activity. Assistance may be provided throughout the activity or intermittently. 3-Partial/Moderate Assistance-helper does LESS THAN HALF the effort. [place] lifts, holds or supports trunk or limbs, but provides less than half the effort. 2-Substantial/Maximal Assistance-helper does MORE THAN HALF the effort. [place] lifts or holds trunk or limbs and provides more than half the effort. 2-Vufpytkyk-vlsjsf does ALL the effort. Patient does none of the effort to complete the activity. Or, the assistance of 2 or more helpers is required for the patient to complete the activity. If activity was not attempted, code reason: 7-Patient Refused. 9-Not Applicable-not attempted and the patient did not perform the activity before the current illness, exacerbation or injury. 10-Not Attempted due to Environmental Limitations-(lack of equipment, weather restraints, etc.). 88-Not Attempted due to Medical Conditions or Safety Concerns. Bed Mobility: 6 Transfers (B,C,W/C): 6 Gait: 6 Stairs: 6 Indoor Mobility (Ambulation): Independent Stairs: Independent Prior Device Use: Single Point Cane only with community ambulation PT Evaluation-Current Subjective Patient in bed pre-tx, reports no pain but a little dizziness, agrees to PT. Pt/Family Goals to be independent at home Objective Patient Orientation: Person, Place, Situation ROM/Strength ROM Lower Extremities BLE WNL Strength Lower Extremities LLE grossly 5/5, RLE (hip flexion 4/5, knee extension 4/5, knee flexion 4/5, DF 5/5) Sensory Hearing: Impaired Sensation Right Lower Extremit: Intact Sensation Left Lower Extremity: Intact Transfers Lying to Sitting/Side of Bed(Q: 5 Sit to Stand (QC): 4 Chair/Lge-ho-Spmzr Xfer(QC): 4 Toilet Transfer (QC): 4 SBA for all except only setup for lying to sit by moving the covers off her feet. Gait Does the Patient Walk?: Yes Walk 10 feet (QC): 4 Walk 50 ft with 2 Turns(QC): 4 Walk 150 ft (QC): 4 Distance: 150' Gait Assistive Device: FWW Comments/Gait Description Patient has good gait speed, foot clearance, and symmetrical step through pattern, shuffles while turning. Wheelchair Training Does the Pt Use a Wheelchair?: No Balance Sitting Static: Normal Sitting Dynamic: Normal Standing Static: Normal Standing Dynamic: Fair Treatment Ambulation, LE strengthening Assessment/Needs Patient has impaired hearing, intact sensation, decreased RLE strength, decreased bed mobility, and needs verbal cueing to perform exercises correctly. Patient was toileted once and then at the end of ambulation she had to go again, left patient on toilet with nurse call. Rehab Potential: Good PT Manager [facility] Goals Nursing Home Goals PT Nursing Home Goals Time Frame: Mar 10, 2022 Roll Left & Right (QC): 6 Sit to Lying (QC): 6 Lying-Sitting on Side/Bed(QC): 6 Sit to Stand (QC): 6 Chair/Ldl-cf-Kvlig Xfer(QC): 6 Toilet Transfer (QC): 6 Does the Patient Walk: Yes Walk 10 feet (QC): 6 Walk 50ft with 2 Turns (QC): 6 Walk 150 ft (QC): 6 Walking 10ft on Uneven Surface: 6 1 Step (curb) (QC): 6 4 Steps (QC): 6 Picking up an Object (QC): 6 Does the Pt use WC or Scooter?: No PT Plan Problem List Problem List: Activity Tolerance, Functional Strength, Safety, Balance, Gait, Transfer, Bed Mobility, ROM Treatment/Plan Treatment Plan: Continue Plan of Care Treatment Plan: Bed Mobility, Education, Functional Activity Luci, Functional Strength, Gait, Safety, Therapeutic Exercise, Transfers Treatment Duration: Mar 10, 2022 Frequency: 6 times per week Estimated Hrs Per Day: .25 hour per day Patient and/or Family Agrees t: Yes Safety Risks/Education Patient Education: Gait Training, Transfer Techniques, Correct Positioning, Safety Issues Teaching Recipient: Patient Teaching Methods: Demonstration, Discussion Response to Teaching: Reinforcement Needed Discharge Recommendations Plan Patient will perform bed mobility and transfer training, endurance and functional strengthening, balance and gait training to improve functional mobility and independence at home. Therapy Discharge Recommendati: Scheduled Assistance, Home & Family Time Time In: 934 Time Out: 949 Total Billed Treatment Time: 15 Total Billed Treatment 1 visit EVM 15min NICK SNIDER PT Mar 03, 2022 10:00
[2022-03-03 11:52] VITALS: BP 106/53
[2022-03-03 16:00] VITALS: BP 138/65
[2022-03-03 19:45] VITALS: BP 123/86
[2022-03-04] VITALS: BP 142/64
[2022-03-04 04:12] VITALS: BP 141/63
[2022-03-04] MEDS: LEVOTHYROXINE 100 MCG (LEVOTHROID) TAB PO SCH (05:21)
[2022-03-04 05:33] LABS: HEMOGLOBIN 8.1 g/dL (11.5-16.0)
--- NOTE | 2022-03-04 06:12 | Progress Note - Surgery ---
RAMÓNCORNELIO Aurora 03/04/22 0612: Subjective Date Seen by a Provider: Mar 04, 2022 Time Seen by a Provider: 07:38 Subjective/Events-last exam Pt had Colonoscopy with hot biopsy polypectomy x1 and placement of resolution clips x3. No rectal bleeding since. Pt doing well and is on regular diet. Denies any N/V/D, CP, SOB, lightheadedness/dizziness. No other complaints Objective Exam Vital Signs Date Time Temp Pulse Resp B/P (MAP) Pulse Ox O2 Delivery O2 Flow Rate FiO2 03/04/22 04:12 36.7 79 16 141/63 (89) 97 Room Air 03/04/22 00:55 79 03/04/22 00:00 37.2 94 16 142/64 (90) 95 Room Air 03/03/22 20:00 Room Air 03/03/22 19:45 36.9 95 20 123/86 (98) 96 Room Air 03/03/22 19:00 79 03/03/22 16:00 37.1 90 20 138/65 (89) 98 Room Air 03/03/22 13:00 78 03/03/22 11:52 36.7 82 18 106/53 (70) 97 Room Air 03/03/22 08:00 Room Air 03/03/22 07:41 36.6 95 18 148/68 (94) 95 Room Air 03/03/22 07:00 102 I & O 03/04/22 07:00 Intake Total 2030 ml Output Total 1500 ml Balance 530 ml Capillary Refill : Less Than 3 Seconds General Appearance: No Apparent Distress HEENT: PERRL/EOMI Neck: Non Tender, Supple Respiratory: Chest Non Tender, No Accessory Muscle Use, No Respiratory Distress Cardiovascular: Regular Rate, Rhythm, No JVD Peripheral Pulses: 3+ Radial Pulses (R), 3+ Radial Pulses (L) Gastrointestinal: non tender, soft Extremity: Non Tender, No Calf Tenderness Neurologic/Psychiatric: Alert, Oriented x3 Skin: Normal Color, Warm/Dry Lymphatic: No Adenopathy Results Lab Laboratory Tests 03/03/22 08:55: Hemoglobin 8.5L, Hematocrit 27L 03/04/22 05:20: Hemoglobin 8.1L, Hematocrit 25L Microbiology 03/01/22 MRSA Screen - Final, Complete MRSA not isolated Assessment/Plan Assessment/Plan Assessment/Plan Anemia [facility] anticoagulation hx colon resection Ambulate pt jail anticoag, continue to hold Sign off on pt Clinical Quality Measures DVT/VTE Risk/Contraindication: Contraindications-Pharm: Other *list below* Contraindications-Mechi: Other *list below* Other: ANTICOAG HELD DUE TO GI BLEED ELIER GIBBONS DO 03/04/22 1642: Subjective Subjective/Events-last exam Patient doing well today. No bloody bowel movements. She is tolerating diet. She is on regular diet. She has no new complaints. No abdominal pain. Denies any nausea vomiting fever sweats chills shortness of breath or chest pain. Objective Exam General Appearance: No Apparent Distress, WD/WN HEENT: PERRL/EOMI, Normal ENT Inspection Neck: Non Tender, Supple Respiratory: Chest Non Tender, No Accessory Muscle Use, No Respiratory Distress Cardiovascular: Regular Rate, Rhythm, No JVD Gastrointestinal: non tender, soft Extremity: Non Tender, No Calf Tenderness Neurologic/Psychiatric: Alert, Oriented x3 Skin: Normal Color, Warm/Dry Lymphatic: No Adenopathy Assessment/Plan Assessment/Plan Assessment/Plan .Anemia Hemat[facility]zia [facility] anticoagulation hx colon resection s/p colonoscopy c hot bx polypectomy and placement of 2 resolution clips Ambulate pt jail anticoag, continue to hold diet as tolerates can dc home from surgical standpoint if rebleeds repeat endoscopy Supervisory-Addendum Brief Verification & Attestation Participated in pt care: history, MDM, physical Personally performed: exam, history, MDM, supervision of care Care discussed with: Medical Student Procedures: n/a Results interpretation: Verified all documentation Verification and Attestation of Medical Student E/M Service A medical student performed and documented this service in my presence. I reviewed and verified all information documented by the medical student and made modifications to such information, when appropriate. I personally performed the physical exam and medical decision making. Elier Gibbons, Mar 04, 2022,16:42 CORNELIO MELGAR Mar 04, 2022 06:12 ELIER GIBBONS DO Mar 04, 2022 16:42
[2022-03-04 07:57] VITALS: BP 127/72
--- NOTE | 2022-03-04 08:18 | Discharge Summary ---
Diagnosis/Chief Complaint Date of Admission Mar 01, 2022 at 12:55 Date of Discharge Reason Hospital Visit Pt is an 89 y/o female who is known to me from clinic. She presented to the ER yesterday after recurrent gastrointestinal bleeding. She reportedly has been to the ER twice in the past 2 days due to recurrent rectal bleeding. Discharge Summary Discharge Physical Examination Allergies: Coded Allergies: NKANo Known Allergies (Verified Allergy, Unknown, 05/19/17) Vitals & I&Os Vital Signs Date Time Temp Pulse Resp B/P (MAP) Pulse Ox O2 Delivery O2 Flow Rate FiO2 03/04/22 07:57 36.6 83 16 127/72 (90) 95 Room Air 03/02/22 10:50 6.00 03/01/22 15:40 21 Hospital Course Pending Labs Laboratory Tests 03/04/22 05:20: Hemoglobin 8.1, Hematocrit 25 Discharge Instructions to patient/family Please see electronic discharge instructions given to patient. Discharge Medications Reviewed and agree with Discharge Medication list on patient's Discharge Instruction sheet Clinical Quality Measures DVT/VTE Risk/Contraindication: Contraindications-Pharm: Other *list below* Contraindications-Mechi: Other *list below* Other: ANTICOAG HELD DUE TO GI BLEED MELVA JIMÉNEZ MD Mar 04, 2022 08:18
[2022-03-04] MEDS ORDERED: RIVA20TA PO (08:22)
--- NOTE | 2022-03-04 08:26 | Discharge Inst-Simple/Standard ---
Discharge Inst-Standard Reconcile Patient Problems Problems Reviewed?: Yes Discharge Medications New, Converted or Re-Newed RX: Transmitted to Pharmacy Patient Instructions/Follow Up Plan of Care/Instructions/FU: 1 [facility] Activity as Tolerated: Yes Discharge Diet: Regular Diet Return to The Hospital For: CHEST PAIN, SHORTNESS OF BREATH, RECURRENT gi BLEEDING - OR OTHER LIFETHREATENING ILLNESS OR INJURY Medication List: Active Scripts Active Xarelto (Rivaroxaban) 20 Mg Tablet 20 Mg PO HS RESTART ON 03/07/22 Reported Tramadol HCl 50 Mg Tablet 50-100 Mg PO Q6H PRN Tylenol Extra Strength (Acetaminophen) 500 Mg Tablet 500-1,000 Mg PO Q8H PRN Metoprolol Tartrate 25 Mg Tablet 25 Mg PO BID Clonazepam 1 Mg Tablet 0.5 Mg PO DAILY TAKES OF A 1MG TAB Multivitamins (Multivitamin) 1 Each Tablet 1 Tab PO DAILY Levothyroxine Sodium 100 Mcg Tablet 50 Mcg PO MON,MON,MON TAKES OF A 100MCG TAB Levothyroxine Sodium 100 Mcg Tablet 100 Mcg PO ,,,FR Atorvastatin Calcium 10 Mg Tablet 5 Mg PO HS TAKES OF A 10MG TAB Lab results: Laboratory Tests Test 03/03/22 08:55 03/04/22 05:20 Range/Units Hemoglobin 8.5 L 8.1 L 11.5-16.0 g/dL Hematocrit 27 L 25 L 35-52 % My orders: Orders - MELVA JIMÉNEZ MD Hemoglobin And Hematocrit (03/03/22 08:33) Acetaminophen Tablet (Tylenol Tablet) (03/03/22 08:45) Clonazepam Tablet (Klonopin Tablet) (03/03/22 09:00) Levothyroxine Tablet (Synthroid Tablet) (03/03/22 09:00) Metoprolol Tartrate (Ir) Tab (Lopressor (03/03/22 09:00) Tramadol Tablet (Ultram Tablet) (03/03/22 08:45) Levothyroxine Tablet (Synthroid Tablet) (03/05/22 06:00) Physical Therapy Order (03/03/22 08:45) Pantoprazole Tablet (Protonix Tablet) (03/03/22 09:00) Sequential Compression Device (03/03/22 08:45) Vte Contraindication (03/03/22 08:45) Diet Advance As Tolerated (03/03/22 09:10) Hemoglobin And Hematocrit (03/04/22 05:00) Ambulate 08,12,20 (03/03/22 09:10) Patient Visit (03/03/22 ) Pt Eval Moderate Complexity (03/03/22 ) Attending Discharge Inpt/Inobs (03/04/22 08:18) MELVA JIMÉNEZ MD Mar 04, 2022 08:25
[2022-03-04] MEDS: PANTOPRAZOLE 40 MG (PROTONIX) TAB PO SCH (08:45)
[2022-03-04] MEDS: clonazePAM 1 MG (KlonoPIN) TAB PO SCH (08:45)
[2022-03-04] MEDS: meTOprolol TARTRATE 25 MG (LOPRESSOR) TABLET PO SCH (08:45)
--- NOTE | 2022-03-04 09:49 | Physical Therapy Daily Note ---
PT Daily Note-Current Subjective Patient in bed pre-tx, reports no pain, agrees to PT. Pain Section J - Health Conditions 1. Rarely or not at all 2. Occasionally 3. Frequently 4. Almost constantly 8. Unable to answer Pain Effect on Sleep: 1 Pain Interference with Therapy: 1 Pain Interference w/Day-to-Day: 1 Appearance Patient sitting at edge of bed post-tx with tray, nurse call, phone, reported she'd like a nurse to help her go to the bathroom, all other needs met. Nurse notified. Mental Status Patient Orientation: Person, Place, Situation Transfers SCALE: Activities may be completed with or without assistive devices. 1-Isknhzmafv-htjiqbj completes the activity by him/herself with no assistance from a helper. 5-Set-up or Clean-up Assistance-helper sets up or cleans up; patient completes activity. [place] assists only prior to or following the activity. 4-Supervision or Touching Assistance-helper provides verbal cues and/or touching/steadying and/or contact guard assistance as patient completes activity. Assistance may be provided throughout the activity or intermittently. 3-Partial/Moderate Assistance-helper does LESS THAN HALF the effort. [place] lifts, holds or supports trunk or limbs, but provides less than half the effort. 2-Substantial/Maximal Assistance-helper does MORE THAN HALF the effort. [place] lifts or holds trunk or limbs and provides more than half the effort. 3-Jgxvkzbwx-dtzbav does ALL the effort. Patient does none of the effort to complete the activity. Or, the assistance of 2 or more helpers is required for the patient to complete the activity. If activity was not attempted, code reason: 7-Patient Refused. 9-Not Applicable-not attempted and the patient did not perform the activity before the current illness, exacerbation or injury. 10-Not Attempted due to Environmental Limitations-(lack of equipment, weather restraints, etc.). 88-Not Attempted due to Medical Conditions or Safety Concerns. Lying to Sitting/Side of Bed(Q: 6 Sit to Stand (QC): 4 SBA for vaf-hf-zawua Weight Bearing Right Lower Extremity: Right Full Weight Bearing Left Lower Extremity: Left Full Weight Bearing Gait Training Does the Patient Walk?: Yes Distance: 100' Walk 10 feet (QC): 4 Walk 50 ft with 2 Turns(QC): 4 Gait Persons Needed: 1 Gait Assistive Device: FWW SBA most of gait except CGA on turns due to unsteadiness. Patient walks with good gait speed, slightly decreased step length, and decreased foot clearance. Exercises Seated Therapy Exercises: Ankle pumps, Long arc quads, Hip flexion, Glut set Seated Reps: 15 Treatments Ambulation, LE strengthening Assessment Current Status: Fair Progress Patient continues to get stronger, and be more independent in gait training, bed mobility, balance and transfers. PT Retirement Goals Retirement Goals PT Hand Buffing Wheel Former Goals Time Frame: Mar 10, 2022 Roll Left & Right (QC): 6 Sit to Lying (QC): 6 Lying-Sitting on Side/Bed(QC): 6 Sit to Stand (QC): 6 Chair/Zdp-lh-Fgiii Xfer(QC): 6 Toilet Transfer (QC): 6 Does the Patient Walk: Yes Walk 10 feet (QC): 6 Walk 50ft with 2 Turns (QC): 6 Walk 150 ft (QC): 6 Walking 10ft on Uneven Surface: 6 1 Step (curb) (QC): 6 4 Steps (QC): 6 Picking up an Object (QC): 6 Does the Pt use WC or Scooter?: No PT Plan Problem List Problem List: Activity Tolerance, Functional Strength, Safety, Balance, Gait, Transfer, Bed Mobility, ROM Treatment/Plan Treatment Plan: Continue Plan of Care Treatment Plan: Bed Mobility, Education, Functional Activity Luci, Functional Strength, Gait, Safety, Therapeutic Exercise, Transfers Treatment Duration: Mar 10, 2022 Frequency: 6 times per week Estimated Hrs Per Day: .25 hour per day Patient and/or Family Agrees t: Yes Safety Risks/Education Patient Education: Gait Training, Transfer Techniques, Correct Positioning, Safety Issues Teaching Recipient: Patient Teaching Methods: Demonstration, Discussion Response to Teaching: Reinforcement Needed Repeat verbal cueing due to impaired hearing on R side. Time Time In: 907 Time Out: 917 Total Billed Treatment Time: 10 Total Billed Treatment 1 visit FA 10min NICK SNIDER PT Mar 04, 2022 09:49
[2022-03-04 12:53] VITALS: BP 127/72
[2022-03-05] MEDS ORDERED: LEVOTHYROXINE 50 MCG (LEVOTHROID) TAB PO SCH (06:00)
== END 2022-03-04 11:50 | disposition home or self-care (01) | DRG 378 ==
LOC: EDUNIT# 11:30 → ER 11:31 → 4TH 12:55
PROVIDERS: ADMIT Family Medicine; ATTEND Family Medicine
PROC: 0W3P8ZZ Control Bleeding in Gastrointestinal Tract, Via Natural or Artificial Opening Endoscopic (ICD-10-PCS; 2022-03-02)
PROC: 0DBN8ZX Excision of Sigmoid Colon, Via Natural or Artificial Opening Endoscopic, Diagnostic (ICD-10-PCS; principal; 2022-03-02 10:02)
DX: K92.1 Melena (principal); D62 Acute posthemorrhagic anemia; I48.20 Chronic atrial fibrillation, unspecified; D12.5 Benign neoplasm of sigmoid colon; I10 Essential (primary) hypertension; Z60.2 Problems related to living alone; E78.00 Pure hypercholesterolemia, unspecified; M19.90 Unspecified osteoarthritis, unspecified site; E03.9 Hypothyroidism, unspecified; Z79.890 Hormone replacement therapy; Z79.899 Other long term (current) drug therapy; Z86.73 Personal history of transient ischemic attack (TIA), and cerebral infarction without residual deficits; Z87.891 Personal history of nicotine dependence; Z90.49 Acquired absence of other specified parts of digestive tract; Z79.01 Long term (current) use of anticoagulants
CPT/HCPCS: 36415; 80048; 80053; 85014; 85018; 85025; 85610; 85730; 86850; 86900; 86901; 86920; 87081

== ENCOUNTER 2022-03-06 10:25 | Emergency (ER) | payer MEDICARE ==
[~2022-03-06 10:25] MED LIST changes: +ACET-2267 PO
--- NOTE | 2022-03-06 10:39 | ED Neurological Problem ---
General Chief Complaint: Neuro-Stroke Like Symptoms Stated Complaint: STROKE LIKE SYMPTOMS Source: EMS Exam Limitations: clinical condition History of Present Illness Date Seen by Provider: Mar 06, 2022 Time Seen by Provider: 10:28 Initial Comments Patient is an 89-year-old brought from home chief complaint strokelike symptoms. Last known well at 6 AM this morning when she was getting up and ambulating to the bathroom. Family found her trying to get up out of bed or chair in her room just before they called the ambulance who just arrived. She was having difficulty moving her left side, gaze deviated to the right. Patient has a history of atrial fibrillation, she has been on Xarelto but was in the emergency department 5 days ago with a GI bleed. Apparently according to the medical record her Xarelto was stopped at this time. Patient is able to mumble somewhat intelligibly that she does not have a headache. She denies chest pain or shortness of breath. Her gaze is deviated to the right. She is attempting to follow commands. She does have gross motor movement of bilateral upper extremities and really good motor movement of bilateral lower extremities. Family is unavailable at this time for further history. Timing/Duration: 4-6 hours Severity: severe Allergies and Home Medications Allergies Coded Allergies: NKANo Known Allergies (Verified Allergy, Unknown, 05/19/17) Patient Home Medication List Home Medication List Reviewed: Yes Acetaminophen (Tylenol Extra Strength) 500 Mg Tablet, 500-1,000 MG PO Q8H PRN for PAIN-MILD (1-4), (Reported) Entered as Reported by: DESTINY RACHEL on 03/01/22 154 Atorvastatin Calcium (Atorvastatin Calcium) 10 Mg Tablet, 5 MG PO HS, (Reported) Entered as Reported by: ROSIE CADE on 05/18/17 0837 Clonazepam (Clonazepam) 1 Mg Tablet, 0.5 MG PO DAILY, (Reported) Entered as Reported by: DESTINY RACHEL on 03/01/22 154 Levothyroxine Sodium (Levothyroxine Sodium) 100 Mcg Tablet, 100 MCG PO MO,,,FR, (Reported) Entered as Reported by: ROSIE CADE on 05/18/17 0839 Levothyroxine Sodium (Levothyroxine Sodium) 100 Mcg Tablet, 50 MCG PO MON,MON,MON, (Reported) Entered as Reported by: ROSIE CADE on 05/18/17 0839 Metoprolol Tartrate (Metoprolol Tartrate) 25 Mg Tablet, 25 MG PO BID, (Reported) Entered as Reported by: DESTINY RACHEL on 03/01/22 1547 Multivitamin (Multivitamins) 1 Each Tablet, 1 TAB PO DAILY, (Reported) Entered as Reported by: SYLVAIN DIXON on 07/31/17 1038 Rivaroxaban (Xarelto) 20 Mg Tablet, 20 MG PO HS Prescribed by: MELVA JIMÉNEZ on 03/04/22 0822 Tramadol HCl (Tramadol HCl) 50 Mg Tablet, 50-100 MG PO Q6H PRN for PAIN-MODERATE (5-7), (Reported) Entered as Reported by: DESTINY RACHEL on 03/01/22 1547 Discontinued Medications Calcium Carbonate (Calcium Carbonate) 500 Mg Tablet, 500 MG PO DAILY, (Reported) Discontinued Reason: Duplicate Order Entered as Reported by: DESTINY RACHEL on 03/12/21 1605 Clonazepam (Clonazepam) 1 Mg Tablet, 0.5 MG PO DAILY Discontinued Reason: Duplicate Order Prescribed by: MELVA JIMÉNEZ on 03/19/21 111 Diltiazem HCl (Diltiazem 24Hr ER) 240 Mg Cap.er.24h, 240 MG PO DAILY Discontinued Reason: Duplicate Order Prescribed by: MELVA JIMÉNEZ on 03/19/21 111 Docusate Sodium (Docusate Sodium) 100 Mg Capsule, 100 MG PO BID Discontinued Reason: Duplicate Order Prescribed by: MELVA JIMÉNEZ on 03/19/21 111 Famotidine (Famotidine) 20 Mg Tablet, 20 MG PO DAILY Discontinued Reason: Duplicate Order Prescribed by: MELVA JIMÉNEZ on 03/19/21 111 Gluc Pagan/Chondro Pagan A/Vit C/Mn (Glucosamine Chondroitin Tab) 1 Each Tablet, 1 EACH PO DAILY, (Reported) Discontinued Reason: Duplicate Order Entered as Reported by: DESTINY RACHEL on 03/12/21 1605 Hydrocodone/Acetaminophen (Hydrocodone-Acetamin 5-325 mg) 1 Each Tablet, 1 TAB PO Q6H PRN for PAIN-MODERATE (5-7) Discontinued Reason: Duplicate Order Prescribed by: MELVA JIMÉNEZ on 03/19/21 111 Metoprolol Tartrate (Metoprolol Tartrate) 25 Mg Tablet, 25 MG PO BID Discontinued Reason: Duplicate Order Prescribed by: MELVA JIMÉNEZ on 03/19/21 1117 Polyethylene Glycol 3350 (Polyethylene Glycol 3350) 17 Gm Powd.pack, 17 GM PO BID Discontinued Reason: Duplicate Order Prescribed by: MELVA JIMÉNEZ on 03/19/21 1117 Review of Systems Review of Systems Constitutional: see HPI Psychiatric/Neurological: Denies Headache Unable to obtain an accurate review of systems secondary to the patient's clinical condition Past Ujvkckn-Drbzge-Dvtwiu Hx Immunizations Up To Date Tetanus Booster (TDap): Unknown PED Vaccines UTD: Yes First/Initial COVID19 Vaccinat: MAY 2020 Second COVID19 Vaccination Geoffrey: JUNE 2020 Third COVID19 Vaccination Date: FEBRUARY 2021 Seasonal Allergies Seasonal Allergies: No Past Medical History Surgeries: Yes (COLON RESECTION, MASTOIDECTOMY,HIP pinning) Appendectomy, Gallbladder, Orthopedic, Thyroidectomy, Tonsillectomy Respiratory: No Currently Using CPAP: Yes Currently Using BIPAP: No Cardiac: Yes High Cholesterol, Hypertension Neurological: No Stroke Reproductive Disorders: Yes (REPORTS APPROX 1 MO HX INTERMITTENT BLOODY DISCHARGE R NIPPLE-NONE ON ADMIT) Female Reproductive Disorders: Menstrual Problems Sexually Transmitted Disease: No HIV/AIDS: No Gastrointestinal: Yes (reports 12 inches of colon removed in past) Polyps Musculoskeletal: Yes (fx-rhip, right ankle) Arthritis, Fractures Endocrine: Yes (HYPOTHYROIDISM) Hypothyroidsim Cataract Loss of Vision: Denies Hearing Impairment: Deaf Cancer: No Psychosocial: No Integumentary: No Blood Disorders: No Family Medical History BRAIN Cardiovascular disease 19 FATHER G8 BROTHER Colon cancer 19 MOTHER FH: brain tumor Cancer, Hypertension Physical Exam Vital Signs Vital Signs - First Documented 03/06/22 10:28 Temp 36.5 Pulse 87 Resp 18 B/P (MAP) 148/115 (126) Pulse Ox 100 O2 Delivery Nasal Cannula O2 Flow Rate 3.00 Capillary Refill : Height, Weight, BMI Height: 5'4.00" Weight: 175lbs. 0.0oz. [id number]; 28.28 BMI Method:Stated General Appearance: WD/WN, no apparent distress HEENT: other (forced gaze deviation to the right) Neck: normal inspection Respiratory: lungs clear, normal breath sounds, no respiratory distress, no accessory muscle use Cardiovascular: irregularly irregular Gastrointestinal: normal bowel sounds, non tender, soft Extremities: normal range of motion, normal inspection, no pedal edema Neurologic/Psychiatric: alert, aphasia, motor weakness (initially patient would not (or could not) elevate left arm - minutes later however, was raising left arm spontaneously), depressed affect Crainal Nerves: abnormal eye position, abnormal speech, facial asymmetry, tongue deviation to L Skin: warm/dry, pallor Stroke Onset of Symptoms Date of Onset of Symptoms: Mar 06, 2022 Onset of Symptoms: No Symptoms onset unknown: Yes NIH Stroke Scale Assessment Select: Initial Level of Consciousness: 0=Alert (0), Level of Consciousness- Questions: 0=Answers both month/age (0), LOC Commands: 0=Performs both tasks (0), Gaze: Forced Deviation (2), Facial Movement (Facial Paresis): 1=Minor paralysis (1), Motor Function-Arms Right: 0=No drift (0), Motor Function-Arms Left: 1=Drift (1), Motor Function-Legs Right: 0=No drift (0), Motor Function- Legs Left: 1=Drift (1), Best Language: 0=No aphasia (0), Dysarthria: 2=Severe dysarthria (2), Extinction & Inattention: 0=No abnormality (0), Total: 7 Stroke Thrombolytic Exclusion Age 18 or Over: Yes Acute intenal hemorrhage: No History of CVA: No Uncontrolled Coagulation Defec: No Intracranial Hemorrhage: No Severe Hypertension: No GI or Bleed: Yes Subarachnoid Hemorrhage: No Intracranial Neoplasm/Aneurysm: No Oral Anticoagulants: No Surgery or Trauma: No Puncture of Non-Compressible V: No Recent CPR: No Diabetic Hemorrhagic Retinopat: No Organ Biopsy: No Recent Obstetric Delivery: No Glucose: No Significant Hepatic Dysfunctio: No NIH Stoke Scale >22: No Bacterial Endocarditis: No Pericarditis: No Improving Symptoms: No Platelets: Yes TPA Contraindication: Yes IV - TPa Received IV - TPa Procedure Performed?: No Procedures/Interventions Patient Education: Explained Benefits, Explained Risks, Pt. Ack. Understanding Breath Sounds per Auscultation: Clear Heart Sounds per Auscultation: Regular Airway Exam: Mouth opens >2 fingers, Neck Full Range of Motion, Visulation of Uvula Re-examination Time: 2043 Progress/Results/Core Measures Results/Orders Lab Results Laboratory Tests Test 03/06/22 10:31 03/06/22 10:33 03/06/22 12:00 Range/Units Glucometer 127 H 70-110 MG/DL White Blood Count 6.1 4.3-11.0 10^3/uL Red Blood Count 3.20 L 3.80-5.11 10^6/uL Hemoglobin 8.5 L 11.5-16.0 g/dL Hematocrit 28 L 35-52 % Mean Corpuscular Volume 86 80-99 fL Mean Corpuscular Hemoglobin 27 25-34 pg Mean Corpuscular Hemoglobin Concent 31 L 32-36 g/dL Red Cell Distribution Width 14.9 H 10.0-14.5 % Platelet Count 280 130-400 10^3/uL Mean Platelet Volume 10.4 9.0-12.2 fL Immature Granulocyte % (Auto) 1 % Neutrophils (%) (Auto) 68 42-75 % Lymphocytes (%) (Auto) 20 12-44 % Monocytes (%) (Auto) 8 0-12 % Eosinophils (%) (Auto) 3 0-10 % Basophils (%) (Auto) 1 0-10 % Neutrophils # (Auto) 4.1 1.8-7.8 10^3/uL Lymphocytes # (Auto) 1.2 1.0-4.0 10^3/uL Monocytes # (Auto) 0.5 0.0-1.0 10^3/uL Eosinophils # (Auto) 0.2 0.0-0.3 10^3/uL Basophils # (Auto) 0.0 0.0-0.1 10^3/uL Immature Granulocyte # (Auto) 0.0 0.0-0.1 10^3/uL Prothrombin Time 15.3 H 12.2-14.7 SEC INR Comment 1.2 0.8-1.4 Activated Partial Thromboplast Time 29 24-35 SEC D-Dimer 2.87 H 0.00-0.49 UG/ML Sodium Level 137 135-145 MMOL/L Potassium Level 3.9 3.6-5.0 MMOL/L Chloride Level 105 98-107 MMOL/L Carbon Dioxide Level 21 21-32 MMOL/L Anion Gap 11 5-14 MMOL/L Blood Urea Nitrogen 21 H 7-18 MG/DL Creatinine 1.03 0.60-1.30 MG/DL Estimat Glomerular Filtration Rate 52 BUN/Creatinine Ratio 20 Glucose Level 120 H 70-105 MG/DL Calcium Level 8.9 8.5-10.1 MG/DL Corrected Calcium 9.2 8.5-10.1 MG/DL Total Bilirubin 0.4 0.1-1.0 MG/DL Aspartate Amino Transf (AST/SGOT) 22 5-34 U/L Alanine Aminotransferase (ALT/SGPT) 13 0-55 U/L Alkaline Phosphatase 60 40-136 U/L Troponin I < 0.028 <0.028 NG/ML Total Protein 6.4 6.4-8.2 GM/DL Albumin 3.6 3.2-4.5 GM/DL Urine Color YELLOW Urine Clarity CLEAR Urine pH 7.0 5-9 Urine Specific [place] 1.010 L 1.016-1.022 Urine Protein NEGATIVE NEGATIVE Urine Glucose (UA) NEGATIVE NEGATIVE Urine Ketones TRACE H NEGATIVE Urine Nitrite NEGATIVE NEGATIVE Urine Bilirubin NEGATIVE NEGATIVE Urine Urobilinogen 0.2 < = 1.0 MG/DL Urine Leukocyte Esterase NEGATIVE NEGATIVE Urine RBC (Auto) NEGATIVE NEGATIVE Urine RBC NONE /HPF Urine WBC NONE /HPF Urine Squamous Epithelial Cells 0-2 /HPF Urine Crystals NONE /LPF Urine Bacteria NEGATIVE /HPF Urine Casts NONE /LPF Urine Mucus NEGATIVE /LPF Urine Culture Indicated NO My Orders Orders - ALYCE CHU MD Cbc With Automated Diff (03/06/22 10:33) Protime With Inr (03/06/22 10:33) Partial Thromboplastin Time (03/06/22 10:33) Comprehensive Metabolic Panel (03/06/22 10:33) Fibrin Degradation Products (03/06/22 10:33) Troponin I [place] (03/06/22 10:33) Ua Culture If Indicated (03/06/22 10:33) Chest 1 View, Ap/Pa Only (03/06/22 10:33) Catheter(Urinary) Insert & Ass 03,15 (03/06/22 10:33) Ekg Tracing (03/06/22 10:33) Accucheck Stat ONCE (03/06/22 10:33) Ed Iv/Invasive Line Start (03/06/22 10:33) Ed Iv/Invasive Line Start (03/06/22 10:33) Vital Signs Stroke Patient Q15M (03/06/22 10:33) Ct Head Wo-R/O Stroke (03/06/22 10:33) O2 (03/06/22 10:33) Intake & Output 06,14,22 (03/06/22 10:33) Monitor-Rhythm Ecg Trace Only (03/06/22 10:33) Dysphagia Screening Tool Q10MX1 (03/06/22 10:33) Post Thrombolytic Adminstratio (03/06/22 10:33) Lidocaine 2% (Urojet) (Xylocaine Urojet) (03/06/22 10:45) Ct Angio Head/Neck (03/06/22 11:03) Ns Iv 1000 Ml (Sodium Chloride 0.9%) (03/06/22 11:15) Iohexol Injection (Omnipaque 350 Mg/Ml 1 (03/06/22 11:15) Received Contrast (Hold Metformin- Contr (03/06/22 11:15) Sodium Chloride Flush (Catheter Flush Sy (03/06/22 11:15) Ns (Ivpb) (Sodium Chloride 0.9% Ivpb Bag (03/06/22 11:15) Ondansetron Injection (Zofran Injectio (03/06/22 13:45) Medications Given in ED Current Medications Medications Dose Ordered Sig/Marcus Route Start Time Stop Time Status Last Admin Dose Admin Iohexol 75 ml ONCE ONCE IV 03/06/22 11:15 03/06/22 11:16 DC 03/06/22 11:33 75 ML Lidocaine HCl 10 ml ONCE ONCE TOP 03/06/22 10:45 03/06/22 10:46 DC 03/06/22 11:45 10 ML Ondansetron HCl 8 mg ONCE ONCE IVP 03/06/22 13:45 03/06/22 13:46 DC 03/06/22 13:38 8 MG Sodium Chloride 10 ml NEEDED PRN IV 03/06/22 11:15 03/06/22 13:55 DC 03/06/22 11:34 10 ML Sodium Chloride 100 ml ONCE ONCE IV 03/06/22 11:15 03/06/22 11:16 DC 03/06/22 11:33 80 ML Vital Signs/I&O 03/06/22 03/06/22 03/06/22 03/06/22 10:28 10:28 11:04 13:53 Temp 36.5 36.5 Pulse 87 82 82 Resp 18 18 18 B/P (MAP) 148/115 (126) 103/79 (87) 103/79 Pulse Ox 100 98 98 O2 Delivery Nasal Cannula Nasal Cannula Room Air Room Air O2 Flow Rate 3.00 3.00 3.00 3.00 Progress Progress Note #1: Time: 12:15 Progress Note Patient reassessed, vital signs stable, remains in A. fib. She has persistent gaze deviation rightward. Speech is dysarthric. She does have left-sided facial droop. She does have still persistent weakness in the left upper extremity. Discussed with friend at the bedside. She has not had any bleeding from the rectum since her discharge to home a couple of days ago. She has been well. She is fairly functional on her own, lives alone. Her son lives in [place], Eliot Gomez [phone]. I discussed my discussion with the stroke neurologist at Dr Turner with Eliot. He is eager to have his mother transferred to for further evaluation by the stroke neurologist. I did let him know that the neurologist was not 100% that they would be able to do an intervention to improve her symptoms. She is not a candidate for tPA secondary to unknown time of onset of symptoms. NIH somewhere around 7-8, unable to assess visual de leon or really sensory exam. I believe the nursing NIH is 11. Patient is currently resting comfortably. She is on 2 to 3 L at 97%. I talked with her caregiver at the bedside who states that she wears CPAP at night but does not normally wear oxygen during the day. She is quite sonorous in her breathing now that she is sleeping. Her heart rate is anywhere between 90 and 110 A. fib. Blood pressure is good. Waiting on to assign a ghost bed so that we can pursue transportation options. Progress Note #2: Time: 12:48 Progress Note Cleared by with ghost bed - will arrange transportation at this time. Initial ECG Impression Date: Mar 06, 2022 Initial ECG Impression Time: 10:46 Initial ECG Rate: 86 Initial ECG Rhythm: A Fib/Flutter Comment Diffuse T wave inversion and nonspecific ST-T wave changes, no ST segment elevation or depression. Right bundle branch block Diagnostic Imaging Diagonstic Imaging: CT Comments [facility]. [place], [place] NAME: FLO GOMEZ [facility] REC#: [id number] PT STATUS: REG ER : 1930 PHYSICIAN: ALYCE CHU MD ADMIT DATE: 03/06/22/ER Draft Date of Exam:03/06/22 CT ANGIO HEAD/NECK PROCEDURE: CT angiography of the head and CT angiography of the neck with and without contrast. TECHNIQUE: Contiguous noncontrast images were obtained from the skull base through the vertex. After intravenous contrast administration, helical CT angiography of the neck was performed. Source data was reformatted into 3D MIP projections. Delayed post contrast acquisition was also obtained. Auto Exposure Controls were utilized during the CT exam to meet ALARA standards for radiation dose reduction. INDICATION: Stroke symptoms, left-sided weakness, slurred speech COMPARISON: CT from the same date. FINDINGS: Moderate atrophy. No midline shift, herniation, obstructive hydrocephalus, or concerning extra-axial fluid collection. 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 Dilated perivascular space versus chronic lacunar infarction within the left subinsular region. 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 No enhancing intracranial mass lesion. 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 Otherwise, the orbits are unremarkable. Torus palatini. Moderate mucosal thickening within the inferior left maxillary sinus. The paranasal sinuses are otherwise clear. The calvarium is intact. The parapharyngeal fat is symmetric and well-maintained. Muscles of mastication are unremarkable. The salivary glands are unremarkable. No significant adenopathy within the neck. The thyroid gland is small in size and atrophic. No apical pneumothorax. No focal fluid collection within the neck. A three-vessel aortic arch is present. Mild stenosis measuring approximately 50% is noted involving the proximal right subclavian artery. The bilateral common carotid arteries are noted to be tortuous, particularly the right which extends into the retropharyngeal region. Scattered vascular calcifications are present, particularly within the carotid bulbs. High-grade, approximately 80-90% stenosis is noted involving the proximal right internal carotid artery based upon NASCET criteria. High-grade stenosis involving the proximal right M2 segment. Mild stenosis, approximately 50-60% of the proximal left internal carotid artery is noted. Stenosis within the intracranial portion of the right vertebral artery with the right vertebral artery appearing diminutive distal to this location. The large arterial structures within the head and neck are otherwise unremarkable. Large dural venous sinuses are patent. 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 High-grade stenosis involving the proximal right M2 segment. 50-60% stenosis involving the proximal left internal carotid artery. 50% stenosis involving the proximal right subclavian artery. Moderate atrophy with associated significant background chronic ischemic changes, as above. Dictated on workstation # [id number] Dict: 03/06/22 1136 Trans: 03/06/22 1152 [id number] Interpreted by: LISSET ZURITA MD Electronically signed by: Diagonstic Imaging: CT Comments [facility] [place] NAME: FLO GOMEZ [facility] REC#: [id number] PT STATUS: REG ER : 1930 PHYSICIAN: ALYCE CHU MD ADMIT DATE: 03/06/22/ER Draft Date of Exam:03/06/22 CT HEAD WO-R/O STROKE PROCEDURE: CT head wo r/o stroke. TECHNIQUE: Multiple contiguous axial images were obtained through the brain without the use of intravenous contrast. Auto Exposure Controls were utilized during the CT exam to meet ALARA standards for radiation dose reduction. INDICATION: Left hemiparesis and neuro deficits. Correlation is made with prior head CT from 03/15/2021. Ventricular size and sulcal pattern are stable. Moderate periventricular low-attenuation is noted consistent with chronic microvascular ischemia. The lacunar infarct versus prominent perivascular space in the left basal ganglia is stable. No acute intra-axial or extra-axial hemorrhage is detected. Cisterns are patent. Visualized paranasal sinuses are clear. IMPRESSION: Stable noncontrast head CT when compared with exam from 03/15/2021. No acute intracranial process is detected. Dictated on workstation # [id number] Dict: 03/06/22 1044 Trans: 03/06/22 1052 [id number] Interpreted by: EKTA LOPEZ MD Electronically signed by: Diagonstic Imaging: Xray Plain Films/CT/US/NM/MRI: chest Comments [facility]. [place], [place] NAME: FLO GOMEZ [facility] REC#: [id number] PT STATUS: REG ER : 1930 PHYSICIAN: ALYCE CHU MD ADMIT DATE: 03/06/22/ER Draft Date of Exam:03/06/22 CHEST 1 VIEW, AP/PA ONLY INDICATION: Neuro deficits. Time of Exam: 10:46 AM Correlation is made with prior chest from 03/13/2021. The heart is enlarged. Lungs are clear. No infiltrates are seen. There is no effusion or pneumothorax. IMPRESSION: Cardiomegaly. No acute cardiopulmonary process is detected. Dictated on workstation # [id number] Dict: 03/06/22 1054 Trans: 03/06/22 1118 [id number] Interpreted by: EKTA LOPEZ MD Electronically signed by: Critical Care Note Critical Care Start Time: 10:28 Stop Time: 13:45 Total Time (minutes) 1 hr critical care time in the eval and management of this 89yo presenting with acute CVA. Time includes initial eval and management with NIH assessment, serial re-evaluations, review and interpretation of labs, imaging; discussion with stroke neurology at Departure Impression Primary Impression: Acute cerebrovascular accident Disposition: XFER SHT-TRM HOSP Condition: Critical Transfer Transfer Reason: Exceeds level of care Time Spoke to Accepting Phy: 12:20 Transfer Progress Notes SPoke with Neurologist, Dr Turner Transfer Time: 13:50 Transfer Facility: [facility] Method of Transfer: EMS Departure-Patient Inst. Referrals: MELVA JIMÉNEZ MD (PCP/Family) Primary Care Physician Copy Copies To 1: MELVA JIMÉNEZ MD, KATHRYN M MD Mar 06, 2022 10:39
[2022-03-06 10:41] LABS: BASOPHILS % (AUTO) 1 % (0-10); EOSINOPHILS # (AUTO) 0.2 10^3/uL (0.0-0.3); EOSINOPHILS % (AUTO) 3 % (0-10); HEMATOCRIT 28 % (35-52); HEMOGLOBIN 8.5 g/dL (11.5-16.0); LYMPHOCYTES # (AUTO) 1.2 10^3/uL (1.0-4.0); LYMPHOCYTES % (AUTO) 20 % (12-44); MEAN CORPUSCULAR HEMOGLOBIN 27 pg (25-34); MEAN CORPUSCULAR HGB CONC 31 g/dL (32-36); MEAN CORPUSCULAR VOLUME 86 fL (80-99); MEAN PLATELET VOLUME 10.4 fL (9.0-12.2); MONOCYTES # (AUTO) 0.5 10^3/uL (0.0-1.0); MONOCYTES % (AUTO) 8 % (0-12); NEUTROPHILS # (AUTO) 4.1 10^3/uL (1.8-7.8); NEUTROPHILS % (AUTO) 68 % (42-75); PLATELET COUNT 280 10^3/uL (130-400); WHITE BLOOD COUNT 6.1 10^3/uL (4.3-11.0)
[2022-03-06] MEDS ORDERED: LIDOCAINE UROJET 2% GEL 10 ML PKG TOP ONE (10:45)
[2022-03-06 10:50] LABS: ALBUMIN 3.6 GM/DL (3.2-4.5)
[2022-03-06 10:51] LABS: CHLORIDE 105 MMOL/L (98-107); POTASSIUM 3.9 MMOL/L (3.6-5.0); SODIUM 137 MMOL/L (135-145)
[2022-03-06 10:52] LABS: CALCIUM 8.9 MG/DL (8.5-10.1)
[2022-03-06 10:53] LABS: GLUCOSE 120 MG/DL (70-105); TOTAL PROTEIN 6.4 GM/DL (6.4-8.2)
[2022-03-06 10:54] LABS: CARBON DIOXIDE 21 MMOL/L (21-32); FIBRIN DEGRADATION PRODUCTS 2.87 UG/ML (0.00-0.49); INR 1.2 (0.8-1.4); PROTHROMBIN TIME PATIENT 15.3 SEC (12.2-14.7)
--- NOTE | 2022-03-06 10:54 | Diagnostic Imaging Report ---
PROCEDURE: CT head wo r/o stroke. TECHNIQUE: Multiple contiguous axial images were obtained through the brain without the use of intravenous contrast. Auto Exposure Controls were utilized during the CT exam to meet ALARA standards for radiation dose reduction. INDICATION: Left hemiparesis and neuro deficits. Correlation is made with prior head CT from 03/15/2021. Ventricular size and sulcal pattern are stable. Moderate periventricular low-attenuation is noted consistent with chronic microvascular ischemia. The lacunar infarct versus prominent perivascular space in the left basal ganglia is stable. No acute intra-axial or extra-axial hemorrhage is detected. Cisterns are patent. Visualized paranasal sinuses are clear. IMPRESSION: Stable noncontrast head CT when compared with exam from 03/15/2021. No acute intracranial process is detected. Dictated by: Dictated on workstation # [id number]
[2022-03-06 10:55] LABS: BILIRUBIN,TOTAL 0.4 MG/DL (0.1-1.0)
[2022-03-06 10:56] LABS: ALKALINE PHOSPHATASE 60 U/L (40-136)
[2022-03-06 10:57] LABS: CREATININE SERUM 1.03 MG/DL (0.60-1.30); GFR ESTIMATED 52
[2022-03-06 10:58] LABS: BUN/CREATININE RATIO 20
[2022-03-06 11:00] LABS: ALANINE AMINOTRANSFERASE 13 U/L (0-55)
[2022-03-06] MEDS ORDERED: NS 100 ML (IVPB) BAG IV ONE (11:15)
[2022-03-06] MEDS ORDERED: HOLD METFORMIN - RECEIVED CONTRAST 20 ML VIAL IV SCH (11:15)
[2022-03-06] MEDS ORDERED: IOHEXOL 350 MG/ML 100 ML (OMNIPAQUE 350) VIAL IV ONE (11:15)
[2022-03-06] MEDS ORDERED: NS IV 1000 ML 1,000 ML IV SCH (11:15)
[2022-03-06] MEDS ORDERED: CATHETER FLUSH 10 ML SYR IV PRN (11:15)
--- NOTE | 2022-03-06 11:19 | Diagnostic Imaging Report ---
INDICATION: Neuro deficits. Time of Exam: 10:46 AM Correlation is made with prior chest from 03/13/2021. The heart is enlarged. Lungs are clear. No infiltrates are seen. There is no effusion or pneumothorax. IMPRESSION: Cardiomegaly. No acute cardiopulmonary process is detected. Dictated by: Dictated on workstation # [id number]
--- NOTE | 2022-03-06 11:53 | Diagnostic Imaging Report ---
PROCEDURE: CT angiography of the head and CT angiography of the neck with and without contrast. TECHNIQUE: Contiguous noncontrast images were obtained from the skull base through the vertex. After intravenous contrast administration, helical CT angiography of the neck was performed. Source data was reformatted into 3D MIP projections. Delayed post contrast acquisition was also obtained. Auto Exposure Controls were utilized during the CT exam to meet ALARA standards for radiation dose reduction. INDICATION: Stroke symptoms, left-sided weakness, slurred speech COMPARISON: CT from the same date. FINDINGS: Moderate atrophy. No midline shift, herniation, obstructive hydrocephalus, or concerning extra-axial fluid collection. 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 Dilated perivascular space versus chronic lacunar infarction within the left subinsular region. 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 No enhancing intracranial mass lesion. 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 Otherwise, the orbits are unremarkable. Torus palatini. Moderate mucosal thickening within the inferior left maxillary sinus. The paranasal sinuses are otherwise clear. The calvarium is intact. The parapharyngeal fat is symmetric and well-maintained. Muscles of mastication are unremarkable. The salivary glands are unremarkable. No significant adenopathy within the neck. The thyroid gland is small in size and atrophic. No apical pneumothorax. No focal fluid collection within the neck. A three-vessel aortic arch is present. Mild stenosis measuring approximately 50% is noted involving the proximal right subclavian artery. The bilateral common carotid arteries are noted to be tortuous, particularly the right which extends into the retropharyngeal region. Scattered vascular calcifications are present, particularly within the carotid bulbs. High-grade, approximately 80-90% stenosis is noted involving the proximal right internal carotid artery based upon NASCET criteria. High-grade stenosis involving the proximal right M2 segment. Mild stenosis, approximately 50-60% of the proximal left internal carotid artery is noted. Stenosis within the intracranial portion of the right vertebral artery with the right vertebral artery appearing diminutive distal to this location. The large arterial structures within the head and neck are otherwise unremarkable. Large dural venous sinuses are patent. 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 High-grade stenosis involving the proximal right M2 segment. 50-60% stenosis involving the proximal left internal carotid artery. 50% stenosis involving the proximal right subclavian artery. Moderate atrophy with associated significant background chronic ischemic changes, as above. Dictated by: Dictated on workstation # [id number]
[2022-03-06 12:09] LABS: BILIRUBIN,URINE NEGATIVE (NEGATIVE); CLARITY,URINE CLEAR; COLOR,URINE YELLOW; GLUCOSE, URINE (UA) NEGATIVE (NEGATIVE); KETONES,URINE TRACE (NEGATIVE); LEUKOCYTE ESTERASE ,URINE NEGATIVE (NEGATIVE); NITRITE,URINE NEGATIVE (NEGATIVE); PROTEIN,URINE NEGATIVE (NEGATIVE)
[2022-03-06 12:19] LABS: BACTERIA,URINE NEGATIVE /HPF; SQUAMOUS EPITHELIAL CELL,UR 0-2 /HPF
[2022-03-06] MEDS ORDERED: ONDANSETRON 4 MG/2 ML (SDV) Z0FRAN IVP ONE (13:45)
[2022-03-06 13:53] VITALS: BP 103/79
== END 2022-03-06 13:55 ==
LOC: EDUNIT# 10:25 → ER 10:26
DX: I63.9 Cerebral infarction, unspecified (principal); I48.91 Unspecified atrial fibrillation; Z91.14 Patient's other noncompliance with medication regimen
CPT/HCPCS: 36415; 51702; 70450; 70496; 70498; 71045; 80053; 81000; 82947; 84484; 85025; 85379; 85610; 85730; 93005; 93041